=== PATIENT | male | born 1950 ===

== ENCOUNTER 2017-01-08 22:08 | Inpatient (IN) | payer MEDICAID, OTHER ==
[2017-01-08 22:08] VITALS: BMI 28.1
--- NOTE | 2017-01-08 22:24 | ED PDOC ---
Arrival/HPI - General Chief Complaint: Lower Extremity Problem/Injury Time Seen by Provider: 01/08/17 22:14 Historian: Patient - History of Present Illness Narrative History of Present Illness (Text): 01/08/17 22:24 Andrew Ball is a 66 year old male, whose past medical history includes asthma , who presents to the Emergency department complaining of worsening right lower leg redness for the past 2 days. Patient reports associated swelling and discharge from the area. Patient denies any fever, chills, chest pain, shortness of breath, nausea, vomiting, back pain, neck pain, headache, dizziness , or any other complaints. Time/Duration: < week (2 days) Symptom Onset: Gradual Symptom Course: Unchanged Activities at Onset: Rest, Light Context: Home Past Medical History - Provider Review Nursing Documentation Reviewed: Yes - Infectious Disease Hx of Infectious Diseases: None - Tetanus Immunization Tetanus Immunization: Unknown - Cardiac Hx Cardiac Disorders: Yes - Pulmonary Hx Asthma: Yes ("OCCASSIONALLY" BUT NO INHALERS/MEDS) - Neurological Hx Alzheimer's Disease: No Hx Dementia: No Hx Migraine: No Hx Parkinson's Disease: No Hx Seizures: No Hx Transient Ischemic Attacks (TIA): No - HEENT Hx HEENT Disorder: Yes (BILAT." EYE IRRITATION FOR A WHILE") Hx Cataracts: Yes (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) Hx Glaucoma: Yes (LEFT EYE WITH SURGERY DONE) - Renal Hx Renal Disorder: No - Endocrine/Metabolic Hx Endocrine Disorders: No - Hematological/Oncological Hx Anemia: No - Integumentary Other/Comment: "sometimes I get an allergy from soap detergent." - Musculoskeletal/Rheumatological Hx Falls: Yes - Gastrointestinal Other/Comment: Ventral hernia for 2 months - Genitourinary/Gynecological Hx Genitourinary Disorders: Yes (INCARCERATED VENTRAL HERNIA) - Psychiatric Hx Anxiety: Yes Hx Substance Use: No - Surgical History Other/Comment: Eye surgery - Anesthesia Hx Anesthesia: Yes Hx Anesthesia Reactions: No Hx Malignant Hyperthermia: No - Suicidal Assessment Feels Threatened In Home Enviroment: No Family/Social History - Physician Review Nursing Documentation Reviewed: Yes Family/Social History: Unknown Family HX Smoking Status: Never Smoked Hx Alcohol Use: No Hx Substance Use: No Allergies/Home Meds Allergies/Adverse Reactions: Allergies No Known Allergies Allergy (Verified 01/08/17 22:14) Home Medications: Home Meds Medication Instructions Recorded Confirmed QUEtiapine [Seroquel XR] 150 mg PO DAILY 10/14/13 01/08/17 Review of Systems - Physician Review All systems were reviewed & negative as marked: Yes - Review of Systems Constitutional: Normal. absent: Fevers Eyes: Normal ENT: Normal Respiratory: Normal. absent: SOB, Cough Cardiovascular: Normal. absent: Chest Pain Gastrointestinal: Normal. absent: Abdominal Pain, Diarrhea, Nausea, Vomiting Genitourinary Male: Normal Musculoskeletal: Normal. absent: Back Pain, Neck Pain Skin: Cellulitis (+bilateral lower extremity erythema) Neurological: Normal. absent: Headache, Dizziness Endocrine: Normal Hemo/Lymphatic: Normal Psychiatric: Normal Physical Exam Vital Signs Reviewed: Yes Vital Signs Temp Pulse Resp BP Pulse Ox 01/09/17 01:51 88 16 99 01/09/17 01:11 98.1 F 82 18 107/68 98 01/08/17 22:21 98.9 F 88 16 119/78 94 L 01/08/17 22:15 98.9 F 88 16 119/78 94 L Temperature: Afebrile Blood Pressure: Normal Pulse: Regular Respiratory Rate: Normal Appearance: Positive for: Well-Appearing, Non-Toxic, Comfortable Pain Distress: None Mental Status: Positive for: Alert and Oriented X 3 - Systems Exam Head: Present: Atraumatic, Normocephalic Pupils: Present: PERRL Extroacular Muscles: Present: EOMI Conjunctiva: Present: Normal Mouth: Present: Moist Mucous Membranes Neck: Present: Normal Range of Motion Respiratory/Chest: Present: Clear to Auscultation, Good Air Exchange. No: Respiratory Distress, Accessory Muscle Use Cardiovascular: Present: Regular Rate and Rhythm, Normal S1, S2. No: Murmurs Abdomen: Present: Normal Bowel Sounds. No: Tenderness, Distention, Peritoneal Signs Back: Present: Normal Inspection Upper Extremity: Present: Normal Inspection. No: Cyanosis, Edema Lower Extremity: Present: Erythema (Right lower extremity erythema with swelling ). No: Edema Neurological: Present: GCS=15, CN II-XII Intact, Speech Normal Skin: Present: Warm, Dry, Normal Color. No: Rashes Psychiatric: Present: Alert, Oriented x 3, Normal Insight, Normal Concentration Medical Decision Making ED Course and Treatment: 01/08/17 22:24 Impression: 66 year old male complaining of right lower extremity erythema, swelling, and discharge for 2 days. Differential Diagnosis included but are not limited to: cellulitis vs. DVT Plan: -- US Duplex Lower Extremities -- EKG -- Labs, VBG, blood cultures -- Vanco -- Zosyn -- Reassess and disposition Progress Notes: Reviewed EKG, NSR at [address]BBB. Non-specific ST/T wave changes. 01/08/17 23:52 Case discussed with medical case worker integrated logistics operations manager, who is aware and agrees with plan. 01/08/17 23:55 Reviewed sono, US Duplex Lower Extremities are negative for DVT. Case discussed with Dr. Smallwood, who is aware and agrees with plan. Pt will be admitted to [facility] for right leg cellulitis under the hospitalist service. Pt in no acute distress. Discussed results and hospital observation plan with pt , who is aware and verbalizes understanding. - Lab Interpretations Microbiology Results: Microbiology Results 01/08/17 23:12 Blood-Venous Blood Culture - Preliminary NO GROWTH AFTER 24 HOURS 01/08/17 22:42 Blood-Venous Blood Culture - Preliminary NO GROWTH AFTER 24 HOURS Lab Results: 01/08/17 23:12 01/08/17 23:12 Lab Results 01/08/17 23:12: pO2 30, VBG pH 7.34, VBG pCO2 54.0, VBG HCO3 29.1 H, VBG Total CO2 30.8 H, VBG O2 Sat (Calc) 54.3, VBG Base Excess 2.1 H, VBG Potassium 4.7, Sodium 135.0, Chloride 100.0, Glucose 105, Lactate 1.3, FiO2 21.0, Venous Blood Potassium 4.7 01/08/17 23:12: Sodium 138, Chloride 98, Potassium 3.7, Carbon Dioxide 27, Anion Gap 17, BUN 32 H, Creatinine 1.1, Est GFR ( Amer) > 60, Est GFR ( Non-Af Amer) > 60, Random Glucose 104, Calcium 9.5, Total Bilirubin 1.7 H, AST 78 H, ALT 67 H, Alkaline Phosphatase 66, Total Protein 8.2, Albumin 4.3, Globulin 3.9, Albumin/Globulin Ratio 1.1 01/08/17 23:12: WBC 9.9, RBC 4.52, Hgb 13.4 L, Hct 39.8 L, MCV 88.1, MCH 29.6, MCHC 33.7, RDW 13.0, Plt Count 162, MPV 10.7, Gran % 81.4 H, Lymph % (Auto) 8.8 L, [place] % (Auto) 9.0 H, Eos % (Auto) 0.7 L, Baso % (Auto) 0.1, Gran # 8.03 H, Lymph # 0.9 L, [place] # 0.9 H, Eos # 0.1, Baso # 0.01 I have reviewed the lab results: Yes - RAD Interpretation Radiology Orders: 01/08/17 22:52 DUPLEX LOWER EXTRM VEIN RIGHT [US] Stat - EKG Interpretation Interpreted by ED Physician: Yes Type: 12 lead EKG - Medication Orders Current Medication Orders: Albuterol/Ipratropium (Duoneb 3 Mg/0.5 Mg (3 Ml) Ud) 3 ml IH Q2H PRN PRN Reason: Shortness of Breath Albuterol/Ipratropium (Duoneb 3 Mg/0.5 Mg (3 Ml) Ud) 3 ml IH TIDRESP [facility] Last Admin: 01/09/17 20:23 Dose: 3 ml Famotidine (Pepcid) 20 mg PO 1400 [facility] Stop: 01/13/17 14:01 Last Admin: 01/09/17 14:13 Dose: 20 mg Guaifenesin (Robitussin) 200 mg PO Q4H PRN PRN Reason: Cough and congestion Heparin Sodium (Porcine) (Heparin) 5,000 units SC Q12 JOHN PRN Reason: Protocol Last Admin: 01/09/17 21:43 Dose: 5,000 units Ceftriaxone Sodium (Rocephin 1 Gram Ivpb) 1 gm in 100 mls @ 100 mls/hr IVPB DAILY JOHN PRN Reason: Protocol Last Admin: 01/09/17 09:47 Dose: 100 mls/hr Linezolid (Zyvox 600mg/300ml D5w) 600 mg in 300 mls @ 200 mls/hr IVPB Q12 JOHN PRN Reason: Protocol Stop: 01/16/17 10:01 Last Admin: 01/09/17 21:44 Dose: 200 mls/hr Ibuprofen (Motrin Tab) 600 mg PO Q6H PRN PRN Reason: Pain, severe (8-10) Quetiapine Fumarate (Seroquel Xr) 150 mg PO DAILY JOHN PRN Reason: Protocol Last Admin: 01/09/17 09:50 Dose: 150 mg Re-Assess: Reassess Psych Meds Document 01/09/17 10:50 EP (Rec: 01/09/17 11:27 [place] [facility] [id number] Reassess Psych Med Effective Discontinued Medications Famotidine (Pepcid) 20 mg PO STAT STA Stop: 01/09/17 01:15 Last Admin: 01/09/17 01:45 Dose: 20 mg Heparin Sodium (Porcine) (Heparin) 5,000 units SC STAT STA PRN Reason: Protocol Stop: 01/09/17 01:29 Last Admin: 01/09/17 01:45 Dose: Heparin Sodium (Porcine) (Heparin) 5,000 units SC STAT JOHN PRN Reason: Protocol Stop: 01/09/17 07:01 Last Admin: 01/09/17 06:06 Dose: 5,000 units Vancomycin HCl (Vancomycin 1gm) 1 gm in 250 mls @ 167 mls/hr IVPB STAT STA PRN Reason: Protocol Stop: 01/08/17 23:58 Last Admin: 01/09/17 00:44 Dose: 167 mls/hr Piperacillin Sod/Tazobactam Sod (Zosyn 3.375 In Ns 100ml) 100 mls @ 200 mls/hr IVPB STAT STA PRN Reason: Protocol Stop: 01/08/17 22:58 Last Admin: 01/08/17 23:40 Dose: 200 mls/hr - Scribe Statement The provider has reviewed the documentation as recorded by the Jeana Robert Provider Attestation: Beatriz Robert All medical record entries made by the Jeana were at my direction and personally dictated by me. I have reviewed the chart and agree that the record accurately reflects my personal performance of the history, physical exam, medical decision making, and the department course for this patient. I have also personally directed, reviewed, and agree with the discharge instructions and disposition. Disposition/Present on Arrival - Present on Arrival Any Indicators Present on Arrival: No History of DVT/PE: Yes History of Uncontrolled Diabetes: No Urinary Catheter: No History of Decub. Ulcer: No History Surgical Site Infection Following: None - Disposition Have Diagnosis and Disposition been Completed?: Yes Diagnosis: Cellulitis of lower leg Disposition: HOSPITALIZED Disposition Time: 23:30 Condition: GOOD
[2017-01-08] MEDS ORDERED: Piperacillin/Tazobact 3.375 gm 100 ML IVPB STA (22:29)
[2017-01-08] MEDS ORDERED: Vancomycin 1gm in NS 250ml 1 GM/250 ML BAG IVPB STA (22:29)
[2017-01-08 23:33] LABS: VENOUS BLOOD GAS BASE EXCESS 2.1 mmol/L (0.0-2.0); VENOUS BLOOD GAS PO2 30 mm/Hg (30-55); VENOUS BLOOD PH 7.34 (7.32-7.43)
[2017-01-08 23:36] LABS: BASO # 0.01 K/mm3 (0.0-2.0); BASO % 0.1 % (0.0-3.0); EOS # 0.1 (0.0-0.7); EOS % 0.7 % (1.5-5.0); GRAN # 8.03 (1.4-6.5); GRAN % 81.4 % (50.0-68.0); HEMOGLOBIN 13.4 gm/dL (14.0-18.0); LYMPH # 0.9 (1.2-3.4); LYMPH % 8.8 % (22.0-35.0); MEAN CELL VOLUME 88.1 fL (80.0-105.0); MEAN CORPUSCULAR HEMOGLOBIN 29.6 pg (25.0-35.0); MEAN CORPUSCULAR HGB CONC 33.7 g/dl (31.0-37.0); MEAN PLATELET VOLUME 10.7 fl (7.0-11.0); MONO # 0.9 (0.1-0.6); PLATELET COUNT 162 10^3/uL (120.0-450.0); RBC 4.52 10^6/uL (3.5-6.1); WHITE BLOOD COUNT 9.9 10^3/ul (4.5-11.0)
[2017-01-08 23:43] LABS: ALB/GLOB RATIO 1.1 (1.1-1.8); ALBUMIN 4.3 g/dL (3.0-4.8); ALT/SGPT 67 U/L (7-56); AST/SGOT 78 U/L (15-59); BLOOD UREA NITROGEN 32 mg/dL (7-21); CALCIUM 9.5 mg/dL (8.4-10.5); GFR AFRICAN-AMERICAN > 60; GFR NON-AFRICAN AMERICAN > 60
--- NOTE | 2017-01-09 02:51 | CP.PCM.HP ---
<THOR HOPSON - Last Filed: 01/09/17 03:02> History of Present Illness - History of Present Illness History of Present Illness: CC: Swelling and tenderness in Right leg for 2 day duration 66 year old obese male patient with a past medical history of depression and anxiety [place] [facility] [place] with complaints of swelling and pain in his right leg. Patient is a resident of the [facility] where he states he doesnt ambulate much. He states that the swelling and erythema started two days ago in the mid-calf region and slowly spread upward to the knee and downward to his toes. Patient describes the pain as sharp and states that it waxes and wanes throughout the day. He states that the pain is exacerbated with movement, and has not found any alleviating factors. The pain radiates to his knee, but does not go above. Patient denies any recent injury, puncture wound, seafood consumption, fresh water contact, outdoor activities, gardening, insect/animal bites. Patient denies chest pain, shortness of breath, dizziness, n/v/d, headache. PMD: Dr. Sang Morales PMH: as above PSH: cataract repair (Rt. eye) SH: patient denies tobacco, alcohol, illicit drug consumption FH: Mother and Father- both alive with DM II and HTN Allergies: NKDA Physical Examination Constitutional: Well nourished male, a&o x 4, NAD Head and Neck: soft, supple, no jvd appreciated, no cervical/head mass Eyes: nonicteric sclera, eom intact Cardio: RRR, S1 and S2 present, no M/R/G Pulm: CTAB, no accessory muscle use, equal nml breath sounds bilaterally Abd: s/nt/nd, nbs x 4 q, no palpable masses Derm: +erythema, + ulcer (healed;left calf), - crepitus Ext : LLE: +edema , +calf tenderness, +erythema, +discharge, - exudates Present on Admission - Present on Admission Any Indicators Present on Admission: No Review of Systems - Constitutional Constitutional: As Per HPI. absent: Chills, Fever, Headache - Cardiovascular Cardiovascular: Leg Edema, Leg Ulcers, Pedal Edema. absent: Chest Pain - Respiratory Respiratory: absent: Dyspnea, Wheezing - Gastrointestinal Gastrointestinal: absent: Abdominal Pain, Diarrhea, Nausea, Vomiting - Integumentary Integumentary: Erythema, Skin Ulcer, Wounds - Neurological Neurological: absent: Dizziness, Headaches Past Patient History - Infectious Disease Hx of Infectious Diseases: None - Tetanus Immunizations Tetanus Immunization: Unknown - Past Medical History & Family History Past Medical History?: Yes - Past Social History Smoking Status: Never Smoked - CARDIAC Hx Cardiac Disorders: Yes - PULMONARY Hx Asthma: Yes ("OCCASSIONALLY" BUT NO INHALERS/MEDS) - NEUROLOGICAL Hx Alzheimer's Disease: No Hx Dementia: No Hx Migraine: No Hx Parkinson's Disease: No Hx Seizures: No Hx Transient Ischemic Attacks (TIA): No - HEENT Hx HEENT Problems: Yes (BILAT." EYE IRRITATION FOR A WHILE") Hx Cataracts: Yes (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) Hx Glaucoma: Yes (LEFT EYE WITH SURGERY DONE) - RENAL Hx Chronic Kidney Disease: No - ENDOCRINE/METABOLIC Hx Endocrine Disorders: No - HEMATOLOGICAL/ONCOLOGICAL Hx Anemia: No - INTEGUMENTARY Other/Comment: "sometimes I get an allergy from soap detergent." - MUSCULOSKELETAL/RHEUMATOLOGICAL Hx Falls: Yes - GASTROINTESTINAL Other/Comment: Ventral hernia for 2 months - GENITOURINARY/GYNECOLOGICAL Hx Genitourinary Disorders: Yes (INCARCERATED VENTRAL HERNIA) - PSYCHIATRIC Hx Anxiety: Yes Hx Substance Use: No - SURGICAL HISTORY Other/Comment: Eye surgery - ANESTHESIA Hx Anesthesia: Yes Hx Anesthesia Reactions: No Hx Malignant Hyperthermia: No Meds Allergies/Adverse Reactions: Allergies Allergy/AdvReac Type Severity Reaction Status Date / Time No Known Allergies Allergy Verified 01/08/17 22:14 Results - Vital Signs Recent Vital Signs: Last Vital Signs Temp 98.1 F 01/09/17 01:11 Pulse 88 01/09/17 01:51 Resp 16 01/09/17 01:51 BP 107/68 01/09/17 01:11 Pulse Ox 99 01/09/17 01:51 - Labs Result Diagrams: 01/08/17 23:12 01/08/17 23:12 Assessment & Plan - Assessment and Plan (Free Text) Assessment: Assessment 66 year old male PMH depression and anxiety presents to ED today with Cellulitis. Plan: Plan 1.Cellulitis -Web spaces between toes of right foot are dry and broken, maybe serve as a nidus for possible infection -Blood cultures; results pending will adjust abx regimen accordingly -Continue with vancomycin 1 gm IV q 12 -Continue with c eftriaxone 1 gm in 100 mls/hr IVPB qD -ESR and CRP; results pending -Continue to monitor erythema, borders were outlined; check if erythema spreads beyond the borders 2.Depression -Continue with home medication; Seroquel 150 mg PO qD DVT/GI prophylaxis: 5000 IU heparin q 12, Pepcid 20 mg qD <Selin,Daniele Q - Last Filed: 01/09/17 07:11> Results - Vital Signs Recent Vital Signs: Last Vital Signs Temp 98.8 F 01/09/17 02:47 Pulse 83 01/09/17 02:47 Resp 18 01/09/17 02:47 BP 107/65 01/09/17 02:47 Pulse Ox 99 01/09/17 01:51 - Labs Result Diagrams: 01/08/17 23:12 01/08/17 23:12 Attending/Attestation - Attestation I have personally seen and examined this patient.: Yes I have fully participated in the care of the patient.: Yes I have reviewed all pertinent clinical information: Yes
[2017-01-09] MEDS: cefTRIAXone 1 gm 1 GM/100 ML BAG IVPB SCH (09:47)
[2017-01-09] MEDS: QUEtiapine 150 mg XR Tab PO SCH (09:50)
[2017-01-09] MEDS ORDERED: MethylPREDNISolone 40 mg Vial IVP SCH (10:00)
[2017-01-09] MEDS ORDERED: Vancomycin 1gm in NS 250ml 1 GM/250 ML BAG IVPB SCH (10:00)
--- NOTE | 2017-01-09 10:11 | CARD ---
APPROVED REPORT EKG Measurement Heart [id number] <Conclusion> Normal sinus rhythm Right bundle branch block LAD
--- NOTE | 2017-01-09 11:26 | CP.PCM.CON ---
History of Present Illness - History of Present Illness History of Present Illness: 66 year old male with PMH of depression and anxiety, history of right eye cataract repair, history of incarcerated ventral abdominal hernia came in to [facility] from the [facility] where he lives because of right lower extremity swelling and pain for the past 2-3 days. He denies animal contacts, has not been to wooded areas. He states he may have been bitten by mosquitoes. He does not recall specific trauma to the leg. He denies fever or chills, no nausea or vomiting, no chest pain, no SOB, no headache or dizziness, no abdominal pain, no diarrhea, no dysuria, no soaking of his feet in water. Infectious Diseases consult is requested to further evaluate and manage. Review of Systems - Review of Systems All systems: reviewed and no additional remarkable complaints except (as per HPI ) Past Patient History - Infectious Disease Hx of Infectious Diseases: None - Tetanus Immunizations Tetanus Immunization: Unknown - Past Medical History & Family History Past Medical History?: Yes - Past Social History Smoking Status: Never Smoked - CARDIAC Hx Cardiac Disorders: Yes - PULMONARY Hx Asthma: Yes ("OCCASSIONALLY" BUT NO INHALERS/MEDS) - NEUROLOGICAL Hx Alzheimer's Disease: No Hx Dementia: No Hx Migraine: No Hx Parkinson's Disease: No Hx Seizures: No Hx Transient Ischemic Attacks (TIA): No - HEENT Hx HEENT Problems: Yes (BILAT." EYE IRRITATION FOR A WHILE") Hx Cataracts: Yes (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) Hx Glaucoma: Yes (LEFT EYE WITH SURGERY DONE) - RENAL Hx Chronic Kidney Disease: No - ENDOCRINE/METABOLIC Hx Endocrine Disorders: No - HEMATOLOGICAL/ONCOLOGICAL Hx Anemia: No - INTEGUMENTARY Other/Comment: "sometimes I get an allergy from soap detergent." - MUSCULOSKELETAL/RHEUMATOLOGICAL Hx Falls: Yes - GASTROINTESTINAL Other/Comment: Ventral hernia for 2 months - GENITOURINARY/GYNECOLOGICAL Hx Genitourinary Disorders: Yes (INCARCERATED VENTRAL HERNIA) - PSYCHIATRIC Hx Anxiety: Yes Hx Substance Use: No - SURGICAL HISTORY Other/Comment: Eye surgery - ANESTHESIA Hx Anesthesia: Yes Hx Anesthesia Reactions: No Hx Malignant Hyperthermia: No Meds Allergies/Adverse Reactions: Allergies Allergy/AdvReac Type Severity Reaction Status Date / Time No Known Allergies Allergy Verified 01/08/17 22:14 - Medications Medications: Current Medications Famotidine (Pepcid) 20 mg PO 1400 JOHN Stop: 01/13/17 14:01 Ceftriaxone Sodium (Rocephin 1 Gram Ivpb) 1 gm in 100 mls @ 100 mls/hr IVPB DAILY JOHN PRN Reason: Protocol Linezolid (Zyvox 600mg/300ml D5w) 600 mg in 300 mls @ 200 mls/hr IVPB Q12 JOHN PRN Reason: Protocol Stop: 01/16/17 10:01 Quetiapine Fumarate (Seroquel Xr) 150 mg PO DAILY JOHN PRN Reason: Protocol Physical Exam - Constitutional Appears: Non-toxic, No Acute Distress - Head Exam Head Exam: NORMAL INSPECTION - ENT Exam ENT Exam: Mucous Membranes Moist - Neck Exam Neck exam: Negative for: Lymphadenopathy, Meningismus - Respiratory Exam Respiratory Exam: Decreased Breath Sounds - Cardiovascular Exam Cardiovascular Exam: +S1, +S2 - GI/Abdominal Exam GI & Abdominal Exam: Soft. absent: Tenderness - Extremities Exam Additional comments: right leg with erythema, tenderness and swelling, without purulence noted Results - Vital Signs Recent Vital Signs: Last Vital Signs Temp 99.6 F 01/09/17 07:42 Pulse 82 01/09/17 07:42 Resp 20 01/09/17 07:42 BP 121/57 L 01/09/17 07:42 Pulse Ox 94 L 01/09/17 07:42 - Labs Result Diagrams: 01/08/17 23:12 01/08/17 23:12 Labs: Laboratory Results - last 24 hr 01/09/17 06:25 APTT 30.9 H Assessment & Plan - Assessment and Plan (Free Text) Plan: Assessment Acute right leg cellulitis, R/O DVT depression and anxiety history of right eye cataract repair history of incarcerated ventral abdominal hernia Plan Started the patient on Zyvox and Rocephin pending blood cx, ultrasound of the legs will monitor clinical response
[2017-01-09] MEDS: Linezolid 600 mg in D5W 300 ml 600 MG/300 ML BAG IVPB SCH ×2 (11:27→21:44)
[2017-01-09] MEDS ORDERED: Albuterol-Ipratrop 3 mg / 0.5 (3 ml) UD IH SCH (11:30)
[2017-01-09] MEDS ORDERED: Albuterol-Ipratrop 3 mg / 0.5 (3 ml) UD IH PRN (12:55)
--- NOTE | 2017-01-09 13:38 | US ---
PROCEDURE: Right lower extremity venous US HISTORY: Leg pain and swelling. Evaluate for DVT. PHYSICIAN(S): Wojciech Anton M.D. TECHNIQUE: Duplex sonography and color-flow Doppler with graded compression were used to evaluate the deep venous system of the right lower extremity. The exam is very limited by edema. The tibial veins are not well seen FINDINGS: The visualized deep venous system of the right lower extremity is sonographically normal and compressible. Normal waveforms and augmentation are seen. There is no sonographic evidence for deep venous thrombosis in the visualized segments of the right lower extremity. There are enlarged inguinal lymph nodes present. IMPRESSION: 1. No sonographic evidence for deep venous thrombosis in the visualized segments of the right lower extremity. 2. Limited study.
[2017-01-09] MEDS: Albuterol-Ipratrop 3 mg / 0.5 (3 ml) UD IH SCH ×2 (13:46→20:23)
--- NOTE | 2017-01-09 15:53 | RAD ---
PROCEDURE: Right Foot Radiographs. HISTORY: r/o osteo COMPARISON: None. FINDINGS: BONES: Normal. No fracture. JOINTS: Normal. SOFT TISSUES: Normal. OTHER FINDINGS: None. IMPRESSION: Normal right foot radiographs.
--- NOTE | 2017-01-09 15:55 | RAD ---
PROCEDURE: Radiographs of the right tibia and fibula. HISTORY: R leg cellulitis r/o osteo COMPARISON: None available. TECHNIQUE: Frontal and lateral views obtained. FINDINGS: BONES: No fracture or destructive lesion. JOINT SPACES: Unremarkable. OTHER FINDINGS: None. IMPRESSION: No evidence of osteomyelitis
--- NOTE | 2017-01-09 15:55 | RAD ---
PROCEDURE: CHEST RADIOGRAPH, 1 VIEW HISTORY: cough, sob COMPARISON: None available. FINDINGS: LUNGS: Clear. PLEURA: No pneumothorax or pleural fluid seen. CARDIOVASCULAR: Normal. OSSEOUS STRUCTURES: No significant abnormalities. VISUALIZED UPPER ABDOMEN: Normal. OTHER FINDINGS: None. IMPRESSION: No active disease.
[2017-01-09 16:57] LABS: HEPATITIS B SURFACE AG NEGATIVE (NEGATIVE)
[2017-01-09 18:52] LABS: HEPATITIS A IGM NEGATIVE (NEGATIVE); HEPATITIS B CORE AB NEGATIVE (NEGATIVE)
[2017-01-09 19:04] LABS: HEPATITIS C ANTIBODY NEGATIVE (NEGATIVE)
[2017-01-10] MEDS: Albuterol-Ipratrop 3 mg / 0.5 (3 ml) UD IH SCH ×3 (07:11→19:31)
[2017-01-10 07:50] LABS: ALB/GLOB RATIO 1.2 (1.1-1.8); ALT/SGPT 85 U/L (7-56); AST/SGOT 67 U/L (15-59); BLOOD UREA NITROGEN 25 mg/dL (7-21); CALCIUM 9.5 mg/dL (8.4-10.5); GFR AFRICAN-AMERICAN > 60; GFR NON-AFRICAN AMERICAN > 60
[2017-01-10] MEDS: cefTRIAXone 1 gm 1 GM/100 ML BAG IVPB SCH (11:08)
[2017-01-10] MEDS: QUEtiapine 150 mg XR Tab PO SCH (11:11)
--- NOTE | 2017-01-10 11:30 | CP.PCM.PN ---
Subjective - Date & Time of Evaluation Date of Evaluation: 01/10/17 Time of Evaluation: 08:40 - Subjective Subjective: Comfortable, still right leg swelling and pain, no fevers overnight. Objective - Vital Signs/Intake and Output Vital Signs (last 24 hours): Temp Pulse Resp BP Pulse Ox 97.8 F 71 20 100/68 96 01/10/17 07:30 01/10/17 07:30 01/10/17 07:30 01/10/17 07:30 01/10/17 07:30 Intake and Output: 01/10/17 01/10/17 06:59 18:59 Intake Total 1280 Output Total 2000 Balance -720 - Medications Medications: Current Medications Albuterol/Ipratropium (Duoneb 3 Mg/0.5 Mg (3 Ml) Ud) 3 ml IH Q2H PRN PRN Reason: Shortness of Breath Albuterol/Ipratropium (Duoneb 3 Mg/0.5 Mg (3 Ml) Ud) 3 ml IH TIDRESP [facility] Last Admin: 01/10/17 07:11 Dose: 3 ml Famotidine (Pepcid) 20 mg PO 1400 [facility] Stop: 01/13/17 14:01 Last Admin: 01/09/17 14:13 Dose: 20 mg Guaifenesin (Robitussin) 200 mg PO Q4H PRN PRN Reason: Cough and congestion Heparin Sodium (Porcine) (Heparin) 5,000 units SC Q12 JOHN PRN Reason: Protocol Last Admin: 01/09/17 21:43 Dose: 5,000 units Ceftriaxone Sodium (Rocephin 1 Gram Ivpb) 1 gm in 100 mls @ 100 mls/hr IVPB DAILY [facility] PRN Reason: Protocol Last Admin: 01/09/17 09:47 Dose: 100 mls/hr Linezolid (Zyvox 600mg/300ml D5w) 600 mg in 300 mls @ 200 mls/hr IVPB Q12 JOHN PRN Reason: Protocol Stop: 01/16/17 10:01 Last Admin: 01/09/17 21:44 Dose: 200 mls/hr Ibuprofen (Motrin Tab) 600 mg PO Q6H PRN PRN Reason: Pain, severe (8-10) Quetiapine Fumarate (Seroquel Xr) 150 mg PO DAILY [facility] PRN Reason: Protocol Last Admin: 01/09/17 09:50 Dose: 150 mg - Labs Labs: 01/10/17 06:45 APTT 28.2 Seconds (23.7-30.8) 01/10/17 06:45 - Constitutional Appears: Non-toxic, No Acute Distress - Head Exam Head Exam: NORMAL INSPECTION - Neck Exam Neck Exam: absent: Meningismus - Respiratory Exam Respiratory Exam: Decreased Breath Sounds - Cardiovascular Exam Cardiovascular Exam: +S1, +S2 - GI/Abdominal Exam GI & Abdominal Exam: Soft. absent: Tenderness Assessment and Plan - Assessment and Plan (Free Text) Plan: Assessment Acute right leg cellulitis, with no evidence of DVT depression and anxiety history of right eye cataract repair history of incarcerated ventral abdominal hernia Plan continue Zyvox and Rocephin day 2 pending blood cx and wound cx patient needs to continue leg elevation will continue to monitor clinical response
[2017-01-10] MEDS ORDERED: guaiFENesin 600 mg ER Tab PO PRN (12:55)
[2017-01-10] MEDS: Linezolid 600 mg in D5W 300 ml 600 MG/300 ML BAG IVPB SCH ×2 (13:11→21:39)
[2017-01-10 13:23] LABS: BASO # 0.02 K/mm3 (0.0-2.0); BASO % 0.2 % (0.0-3.0); EOS # 0.1 (0.0-0.7); EOS % 0.6 % (1.5-5.0); GRAN # 8.05 (1.4-6.5); HEMOGLOBIN 12.4 gm/dL (14.0-18.0); LYMPH % 9.9 % (22.0-35.0); MEAN CELL VOLUME 88.2 fL (80.0-105.0); MEAN CORPUSCULAR HEMOGLOBIN 29.2 pg (25.0-35.0); MEAN CORPUSCULAR HGB CONC 33.2 g/dl (31.0-37.0); MONO # 1.2 (0.1-0.6); MONO % 11.3 % (1.0-6.0); PLATELET COUNT 194 10^3/uL (120.0-450.0); RBC 4.24 10^6/uL (3.5-6.1); RED CELL DISTRIBUTION WIDTH 13.2 % (11.5-14.5); WHITE BLOOD COUNT 10.3 10^3/ul (4.5-11.0)
[2017-01-10] MEDS: Clotrimazole 1% Cream(30 gm) TOP SCH ×2 (14:09→21:06)
--- NOTE | 2017-01-10 16:45 | CP.PCM.PN ---
Addendum entered and electronically signed by Dalia Ford DO 01/10/17 16:59: Please Disregard this Note. Entered in error. Original Note: <Dalia Ford - Last Filed: 01/10/17 16:42> Subjective - Date & Time of Evaluation Date of Evaluation: 01/10/17 Time of Evaluation: 09:15 - Subjective Subjective: Pt seen and examined this morning at bedside. Pt says hes feeling better today , reports less fatigue, no complaints. Denies dizziness, CP, SOB, n/v, diarrhea. Objective - Vital Signs/Intake and Output Vital Signs (last 24 hours): Temp Pulse Resp BP Pulse Ox 97.8 F 71 20 100/68 96 01/10/17 07:30 01/10/17 07:30 01/10/17 07:30 01/10/17 07:30 01/10/17 07:30 Intake and Output: 01/10/17 01/10/17 06:59 18:59 Intake Total 1280 640 Output Total 2000 600 Balance -720 40 - Medications Medications: Current Medications Albuterol/Ipratropium (Duoneb 3 Mg/0.5 Mg (3 Ml) Ud) 3 ml IH Q2H PRN PRN Reason: Shortness of Breath Albuterol/Ipratropium (Duoneb 3 Mg/0.5 Mg (3 Ml) Ud) 3 ml IH TIDRESP [facility] Last Admin: 01/10/17 13:26 Dose: 3 ml Clotrimazole (Lotrimin 1%) 0 gm TOP BID [facility] Last Admin: 01/10/17 14:09 Dose: Not Given Famotidine (Pepcid) 20 mg PO 1400 [facility] Stop: 01/13/17 14:01 Last Admin: 01/10/17 16:04 Dose: 20 mg Guaifenesin (Robitussin) 200 mg PO Q4H PRN PRN Reason: Cough and congestion Guaifenesin (Mucinex La) 600 mg PO BID PRN PRN Reason: Cough and congestion Heparin Sodium (Porcine) (Heparin) 5,000 units SC Q12 [facility] PRN Reason: Protocol Last Admin: 01/10/17 11:09 Dose: 5,000 units Ceftriaxone Sodium (Rocephin 1 Gram Ivpb) 1 gm in 100 mls @ 100 mls/hr IVPB DAILY [facility] PRN Reason: Protocol Last Admin: 01/10/17 11:08 Dose: 100 mls/hr Linezolid (Zyvox 600mg/300ml D5w) 600 mg in 300 mls @ 200 mls/hr IVPB Q12 [facility] PRN Reason: Protocol Stop: 01/16/17 10:01 Last Admin: 01/10/17 13:11 Dose: 200 mls/hr Ibuprofen (Motrin Tab) 600 mg PO Q6H PRN PRN Reason: Pain, severe (8-10) Quetiapine Fumarate (Seroquel Xr) 150 mg PO DAILY [facility] PRN Reason: Protocol Last Admin: 01/10/17 11:11 Dose: 150 mg - Labs Labs: 01/10/17 10:30 01/10/17 06:45 APTT 28.2 Seconds (23.7-30.8) 01/10/17 06:45 - Constitutional Appears: Well, Non-toxic, No Acute Distress - Head Exam Head Exam: ATRAUMATIC, NORMOCEPHALIC - Eye Exam Eye Exam: EOMI - Respiratory Exam Respiratory Exam: Clear to Ausculation Bilateral. absent: Rales, Rhonchi, Wheezes, Stridor - Cardiovascular Exam Cardiovascular Exam: RRR, +S1, +S2 - GI/Abdominal Exam GI & Abdominal Exam: Soft, Normal Bowel Sounds. absent: Tenderness - Extremities Exam Additional comments: Right distal extremity Red, erythematous w/ bulla. Sparring Ankle - Psychiatric Exam Psychiatric exam: Normal Affect, Normal Mood Assessment and Plan - Assessment and Plan (Free Text) Assessment: 65yo M with symptomatic microcytic anemia, UTI, HTN, ischemia on EkG, bilateral leg edema, chronic skin changes Plan: 1.Symptomatic microcytic anemia - improved 5 units transfused, HBG 4.1->9.8 Positive occult blood Start full liquid diet GI recs appreciated prep for EGD/colonoscopy tomorrow, golytely 4L, NPO after midnight, switch to PO PTX 2.UTI vs prostatis Suprapubic tenderness noted on exam Rocephin started Blood culture NG x1d Russell placed 2/[address], 4800 mL drained F/u urine culture Void trial, PSA Uro recs appreciated d/c with russell with leg bag, f/u outpt 3.HTN Metoprolol 25mg PO, Hydralazine PRN Pt no longer NPO, change metoprolol to 25mg PO BID TSH 1.52 4.Ischemic changes on EkG EkG showed sinus tachycardia with possible PVCs, possible LV enlargement, ST depressions Serial trops neg x3 (<0.01, 0.02, <0.01) Repeat EkG F/u ECHO Cardio recs appreciated cont. Lopressor and PTX, cont. tele, ok with colonoscopy 5.Bilateral leg edema Edema has decreased from yesterday Lasix given x2 (20mg x1 and 40mg x1) F/u ECHO, hepatitis panel F/u cardio recs 6.Chronic skin changes Stasis dermatitis vs autoimmune process HbA1C 6 HIV neg F/u IBIS 7.Transaminitis - resolved Hep panel neg Case seen, reviewed and discussed with attending Daila Ford PGY 1 <Bassem Lama B - Last Filed: 01/11/17 09:26> Objective - Vital Signs/Intake and Output Vital Signs (last 24 hours): Temp Pulse Resp BP Pulse Ox 98.4 F 74 20 111/69 96 01/11/17 07:30 01/11/17 07:30 01/11/17 07:30 01/11/17 07:30 01/11/17 07:30 Intake and Output: 01/11/17 01/11/17 06:59 18:59 Intake Total 780 Output Total 925 Balance -145 - Medications Medications: Current Medications Albuterol/Ipratropium (Duoneb 3 Mg/0.5 Mg (3 Ml) Ud) 3 ml IH Q2H PRN PRN Reason: Shortness of Breath Albuterol/Ipratropium (Duoneb 3 Mg/0.5 Mg (3 Ml) Ud) 3 ml IH TIDRESP [facility] Last Admin: 01/11/17 07:12 Dose: 3 ml Clotrimazole (Lotrimin 1%) 0 gm TOP BID [facility] Last Admin: 01/10/17 21:06 Dose: Not Given Famotidine (Pepcid) 20 mg PO 1400 [facility] Stop: 01/13/17 14:01 Last Admin: 01/10/17 16:04 Dose: 20 mg Guaifenesin (Robitussin) 200 mg PO Q4H PRN PRN Reason: Cough and congestion Last Admin: 01/10/17 22:44 Dose: 200 mg Guaifenesin (Mucinex La) 600 mg PO BID PRN PRN Reason: Cough and congestion Heparin Sodium (Porcine) (Heparin) 5,000 units SC Q12 [facility] PRN Reason: Protocol Last Admin: 01/10/17 21:39 Dose: 5,000 units Ceftriaxone Sodium (Rocephin 1 Gram Ivpb) 1 gm in 100 mls @ 100 mls/hr IVPB DAILY [facility] PRN Reason: Protocol Last Admin: 01/10/17 11:08 Dose: 100 mls/hr Linezolid (Zyvox 600mg/300ml D5w) 600 mg in 300 mls @ 200 mls/hr IVPB Q12 [facility] PRN Reason: Protocol Stop: 01/16/17 10:01 Last Admin: 01/10/17 21:39 Dose: 200 mls/hr Ibuprofen (Motrin Tab) 600 mg PO Q6H PRN PRN Reason: Pain, severe (8-10) Last Admin: 01/10/17 22:44 Dose: 600 mg Quetiapine Fumarate (Seroquel Xr) 150 mg PO DAILY [facility] PRN Reason: Protocol Last Admin: 01/10/17 11:11 Dose: 150 mg - Labs Labs: 01/11/17 06:30 01/11/17 06:30 APTT 28.1 Seconds (23.7-30.8) 01/11/17 06:30 Attending/Attestation - Attestation Notes (Text): Please ignore this progress note. This was entered in error.
--- NOTE | 2017-01-10 17:03 | CP.PCM.PN ---
<Dalia Ford - Last Filed: 01/10/17 17:00> Subjective - Date & Time of Evaluation Date of Evaluation: 01/10/17 Time of Evaluation: 09:15 - Subjective Subjective: Pt seen and examined this morning at bedside. Pt reports improvement in leg pain , still experiencing some shooting pains with movement. Pt reports little improvement in productive cough, describes feeling a mucous congestion in his chest. Pt is voluntarily breathing shallow to prevent coughing fits. Pt reports slight sore throat, denies watery/itchy eyes, runny nose. Denies Fever or chills. Objective - Vital Signs/Intake and Output Vital Signs (last 24 hours): Temp Pulse Resp BP Pulse Ox 97.8 F 71 20 100/68 96 01/10/17 07:30 01/10/17 07:30 01/10/17 07:30 01/10/17 07:30 01/10/17 07:30 Intake and Output: 01/10/17 01/10/17 06:59 18:59 Intake Total 1280 640 Output Total 2000 600 Balance -720 40 - Medications Medications: Current Medications Albuterol/Ipratropium (Duoneb 3 Mg/0.5 Mg (3 Ml) Ud) 3 ml IH Q2H PRN PRN Reason: Shortness of Breath Albuterol/Ipratropium (Duoneb 3 Mg/0.5 Mg (3 Ml) Ud) 3 ml IH TIDRESP [facility] Last Admin: 01/10/17 13:26 Dose: 3 ml Clotrimazole (Lotrimin 1%) 0 gm TOP BID [facility] Last Admin: 01/10/17 14:09 Dose: Not Given Famotidine (Pepcid) 20 mg PO 1400 [facility] Stop: 01/13/17 14:01 Last Admin: 01/10/17 16:04 Dose: 20 mg Guaifenesin (Robitussin) 200 mg PO Q4H PRN PRN Reason: Cough and congestion Guaifenesin (Mucinex La) 600 mg PO BID PRN PRN Reason: Cough and congestion Heparin Sodium (Porcine) (Heparin) 5,000 units SC Q12 [facility] PRN Reason: Protocol Last Admin: 01/10/17 11:09 Dose: 5,000 units Ceftriaxone Sodium (Rocephin 1 Gram Ivpb) 1 gm in 100 mls @ 100 mls/hr IVPB DAILY [facility] PRN Reason: Protocol Last Admin: 01/10/17 11:08 Dose: 100 mls/hr Linezolid (Zyvox 600mg/300ml D5w) 600 mg in 300 mls @ 200 mls/hr IVPB Q12 [facility] PRN Reason: Protocol Stop: 01/16/17 10:01 Last Admin: 01/10/17 13:11 Dose: 200 mls/hr Ibuprofen (Motrin Tab) 600 mg PO Q6H PRN PRN Reason: Pain, severe (8-10) Quetiapine Fumarate (Seroquel Xr) 150 mg PO DAILY [facility] PRN Reason: Protocol Last Admin: 01/10/17 11:11 Dose: 150 mg - Labs Labs: 01/10/17 10:30 01/10/17 06:45 APTT 28.2 Seconds (23.7-30.8) 01/10/17 06:45 - Constitutional Appears: Well, Non-toxic, No Acute Distress - Head Exam Head Exam: ATRAUMATIC, NORMOCEPHALIC - Eye Exam Eye Exam: EOMI - ENT Exam ENT Exam: Mucous Membranes Moist - Cardiovascular Exam Cardiovascular Exam: RRR, +S1, +S2 - GI/Abdominal Exam GI & Abdominal Exam: Soft, Normal Bowel Sounds. absent: Tenderness - Extremities Exam Additional comments: Right distal extremity. Red, erythematous w/ bullae; sparing ankle. - Psychiatric Exam Psychiatric exam: Normal Affect, Normal Mood Assessment and Plan - Assessment and Plan (Free Text) Assessment: 66yo M with cellulitis and cough Plan: 1.Cellulitis -US neg for DVT -XR neg for osteomyelitis -Cont. wound care for RLE bullae -Started heparin SC for DVT PPX -ID recs appreciated on linezolid/rocephin -Podiatry recs appreciated wound culture, consider MRI if nonspecific -PT eval tomorrow if improvement of RLE erythema/edema 2.Cough CXR neg Cont. Robitussin and nebs PRN, add mucinex PRN 3.Elevated transaminases Cont. to trend Abd US 4.Depression Cont. Seroquel GI PPX: PTX DVT PPX: Heparin SC Pt seen, examined, discussed with attending Dalia Ford PGY1 <Bassem Lama - Last Filed: 01/10/17 17:58> Objective - Vital Signs/Intake and Output Vital Signs (last 24 hours): Temp Pulse Resp BP Pulse Ox 97.8 F 71 20 100/68 96 01/10/17 07:30 01/10/17 07:30 01/10/17 07:30 01/10/17 07:30 01/10/17 07:30 Intake and Output: 01/10/17 01/10/17 06:59 18:59 Intake Total 1280 640 Output Total 2000 600 Balance -720 40 - Medications Medications: Current Medications Albuterol/Ipratropium (Duoneb 3 Mg/0.5 Mg (3 Ml) Ud) 3 ml IH Q2H PRN PRN Reason: Shortness of Breath Albuterol/Ipratropium (Duoneb 3 Mg/0.5 Mg (3 Ml) Ud) 3 ml IH TIDRESP [facility] Last Admin: 01/10/17 13:26 Dose: 3 ml Clotrimazole (Lotrimin 1%) 0 gm TOP BID [facility] Last Admin: 01/10/17 14:09 Dose: Not Given Famotidine (Pepcid) 20 mg PO 1400 [facility] Stop: 01/13/17 14:01 Last Admin: 01/10/17 16:04 Dose: 20 mg Guaifenesin (Robitussin) 200 mg PO Q4H PRN PRN Reason: Cough and congestion Guaifenesin (Mucinex La) 600 mg PO BID PRN PRN Reason: Cough and congestion Heparin Sodium (Porcine) (Heparin) 5,000 units SC Q12 [facility] PRN Reason: Protocol Last Admin: 01/10/17 11:09 Dose: 5,000 units Ceftriaxone Sodium (Rocephin 1 Gram Ivpb) 1 gm in 100 mls @ 100 mls/hr IVPB DAILY [facility] PRN Reason: Protocol Last Admin: 01/10/17 11:08 Dose: 100 mls/hr Linezolid (Zyvox 600mg/300ml D5w) 600 mg in 300 mls @ 200 mls/hr IVPB Q12 [facility] PRN Reason: Protocol Stop: 01/16/17 10:01 Last Admin: 01/10/17 13:11 Dose: 200 mls/hr Ibuprofen (Motrin Tab) 600 mg PO Q6H PRN PRN Reason: Pain, severe (8-10) Quetiapine Fumarate (Seroquel Xr) 150 mg PO DAILY [facility] PRN Reason: Protocol Last Admin: 01/10/17 11:11 Dose: 150 mg - Labs Labs: 01/10/17 10:30 01/10/17 06:45 APTT 28.2 Seconds (23.7-30.8) 01/10/17 06:45 Attending/Attestation - Attestation I have personally seen and examined this patient.: Yes I have fully participated in the care of the patient.: Yes I have reviewed all pertinent clinical information, including history, physical exam and plan: Yes Notes (Text): I have seen and examined the patient at bedside. Agree with the above note with the following additions/ exceptions: Briefly this is 66 year old male with history of asthma who was admitted with RLE cellulitis on rocephin and zyvox. ID and podiatry on board. Hep and HIV negative. Upon discharge patient will follow up with Dr Morales. Dr Bassem Lama
[2017-01-10] MEDS: guaiFENesin 200 mg/10 ml Syrup UD PO PRN (22:44)
[2017-01-11 07:09] LABS: ALBUMIN 3.3 g/dL (3.0-4.8); ALT/SGPT 71 U/L (7-56); AST/SGOT 48 U/L (15-59); BLOOD UREA NITROGEN 27 mg/dL (7-21); CALCIUM 8.7 mg/dL (8.4-10.5); GFR AFRICAN-AMERICAN > 60; GFR NON-AFRICAN AMERICAN > 60
[2017-01-11] MEDS: Albuterol-Ipratrop 3 mg / 0.5 (3 ml) UD IH SCH ×4 (07:12→23:15)
[2017-01-11 09:20] LABS: BASO # 0.03 K/mm3 (0.0-2.0); BASO % 0.3 % (0.0-3.0); EOS # 0.3 (0.0-0.7); EOS % 2.4 % (1.5-5.0); GRAN # 8.13 (1.4-6.5); GRAN % 78.1 % (50.0-68.0); HEMOGLOBIN 12.1 gm/dL (14.0-18.0); LYMPH # 1.3 (1.2-3.4); LYMPH % 12.6 % (22.0-35.0); MEAN CELL VOLUME 89.1 fL (80.0-105.0); MEAN CORPUSCULAR HEMOGLOBIN 29.3 pg (25.0-35.0); MEAN CORPUSCULAR HGB CONC 32.9 g/dl (31.0-37.0); MEAN PLATELET VOLUME 10.3 fl (7.0-11.0); MONO # 0.7 (0.1-0.6); MONO % 6.6 % (1.0-6.0); PLATELET COUNT 190 10^3/uL (120.0-450.0); RBC 4.13 10^6/uL (3.5-6.1); RED CELL DISTRIBUTION WIDTH 13.1 % (11.5-14.5); WHITE BLOOD COUNT 10.4 10^3/ul (4.5-11.0)
[2017-01-11] MEDS: Linezolid 600 mg in D5W 300 ml 600 MG/300 ML BAG IVPB SCH ×2 (09:40→21:33)
[2017-01-11] MEDS: Clotrimazole 1% Cream(30 gm) TOP SCH ×2 (09:40→17:16)
[2017-01-11] MEDS: QUEtiapine 150 mg XR Tab PO SCH (09:41)
[2017-01-11] MEDS: cefTRIAXone 1 gm 1 GM/100 ML BAG IVPB SCH (09:41)
--- NOTE | 2017-01-11 09:45 | US ---
HISTORY: transaminitis COMPARISON: None. TECHNIQUE: Sonographic evaluation of the right upper quadrant of the abdomen. FINDINGS: LIVER: Measures 15.1 by 14.3 cm in length. Increased echogenicity of the liver parenchyma. No mass. No intrahepatic bile duct dilatation. GALLBLADDER: Unremarkable. No gallstones. Gallbladder wall appears top-normal between 2 and 2.6 mm. No gallbladder wall edema. No positive sonographic Edwards sign elicited/ reported by the technologist COMMON BILE DUCT: Measures 6 mm. No stones. No dilatation. PANCREAS: Unremarkable as visualized. No mass. No ductal dilatation. RIGHT KIDNEY: Measures 12.6 by 4.7 x 5.9 cm in length. Normal echogenicity. No calculus, mass, or hydronephrosis. AORTA: No aneurysmal dilatation. IVC: Unremarkable. OTHER FINDINGS: None . IMPRESSION: Diffuse increased liver echogenicity -diffuse fatty infiltration probable.
--- NOTE | 2017-01-11 10:53 | CP.PCM.PN ---
Subjective - Date & Time of Evaluation Date of Evaluation: 01/11/17 Time of Evaluation: 09:50 - Subjective Subjective: Comfortable in bed, not in distress, afebrile, less pain in the right leg, less swelling. Objective - Vital Signs/Intake and Output Vital Signs (last 24 hours): Temp Pulse Resp BP Pulse Ox 98.4 F 74 20 111/69 96 01/11/17 07:30 01/11/17 07:30 01/11/17 07:30 01/11/17 07:30 01/11/17 07:30 Intake and Output: 01/11/17 01/11/17 06:59 18:59 Intake Total 780 Output Total 925 Balance -145 - Medications Medications: Current Medications Albuterol/Ipratropium (Duoneb 3 Mg/0.5 Mg (3 Ml) Ud) 3 ml IH Q2H PRN PRN Reason: Shortness of Breath Albuterol/Ipratropium (Duoneb 3 Mg/0.5 Mg (3 Ml) Ud) 3 ml IH TIDRESP [facility] Last Admin: 01/11/17 07:12 Dose: 3 ml Clotrimazole (Lotrimin 1%) 0 gm TOP BID [facility] Last Admin: 01/10/17 21:06 Dose: Not Given Famotidine (Pepcid) 20 mg PO 1400 [facility] Stop: 01/13/17 14:01 Last Admin: 01/10/17 16:04 Dose: 20 mg Guaifenesin (Robitussin) 200 mg PO Q4H PRN PRN Reason: Cough and congestion Last Admin: 01/10/17 22:44 Dose: 200 mg Guaifenesin (Mucinex La) 600 mg PO BID PRN PRN Reason: Cough and congestion Heparin Sodium (Porcine) (Heparin) 5,000 units SC Q12 [facility] PRN Reason: Protocol Last Admin: 01/10/17 21:39 Dose: 5,000 units Ceftriaxone Sodium (Rocephin 1 Gram Ivpb) 1 gm in 100 mls @ 100 mls/hr IVPB DAILY [facility] PRN Reason: Protocol Last Admin: 01/10/17 11:08 Dose: 100 mls/hr Linezolid (Zyvox 600mg/300ml D5w) 600 mg in 300 mls @ 200 mls/hr IVPB Q12 [facility] PRN Reason: Protocol Stop: 01/16/17 10:01 Last Admin: 01/10/17 21:39 Dose: 200 mls/hr Ibuprofen (Motrin Tab) 600 mg PO Q6H PRN PRN Reason: Pain, severe (8-10) Last Admin: 01/10/17 22:44 Dose: 600 mg Quetiapine Fumarate (Seroquel Xr) 150 mg PO DAILY [facility] PRN Reason: Protocol Last Admin: 01/10/17 11:11 Dose: 150 mg - Labs Labs: 01/10/17 10:30 01/11/17 06:30 APTT 28.1 Seconds (23.7-30.8) 01/11/17 06:30 - Constitutional Appears: Non-toxic, No Acute Distress - ENT Exam ENT Exam: Mucous Membranes Moist - Neck Exam Neck Exam: absent: Meningismus - Respiratory Exam Respiratory Exam: Decreased Breath Sounds - Cardiovascular Exam Cardiovascular Exam: +S1, +S2 - GI/Abdominal Exam GI & Abdominal Exam: Soft. absent: Tenderness - Extremities Exam Additional comments: right leg with decreasing swelling and erythema Assessment and Plan - Assessment and Plan (Free Text) Plan: Assessment Acute right leg cellulitis, with no evidence of DVT, slowly improving depression and anxiety history of right eye cataract repair history of incarcerated ventral abdominal hernia Plan continue Zyvox and Rocephin day 3; pending wound cx, blood cx are negative patient needs to continue leg elevation will continue to monitor clinical response discussed with Dr. Mitchell
--- NOTE | 2017-01-11 17:04 | CARD ---
APPROVED REPORT EXAM: Two-dimensional and M-mode echocardiogram with Doppler and color Doppler. INDICATION LOWER EXTREMITY EDEMA 2D DIMENSIONS Left Atrium (2D)3.8 (1.6-4.0cm)IVSd1.3 (0.7-1.1cm) LVDd4.6 (3.9-5.9cm)PWd1.0 (0.7-1.1cm) LVDs3.0 (2.5-4.0cm)FS (%) 33.5 % LVEF (%)62.3 (>50%) M-Mode DIMENSIONS Aortic Root3.40 (2.2-3.7cm)Aortic Cusp Exc.1.80 (1.5-2.0cm) Aortic Valve AoV Peak [id number]/Olga Peak GR.11mmHg Mitral Valve MV E Dlrlduxd51.7cm/sMV A Aqmxwzaa90.0cm/sE/A ratio1.2 TDI E/Lateral E'0.0E/Medial E'0.0 Tricuspid Valve TR Peak [id number]/sRAP [id number] Peak Gr.30mmHg [id number] LEFT VENTRICLE The left ventricle is normal size. There is mild concentric left ventricular hypertrophy. The left ventricular function is normal.EEF-60-65% There is normal LV segmental wall motion. The left ventricular diastolic function is normal. No left ventricle thrombus noted on this study. There is no ventricular septal defect visualized. There is no left ventricular aneurysm. There is no mass noted in the left ventricle. RIGHT VENTRICLE The right ventricle is normal size. There is normal right ventricular wall thickness. The right ventricular systolic function is normal. ATRIA The left atrium size is normal. The right atrium size is normal. The interatrial septum is intact with no evidence for an atrial septal defect. AORTIC VALVE The aortic valve is thickened but opens well. The aortic valve is mildly sclerotic. There is trace aortic regurgitation. There is no aortic valvular stenosis. There is no aortic valvular vegetation. MITRAL VALVE The mitral valve is thickened but opens well. Mitral regurgitation is trace to mild. There is no mitral valve stenosis. There is no evidence of mitral valve prolapse. TRICUSPID VALVE The tricuspid valve leaflets are thickened , but open well. There is mild tricuspid regurgitation.RVSP-40 mmof Hg. There is no tricuspid valve stenosis. There is no tricuspid valve prolapse or vegetation. PULMONIC VALVE The pulmonary valve is normal in structure. There is no pulmonic valvular regurgitation. There is no pulmonic valvular stenosis. GREAT VESSELS The aortic root is normal in size. The ascending aorta is normal in size. The pulmonary artery is normal. The IVC is normal in size and collapses >50% with inspiration. PERICARDIAL EFFUSION There is no pleural effusion. There is no pericardial effusion. <Conclusion> The left ventricle is normal size. There is mild concentric left ventricular hypertrophy. The left ventricular function is normal.EEF-60-65% There is trace aortic regurgitation. There is no aortic valvular stenosis. Mitral regurgitation is trace to mild. There is mild tricuspid regurgitation.RVSP-40 mmof Hg. The IVC is normal in size and collapses >50% with inspiration. There is no pericardial effusion. n VEGETATION OR THROMBUS NOTED.
--- NOTE | 2017-01-11 17:20 | CP.PCM.PN ---
<Dalia Ford - Last Filed: 01/11/17 17:16> Subjective - Date & Time of Evaluation Date of Evaluation: 01/11/17 Time of Evaluation: 17:17 - Subjective Subjective: Pt seen and examined this morning. Reports continued improvement in leg pain and swelling, says cough has improved. Denies fever, chills, CP, SOB, n/v Objective - Vital Signs/Intake and Output Vital Signs (last 24 hours): Temp Pulse Resp BP Pulse Ox 98.4 F 74 20 111/69 96 01/11/17 07:30 01/11/17 07:30 01/11/17 07:30 01/11/17 07:30 01/11/17 07:30 Intake and Output: 01/11/17 01/11/17 06:59 18:59 Intake Total 780 480 Output Total 925 Balance -145 480 - Medications Medications: Current Medications Albuterol/Ipratropium (Duoneb 3 Mg/0.5 Mg (3 Ml) Ud) 3 ml IH Q2H PRN PRN Reason: Shortness of Breath Albuterol/Ipratropium (Duoneb 3 Mg/0.5 Mg (3 Ml) Ud) 3 ml IH Q4H [facility] Clotrimazole (Lotrimin 1%) 0 gm TOP BID [facility] Last Admin: 01/11/17 17:16 Dose: Not Given Famotidine (Pepcid) 20 mg PO 1400 [facility] Stop: 01/13/17 14:01 Last Admin: 01/11/17 14:53 Dose: 20 mg Guaifenesin (Robitussin) 200 mg PO Q4H PRN PRN Reason: Cough and congestion Last Admin: 01/10/17 22:44 Dose: 200 mg Guaifenesin (Mucinex La) 600 mg PO BID PRN PRN Reason: Cough and congestion Last Admin: 01/11/17 09:47 Dose: 600 mg Heparin Sodium (Porcine) (Heparin) 5,000 units SC Q12 JOHN PRN Reason: Protocol Last Admin: 01/11/17 09:39 Dose: 5,000 units Ceftriaxone Sodium (Rocephin 1 Gram Ivpb) 1 gm in 100 mls @ 100 mls/hr IVPB DAILY JOHN PRN Reason: Protocol Last Admin: 01/11/17 09:41 Dose: 100 mls/hr Linezolid (Zyvox 600mg/300ml D5w) 600 mg in 300 mls @ 200 mls/hr IVPB Q12 JOHN PRN Reason: Protocol Stop: 01/16/17 10:01 Last Admin: 01/11/17 09:40 Dose: 200 mls/hr Ibuprofen (Motrin Tab) 600 mg PO Q6H PRN PRN Reason: Pain, severe (8-10) Last Admin: 01/11/17 09:47 Dose: 600 mg Quetiapine Fumarate (Seroquel Xr) 150 mg PO DAILY JONH PRN Reason: Protocol Last Admin: 01/11/17 09:41 Dose: 150 mg - Labs Labs: 01/11/17 06:30 01/11/17 06:30 APTT 28.1 Seconds (23.7-30.8) 01/11/17 06:30 - Constitutional Appears: No Acute Distress - Head Exam Head Exam: ATRAUMATIC, NORMOCEPHALIC - Eye Exam Eye Exam: EOMI - Neck Exam Neck Exam: absent: Lymphadenopathy - Respiratory Exam Respiratory Exam: Clear to Ausculation Bilateral. absent: Rales, Rhonchi, Wheezes - Cardiovascular Exam Cardiovascular Exam: RRR, +S1, +S2. absent: JVD - GI/Abdominal Exam GI & Abdominal Exam: Soft, Normal Bowel Sounds. absent: Tenderness - Extremities Exam Additional comments: L leg nonedematous, non erythematous. R leg wrapped in geoffrey bandage. R leg and foot are erythematous and edematous, sparing the ankle, with mild improvement from yesterday. Erythema has receded slightly from the pen line drawn on admission - Psychiatric Exam Psychiatric exam: Normal Affect, Normal Mood Assessment and Plan - Assessment and Plan (Free Text) Assessment: 66yo M with h/o asthma who presented with cellulitis of the R lower leg and cough Plan: 1.Cellulitis -WBC 10.3 ESR 45 -MRI to r/o osteomyelitis -Blood cx neg -Cont rocephin/zyvox per ID (day 3) -Cont wound care -Cont leg elevation -Cont motrin PRN for pain -PT eval -F/u wound cx 2.Cough -Prednisone 40mg PO 1 dose start taper tomorrow -Change robitussin to scheduled dosing -Cont duonebs (PRN/JOHN), mucinex JOHN 3.Transaminitis -AST 67->48 ALT 85->71 -Abd US showed increased echogenicity of liver parenchyma probable 2/2 fatty infiltration -Recommend lifestyle modifications -F/u with PCP on d/c 4.GI PPX: PTX DVT PPX: heparin SC Patient seen, examined and discussed with attending Dalia Ford PGY1 Pager - <Bassem Lama B - Last Filed: 01/12/17 17:20> Objective - Vital Signs/Intake and Output Vital Signs (last 24 hours): Temp Pulse Resp BP Pulse Ox 98.2 F 65 20 105/62 95 01/12/17 07:31 01/12/17 07:31 01/12/17 07:31 01/12/17 07:31 01/12/17 07:31 Intake and Output: 01/12/17 01/12/17 06:59 18:59 Intake Total 1680 Output Total 2390 Balance -710 - Medications Medications: Current Medications Albuterol/Ipratropium (Duoneb 3 Mg/0.5 Mg (3 Ml) Ud) 3 ml IH Q2H PRN PRN Reason: Shortness of Breath Albuterol/Ipratropium (Duoneb 3 Mg/0.5 Mg (3 Ml) Ud) 3 ml IH Q4H [facility] Last Admin: 01/12/17 10:51 Dose: Not Given Clotrimazole (Lotrimin 1%) 0 gm TOP BID [facility] Last Admin: 01/11/17 17:16 Dose: Not Given Famotidine (Pepcid) 20 mg PO 1400 [facility] Stop: 01/13/17 14:01 Last Admin: 01/11/17 14:53 Dose: 20 mg Guaifenesin (Robitussin) 200 mg PO Q4H [facility] Guaifenesin (Mucinex La) 600 mg PO BID [facility] Last Admin: 01/12/17 11:34 Dose: 600 mg Heparin Sodium (Porcine) (Heparin) 5,000 units SC Q12 JOHN PRN Reason: Protocol Last Admin: 01/12/17 11:33 Dose: 5,000 units Ceftriaxone Sodium (Rocephin 1 Gram Ivpb) 1 gm in 100 mls @ 100 mls/hr IVPB DAILY [facility] PRN Reason: Protocol Last Admin: 01/12/17 11:35 Dose: 100 mls/hr Ibuprofen (Motrin Tab) 600 mg PO Q6H PRN PRN Reason: Pain, severe (8-10) Last Admin: 01/11/17 09:47 Dose: 600 mg Lactobacillus Acidophilus (Bacid Acidophilus) 1 cap PO BID JOHN Prednisone (Prednisone Tab) 40 mg PO DAILY JOHN Stop: 01/13/17 11:31 Prednisone (Prednisone Tab) 30 mg PO DAILY JOHN Quetiapine Fumarate (Seroquel Xr) 150 mg PO DAILY JOHN PRN Reason: Protocol Last Admin: 01/12/17 11:32 Dose: 150 mg Tamsulosin HCl (Flomax) 0.4 mg PO DAILY JOHN - Labs Labs: 01/12/17 06:30 01/12/17 06:30 APTT 28.7 Seconds (23.7-30.8) 01/12/17 06:30 Attending/Attestation - Attestation I have personally seen and examined this patient.: Yes I have fully participated in the care of the patient.: Yes I have reviewed all pertinent clinical information, including history, physical exam and plan: Yes Notes (Text): I have seen and examined the patient at bedside. Agree with the above note with the following additions/ exceptions: Briefly this is 66 year old male with history of asthma who was admitted with RLE cellulitis on rocephin and zyvox. ID and podiatry on board. Hep and HIV negative. MRI pending. Patient has transaminitis secondary to fatty infiltration. Upon discharge patient will follow up with Dr Morales. Dr Bassem Lama
--- NOTE | 2017-01-11 18:03 | CP.PCM.PN ---
<Kelsey Butler - Last Filed: 01/11/17 17:58> Subjective - Date & Time of Evaluation Date of Evaluation: 01/11/17 Time of Evaluation: 17:58 - Subjective Subjective: 66 year old male was seen at bedside with attending, Dr. Mitchell, regarding right lower extremity cellulitis. Patient states that his leg feels better today. Patient was seen earlier in the day and would not allow anyone but Dr. Mitchell to change his dressing. He denies any n/v/f/c/sob/cp. Objective - Vital Signs/Intake and Output Vital Signs (last 24 hours): Temp Pulse Resp BP Pulse Ox 98.4 F 74 20 111/69 96 01/11/17 07:30 01/11/17 07:30 01/11/17 07:30 01/11/17 07:30 01/11/17 07:30 Intake and Output: 01/11/17 01/11/17 06:59 18:59 Intake Total 780 480 Output Total 925 Balance -145 480 - Medications Medications: Current Medications Albuterol/Ipratropium (Duoneb 3 Mg/0.5 Mg (3 Ml) Ud) 3 ml IH Q2H PRN PRN Reason: Shortness of Breath Albuterol/Ipratropium (Duoneb 3 Mg/0.5 Mg (3 Ml) Ud) 3 ml IH Q4H [facility] Clotrimazole (Lotrimin 1%) 0 gm TOP BID [facility] Last Admin: 01/11/17 17:16 Dose: Not Given Famotidine (Pepcid) 20 mg PO 1400 [facility] Stop: 01/13/17 14:01 Last Admin: 01/11/17 14:53 Dose: 20 mg Guaifenesin (Robitussin) 200 mg PO Q4H PRN PRN Reason: Cough and congestion Last Admin: 01/10/17 22:44 Dose: 200 mg Guaifenesin (Mucinex La) 600 mg PO BID PRN PRN Reason: Cough and congestion Last Admin: 01/11/17 09:47 Dose: 600 mg Heparin Sodium (Porcine) (Heparin) 5,000 units SC Q12 JOHN PRN Reason: Protocol Last Admin: 01/11/17 09:39 Dose: 5,000 units Ceftriaxone Sodium (Rocephin 1 Gram Ivpb) 1 gm in 100 mls @ 100 mls/hr IVPB DAILY JOHN PRN Reason: Protocol Last Admin: 01/11/17 09:41 Dose: 100 mls/hr Linezolid (Zyvox 600mg/300ml D5w) 600 mg in 300 mls @ 200 mls/hr IVPB Q12 JOHN PRN Reason: Protocol Stop: 01/16/17 10:01 Last Admin: 01/11/17 09:40 Dose: 200 mls/hr Ibuprofen (Motrin Tab) 600 mg PO Q6H PRN PRN Reason: Pain, severe (8-10) Last Admin: 01/11/17 09:47 Dose: 600 mg Quetiapine Fumarate (Seroquel Xr) 150 mg PO DAILY JOHN PRN Reason: Protocol Last Admin: 01/11/17 09:41 Dose: 150 mg - Labs Labs: 01/11/17 06:30 01/11/17 06:30 APTT 28.1 Seconds (23.7-30.8) 01/11/17 06:30 - Constitutional Appears: Non-toxic, No Acute Distress - Extremities Exam Additional comments: Right lower extremity focused exam: Vasc: DP and PT pulses non-palpable due to edema. Edema noted to right LE- resolving as noted by relaxed skin tension lines. Skin temperature warm to warm from proximal to distal-resolving Neuro: Gross sensation intact b/l Derm: Open ulcerations from a bulla noted to the anterior and posterior aspect to the right mid-calf area, measure approxiately 5.5 cm by 5 cm by superficial, no purulence, no malodor, no probe to bone note. Right leg is erythematous from distal to the knee to the ankle. Ortho: Tenderness noted to the right LE - Neurological Exam Neurological Exam: Alert, Awake, Oriented x3 - Psychiatric Exam Psychiatric exam: Normal Affect, Normal Mood Assessment and Plan - Assessment and Plan (Free Text) Assessment: 66 year old male with cellutlis with ulcerations to the RLE Plan: patient examined and evaluated with attending, Dr. Mitchell labs, chart, vitals reviewed;afebrile, WBC 10.4 RLE cleansed RLE dressed with clotrimazole, xeroform, ABD, Kerlix, LEA Wound culture pending Podiatry will continue to follow patient while in house <Rosy Mitchell - Last Filed: 01/15/17 17:27> Objective - Vital Signs/Intake and Output Vital Signs (last 24 hours): Temp Pulse Resp BP Pulse Ox 97.9 F 76 20 119/82 94 L 01/14/17 07:38 01/14/17 07:38 01/14/17 07:38 01/14/17 07:38 01/14/17 07:38 - Labs Labs: 01/14/17 06:10 01/14/17 06:10 APTT 28.7 Seconds (23.7-30.8) 01/12/17 06:30 Assessment and Plan (1) Cellulitis of lower leg Status: Acute Attending/Attestation - Attestation I have personally seen and examined this patient.: Yes I have fully participated in the care of the patient.: Yes I have reviewed all pertinent clinical information, including history, physical exam and plan: Yes
[2017-01-11] MEDS: guaiFENesin 200 mg/10 ml Syrup UD PO PRN (21:38)
[2017-01-12] MEDS: Albuterol-Ipratrop 3 mg / 0.5 (3 ml) UD IH SCH ×5 (05:22→20:31)
[2017-01-12 07:21] LABS: ALB/GLOB RATIO 1.1 (1.1-1.8); ALBUMIN 3.6 g/dL (3.0-4.8); ALT/SGPT 68 U/L (7-56); AST/SGOT 36 U/L (15-59); BLOOD UREA NITROGEN 17 mg/dL (7-21); CALCIUM 8.9 mg/dL (8.4-10.5); GFR AFRICAN-AMERICAN > 60; GFR NON-AFRICAN AMERICAN > 60
[2017-01-12] MEDS: guaiFENesin 200 mg/10 ml Syrup UD PO SCH ×3 (09:30→19:15)
[2017-01-12 09:52] LABS: BASO # 0.02 K/mm3 (0.0-2.0); BASO % 0.2 % (0.0-3.0); EOS % 0.1 % (1.5-5.0); GRAN # 8.79 (1.4-6.5); GRAN % 87.7 % (50.0-68.0); HEMOGLOBIN 12.4 gm/dL (14.0-18.0); LYMPH # 0.9 (1.2-3.4); MEAN CELL VOLUME 88.2 fL (80.0-105.0); MEAN CORPUSCULAR HEMOGLOBIN 29.2 pg (25.0-35.0); MEAN CORPUSCULAR HGB CONC 33.2 g/dl (31.0-37.0); MEAN PLATELET VOLUME 10.1 fl (7.0-11.0); MONO # 0.3 (0.1-0.6); PLATELET COUNT 215 10^3/uL (120.0-450.0); RBC 4.24 10^6/uL (3.5-6.1)
--- NOTE | 2017-01-12 10:08 | CP.PCM.PN ---
<Kelsey Butler - Last Filed: 01/12/17 10:04> Subjective - Date & Time of Evaluation Date of Evaluation: 01/12/17 Time of Evaluation: 10:04 - Subjective Subjective: 66 year old male was seen at bedside with attending, Dr. Mitchell, regarding right lower extremity cellulitis. Patient states that his leg feels better today. Dressings c/d/i to RLE. He denies any n/v/f/c/sob/cp. Objective - Vital Signs/Intake and Output Vital Signs (last 24 hours): Temp Pulse Resp BP Pulse Ox 98.2 F 65 20 105/62 95 01/12/17 07:31 01/12/17 07:31 01/12/17 07:31 01/12/17 07:31 01/12/17 07:31 Intake and Output: 01/12/17 01/12/17 06:59 18:59 Intake Total 1680 Output Total 2390 Balance -710 - Medications Medications: Current Medications Albuterol/Ipratropium (Duoneb 3 Mg/0.5 Mg (3 Ml) Ud) 3 ml IH Q2H PRN PRN Reason: Shortness of Breath Albuterol/Ipratropium (Duoneb 3 Mg/0.5 Mg (3 Ml) Ud) 3 ml IH Q4H [facility] Last Admin: 01/12/17 07:21 Dose: 3 ml Clotrimazole (Lotrimin 1%) 0 gm TOP BID [facility] Last Admin: 01/11/17 17:16 Dose: Not Given Famotidine (Pepcid) 20 mg PO 1400 [facility] Stop: 01/13/17 14:01 Last Admin: 01/11/17 14:53 Dose: 20 mg Guaifenesin (Robitussin) 200 mg PO Q4H [facility] Guaifenesin (Mucinex La) 600 mg PO BID [facility] Heparin Sodium (Porcine) (Heparin) 5,000 units SC Q12 [facility] PRN Reason: Protocol Last Admin: 01/11/17 21:33 Dose: 5,000 units Ceftriaxone Sodium (Rocephin 1 Gram Ivpb) 1 gm in 100 mls @ 100 mls/hr IVPB DAILY [facility] PRN Reason: Protocol Last Admin: 01/11/17 09:41 Dose: 100 mls/hr Linezolid (Zyvox 600mg/300ml D5w) 600 mg in 300 mls @ 200 mls/hr IVPB Q12 JOHN PRN Reason: Protocol Stop: 01/16/17 10:01 Last Admin: 01/11/17 21:33 Dose: 200 mls/hr Ibuprofen (Motrin Tab) 600 mg PO Q6H PRN PRN Reason: Pain, severe (8-10) Last Admin: 01/11/17 09:47 Dose: 600 mg Quetiapine Fumarate (Seroquel Xr) 150 mg PO DAILY JOHN PRN Reason: Protocol Last Admin: 01/11/17 09:41 Dose: 150 mg - Labs Labs: 01/12/17 06:30 01/12/17 06:30 APTT 28.7 Seconds (23.7-30.8) 01/12/17 06:30 - Constitutional Appears: Well, Non-toxic, No Acute Distress - Extremities Exam Additional comments: Right lower extremity focused exam: Vasc: DP and PT pulses non-palpable due to edema. Edema noted to right LE- resolving as noted by relaxed skin tension lines. Skin temperature warm to warm from proximal to distal-resolving Neuro: Gross sensation intact b/l Derm: Open ulcerations from a bulla noted to the anterior and posterior aspect to the right mid-calf area, both measure approximately 5.5 cm by 5 cm by superficial, no purulence, no malodor, no probe to bone note. Right leg is erythematous from distal to the knee to the ankle. Ortho: Tenderness noted to the right LE - Neurological Exam Neurological Exam: Alert, Awake, Oriented x3 - Psychiatric Exam Psychiatric exam: Normal Affect, Normal Mood Assessment and Plan - Assessment and Plan (Free Text) Assessment: 66 year old male with cellutlis with ulcerations to the RLE Plan: patient examined and evaluated with attending, Dr. Mitchell labs, chart, vitals reviewed;afebrile, WBC 10.0 RLE cleansed RLE dressed with clotrimazole, maxorb, ABD, Kerlix, LEA cont iv abx per ID Wound culture pending Podiatry will continue to follow patient while in house <Rosy Mitchell - Last Filed: 01/15/17 17:29> Objective - Vital Signs/Intake and Output Vital Signs (last 24 hours): Temp Pulse Resp BP Pulse Ox 97.9 F 76 20 119/82 94 L 01/14/17 07:38 01/14/17 07:38 01/14/17 07:38 01/14/17 07:38 01/14/17 07:38 - Labs Labs: 01/14/17 06:10 01/14/17 06:10 APTT 28.7 Seconds (23.7-30.8) 01/12/17 06:30 Assessment and Plan (1) Cellulitis of lower leg Status: Acute Attending/Attestation - Attestation I have personally seen and examined this patient.: Yes I have fully participated in the care of the patient.: Yes I have reviewed all pertinent clinical information, including history, physical exam and plan: Yes
[2017-01-12] MEDS: Clotrimazole 1% Cream(30 gm) TOP SCH ×2 (10:10→19:15)
[2017-01-12] MEDS: QUEtiapine 150 mg XR Tab PO SCH (11:32)
[2017-01-12] MEDS: guaiFENesin 600 mg ER Tab PO SCH ×2 (11:34→19:15)
[2017-01-12] MEDS: cefTRIAXone 1 gm 1 GM/100 ML BAG IVPB SCH (11:35)
[2017-01-12] MEDS: Lactobacillus Acidophilus 500 MU Cap PO SCH (19:15)
[2017-01-13] MEDS: guaiFENesin 200 mg/10 ml Syrup UD PO SCH ×7 (00:05→21:37)
[2017-01-13] MEDS: Albuterol-Ipratrop 3 mg / 0.5 (3 ml) UD IH SCH ×7 (01:11→23:48)
[2017-01-13 08:55] LABS: ALB/GLOB RATIO 1.2 (1.1-1.8); ALBUMIN 3.7 g/dL (3.0-4.8); ALT/SGPT 70 U/L (7-56); AST/SGOT 48 U/L (15-59); BLOOD UREA NITROGEN 19 mg/dL (7-21); CALCIUM 9.3 mg/dL (8.4-10.5); GFR AFRICAN-AMERICAN > 60; GFR NON-AFRICAN AMERICAN > 60
[2017-01-13 09:02] LABS: BASO # 0.02 K/mm3 (0.0-2.0); BASO % 0.2 % (0.0-3.0); EOS % 0.4 % (1.5-5.0); GRAN % 82.7 % (50.0-68.0); HEMOGLOBIN 12.8 gm/dL (14.0-18.0); LYMPH # 1.2 (1.2-3.4); LYMPH % 10.9 % (22.0-35.0); MEAN CELL VOLUME 88.4 fL (80.0-105.0); MEAN CORPUSCULAR HGB CONC 32.8 g/dl (31.0-37.0); MEAN PLATELET VOLUME 10.2 fl (7.0-11.0); MONO # 0.7 (0.1-0.6); MONO % 5.8 % (1.0-6.0); PLATELET COUNT 265 10^3/uL (120.0-450.0); RBC 4.41 10^6/uL (3.5-6.1); RED CELL DISTRIBUTION WIDTH 12.8 % (11.5-14.5); WHITE BLOOD COUNT 11.2 10^3/ul (4.5-11.0)
--- NOTE | 2017-01-13 09:11 | PN ---
DATE: 01/12/2017 SUBJECTIVE: The patient is in bed in no acute distress, nontoxic. No fevers. No chills. PHYSICAL EXAMINATION: VITAL SIGNS: Temperature is 98, blood pressure is 120/70, and respiratory rate of 16. HEENT: Unremarkable. NECK: Supple. CARDIOPULMONARY: Normal S1 and S2. LUNGS: Decreased breath sounds. ABDOMEN: Soft and nontender. LABORATORY DATA: Reveals a white count of 10,000, hemoglobin of 12, and platelets of 215. Chemistries reveals a BUN of 17 and creatinine of 0.8. HIV is negative. Hepatitis profile is negative. Microbiology reveals a Gram negative leo from the right leg culture. The blood cultures are negative. Review of orders revealed the patient to be on ceftriaxone and Zyvox. Dr. Irizarry's note is reviewed. ASSESSMENT AND PLAN: A 66-year-old male with Gram negative leo of right leg cellulitis, improving on day #4 of ceftriaxone. We will discontinue the Zyvox, awaiting for identification and sensitivity of Gram negative leo. We will make further recommendations. Case discussed with Dr. Mitchell. We will discontinue the Zyvox. Continue ceftriaxone pending identification and sensitivity of the Gram negative leo in the leg culture. Jet Davila MD
[2017-01-13] MEDS: cefTRIAXone 1 gm 1 GM/100 ML BAG IVPB SCH (09:43)
[2017-01-13] MEDS: QUEtiapine 150 mg XR Tab PO SCH (09:43)
[2017-01-13] MEDS: guaiFENesin 600 mg ER Tab PO SCH ×2 (09:43→18:42)
[2017-01-13] MEDS: Lactobacillus Acidophilus 500 MU Cap PO SCH ×2 (09:43→18:42)
[2017-01-13] MEDS: Clotrimazole 1% Cream(30 gm) TOP SCH ×2 (10:00→20:35)
--- NOTE | 2017-01-13 10:59 | CP.PCM.DIS ---
Provider - Provider Date of Admission: 01/09/17 00:12 Attending physician: Bassem Lama MD Primary care physician: Sang Morales MD Hospital Course - Lab Results Lab Results: Micro Results 01/10/17 09:30 Leg - Right Gram Stain - Final 01/10/17 09:30 Leg - Right Wound Culture - Final Acinetobacter Baumannii Most Recent Lab Values WBC 11.2 10^3/ul (4.5-11.0) H 01/13/17 06:30 RBC 4.41 10^6/uL (3.5-6.1) 01/13/17 06:30 Hgb 12.8 gm/dL (14.0-18.0) L 01/13/17 06:30 Hct 39.0 % (42.0-52.0) L 01/13/17 06:30 MCV 88.4 fL (80.0-105.0) 01/13/17 06:30 MCH 29.0 pg (25.0-35.0) 01/13/17 06:30 MCHC 32.8 g/dl (31.0-37.0) 01/13/17 06:30 RDW 12.8 % (11.5-14.5) 01/13/17 06:30 Plt Count 265 10^3/uL (120.0-450.0) 01/13/17 06:30 MPV 10.2 fl (7.0-11.0) 01/13/17 06:30 Gran % 82.7 % (50.0-68.0) H 01/13/17 06:30 Lymph % (Auto) 10.9 % (22.0-35.0) L 01/13/17 06:30 Sharp % (Auto) 5.8 % (1.0-6.0) 01/13/17 06:30 Eos % (Auto) 0.4 % (1.5-5.0) L 01/13/17 06:30 Baso % (Auto) 0.2 % (0.0-3.0) 01/13/17 06:30 Gran # 9.30 (1.4-6.5) H 01/13/17 06:30 Lymph # 1.2 (1.2-3.4) 01/13/17 06:30 Sharp # 0.7 (0.1-0.6) H 01/13/17 06:30 Eos # 0.0 (0.0-0.7) 01/13/17 06:30 Baso # 0.02 K/mm3 (0.0-2.0) 01/13/17 06:30 ESR 45 mm/hr (0.00-15.0) H 01/09/17 06:00 APTT 28.7 Seconds (23.7-30.8) 01/12/17 06:30 pO2 30 mm/Hg (30-55) 01/08/17 23:12 VBG pH 7.34 (7.32-7.43) 01/08/17 23:12 VBG pCO2 54.0 (40-60) 01/08/17 23:12 VBG HCO3 29.1 mmol/l (21-28) H 01/08/17 23:12 VBG Total CO2 30.8 mmol.L (22-28) H 01/08/17 23:12 VBG O2 Sat (Calc) 54.3 % (40-65) 01/08/17 23:12 VBG Base Excess 2.1 mmol/L (0.0-2.0) H 01/08/17 23:12 VBG Potassium 4.7 mmol/L (3.6-5.2) 01/08/17 23:12 Sodium 135.0 mmol/L (132-148) 01/08/17 23:12 Chloride 100.0 mmol/L (98-107) 01/08/17 23:12 Glucose 105 mg/dl (75-110) 01/08/17 23:12 Lactate 1.3 mmol/L (0.7-2.1) 01/08/17 23:12 FiO2 21.0 % 01/08/17 23:12 Sodium 138 mmol/L (132-148) 01/13/17 07:30 Potassium 4.9 mmol/L (3.6-5.0) 01/13/17 07:30 Chloride 101 mmol/L (95-110) 01/13/17 07:30 Carbon Dioxide 26 mmol/L (21-33) 01/13/17 07:30 Anion Gap 16 (10-20) 01/13/17 07:30 BUN 19 mg/dL (7-21) 01/13/17 07:30 Creatinine 0.9 mg/dL (0.5-1.4) 01/13/17 07:30 Est GFR ( Amer) > 60 01/13/17 07:30 Est GFR (Non-Af Amer) > 60 01/13/17 07:30 Random Glucose 117 mg/dL (70-110) H 01/13/17 07:30 Hemoglobin A1c 6.4 % (4.2-6.5) 01/09/17 06:30 Calcium 9.3 mg/dL (8.4-10.5) 01/13/17 07:30 Total Bilirubin 0.6 mg/dL (0.2-1.3) 01/13/17 07:30 AST 48 U/L (15-59) 01/13/17 07:30 ALT 70 U/L (7-56) H 01/13/17 07:30 Alkaline Phosphatase 79 U/L (38-133) 01/13/17 07:30 C-React Prot High Sens > 15.00 mg/L (1.00-3.00) H 01/09/17 06:00 Total Protein 6.7 g/dL (5.8-8.3) 01/13/17 07:30 Albumin 3.7 g/dL (3.0-4.8) 01/13/17 07:30 Globulin 3.1 gm/dL 01/13/17 07:30 Albumin/Globulin Ratio 1.2 (1.1-1.8) 01/13/17 07:30 Procalcitonin 3.51 NG/ML (0.19-0.49) H 01/09/17 06:00 Venous Blood Potassium 4.7 mmol/L (3.6-5.2) 01/08/17 23:12 Hepatitis A IgM Ab Negative (NEGATIVE) 01/09/17 06:30 Hep Bs Antigen Negative (NEGATIVE) 01/09/17 06:30 Hep B Core IgM Ab Negative (NEGATIVE) 01/09/17 06:30 Hepatitis C Antibody Negative (NEGATIVE) 01/09/17 06:30 HIV 1&2 Antibody Screen Negative (NEGATIVE) 01/09/17 06:30 Discharge Exam - Head Exam Head Exam: ATRAUMATIC, NORMOCEPHALIC Discharge Plan - Follow Up Plan Condition: GOOD Disposition: HOME/ ROUTINE Referrals: Sang Morales [Primary Care Provider] -
--- NOTE | 2017-01-13 11:16 | CP.PCM.PN ---
Subjective - Date & Time of Evaluation Date of Evaluation: 01/13/17 Time of Evaluation: 10:10 - Subjective Subjective: Leg feels better, no fevers overnight. Objective - Vital Signs/Intake and Output Vital Signs (last 24 hours): Temp Pulse Resp BP Pulse Ox 98.4 F 63 22 102/59 L 95 01/13/17 07:30 01/13/17 07:30 01/13/17 07:30 01/13/17 07:30 01/13/17 07:30 Intake and Output: 01/13/17 01/13/17 06:59 18:59 Intake Total 1260 Balance 1260 - Medications Medications: Current Medications Albuterol/Ipratropium (Duoneb 3 Mg/0.5 Mg (3 Ml) Ud) 3 ml IH Q2H PRN PRN Reason: Shortness of Breath Albuterol/Ipratropium (Duoneb 3 Mg/0.5 Mg (3 Ml) Ud) 3 ml IH Q4H [facility] Last Admin: 01/13/17 07:13 Dose: 3 ml Clotrimazole (Lotrimin 1%) 0 gm TOP BID [facility] Last Admin: 01/12/17 19:15 Dose: Not Given Famotidine (Pepcid) 20 mg PO 1400 [facility] Stop: 01/13/17 14:01 Last Admin: 01/12/17 15:15 Dose: 20 mg Guaifenesin (Robitussin) 200 mg PO Q4H [facility] Last Admin: 01/13/17 05:30 Dose: Not Given Guaifenesin (Mucinex La) 600 mg PO BID [facility] Last Admin: 01/12/17 19:15 Dose: 600 mg Heparin Sodium (Porcine) (Heparin) 5,000 units SC Q12 [facility] PRN Reason: Protocol Last Admin: 01/12/17 21:33 Dose: 5,000 units Ceftriaxone Sodium (Rocephin 1 Gram Ivpb) 1 gm in 100 mls @ 100 mls/hr IVPB DAILY [facility] PRN Reason: Protocol Last Admin: 01/12/17 11:35 Dose: 100 mls/hr Ibuprofen (Motrin Tab) 600 mg PO Q6H PRN PRN Reason: Pain, severe (8-10) Last Admin: 01/11/17 09:47 Dose: 600 mg Lactobacillus Acidophilus (Bacid Acidophilus) 1 cap PO BID [facility] Last Admin: 01/12/17 19:15 Dose: 1 cap Prednisone (Prednisone Tab) 40 mg PO DAILY [facility] Stop: 01/13/17 11:31 Last Admin: 01/12/17 15:15 Dose: 40 mg Prednisone (Prednisone Tab) 30 mg PO DAILY [facility] Quetiapine Fumarate (Seroquel Xr) 150 mg PO DAILY [facility] PRN Reason: Protocol Last Admin: 01/12/17 11:32 Dose: 150 mg Tamsulosin HCl (Flomax) 0.4 mg PO DAILY [facility] Last Admin: 01/12/17 15:16 Dose: 0.4 mg - Labs Labs: 01/12/17 06:30 01/12/17 06:30 APTT 28.7 Seconds (23.7-30.8) 01/12/17 06:30 - Constitutional Appears: Non-toxic, No Acute Distress - Head Exam Head Exam: NORMAL INSPECTION - ENT Exam ENT Exam: Mucous Membranes Moist - Neck Exam Neck Exam: absent: Lymphadenopathy, Meningismus - Respiratory Exam Respiratory Exam: Decreased Breath Sounds - Cardiovascular Exam Cardiovascular Exam: +S1, +S2 - GI/Abdominal Exam GI & Abdominal Exam: Soft. absent: Tenderness - Extremities Exam Additional comments: right leg with decreasing erythema and swelling, with geoffrey bandage in place Assessment and Plan - Assessment and Plan (Free Text) Plan: Assessment Acute right leg cellulitis, growing acinetobacter with no evidence of DVT, slowly improving depression and anxiety history of right eye cataract repair history of incarcerated ventral abdominal hernia Plan on Rocephin day 5; should continue on 5 more days of PO Levaquin with outpatient follow up with PMD
--- NOTE | 2017-01-13 16:04 | CP.PCM.CON ---
History of Present Illness - History of Present Illness History of Present Illness: This is a 66-year-old male who presents to the ED yesterday for cellulitis to his right lower extremity. He states that he has had the problem in his leg for several days. He denies any history of trauma. He states that he does not know how he got the redness in his leg, but he states it is very painful. Review of Systems - Review of Systems All systems: reviewed and no additional remarkable complaints except - Musculoskeletal Musculoskeletal: Other (RLE pain ) - Integumentary Integumentary: Erythema (RLE) Past Patient History - Infectious Disease Hx of Infectious Diseases: None - Tetanus Immunizations Tetanus Immunization: Unknown - Past Medical History & Family History Past Medical History?: Yes Past Family History: Reviewed and not pertinent - Past Social History Smoking Status: Never Smoked Drugs: Denies Home Situation {Lives}: Other (Lives at the [facility]) - CARDIAC Hx Cardiac Disorders: Yes - PULMONARY Hx Asthma: Yes ("OCCASSIONALLY" BUT NO INHALERS/MEDS) - NEUROLOGICAL Hx Alzheimer's Disease: No Hx Dementia: No Hx Migraine: No Hx Parkinson's Disease: No Hx Seizures: No Hx Transient Ischemic Attacks (TIA): No - HEENT Hx HEENT Problems: Yes (BILAT." EYE IRRITATION FOR A WHILE") Hx Cataracts: Yes (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) Hx Glaucoma: Yes (LEFT EYE WITH SURGERY DONE) - RENAL Hx Chronic Kidney Disease: No - ENDOCRINE/METABOLIC Hx Endocrine Disorders: No - HEMATOLOGICAL/ONCOLOGICAL Hx Anemia: No - INTEGUMENTARY Other/Comment: "sometimes I get an allergy from soap detergent." - MUSCULOSKELETAL/RHEUMATOLOGICAL Hx Falls: Yes - GASTROINTESTINAL Other/Comment: Ventral hernia for 2 months - GENITOURINARY/GYNECOLOGICAL Hx Genitourinary Disorders: Yes (INCARCERATED VENTRAL HERNIA) - PSYCHIATRIC Hx Anxiety: Yes Hx Substance Use: No - SURGICAL HISTORY Hx Cataract Extraction: Yes Hx Herniorrhaphy: Yes (ventroabdominal ) Other/Comment: Eye surgery - ANESTHESIA Hx Anesthesia: Yes Hx Anesthesia Reactions: No Hx Malignant Hyperthermia: No Meds Home Medications: Home Medication List Medication Instructions Recorded Confirmed Type Levofloxacin [Levaquin] 750 mg PO DAILY #5 tablet 01/14/17 Rx Allergies/Adverse Reactions: Allergies Allergy/AdvReac Type Severity Reaction Status Date / Time No Known Allergies Allergy Verified 01/08/17 22:14 - Medications Medications: Current Medications Albuterol/Ipratropium (Duoneb 3 Mg/0.5 Mg (3 Ml) Ud) 3 ml IH Q2H PRN PRN Reason: Shortness of Breath Albuterol/Ipratropium (Duoneb 3 Mg/0.5 Mg (3 Ml) Ud) 3 ml IH Q4H [facility] Last Admin: 01/13/17 15:26 Dose: Not Given Clotrimazole (Lotrimin 1%) 0 gm TOP BID [facility] Last Admin: 01/13/17 10:00 Dose: Not Given Guaifenesin (Robitussin) 200 mg PO Q4H [facility] Last Admin: 01/13/17 09:44 Dose: Not Given Guaifenesin (Mucinex La) 600 mg PO BID [facility] Last Admin: 01/13/17 09:43 Dose: 600 mg Heparin Sodium (Porcine) (Heparin) 5,000 units SC Q12 [facility] PRN Reason: Protocol Last Admin: 01/13/17 09:43 Dose: 5,000 units Ceftriaxone Sodium (Rocephin 1 Gram Ivpb) 1 gm in 100 mls @ 100 mls/hr IVPB DAILY [facility] PRN Reason: Protocol Last Admin: 01/13/17 09:43 Dose: 100 mls/hr Ibuprofen (Motrin Tab) 600 mg PO Q6H PRN PRN Reason: Pain, severe (8-10) Last Admin: 01/11/17 09:47 Dose: 600 mg Lactobacillus Acidophilus (Bacid Acidophilus) 1 cap PO BID [facility] Last Admin: 01/13/17 09:43 Dose: 1 cap Lorazepam (Ativan) 1 mg IVP ONCE ONE PRN Reason: Protocol Stop: 01/13/17 15:31 Prednisone (Prednisone Tab) 20 mg PO DAILY [facility] Stop: 01/14/17 10:01 Prednisone (Prednisone Tab) 10 mg PO DAILY [facility] Stop: 01/15/17 10:01 Quetiapine Fumarate (Seroquel Xr) 150 mg PO DAILY [facility] PRN Reason: Protocol Last Admin: 01/13/17 09:43 Dose: 150 mg Tamsulosin HCl (Flomax) 0.4 mg PO DAILY [facility] Last Admin: 01/13/17 09:43 Dose: 0.4 mg Physical Exam - Constitutional Additional comments: Patient is seen bedside in NAD and afebrile - Extremities Exam Additional comments: Patient's lower extremities were evaluated. He has non palpable pedal pulses, most likely secondary to edema. Capillary refill time was 2 seconds x 10. The skin on the right foot and leg is very erythematous and edematous. On the left, it is slightly dry but otherwise within normal limits with no openings. His neurological sensation is intact bilaterally, and at this point is hypersensitive on the injured limb. His right lower extremity is showing a +3 edema from the toes all the way up to the knee, and there is a cellulitis from the toes to the knee. There is an open [place] on the anterior aspect of the lower extremity, and there is also one on the posterior aspect of the lower extremity. There is calor noted. There is no fluctuance but there is +3 pitting as noted above. - Neurological Exam Neurological exam: Alert, Oriented x3 Results - Vital Signs Recent Vital Signs: 01/10/17: Temp 97.8 T-max 99 BP 100/68 Respiration 20 O2 Sat 96% Last Vital Signs Temp 98.4 F 01/13/17 07:30 Pulse 63 01/13/17 07:30 Resp 22 01/13/17 07:30 BP 102/59 L 01/13/17 07:30 Pulse Ox 95 01/13/17 07:30 - Labs Result Diagrams: 01/14/17 06:10 01/14/17 06:10 Labs: 01/10/17: LABS Reviewed: WBC: 9.9 H&H: 13.4 and 39.8 ESR: 45 Coagulation: PTT at 30.9 Chemistry: BUN and creatinine of 25 and 1.1 Glucose is 114 AST and ALT are elevated at 67 and 65 respectively CRP results are noted to be elevated >15. Microbiology blood cultures are negative a the time of four hours. I did a gram stain of the wound today. Laboratory Results - last 24 hr 01/13/17 01/13/17 06:30 07:30 WBC 11.2 H RBC 4.41 Hgb 12.8 L Hct 39.0 L MCV 88.4 MCH 29.0 MCHC 32.8 RDW 12.8 Plt Count 265 MPV 10.2 Gran % 82.7 H Lymph % (Auto) 10.9 L [place] % (Auto) 5.8 Eos % (Auto) 0.4 L Baso % (Auto) 0.2 Gran # 9.30 H Lymph # 1.2 [place] # 0.7 H Eos # 0.0 Baso # 0.02 Sodium 138 Potassium 4.9 Chloride 101 Carbon Dioxide 26 Anion Gap 16 BUN 19 Creatinine 0.9 Est GFR ( Amer) > 60 Est GFR (Non-Af Amer) > 60 Random Glucose 117 H Calcium 9.3 Total Bilirubin 0.6 AST 48 ALT 70 H Alkaline Phosphatase 79 Total Protein 6.7 Albumin 3.7 Globulin 3.1 Albumin/Globulin Ratio 1.2 Assessment & Plan (1) Cellulitis of lower leg Status: Acute Comment: right lower extremity - Assessment and Plan (Free Text) Plan: Patient does have fungal nails, thus we will order Lotrimin to cover any fungal components. IV antibiotics will be continued. His legs were cleansed with a cleansing cloth. A Xeroform dry sterile dressing was applied along with LEA bandages. His legs are elevated with pillows. He was relatively comfortable after the dressings, and a C&S, as noted above, was done at this visit. Patient will be seen in follow up. - Date & Time Date: 01/10/17 Attending/Attestation - Attestation I have personally seen and examined this patient.: Yes I have fully participated in the care of the patient.: Yes I have reviewed all pertinent clinical information: Yes
--- NOTE | 2017-01-13 16:49 | CP.PCM.PN ---
<Dalia Ford - Last Filed: 01/13/17 16:45> Subjective - Date & Time of Evaluation Date of Evaluation: 01/13/17 Time of Evaluation: 16:45 - Subjective Subjective: Pt seen and examined this morning. Reports continued improvement in leg pain and swelling, says cough has improved. Denies fever, chills, CP, SOB, n/v/d. Patient was supposed to go for MRI yesterday but stated he had difficulty with procedure due to pain and anxiety. He is agreeable attempt MRI again today. Objective - Vital Signs/Intake and Output Vital Signs (last 24 hours): Temp Pulse Resp BP Pulse Ox 98.4 F 63 22 102/59 L 95 01/13/17 07:30 01/13/17 07:30 01/13/17 07:30 01/13/17 07:30 01/13/17 07:30 Intake and Output: 01/13/17 01/13/17 06:59 18:59 Intake Total 1260 120 Balance 1260 120 - Medications Medications: Current Medications Albuterol/Ipratropium (Duoneb 3 Mg/0.5 Mg (3 Ml) Ud) 3 ml IH Q2H PRN PRN Reason: Shortness of Breath Albuterol/Ipratropium (Duoneb 3 Mg/0.5 Mg (3 Ml) Ud) 3 ml IH Q4H REPLACED BY [facility] Last Admin: 01/13/17 15:26 Dose: Not Given Clotrimazole (Lotrimin 1%) 0 gm TOP BID [facility]PL[facility]ED BY [facility] Last Admin: 01/13/17 10:00 Dose: Not Given Guaifenesin (Robitussin) 200 mg PO Q4H [facility] Last Admin: 01/13/17 15:41 Dose: 200 mg Guaifenesin (Mucinex La) 600 mg PO BID [facility]PLACED BY [facility] Last Admin: 01/13/17 09:43 Dose: 600 mg Heparin Sodium (Porcine) (Heparin) 5,000 units SC Q12 [facility] PRN Reason: Protocol Last Admin: 01/13/17 09:43 Dose: 5,000 units Ceftriaxone Sodium (Rocephin 1 Gram Ivpb) 1 gm in 100 mls @ 100 mls/hr IVPB DAILY [facility]PL[facility] PRN Reason: Protocol Last Admin: 01/13/17 09:43 Dose: 100 mls/hr Ibuprofen (Motrin Tab) 600 mg PO Q6H PRN PRN Reason: Pain, severe (8-10) Last Admin: 01/11/17 09:47 Dose: 600 mg Lactobacillus Acidophilus (Bacid Acidophilus) 1 cap PO BID [facility] Last Admin: 01/13/17 09:43 Dose: 1 cap Prednisone (Prednisone Tab) 20 mg PO DAILY [facility] Stop: 01/14/17 10:01 Prednisone (Prednisone Tab) 10 mg PO DAILY [facility] Stop: 01/15/17 10:01 Quetiapine Fumarate (Seroquel Xr) 150 mg PO DAILY [facility] PRN Reason: Protocol Last Admin: 01/13/17 09:43 Dose: 150 mg Tamsulosin HCl (Flomax) 0.4 mg PO DAILY [facility] Last Admin: 01/13/17 09:43 Dose: 0.4 mg - Labs Labs: 01/13/17 06:30 01/13/17 07:30 APTT 28.7 Seconds (23.7-30.8) 01/12/17 06:30 - Constitutional Appears: Well, No Acute Distress - Head Exam Head Exam: ATRAUMATIC, NORMOCEPHALIC - Eye Exam Eye Exam: EOMI - Respiratory Exam Respiratory Exam: Clear to Ausculation Bilateral. absent: Rales, Rhonchi, Wheezes, Stridor - Cardiovascular Exam Cardiovascular Exam: RRR, +S1, +S2 - GI/Abdominal Exam GI & Abdominal Exam: Soft, Normal Bowel Sounds. absent: Tenderness - Extremities Exam Additional comments: R lower extremity cellulitis. Edematous from knee to toes. +3 pedal edema. - Neurological Exam Neurological Exam: Alert, Awake, Oriented x3 - Psychiatric Exam Psychiatric exam: Normal Affect, Normal Mood Assessment and Plan - Assessment and Plan (Free Text) Assessment: 66yo M with h/o asthma who presented with cellulitis of the R lower leg and cough Plan: 1.Cellulitis -WBC 11.2 -MRI to r/o osteomyelitis -Blood cx neg -Cont rocephin (day 5) -Cont wound care -Cont leg elevation -Cont motrin PRN for pain -PT eval -F/u wound cx 2.Cough -Prednisone 30mg PO 1 dose. Will cont. to taper -Robittusin/Mucinex -Cont duonebs (PRN/JOHN), 3.Transaminitis -AST 70 today -Abd US showed increased echogenicity of liver parenchyma probable 2/2 fatty infiltration -Recommend lifestyle modifications -F/u with PCP on d/c 4.GI PPX: PTX DVT PPX: heparin SC <Bassem Lama - Last Filed: 01/18/17 16:00> Objective - Vital Signs/Intake and Output Vital Signs (last 24 hours): Temp Pulse Resp BP Pulse Ox 98.3 F 86 20 113/78 95 01/13/17 16:58 01/13/17 16:58 01/13/17 16:58 01/13/17 16:58 01/13/17 16:58 Intake and Output: 01/13/17 01/13/17 06:59 18:59 Intake Total 1260 120 Balance 1260 120 - Medications Medications: Current Medications Albuterol/Ipratropium (Duoneb 3 Mg/0.5 Mg (3 Ml) Ud) 3 ml IH Q2H PRN PRN Reason: Shortness of Breath Albuterol/Ipratropium (Duoneb 3 Mg/0.5 Mg (3 Ml) Ud) 3 ml IH Q4H REPLACED BY [facility] Last Admin: 01/13/17 15:26 Dose: Not Given Clotrimazole (Lotrimin 1%) 0 gm TOP BID REPLACED BY [facility] Last Admin: 01/13/17 10:00 Dose: Not Given Guaifenesin (Robitussin) 200 mg PO Q4H REPLACED BY [facility] Last Admin: 01/13/17 15:41 Dose: 200 mg Guaifenesin (Mucinex La) 600 mg PO BID [facility]PL[facility] BY [facility] Last Admin: 01/13/17 09:43 Dose: 600 mg Heparin Sodium (Porcine) (Heparin) 5,000 units SC Q12 [facility] PRN Reason: Protocol Last Admin: 01/13/17 09:43 Dose: 5,000 units Ceftriaxone Sodium (Rocephin 1 Gram Ivpb) 1 gm in 100 mls @ 100 mls/hr IVPB DAILY [facility]PL[facility] BY [facility] PRN Reason: Protocol Last Admin: 01/13/17 09:43 Dose: 100 mls/hr Ibuprofen (Motrin Tab) 600 mg PO Q6H PRN PRN Reason: Pain, severe (8-10) Last Admin: 01/11/17 09:47 Dose: 600 mg Lactobacillus Acidophilus (Bacid Acidophilus) 1 cap PO BID [facility]PL[facility] BY [facility] Last Admin: 01/13/17 09:43 Dose: 1 cap Prednisone (Prednisone Tab) 20 mg PO DAILY [facility] Stop: 01/14/17 10:01 Prednisone (Prednisone Tab) 10 mg PO DAILY [facility] Stop: 01/15/17 10:01 Quetiapine Fumarate (Seroquel Xr) 150 mg PO DAILY [facility]PL[facility] BY [facility] PRN Reason: Protocol Last Admin: 01/13/17 09:43 Dose: 150 mg Tamsulosin HCl (Flomax) 0.4 mg PO DAILY [facility] Last Admin: 01/13/17 09:43 Dose: 0.4 mg - Labs Labs: 01/13/17 06:30 01/13/17 07:30 APTT 28.7 Seconds (23.7-30.8) 01/12/17 06:30 Attending/Attestation - Attestation I have personally seen and examined this patient.: Yes I have fully participated in the care of the patient.: Yes I have reviewed all pertinent clinical information, including history, physical exam and plan: Yes Notes (Text): I have seen and examined the patient at bedside. Agree with the above note with the following additions/ exceptions: Briefly this is 66 year old male with history of asthma who was admitted with RLE cellulitis on rocephin and zyvox. ID and podiatry on board. Hep and HIV negative. Osteomyelitis was ruled out. We will follow up on results. Patient has transaminitis secondary to fatty infiltration. Upon discharge patient will follow up with Dr Morales. Dr Bassem Lama
--- NOTE | 2017-01-13 17:51 | MRI ---
PROCEDURE: MRI of the right foot without contrast HISTORY: r/o osteo COMPARISON: Comparison is made to the previous x-ray of the right foot dated 01/09/2017 TECHNIQUE: Axial coronal and sagittal MRI images of the right foot were obtained without IV contrast administration. FINDINGS: There is no evidence of bone marrow edema or cortical destruction at the right foot to suggest acute/active osteomyelitis. Small subcortical cystic formation seen at the calcaneus and anterior aspect of the talar bone likely due to osteoarthritic changes and possible sequela of prior injury. Diffuse subcutaneous edema and inflammatory changes at the volar aspect of the mid and distal right foot likely represent cellulitis and infectious or inflammatory soft tissue changes. No evidence of discrete fluid collection. Otherwise no evidence of acute pathology in the soft tissue of the right foot. IMPRESSION: No MRI evidence of osteomyelitis. The assessment is suboptimal without IV contrast administration. Soft tissue edema and possible infection or inflammatory process at the volar aspect of the mid to distal right foot. Osteoarthritic changes and small effusion seen at the right ankle and proximal right foot.
--- NOTE | 2017-01-13 18:00 | MRI ---
PROCEDURE: MRI of the right right fibula and fibula without contrast HISTORY: r/o osteo COMPARISON: No prior similar study available for comparison. TECHNIQUE: Axial coronal and sagittal MRI images through the right lower extremity from the knee to the ankle was performed. FINDINGS: No evidence of bone marrow edema or cortical erosion at the right tibia and fibula to suggest acute or active osteomyelitis. There is a diffuse soft tissue edema. There is also diffuse increased signal in the right leg muscles suggestive of myositis. IMPRESSION: No MRI evidence of osteomyelitis. The assessment is suboptimal without IV contrast administration. Diffuse soft tissue edema. Diffuse increased signal in the right leg muscles suggestive of myositis.
[2017-01-14] MEDS: Albuterol-Ipratrop 3 mg / 0.5 (3 ml) UD IH SCH ×4 (03:48→13:21)
[2017-01-14 06:21] LABS: HEMOGLOBIN 13.7 gm/dL (14.0-18.0); MEAN CELL VOLUME 88.3 fL (80.0-105.0); MEAN CORPUSCULAR HEMOGLOBIN 29.7 pg (25.0-35.0); MEAN CORPUSCULAR HGB CONC 33.7 g/dl (31.0-37.0); MEAN PLATELET VOLUME 9.4 fl (7.0-11.0); RBC 4.61 10^6/uL (3.5-6.1); RED CELL DISTRIBUTION WIDTH 12.8 % (11.5-14.5); WHITE BLOOD COUNT 13.3 10^3/ul (4.5-11.0)
[2017-01-14 06:37] LABS: ALB/GLOB RATIO 1.1 (1.1-1.8); ALT/SGPT 77 U/L (7-56); AST/SGOT 41 U/L (15-59); BLOOD UREA NITROGEN 22 mg/dL (7-21); CALCIUM 9.2 mg/dL (8.4-10.5); GFR AFRICAN-AMERICAN > 60; GFR NON-AFRICAN AMERICAN > 60
[2017-01-14] MEDS: Clotrimazole 1% Cream(30 gm) TOP SCH ×2 (09:33→17:17)
[2017-01-14] MEDS: Lactobacillus Acidophilus 500 MU Cap PO SCH ×2 (09:33→17:17)
[2017-01-14] MEDS: guaiFENesin 600 mg ER Tab PO SCH ×2 (09:33→17:17)
[2017-01-14] MEDS: cefTRIAXone 1 gm 1 GM/100 ML BAG IVPB SCH (09:34)
[2017-01-14] MEDS: QUEtiapine 150 mg XR Tab PO SCH (09:35)
[2017-01-14] MEDS: guaiFENesin 200 mg/10 ml Syrup UD PO SCH ×3 (09:53→17:17)
[2017-01-14] MEDS ORDERED: levoFLOXacin 750 MG TAB PO SCH (10:00)
[2017-01-14] MEDS ORDERED: Unna Boot TOP ONE (10:38)
[2017-01-14 11:53] VITALS: BP 119/82; PULSE 76; RESP 20; TEMP 97.9
--- NOTE | 2017-01-14 12:30 | CP.PCM.PN ---
Subjective - Date & Time of Evaluation Date of Evaluation: 01/14/17 Time of Evaluation: 11:30 - Subjective Subjective: Saw patient with Dr. Mitchell, patient is feeling much better, and no fevers. Objective - Vital Signs/Intake and Output Vital Signs (last 24 hours): Temp Pulse Resp BP Pulse Ox 97.9 F 76 20 119/82 94 L 01/14/17 07:38 01/14/17 07:38 01/14/17 07:38 01/14/17 07:38 01/14/17 07:38 Intake and Output: 01/14/17 01/14/17 06:59 18:59 Intake Total 1440 Output Total 1000 Balance 440 - Medications Medications: Current Medications Albuterol/Ipratropium (Duoneb 3 Mg/0.5 Mg (3 Ml) Ud) 3 ml IH Q2H PRN PRN Reason: Shortness of Breath Albuterol/Ipratropium (Duoneb 3 Mg/0.5 Mg (3 Ml) Ud) 3 ml IH Q4H [facility] Last Admin: 01/14/17 07:24 Dose: Not Given Clotrimazole (Lotrimin 1%) 0 gm TOP BID [facility] Last Admin: 01/14/17 09:33 Dose: Not Given Guaifenesin (Robitussin) 200 mg PO Q4H [facility] Last Admin: 01/13/17 21:37 Dose: 200 mg Guaifenesin (Mucinex La) 600 mg PO BID [facility] Last Admin: 01/14/17 09:33 Dose: 600 mg Heparin Sodium (Porcine) (Heparin) 5,000 units SC Q12 [facility] PRN Reason: Protocol Last Admin: 01/14/17 09:33 Dose: 5,000 units Ceftriaxone Sodium (Rocephin 1 Gram Ivpb) 1 gm in 100 mls @ 100 mls/hr IVPB DAILY [facility] PRN Reason: Protocol Last Admin: 01/14/17 09:34 Dose: 100 mls/hr Ibuprofen (Motrin Tab) 600 mg PO Q6H PRN PRN Reason: Pain, severe (8-10) Last Admin: 01/11/17 09:47 Dose: 600 mg Lactobacillus Acidophilus (Bacid Acidophilus) 1 cap PO BID [facility] Last Admin: 01/14/17 09:33 Dose: 1 cap Levofloxacin (Levaquin) 750 mg PO DAILY [facility] Stop: 01/19/17 10:01 Last Admin: 01/14/17 09:33 Dose: 750 mg Prednisone (Prednisone Tab) 20 mg PO DAILY [facility] Stop: 01/14/17 10:01 Last Admin: 01/14/17 09:33 Dose: 20 mg Prednisone (Prednisone Tab) 10 mg PO DAILY [facility] Stop: 01/15/17 10:01 Quetiapine Fumarate (Seroquel Xr) 150 mg PO DAILY [facility] PRN Reason: Protocol Last Admin: 01/14/17 09:35 Dose: 150 mg Tamsulosin HCl (Flomax) 0.4 mg PO DAILY [facility] Last Admin: 01/14/17 09:33 Dose: 0.4 mg - Labs Labs: 01/14/17 06:10 01/14/17 06:10 APTT 28.7 Seconds (23.7-30.8) 01/12/17 06:30 - Constitutional Appears: Non-toxic, No Acute Distress - Head Exam Head Exam: NORMAL INSPECTION - ENT Exam ENT Exam: Mucous Membranes Moist - Neck Exam Neck Exam: absent: Meningismus - Respiratory Exam Respiratory Exam: Decreased Breath Sounds. absent: Rales - Cardiovascular Exam Cardiovascular Exam: +S1, +S2 - GI/Abdominal Exam GI & Abdominal Exam: Soft. absent: Tenderness - Extremities Exam Additional comments: right leg with improving swelling and much improved erythema, some bullae noted with serous fluid Assessment and Plan - Assessment and Plan (Free Text) Plan: Assessment Acute right leg cellulitis, growing acinetobacter with no evidence of DVT, clinically improving depression and anxiety history of right eye cataract repair history of incarcerated ventral abdominal hernia Plan on Rocephin day 6; should continue on 5 more days of PO Levaquin with outpatient follow up with PMD and Podiatry discussed with Dr. Mitchell
--- NOTE | 2017-01-14 12:32 | CP.PCM.PN ---
<Irais Arauz - Last Filed: 01/14/17 12:47> Subjective - Date & Time of Evaluation Date of Evaluation: 01/14/17 Time of Evaluation: 11:25 - Subjective Subjective: 66 year old male was seen at bedside with attending, Dr. Mitchell, regarding right lower extremity cellulitis. Patient states that his leg feels about the same today. Patient states he is getting discharged today. Dressings c/d/i to RLE. He denies any n/v/f/c/sob/cp. Objective - Vital Signs/Intake and Output Vital Signs (last 24 hours): Temp Pulse Resp BP Pulse Ox 97.9 F 76 20 119/82 94 L 01/14/17 07:38 01/14/17 07:38 01/14/17 07:38 01/14/17 07:38 01/14/17 07:38 Intake and Output: 01/14/17 01/14/17 06:59 18:59 Intake Total 1440 Output Total 1000 Balance 440 - Medications Medications: Current Medications Albuterol/Ipratropium (Duoneb 3 Mg/0.5 Mg (3 Ml) Ud) 3 ml IH Q2H PRN PRN Reason: Shortness of Breath Albuterol/Ipratropium (Duoneb 3 Mg/0.5 Mg (3 Ml) Ud) 3 ml IH Q4H [facility] Last Admin: 01/14/17 10:52 Dose: Not Given Clotrimazole (Lotrimin 1%) 0 gm TOP BID [facility] Last Admin: 01/14/17 09:33 Dose: Not Given Guaifenesin (Robitussin) 200 mg PO Q4H [facility] Last Admin: 01/13/17 21:37 Dose: 200 mg Guaifenesin (Mucinex La) 600 mg PO BID [facility] Last Admin: 01/14/17 09:33 Dose: 600 mg Heparin Sodium (Porcine) (Heparin) 5,000 units SC Q12 JOHN PRN Reason: Protocol Last Admin: 01/14/17 09:33 Dose: 5,000 units Ceftriaxone Sodium (Rocephin 1 Gram Ivpb) 1 gm in 100 mls @ 100 mls/hr IVPB DAILY JOHN PRN Reason: Protocol Last Admin: 01/14/17 09:34 Dose: 100 mls/hr Ibuprofen (Motrin Tab) 600 mg PO Q6H PRN PRN Reason: Pain, severe (8-10) Last Admin: 01/11/17 09:47 Dose: 600 mg Lactobacillus Acidophilus (Bacid Acidophilus) 1 cap PO BID [facility] Last Admin: 01/14/17 09:33 Dose: 1 cap Levofloxacin (Levaquin) 750 mg PO DAILY [facility] Stop: 01/19/17 10:01 Last Admin: 01/14/17 09:33 Dose: 750 mg Prednisone (Prednisone Tab) 10 mg PO DAILY [facility] Stop: 01/15/17 10:01 Quetiapine Fumarate (Seroquel Xr) 150 mg PO DAILY [facility] PRN Reason: Protocol Last Admin: 01/14/17 09:35 Dose: 150 mg Tamsulosin HCl (Flomax) 0.4 mg PO DAILY [facility] Last Admin: 01/14/17 09:33 Dose: 0.4 mg - Labs Labs: 01/14/17 06:10 01/14/17 06:10 APTT 28.7 Seconds (23.7-30.8) 01/12/17 06:30 - Constitutional Appears: Well, Non-toxic, No Acute Distress - Extremities Exam Additional comments: Right lower extremity focused exam: Vasc: DP and PT pulses non-palpable due to edema. Edema noted to right LE is resolving. Skin temperature warm to warm from proximal to distal- resolving Neuro: Gross sensation intact Derm: Open ulcerations from a bulla noted to the anterior and posterior aspect to the right mid-calf area, both measure approximately 5.5 cm by 5 cm by 0.1cm. Ulcerations are superficial with no purulence, no malodor, or probe to bone noted. Right leg is erythematous from tibial tuberosity extending distally to the ankle. Ortho: Tenderness noted to the right LE upon palpation - Neurological Exam Neurological Exam: Alert, Awake, Oriented x3 - Psychiatric Exam Psychiatric exam: Normal Affect, Normal Mood Assessment and Plan - Assessment and Plan (Free Text) Assessment: 66 year old male with cellulitis and edema with ulcerations to the RLE Plan: patient examined and evaluated with attending, Dr. Mitchell labs, chart, vitals reviewed;afebrile, WBC 13.3 RLE cleansed with saline RLE dressed with maxorb, Unna boot and Coban Wound culture final: Acinetobacter Pt to be D/C today and will continue 5 more days of PO Levaquin as per ID Podiatry will continue to follow patient while in house Patient to F/U in [facility] on Monday <Rosy Mitchell - Last Filed: 01/15/17 18:38> Objective - Vital Signs/Intake and Output Vital Signs (last 24 hours): Temp Pulse Resp BP Pulse Ox 97.9 F 76 20 119/82 94 L 01/14/17 07:38 01/14/17 07:38 01/14/17 07:38 01/14/17 07:38 01/14/17 07:38 - Labs Labs: 01/14/17 06:10 01/14/17 06:10 APTT 28.7 Seconds (23.7-30.8) 01/12/17 06:30 Assessment and Plan (1) Cellulitis of lower leg Status: Acute Attending/Attestation - Attestation I have personally seen and examined this patient.: Yes I have fully participated in the care of the patient.: Yes I have reviewed all pertinent clinical information, including history, physical exam and plan: Yes
[2017-01-14 12:40] VITALS: O2SAT 94
--- NOTE | 2017-01-14 12:42 | CP.PCM.PN ---
Subjective - Date & Time of Evaluation Date of Evaluation: 01/14/17 Time of Evaluation: 11:55 Objective - Vital Signs/Intake and Output Vital Signs (last 24 hours): Temp Pulse Resp BP Pulse Ox 97.9 F 76 20 119/82 94 L 01/14/17 07:38 01/14/17 07:38 01/14/17 07:38 01/14/17 07:38 01/14/17 07:38 Intake and Output: 01/14/17 01/14/17 06:59 18:59 Intake Total 1440 Output Total 1000 Balance 440 - Medications Medications: Current Medications Albuterol/Ipratropium (Duoneb 3 Mg/0.5 Mg (3 Ml) Ud) 3 ml IH Q2H PRN PRN Reason: Shortness of Breath Albuterol/Ipratropium (Duoneb 3 Mg/0.5 Mg (3 Ml) Ud) 3 ml IH Q4H [facility] Last Admin: 01/14/17 10:52 Dose: Not Given Clotrimazole (Lotrimin 1%) 0 gm TOP BID [facility] Last Admin: 01/14/17 09:33 Dose: Not Given Guaifenesin (Robitussin) 200 mg PO Q4H [facility] Last Admin: 01/13/17 21:37 Dose: 200 mg Guaifenesin (Mucinex La) 600 mg PO BID [facility] Last Admin: 01/14/17 09:33 Dose: 600 mg Heparin Sodium (Porcine) (Heparin) 5,000 units SC Q12 JOHN PRN Reason: Protocol Last Admin: 01/14/17 09:33 Dose: 5,000 units Ceftriaxone Sodium (Rocephin 1 Gram Ivpb) 1 gm in 100 mls @ 100 mls/hr IVPB DAILY [facility] PRN Reason: Protocol Last Admin: 01/14/17 09:34 Dose: 100 mls/hr Ibuprofen (Motrin Tab) 600 mg PO Q6H PRN PRN Reason: Pain, severe (8-10) Last Admin: 01/11/17 09:47 Dose: 600 mg Lactobacillus Acidophilus (Bacid Acidophilus) 1 cap PO BID [facility] Last Admin: 01/14/17 09:33 Dose: 1 cap Levofloxacin (Levaquin) 750 mg PO DAILY [facility] Stop: 01/19/17 10:01 Last Admin: 01/14/17 09:33 Dose: 750 mg Prednisone (Prednisone Tab) 10 mg PO DAILY [facility] Stop: 01/15/17 10:01 Quetiapine Fumarate (Seroquel Xr) 150 mg PO DAILY [facility] PRN Reason: Protocol Last Admin: 01/14/17 09:35 Dose: 150 mg Tamsulosin HCl (Flomax) 0.4 mg PO DAILY [facility] Last Admin: 01/14/17 09:33 Dose: 0.4 mg - Labs Labs: 01/14/17 06:10 01/14/17 06:10 APTT 28.7 Seconds (23.7-30.8) 01/12/17 06:30
--- NOTE | 2017-01-14 16:18 | CP.PCM.DIS ---
<Dalia Ford - Last Filed: 01/14/17 20:20> Provider - Provider Date of Admission: 01/09/17 00:12 Attending physician: Bassem Lama MD Primary care physician: Sang Morales MD Consults: ID - Dr. Tipton Podiatry - Dr. Farr Time Spent in preparation of Discharge (in minutes): 40 Hospital Course - Lab Results Lab Results: Micro Results 01/10/17 09:30 Leg - Right Gram Stain - Final 01/10/17 09:30 Leg - Right Wound Culture - Final Acinetobacter Baumannii Most Recent Lab Values WBC 13.3 10^3/ul (4.5-11.0) H 01/14/17 06:10 RBC 4.61 10^6/uL (3.5-6.1) 01/14/17 06:10 Hgb 13.7 gm/dL (14.0-18.0) L 01/14/17 06:10 Hct 40.7 % (42.0-52.0) L 01/14/17 06:10 MCV 88.3 fL (80.0-105.0) 01/14/17 06:10 MCH 29.7 pg (25.0-35.0) 01/14/17 06:10 MCHC 33.7 g/dl (31.0-37.0) 01/14/17 06:10 RDW 12.8 % (11.5-14.5) 01/14/17 06:10 Plt Count 256 10^3/uL (120.0-450.0) 01/14/17 06:10 MPV 9.4 fl (7.0-11.0) 01/14/17 06:10 Gran % 82.7 % (50.0-68.0) H 01/13/17 06:30 Lymph % (Auto) 10.9 % (22.0-35.0) L 01/13/17 06:30 [place] % (Auto) 5.8 % (1.0-6.0) 01/13/17 06:30 Eos % (Auto) 0.4 % (1.5-5.0) L 01/13/17 06:30 Baso % (Auto) 0.2 % (0.0-3.0) 01/13/17 06:30 Gran # 9.30 (1.4-6.5) H 01/13/17 06:30 Lymph # 1.2 (1.2-3.4) 01/13/17 06:30 [place] # 0.7 (0.1-0.6) H 01/13/17 06:30 Eos # 0.0 (0.0-0.7) 01/13/17 06:30 Baso # 0.02 K/mm3 (0.0-2.0) 01/13/17 06:30 ESR 45 mm/hr (0.00-15.0) H 01/09/17 06:00 APTT 28.7 Seconds (23.7-30.8) 01/12/17 06:30 pO2 30 mm/Hg (30-55) 01/08/17 23:12 VBG pH 7.34 (7.32-7.43) 01/08/17 23:12 VBG pCO2 54.0 (40-60) 01/08/17 23:12 VBG HCO3 29.1 mmol/l (21-28) H 01/08/17 23:12 VBG Total CO2 30.8 mmol.L (22-28) H 01/08/17 23:12 VBG O2 Sat (Calc) 54.3 % (40-65) 01/08/17 23:12 VBG Base Excess 2.1 mmol/L (0.0-2.0) H 01/08/17 23:12 VBG Potassium 4.7 mmol/L (3.6-5.2) 01/08/17 23:12 Sodium 135.0 mmol/L (132-148) 01/08/17 23:12 Chloride 100.0 mmol/L (98-107) 01/08/17 23:12 Glucose 105 mg/dl (75-110) 01/08/17 23:12 Lactate 1.3 mmol/L (0.7-2.1) 01/08/17 23:12 FiO2 21.0 % 01/08/17 23:12 Sodium 135 mmol/L (132-148) 01/14/17 06:10 Potassium 4.1 mmol/L (3.6-5.0) 01/14/17 06:10 Chloride 99 mmol/L (98-107) 01/14/17 06:10 Carbon Dioxide 26 mmol/L (21-33) 01/14/17 06:10 Anion Gap 14 (10-20) 01/14/17 06:10 BUN 22 mg/dL (7-21) H 01/14/17 06:10 Creatinine 0.9 mg/dL (0.5-1.4) 01/14/17 06:10 Est GFR ( Amer) > 60 01/14/17 06:10 Est GFR (Non-Af Amer) > 60 01/14/17 06:10 Random Glucose 133 mg/dL (70-110) H 01/14/17 06:10 Hemoglobin A1c 6.4 % (4.2-6.5) 01/09/17 06:30 Calcium 9.2 mg/dL (8.4-10.5) 01/14/17 06:10 Total Bilirubin 0.8 mg/dL (0.2-1.3) 01/14/17 06:10 AST 41 U/L (15-59) 01/14/17 06:10 ALT 77 U/L (7-56) H 01/14/17 06:10 Alkaline Phosphatase 69 U/L (38-133) 01/14/17 06:10 C-React Prot High Sens > 15.00 mg/L (1.00-3.00) H 01/09/17 06:00 Total Protein 7.6 g/dL (5.8-8.3) 01/14/17 06:10 Albumin 4.0 g/dL (3.0-4.8) 01/14/17 06:10 Globulin 3.7 gm/dL 01/14/17 06:10 Albumin/Globulin Ratio 1.1 (1.1-1.8) 01/14/17 06:10 Procalcitonin 3.51 NG/ML (0.19-0.49) H 01/09/17 06:00 Venous Blood Potassium 4.7 mmol/L (3.6-5.2) 01/08/17 23:12 Hepatitis A IgM Ab Negative (NEGATIVE) 01/09/17 06:30 Hep Bs Antigen Negative (NEGATIVE) 01/09/17 06:30 Hep B Core IgM Ab Negative (NEGATIVE) 01/09/17 06:30 Hepatitis C Antibody Negative (NEGATIVE) 01/09/17 06:30 HIV 1&2 Antibody Screen Negative (NEGATIVE) 01/09/17 06:30 - Hospital Course Hospital Course: Patient is a 66 year old obese male who [place] [facility] [place] of his right distal lower extremity which began at his knees and ended at his toes. Patient was started on IV Antibiotics and his cellultis began to resolve. Patient also had a cough which he was symptomatically treated with duonebs, robitussin, mucinex, and a steroid taper. Patient had elevated LFTs during admission which warranted a RUQ US which showed fatty liver. Patient was provided diet and lifestyle education regarding this. MRI ruled out osteomyelitis and his cellulitis has improved. He will be sent out and PO Levaquin for 5 more days. He is to follow up with his PMD Dr. Morales and [facility] [place]. Patient is agreeable to plan and medications Patient seen, reviewed, and discussed with attending. Dalia Ford PGY-1 - Date & Time of H&P Date of H&P: 01/14/17 Time of H&P: 16:19 Discharge Exam - Head Exam Head Exam: ATRAUMATIC, NORMAL INSPECTION, NORMOCEPHALIC - Respiratory Exam Respiratory Exam: Clear to PA & Lateral. absent: Rales, Rhonchi, Wheezes, Stridor - Cardiovascular Exam Cardiovascular Exam: RRR, +S1, +S2 - GI/Abdominal Exam GI & Abdominal Exam: Normal Bowel Sounds, Soft. absent: Tenderness - Extremities Exam Additional comments: erythematous R lower distal extremity (Cellulitis) - Psychiatric Exam Psychiatric exam: Normal Affect, Normal Mood Discharge Plan - Discharge Medications Prescriptions: Levofloxacin [Levaquin] 750 mg PO DAILY #5 tablet - Follow Up Plan Condition: GOOD Disposition: HOME/ ROUTINE Instructions: Pneumococcal Vaccine for Adults (GEN), Cellulitis (DC), Heart Healthy Diet (DC), Fall Prevention (DC) Additional Instructions: -Do NOT take tylenol for Pain. Ibuprofen is Okay. -Follow up with Dr. Morales on Monday or Monday -Repeat your Liver Function Test (LFT) in 3-4 days -Follow up to [facility] on Monday Referrals: Rosy Mitchell DPM [Staff Provider] - Sang Morales [Primary Care Provider] - <Rekha Espinoza - Last Filed: 01/14/17 21:07> Provider - Provider Date of Admission: 01/09/17 00:12 Attending physician: Bassem Lama MD Primary care physician: Sang Morales MD Hospital Course - Lab Results Lab Results: Micro Results 01/10/17 09:30 Leg - Right Gram Stain - Final 01/10/17 09:30 Leg - Right Wound Culture - Final Acinetobacter Baumannii Most Recent Lab Values WBC 13.3 10^3/ul (4.5-11.0) H 01/14/17 06:10 RBC 4.61 10^6/uL (3.5-6.1) 01/14/17 06:10 Hgb 13.7 gm/dL (14.0-18.0) L 01/14/17 06:10 Hct 40.7 % (42.0-52.0) L 01/14/17 06:10 MCV 88.3 fL (80.0-105.0) 01/14/17 06:10 MCH 29.7 pg (25.0-35.0) 01/14/17 06:10 MCHC 33.7 g/dl (31.0-37.0) 01/14/17 06:10 RDW 12.8 % (11.5-14.5) 01/14/17 06:10 Plt Count 256 10^3/uL (120.0-450.0) 01/14/17 06:10 MPV 9.4 fl (7.0-11.0) 01/14/17 06:10 Gran % 82.7 % (50.0-68.0) H 01/13/17 06:30 Lymph % (Auto) 10.9 % (22.0-35.0) L 01/13/17 06:30 [place] % (Auto) 5.8 % (1.0-6.0) 01/13/17 06:30 Eos % (Auto) 0.4 % (1.5-5.0) L 01/13/17 06:30 Baso % (Auto) 0.2 % (0.0-3.0) 01/13/17 06:30 Gran # 9.30 (1.4-6.5) H 01/13/17 06:30 Lymph # 1.2 (1.2-3.4) 01/13/17 06:30 [place] # 0.7 (0.1-0.6) H 01/13/17 06:30 Eos # 0.0 (0.0-0.7) 01/13/17 06:30 Baso # 0.02 K/mm3 (0.0-2.0) 01/13/17 06:30 ESR 45 mm/hr (0.00-15.0) H 01/09/17 06:00 APTT 28.7 Seconds (23.7-30.8) 01/12/17 06:30 pO2 30 mm/Hg (30-55) 01/08/17 23:12 VBG pH 7.34 (7.32-7.43) 01/08/17 23:12 VBG pCO2 54.0 (40-60) 01/08/17 23:12 VBG HCO3 29.1 mmol/l (21-28) H 01/08/17 23:12 VBG Total CO2 30.8 mmol.L (22-28) H 01/08/17 23:12 VBG O2 Sat (Calc) 54.3 % (40-65) 01/08/17 23:12 VBG Base Excess 2.1 mmol/L (0.0-2.0) H 01/08/17 23:12 VBG Potassium 4.7 mmol/L (3.6-5.2) 01/08/17 23:12 Sodium 135.0 mmol/L (132-148) 01/08/17 23:12 Chloride 100.0 mmol/L (98-107) 01/08/17 23:12 Glucose 105 mg/dl (75-110) 01/08/17 23:12 Lactate 1.3 mmol/L (0.7-2.1) 01/08/17 23:12 FiO2 21.0 % 01/08/17 23:12 Sodium 135 mmol/L (132-148) 01/14/17 06:10 Potassium 4.1 mmol/L (3.6-5.0) 01/14/17 06:10 Chloride 99 mmol/L (98-107) 01/14/17 06:10 Carbon Dioxide 26 mmol/L (21-33) 01/14/17 06:10 Anion Gap 14 (10-20) 01/14/17 06:10 BUN 22 mg/dL (7-21) H 01/14/17 06:10 Creatinine 0.9 mg/dL (0.5-1.4) 01/14/17 06:10 Est GFR ( Amer) > 60 01/14/17 06:10 Est GFR (Non-Af Amer) > 60 01/14/17 06:10 Random Glucose 133 mg/dL (70-110) H 01/14/17 06:10 Hemoglobin A1c 6.4 % (4.2-6.5) 01/09/17 06:30 Calcium 9.2 mg/dL (8.4-10.5) 01/14/17 06:10 Total Bilirubin 0.8 mg/dL (0.2-1.3) 01/14/17 06:10 AST 41 U/L (15-59) 01/14/17 06:10 ALT 77 U/L (7-56) H 01/14/17 06:10 Alkaline Phosphatase 69 U/L (38-133) 01/14/17 06:10 C-React Prot High Sens > 15.00 mg/L (1.00-3.00) H 01/09/17 06:00 Total Protein 7.6 g/dL (5.8-8.3) 01/14/17 06:10 Albumin 4.0 g/dL (3.0-4.8) 01/14/17 06:10 Globulin 3.7 gm/dL 01/14/17 06:10 Albumin/Globulin Ratio 1.1 (1.1-1.8) 01/14/17 06:10 Procalcitonin 3.51 NG/ML (0.19-0.49) H 01/09/17 06:00 Venous Blood Potassium 4.7 mmol/L (3.6-5.2) 01/08/17 23:12 Hepatitis A IgM Ab Negative (NEGATIVE) 01/09/17 06:30 Hep Bs Antigen Negative (NEGATIVE) 01/09/17 06:30 Hep B Core IgM Ab Negative (NEGATIVE) 01/09/17 06:30 Hepatitis C Antibody Negative (NEGATIVE) 01/09/17 06:30 HIV 1&2 Antibody Screen Negative (NEGATIVE) 01/09/17 06:30 Attending/Attestation - Attestation I have personally seen and examined this patient.: Yes I have fully participated in the care of the patient.: Yes I have reviewed all pertinent clinical information, including history, physical exam and plan: Yes Notes (Text): 01/14/17 21:06 Patient seen and examined at bedside. Labs, vitals noted. Fells better and ambulating without any discomfort. Plan of wound care discussed with podiatry. Continue PO antibiotic upon discharge and follow up with PMD to repeat Lover function test in 48 hours. Lottie gonzales applied and advised to come back to [facility] on monday.agree with the discharge plan as outlined by the resident
--- NOTE | 2017-01-18 16:19 | CP.PCM.PN ---
<Dalia Ford - Last Filed: 01/18/17 16:16> Subjective - Date & Time of Evaluation Date of Evaluation: 01/12/17 Time of Evaluation: 09:00 - Subjective Subjective: Pt seen and examined this morning. Reports continued improvement in leg pain and swelling, says cough has slightly improved. Denies fever, chills, CP, SOB, n/v or diarrhea Objective - Vital Signs/Intake and Output Vital Signs (last 24 hours): Temp Pulse Resp BP Pulse Ox 97.9 F 76 20 119/82 94 L 01/14/17 07:38 01/14/17 07:38 01/14/17 07:38 01/14/17 07:38 01/14/17 07:38 - Labs Labs: 01/14/17 06:10 01/14/17 06:10 APTT 28.7 Seconds (23.7-30.8) 01/12/17 06:30 - Constitutional Appears: Well, Non-toxic, No Acute Distress - Head Exam Head Exam: ATRAUMATIC, NORMOCEPHALIC - Eye Exam Eye Exam: EOMI - Respiratory Exam Respiratory Exam: NORMAL BREATHING PATTERN. absent: Rales, Rhonchi, Respiratory Distress, Stridor Additional comments: Minimal Wheezing - Cardiovascular Exam Cardiovascular Exam: RRR, +S1, +S2 - GI/Abdominal Exam GI & Abdominal Exam: Soft, Normal Bowel Sounds. absent: Tenderness, Organomegaly - Back Exam Additional comments: L leg nonedematous, non erythematous. R leg wrapped in geoffrey bandage. R leg and foot are erythematous and edematous, sparing the ankle, with improvement from yesterday. Erythema has receded slightly from the pen line drawn on admission - Neurological Exam Neurological Exam: Alert, Awake, Oriented x3 - Psychiatric Exam Psychiatric exam: Normal Affect, Normal Mood Assessment and Plan - Assessment and Plan (Free Text) Assessment: 66 year old male admitted for left leg cellulitis. Plan: 1.Cellulitis -WBC 11.2 ESR 45 -MRI to r/o osteomyelitis -Blood cx neg -Cont rocephin/zyvox per ID (day 4) -Cont wound care -Cont leg elevation -Cont motrin PRN for pain -PT eval -F/u wound cx 2.Cough -Prednisone taper -Robitussin -Cont duonebs (PRN/JOHN), mucinex JOHN 3.Transaminitis -AST 36; ALT 68 today -Abd US showed increased echogenicity of liver parenchyma probable 2/2 fatty infiltration -Recommend lifestyle modifications -F/u with PCP on d/c 4.GI PPX: PTX DVT PPX: heparin SC Patient seen, examined and discussed with attending Dalia Ford PGY1 <Bassem Lama - Last Filed: 01/21/17 14:36> Objective - Vital Signs/Intake and Output Vital Signs (last 24 hours): Temp Pulse Resp BP Pulse Ox 97.9 F 76 20 119/82 94 L 01/14/17 07:38 01/14/17 07:38 01/14/17 07:38 01/14/17 07:38 01/14/17 07:38 - Labs Labs: 01/14/17 06:10 01/14/17 06:10 APTT 28.7 Seconds (23.7-30.8) 01/12/17 06:30 Attending/Attestation - Attestation I have personally seen and examined this patient.: Yes I have fully participated in the care of the patient.: Yes I have reviewed all pertinent clinical information, including history, physical exam and plan: Yes Notes (Text): I have seen and examined the patient at bedside. Agree with the above note with the following additions/ exceptions: Briefly this is 66 year old male with history of asthma who was admitted with RLE cellulitis. He is on rocephin and zyvox. RLE is still very swollen and erythematous. ID and podiatry on board. Hep and HIV negative. Osteomyelitis was ruled out. We will follow up on results. Patient has transaminitis secondary to fatty infiltration. Upon discharge patient will follow up with Dr Morales. Dr Bassem Lama
== END 2017-01-14 18:42 | disposition home or self-care (01) | DRG 277 ==
LOC: ED 22:08 → ERH 01-09 00:12 → 5RNO 01-09 02:19
PROVIDERS: ADMIT Internal Medicine; ATTEND Hospitalist
DX: L03.115 Cellulitis of right lower limb (principal); L97.919 Non-pressure chronic ulcer of unspecified part of right lower leg with unspecified severity; K76.0 Fatty (change of) liver, not elsewhere classified; K43.6 Other and unspecified ventral hernia with obstruction, without gangrene; I10 Essential (primary) hypertension; F32.9 Major depressive disorder, single episode, unspecified; F41.9 Anxiety disorder, unspecified; D50.9 Iron deficiency anemia, unspecified; J45.909 Unspecified asthma, uncomplicated; B96.89 Other specified bacterial agents as the cause of diseases classified elsewhere

== ENCOUNTER 2017-01-24 18:25 | Inpatient (IN) | payer MEDICAID ==
[2017-01-24] MEDS ORDERED: Levalbuterol 1.25 MG/3 ML Inhal Soln UD IH STA ×2 (18:48→20:56)
[2017-01-24] MEDS ORDERED: guaiFENesin 200 mg/10 ml Syrup UD PO STA (18:48)
[2017-01-24] MEDS ORDERED: Ipratropium 0.02% Inhal Soln (0.5 mg/2.5 ml) UD IH STA (18:48)
[2017-01-24 19:03] LABS: BASO # 0.02 K/mm3 (0.0-2.0); BASO % 0.4 % (0.0-3.0); EOS # 0.2 (0.0-0.7); EOS % 3.4 % (1.5-5.0); GRAN # 3.92 (1.4-6.5); HEMOGLOBIN 11.7 gm/dL (14.0-18.0); LYMPH % 18.1 % (22.0-35.0); MEAN CELL VOLUME 88.6 fL (80.0-105.0); MEAN CORPUSCULAR HGB CONC 32.7 g/dl (31.0-37.0); MEAN PLATELET VOLUME 9.3 fl (7.0-11.0); MONO # 0.5 (0.1-0.6); MONO % 8.1 % (1.0-6.0); PLATELET COUNT 218 10^3/uL (120.0-450.0); RBC 4.04 10^6/uL (3.5-6.1); WHITE BLOOD COUNT 5.6 10^3/ul (4.5-11.0)
[2017-01-24 19:16] LABS: INR 1.04 (0.93-1.08); PARTIAL THROMBOPLASTIN TIME 28.5 Seconds (23.7-30.8); PROTHROMBIN TIME 11.2 Seconds (9.9-11.8)
[2017-01-24 19:34] LABS: ALB/GLOB RATIO 0.9 (1.1-1.8); ALBUMIN 3.4 g/dL (3.0-4.8); ALT/SGPT 39 U/L (7-56); AST/SGOT 32 U/L (15-59); BLOOD UREA NITROGEN 14 mg/dL (7-21); CALCIUM 8.6 mg/dL (8.4-10.5); GFR AFRICAN-AMERICAN > 60; GFR NON-AFRICAN AMERICAN > 60; LIPASE 58 U/L (23-300)
[2017-01-24 19:46] LABS: B-TYPE NATRIURETIC PEPTIDE 82.8 pg/mL (0-450)
[2017-01-24 19:47] LABS: TROPONIN I < 0.01 ng/mL
--- NOTE | 2017-01-24 23:16 | ED PDOC ---
Arrival/HPI - General Chief Complaint: Chest Pain Time Seen by Provider: 01/24/17 18:29 Historian: Patient - History of Present Illness Narrative History of Present Illness (Text): 01/24/17 23:13 66 y.o. male whose past medical history includes depression and anxiety who comes to the emergency department with complaining of of chest tightness associated with a cough and shortness of breathing since yesterday. No fever or abd pain or nausea/vomiting. 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) - Renal Hx Renal Disorder: No - Endocrine/Metabolic Hx Endocrine Disorders: No - Hematological/Oncological Hx Anemia: No - Integumentary Hx Dermatological Disorder: Yes Other/Comment: "sometimes I get an allergy from soap detergent." - Musculoskeletal/Rheumatological Hx Musculoskeletal Disorders: Yes Hx Falls: Yes - Gastrointestinal Hx Gastrointestinal Disorders: Yes Other/Comment: Ventral hernia for 2 months - Genitourinary/Gynecological Hx Genitourinary Disorders: Yes (INCARCERATED VENTRAL HERNIA) - Psychiatric Hx Psychophysiologic Disorder: Yes Hx Anxiety: Yes Hx Substance Use: No - Surgical History Hx Cataract Extraction: Yes Other/Comment: Eye surgery - Anesthesia Hx Anesthesia: Yes Hx Anesthesia Reactions: No Hx Malignant Hyperthermia: No - Suicidal Assessment Feels Threatened In Home Enviroment: No Family/Social History Family/Social History: Diabetes, Hypertension Smoking Status: Never Smoked Hx Alcohol Use: No Hx Substance Use: No Allergies/Home Meds Allergies/Adverse Reactions: Allergies No Known Allergies Allergy (Verified 01/24/17 18:43) Home Medications: Home Meds Medication Instructions Recorded Confirmed Unobtainable 01/24/17 01/24/17 Review of Systems - Physician Review All systems were reviewed & negative as marked: Yes - Review of Systems Constitutional: Normal Eyes: Normal ENT: Normal Respiratory: SOB, Cough Cardiovascular: Chest Pain Gastrointestinal: absent: Abdominal Pain, Nausea, Vomiting Genitourinary Male: Dysuria Musculoskeletal: Normal Skin: Normal Neurological: Normal Endocrine: Normal Hemo/Lymphatic: Normal Psychiatric: Normal Physical Exam Vital Signs Temp Pulse Resp BP Pulse Ox 01/24/17 18:47 98.3 F 88 16 107/67 94 L Temperature: Afebrile Blood Pressure: Normal Pulse: Regular Respiratory Rate: Normal Appearance: Positive for: Well-Appearing, Non-Toxic, Comfortable Pain Distress: None Mental Status: Positive for: Alert and Oriented X 3 - Systems Exam Head: Present: Atraumatic, Normocephalic Pupils: Present: Other (R eye cataract / opacification) Conjunctiva: Present: Normal Mouth: Present: Moist Mucous Membranes Pharnyx: Present: Normal. No: ERYTHEMA, EXUDATE Neck: Present: Normal Range of Motion Respiratory/Chest: Present: Wheezes (mild). No: Respiratory Distress, Accessory Muscle Use Cardiovascular: Present: Regular Rate and Rhythm, Normal S1, S2. No: Murmurs Abdomen: Present: Normal Bowel Sounds. No: Tenderness, Distention, Peritoneal Signs Back: Present: Normal Inspection Upper Extremity: Present: Normal Inspection. No: Cyanosis, Edema Lower Extremity: Present: Normal Inspection. No: Edema Neurological: Present: GCS=15, CN II-XII Intact, Speech Normal Skin: Present: Warm, Dry, Normal Color. No: Rashes Psychiatric: Present: Alert, Oriented x 3, Normal Insight, Normal Concentration Medical Decision Making ED Course and Treatment: 01/24/17 19:25 Patient with noted history with cough and chest tightness. Differential: asthmatic bronchitis vs. acs vs pneumonia. 01/24/17 20:00 EKG: NSR @ 86 with RBBB with LAD; no ST/T changes; normal intervals; normal axis. CXR: nad as read by me. 01/24/17 23:19 Patient with noted history with chest pain and shortness of breath. Patient given nebs with steroids with moderate improvement in discomfort. O2 sat is still 91-92% on room air and some discomfort is still there. Will place on observation on tele for further eval and treatment. Discussed with Dr. Santizo. - Lab Interpretations Lab Results: 01/24/17 18:50 01/24/17 18:50 Lab Results 01/24/17 18:50: Sodium 138, Potassium 4.0, Chloride 104, Carbon Dioxide 27, Anion Gap 11, BUN 14, Creatinine 1.0, Est GFR ( Amer) > 60, Est GFR (Non- Af Amer) > 60, Random Glucose 99, Calcium 8.6, Total Bilirubin 0.6, AST 32, ALT 39, Alkaline Phosphatase 61, Lactate Dehydrogenase 741 H, Total Creatine Kinase 292 H, CK-MB (CK-2) 3.0, CK-MB (CK-2) % Cancelled, Troponin I < 0.01, NT-Pro-B Natriuret Pep 82.8, Total Protein 7.1, Albumin 3.4, Globulin 3.6, Albumin/ Globulin Ratio 0.9 L, Lipase 58 01/24/17 18:50: PT 11.2, INR 1.04, APTT 28.5 01/24/17 18:50: WBC 5.6 D, RBC 4.04, Hgb 11.7 L, Hct 35.8 L, MCV 88.6, MCH 29.0 , MCHC 32.7, RDW 13.0, Plt Count 218, MPV 9.3, Gran % 70.0 H, Lymph % (Auto) 18.1 L, Desha % (Auto) 8.1 H, Eos % (Auto) 3.4, Baso % (Auto) 0.4, Gran # 3.92, Lymph # 1.0 L, Desha # 0.5, Eos # 0.2, Baso # 0.02 - RAD Interpretation Radiology Orders: 01/24/17 18:47 CHEST PORTABLE [RAD] Stat - Medication Orders Current Medication Orders: Discontinued Medications Guaifenesin (Robitussin) 400 mg PO ONCE STA Stop: 01/24/17 18:49 Last Admin: 01/24/17 21:40 Dose: 400 mg Ipratropium [place] (Atrovent) 0.5 mg IH STAT STA Stop: 01/24/17 18:49 Last Admin: 01/24/17 19:03 Dose: 0.5 mg Levalbuterol HCl (Xopenex) 1.25 mg IH STAT STA Stop: 01/24/17 18:49 Last Admin: 01/24/17 19:39 Dose: 1.25 mg Levalbuterol HCl (Xopenex) 1.25 mg IH STAT STA Stop: 01/24/17 20:57 Last Admin: 01/24/17 21:40 Dose: 1.25 mg Methylprednisolone (Solu-Medrol) 125 mg IVP STAT STA Stop: 01/24/17 18:49 Last Admin: 01/24/17 19:03 Dose: 125 mg Disposition/Present on Arrival - Present on Arrival Any Indicators Present on Arrival: No History of DVT/PE: No History of Uncontrolled Diabetes: No Urinary Catheter: No History of Decub. Ulcer: No History Surgical Site Infection Following: None - Disposition Have Diagnosis and Disposition been Completed?: Yes Diagnosis: Asthmatic bronchitis, Chest pain Disposition: HOSPITALIZED Disposition Time: 23:00 Patient Plan: Observation, Telemetry Condition: FAIR Discharge Instructions (ExitCare): Chest Pain (ED) Referrals: Sang Morales [Primary Care Provider] - Follow up with primary
--- NOTE | 2017-01-25 00:20 | CP.PCM.HP ---
<GAVIOTA ZAMORA - Last Filed: 01/25/17 00:39> History of Present Illness - History of Present Illness History of Present Illness: Pt is a 66 yo M with PMHx of glaucoma, depression and anxiety presents with cc of chest tightness and SOB. Pt states his symptoms began abruptly 2 days ago. Pt states tightness is substernal and radiates to his abdomen, but denied radiation to either UE or neck. Pt states that SOB is associated with non- productive cough and is worsened when lying supine. Pt resides at the [facility] and admits to minimal ambulation. Pt denied any alleviating factors. Pt denied any recent sick contacts. Pt was recently admitted [place] [facility] [place] and treatment LE cellulitis. Pt denied taking any home abx after discharge. Pt states that b/l LE have been swollen and tender for the last 2 days R>L, but denied erythema. Pt admits to nausea, but denied vomiting, fever, constipation, diarrhea, chills, or dizziness. PMHx: glaucoma, depression, anxiety PSH: cataract repair (Rt. eye), incarcerated ventral hernia repair SH: patient denies tobacco, alcohol, illicit drug use FH: CAD, DM, HTN All: Penicillin (pruritis) Present on Admission - Present on Admission Any Indicators Present on Admission: Yes Review of Systems - Review of Systems All systems: reviewed and no additional remarkable complaints except (12 point ROS negative other than what is stated in HPI) Past Patient History - Infectious Disease Hx of Infectious Diseases: None - Tetanus Immunizations Tetanus Immunization: Unknown - Past Medical History & Family History Past Medical History?: Yes - Past Social History Smoking Status: Never Smoked - CARDIAC Hx Cardiac Disorders: Yes Hx Hypertension: Yes - PULMONARY Hx Respiratory Disorders: Yes Hx Asthma: Yes ("OCCASSIONALLY" BUT NO INHALERS/MEDS) - NEUROLOGICAL Hx Alzheimer's Disease: No Hx Dementia: No Hx Migraine: No Hx Parkinson's Disease: No Hx Seizures: No Hx Transient Ischemic Attacks (TIA): No - HEENT Hx HEENT Problems: Yes (BILAT." EYE IRRITATION FOR A WHILE") Hx Cataracts: Yes (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) Hx Glaucoma: Yes (LEFT EYE WITH SURGERY DONE) - RENAL Hx Chronic Kidney Disease: No - ENDOCRINE/METABOLIC Hx Endocrine Disorders: No - HEMATOLOGICAL/ONCOLOGICAL Hx Anemia: No - INTEGUMENTARY Hx Dermatological Problems: Yes Other/Comment: "sometimes I get an allergy from soap detergent." - MUSCULOSKELETAL/RHEUMATOLOGICAL Hx Musculoskeletal Disorders: Yes Hx Falls: Yes - GASTROINTESTINAL Hx Gastrointestinal Disorders: Yes Other/Comment: Ventral hernia for 2 months - GENITOURINARY/GYNECOLOGICAL Hx Genitourinary Disorders: Yes (INCARCERATED VENTRAL HERNIA) - PSYCHIATRIC Hx Psychophysiologic Disorder: Yes Hx Anxiety: Yes Hx Substance Use: No - SURGICAL HISTORY Hx Cataract Extraction: Yes Other/Comment: Eye surgery - ANESTHESIA Hx Anesthesia: Yes Hx Anesthesia Reactions: No Hx Malignant Hyperthermia: No Meds Allergies/Adverse Reactions: Allergies Allergy/AdvReac Type Severity Reaction Status Date / Time No Known Allergies Allergy Verified 01/24/17 18:43 Physical Exam - Constitutional Appears: No Acute Distress - Head Exam Head Exam: ATRAUMATIC, NORMOCEPHALIC - Eye Exam Eye Exam: EOMI, PERRL (exam limited in right eye due to cataract). absent: Normal appearance (Right cornea cloudy) - ENT Exam ENT Exam: Mucous Membranes Moist - Neck Exam Neck exam: Positive for: Full Rom. Negative for: Lymphadenopathy, Tenderness, Thyromegaly - Respiratory Exam Respiratory Exam: Clear to Auscultation Bilateral. absent: Rales, Rhonchi, Wheezes - Cardiovascular Exam Cardiovascular Exam: RRR, +S1, +S2. absent: Diastolic murmur, Gallop, Rubs, Systolic Murmur - GI/Abdominal Exam GI & Abdominal Exam: Distended, Soft. absent: Guarding, Organomegaly, Rebound, Tenderness - Extremities Exam Additional comments: Swelling/Edema B/L LE R>L, right gastroc tender to palpation, b/l DP pulses palpable - Neurological Exam Neurological exam: Alert, Oriented x3 - Skin Skin Exam: Diaphoretic, Intact, Normal Color, Warm Results - Vital Signs Recent Vital Signs: Last Vital Signs Temp 98.3 F 01/24/17 18:47 Pulse 88 01/24/17 18:47 Resp 16 01/24/17 18:47 BP 107/67 01/24/17 18:47 Pulse Ox 94 L 01/24/17 18:47 - Labs Result Diagrams: 01/24/17 18:50 01/24/17 18:50 Assessment & Plan - Assessment and Plan (Free Text) Assessment: 66 yo M with PMHx of depression and anxiety will be admitted for evaluation and treatment for chest pain, dyspnea r/o DVT or PE. 1. Dyspnea r/o PE, DVT - CXR shows no acute disease - F/u d-dimer for possible CTA - F/u venous duplex of b/l LE 2. Chest Pain - Cardiology consulted - EKG shows NSR @ 86 with RBBB with LAD; no ST/T changes; normal intervals; normal axis - Trend EKG - Troponin x1 negative, will trend x2 3. GI/DVT PPx - Protonix - Consider lovenox vs SCDs due to recent cellulitis of LE Pt discussed in detail with Dr. Santizo. <Mary Santizo - Last Filed: 01/25/17 06:02> Results - Vital Signs Recent Vital Signs: Last Vital Signs Temp 98.3 F 01/24/17 18:47 Pulse 89 01/25/17 03:15 Resp 18 01/25/17 03:15 BP 132/84 01/25/17 03:15 Pulse Ox 93 L 01/25/17 03:15 - Labs Result Diagrams: 01/24/17 18:50 01/24/17 18:50 Labs: Laboratory Results - last 24 hr 01/25/17 01:00 Troponin I < 0.01 Attending/Attestation - Attestation I have personally seen and examined this patient.: Yes I have fully participated in the care of the patient.: Yes I have reviewed all pertinent clinical information: Yes Notes (Text): 01/25/17 06:01 Patient was seen when he was in the bed # [id number]. Agree with history , physical examination, assessment and plan.
[2017-01-25] MEDS ORDERED: Iodixanol 320 MG/ML 100 ML BOTTLE IV ONE (03:15)
[2017-01-25] MEDS ORDERED: Heparin 25,000units in D5W 25,000 UNITS/250 ML BAG IV ONE (03:46)
--- NOTE | 2017-01-25 05:30 | CT ---
EXAM: CT Angiography Chest Without and With Intravenous Contrast CLINICAL HISTORY: 66 years old, male; Signs and symptoms; Shortness of breath; Additional info: New onset shortness of breath, l leg swelling TECHNIQUE: Axial computed tomographic angiography images of the chest without and with intravenous contrast using pulmonary embolism protocol. This CT exam was performed using one or more of the following dose reduction techniques: automated exposure control, adjustment of the mA and/or kV according to patient size, and/or use of iterative reconstruction technique. MIP reconstructed images were created and reviewed. Coronal and sagittal reformatted images were created and reviewed. CONTRAST: 96 mL of VISI 320 administered intravenously. COMPARISON: DX - CHEST PORTABLE 01/24/2017 7:01:37 PM FINDINGS: Limitations: Motion artifact - mild to moderate. Suboptimal timing of bolus. Pulmonary arteries: Several filling defects within lower, segmental, subsegmental branches. No saddle embolus. Aorta: No aneurysm. No dissection. Lungs: No consolidation. Pleural space: No significant effusion. No pneumothorax. Heart: No cardiomegaly. No significant pericardial effusion. Bones/joints: Mild degenerative changes of spine. No acute fracture. Soft tissues: Unremarkable. Lymph nodes: No pathologically enlarged lymph nodes. Liver: Poorly defined area of decreased attenuation about gallbladder fossa. Kidneys and ureters: Too small to characterize lesion within LEFT kidney. IMPRESSION: 1. Pulmonary emboli. 2. Questionable liver lesion. Recommend nonemergent ultrasound or MRI. 3. Incidental/non-acute findings are described above.
[2017-01-25 06:31] VITALS: BMI 28.8
[2017-01-25] MEDS: Heparin 25,000units in D5W 25,000 UNITS/250 ML BAG IV PRN ×2 (06:39→19:59)
--- NOTE | 2017-01-25 08:42 | RAD ---
HISTORY: chest pressure COMPARISON: No prior. FINDINGS: LUNGS: No consolidation PLEURA: No significant pleural effusion identified, no pneumothorax apparent. CARDIOVASCULAR: Mild cardiomegaly and mild central pulmonary vascular congestion OSSEOUS STRUCTURES: Thoracic spondylosis VISUALIZED UPPER ABDOMEN: Normal. OTHER FINDINGS: None. IMPRESSION: Mild cardiomegaly and mild central pulmonary vascular congestion. No consolidation or effusion or pneumothorax
--- NOTE | 2017-01-25 10:32 | US ---
HISTORY: Leg pain and swelling. Evaluate for DVT PHYSICIAN(S): Wojciech Anton MD. TECHNIQUE: Duplex sonography and color-flow Doppler with graded compression were used to evaluate the deep venous systems of both lower extremities. FINDINGS: The visualized deep venous systems of both lower extremities are sonographically normal and compressible. Normal wave forms and augmentation are seen. There is no sonographic evidence for deep venous thrombosis in the visualized segments of both lower extremities. IMPRESSION: No sonographic evidence for deep venous thrombosis in the visualized segments of both lower extremities.
[2017-01-25 10:50] LABS: PARTIAL THROMBOPLASTIN TIME 58.1 Seconds (23.7-30.8)
[2017-01-25 10:52] LABS: D DIMER 3.87 mg/L FEU (0-0.50)
--- NOTE | 2017-01-25 17:30 | CARD ---
APPROVED REPORT EKG Measurement Heart [id number] MO 128P40 [id number] <Conclusion> Normal sinus rhythm Left axis deviation Right bundle branch block Abnormal ECG
--- NOTE | 2017-01-25 17:43 | CARD ---
APPROVED REPORT EKG Measurement Heart [id number] CO 124P53 [id number] <Conclusion> Normal sinus rhythm Left axis deviation Right bundle branch block Abnormal ECG
--- NOTE | 2017-01-25 19:49 | CON ---
HISTORY OF PRESENT ILLNESS: The patient is a 66-year-old male. Multiple medical issues. The patient has a history of overall psychotic spectrum disorder. Most likely, the patient has schizoaffective versus schizophrenia. The patient was admitted on the medical side for chest tightness. The patient was found to have pulmonary embolism. Psychiatric consult was called for evaluation of psychotic symptoms and patient has history of depression and anxiety and patient was on psychotropic medication prior to coming to the hospital. The patient was seen and examined, previous records reviewed. The patient does not have record of psychiatric admissions here in [place] or in [facility]. The patient was seen and examined. The patient was alert, pleasant, cooperative. The patient was aware of the medical issues, why he was admitted to the medical side. The patient reported that his feels a little bit better. The patient reported that he has history of schizophrenia. He has outpatient psychiatrist, Tristin Estrada at [facility]. The patient reported that he was taking Seroquel 500 mg at the night time. The patient said that he was filling his medication at [facility] in [place]. This display card writer called to [facility]. As per history, the patient was on Seroquel 100 mg at the night time. The patient filled this medication on 11/15/2016, one-month supply was given to the patient, and prescriber was Tristin Estrada. It seems to me patient did not fill any psychotropic medication at [facility]. Going back to the patient's presentation, patient reported that he has history of mental illness. He has history of being admitted to the psychiatric inpatient unit "a long time ago." The patient denied history of suicidal attempts. Patient denied thoughts of harming himself or others at the moment of the interview. The patient reported that he has vivid dreams and while he is sleeping, he could hear some voices and he could some images. The patient reported that voices and images are very unpleasant and disturbing, but patient denied any command type hallucinations. Denied any intent or plan to kill himself or others. Besides that, patient denied feeling anxious. The patient reported that he feels comfortable in the hospital. He also reported that he feels safe in the hospital. Collaterals were obtained from the nursing staff. The patient participates in treatment plan. There is no agitation, no aggression. The patient is socially appropriate, but presented earlier himself to be weird. PHYSICAL EXAMINATION: VITAL SIGNS: Within normal limits. Temperature 98.1, pulse is 88, blood pressure 135/97, respiration 20, and oxygen saturation is 93%. MEDICATION: Medications reviewed. The patient is on Heparin, Protonix, they tried to implement Geodon as needed. The patient most likely was not complaint with the Seroquel. As per history, patient was on 100 mg but patient voices that he was taking 500 mg. LABORATORY DATA: Labs reviewed. Hemoglobin and hematocrit 11.7 and 35.8. Coagulation reviewed. Chemistry reviewed. AST and ALT within normal limits. MENTAL STATUS EXAMINATION: The patient presented to be alert, oriented, agee hair, acceptable personal hygiene. The patient has intense eye contact. Speech was under productive, he has no answers. The patient also has poverty of speech. Thought process is concrete. Thought content, patient reported that he hears some voices and seeing things, majority of the time this while he is sleeping. The patient denied command type hallucinations. The patient denied thoughts of harming himself or others. Denied intent or plan. Mood described as "I'm feeling fine. I feel safe in the hospital." Insight and judgment are fair. Impulses are controlled. IMPRESSION: Most likely, the patient has history of schizoaffective disorder versus schizophrenia. The patient was admitted for chest tightness, was found to have pulmonary embolism. PLAN: Considering the fact that the patient was not complaint with the medications most likely or unless patient was filling medication in other pharmacy, we will ask him tomorrow. Meanwhile, patient does not present to be agitated or aggressive, denied having any thoughts of harming himself of others. We will resume Geodon p.o. and IM as needed for agitation and psychosis. Seroquel could give patient risk of metabolic syndrome. The patient is obese, overweight. We will continue current management. We will follow up on this patient tomorrow and advice accordingly. Thank you very much for letting me participate in care of your patient. Case was discussed with medical advisement. Should you have any questions give me a call. Anahi Harris MD [facility] # [id number]
--- NOTE | 2017-01-26 02:51 | CON ---
DATE: 01/25/2017 REQUESTING PHYSICIAN: Anastacio Collazo MD REASON FOR CONSULTATION: Chest pain and dyspnea. HISTORY OF PRESENT ILLNESS: This is a 66-year-old man who presented to the emergency room with complaints of worsening dyspnea and chest tightness. He has also had a cough. He was recently admitted for severe leg cellulitis. He states that his symptoms began approximately 2 days earlier. He is a resident at the [facility] and has had minimal activity, ambulation lately. CT angiogram showed evidence of small bilateral pulmonary emboli. Cardiac evaluation was requested. He denies any prior cardiac history. PAST MEDICAL HISTORY: His past history is notable for anxiety, depression, glaucoma, prior cataract surgery, and repair of an incarcerated ventral hernia. MEDICATIONS: His current medications include Geodon, intravenous heparin, and Protonix. ALLERGIES: HE REPORTS TO HAVE SOME REACTION TO PENICILLIN IN THE PAST. SOCIAL HISTORY: He denies alcohol or tobacco abuse. FAMILY HISTORY: Several family members have premature heart disease as well as hypertension and diabetes. REVIEW OF SYSTEMS: A 10-point review of systems is notable mainly for the problems mentioned above. PHYSICAL EXAMINATION GENERAL: He is a chronically ill-appearing, middle-aged man. VITAL SIGNS: His blood pressure is 126/90 with a pulse of 80 and sinus, and respirations are 16. He is afebrile. HEENT: Normocephalic and atraumatic. NECK: Supple. No JVD noted. CHEST: Bilateral scattered rhonchi heard. HEART: PMI displaced laterally with soft systolic murmurs to the left sternal border. ABDOMEN: Soft, mildly obese, nontender and normoactive bowel sounds. EXTREMITIES: Right leg cellulitic changes present. A 1+ leg edema is noted as well. SKIN: Warm and dry. PSYCHIATRIC: Normal mood and affect. NEUROLOGIC: Alert and oriented x3. No gross motor or sensory deficits appreciable. DIAGNOSTIC DATA: White count 5.6, hemoglobin and hematocrit 11.7 and 35.8 with a platelet count of 218,000. PT and PTT were normal. Potassium 4.0, BUN and creatinine of 14 and 1.0. Two sets of cardiac enzymes were negative. Initial CK was 292 with negative MB fraction. Electrocardiogram revealed sinus rhythm with right bundle-branch block and also secondary ST-T abnormalities. Chest x-ray reveals mildly increased cardiac silhouette with mild increased pulmonary vascular ejection. IMPRESSION: 1. Dyspnea and chest pain, likely secondary to pulmonary embolus, and pulmonary embolus likely due to recent leg immobilization. 2. Rest of the problems as noted. RECOMMENDATIONS: Intravenous heparin should continue. Oral Coumadin will be initiated in 24 hours as well. An echocardiogram will be obtained to assess for right ventricular strain or evidence of pulmonary hypertension, although this is less likely. We will continue to follow and make further recommendation as appropriate. An eventual stress test can be planned after resolution of his pulmonary embolus. Shad Marie MD [facility] # [id number] MTDD
[2017-01-26 06:23] LABS: HEMOGLOBIN 12.5 gm/dL (14.0-18.0); MEAN CELL VOLUME 88.4 fL (80.0-105.0); MEAN CORPUSCULAR HEMOGLOBIN 29.1 pg (25.0-35.0); MEAN CORPUSCULAR HGB CONC 32.9 g/dl (31.0-37.0); MEAN PLATELET VOLUME 9.6 fl (7.0-11.0); RBC 4.3 10^6/uL (3.5-6.1); RED CELL DISTRIBUTION WIDTH 13.3 % (11.5-14.5); WHITE BLOOD COUNT 8.1 10^3/ul (4.5-11.0)
[2017-01-26 07:11] VITALS: O2SAT 99
[2017-01-26 07:16] LABS: ALBUMIN 3.7 g/dL (3.0-4.8); ALT/SGPT 37 U/L (7-56); AST/SGOT 43 U/L (15-59); BLOOD UREA NITROGEN 20 mg/dL (7-21); CALCIUM 9.3 mg/dL (8.4-10.5); GFR AFRICAN-AMERICAN > 60; GFR NON-AFRICAN AMERICAN > 60
--- NOTE | 2017-01-26 09:31 | CARD ---
APPROVED REPORT EXAM: Two-dimensional and M-mode echocardiogram with Doppler and color Doppler. Other Information Quality : AverageRhythm : INDICATION Pulmonary Embolism Chest Pain 2D DIMENSIONS Left Atrium (2D)3.9 (1.6-4.0cm)IVSd1.2 (0.7-1.1cm) LVDd4.3 (3.9-5.9cm)PWd1.2 (0.7-1.1cm) LVDs2.9 (2.5-4.0cm)FS (%) 31.9 % LVEF (%)60.0 (>50%) M-Mode DIMENSIONS Aortic Root3.90 (2.2-3.7cm)Aortic Cusp Exc.2.00 (1.5-2.0cm) Aortic Valve AoV Peak Skflgbou088.0cm/Yakov P 1/2 Digv089va Mitral Valve MV E Qhleoolb85.4cm/sMV A Keuvpzrv43.3cm/sE/A ratio1.0 TDI E/Lateral E'0.0E/Medial E'0.0 Pulmonary Valve PV Peak Cqvkeqbe87.5cm/sPV Peak Grad.2mmHg Tricuspid Valve TR Peak Rfmkjysm693as/sRAP [id number] Peak Gr.32mmHg [id number] LEFT VENTRICLE The left ventricle is normal size. There is borderline concentric left ventricular hypertrophy. The left ventricular function is normal. The left ventricular ejection fraction is within the normal range. There is normal LV segmental wall motion. RIGHT VENTRICLE The right ventricle is normal size. ATRIA The left atrium size is normal. The right atrium size is normal. The interatrial septum is intact with no evidence for an atrial septal defect. AORTIC VALVE The aortic valve is normal in structure. There is trace aortic regurgitation. MITRAL VALVE The mitral valve is normal in structure. Mitral regurgitation is trace. TRICUSPID VALVE The tricuspid valve is normal in structure. There is mild tricuspid regurgitation. PULMONIC VALVE The pulmonic valve is not well visualized. GREAT VESSELS The aortic root is normal in size. PERICARDIAL EFFUSION There is no pericardial effusion. <Conclusion> The left ventricle is normal size. There is borderline concentric left ventricular hypertrophy. The left ventricular function is normal. The right ventricle is normal size.
[2017-01-26] MEDS ORDERED: Unna Boot TOP ONE (10:14)
--- NOTE | 2017-01-26 10:16 | CP.PCM.PN ---
Subjective - Date & Time of Evaluation Date of Evaluation: 01/26/17 Time of Evaluation: 10:00 - Subjective Subjective: Pt seen for right leg ulcerations; pt know to me from previous admission where he was treated for righjt LE ulcerations - he was seen this week at the wound care center and the ulcers had all mostly resolved Objective - Vital Signs/Intake and Output Vital Signs (last 24 hours): Temp Pulse Resp BP Pulse Ox 97.9 F 91 H 22 93/58 L 99 01/26/17 06:00 01/26/17 06:00 01/26/17 06:00 01/26/17 06:00 01/26/17 06:00 Intake and Output: 01/26/17 01/26/17 06:59 18:59 Intake Total 581 Balance 581 - Medications Medications: Current Medications Heparin Sodium/Dextrose (Heparin 25,000 Units/250ml In D5w) 25,000 units in 250 mls @ 15.921 mls/hr IV .[id number] PRN; Protocol; 18 UNITS/KG/HR PRN Reason: ADJUST RATE PER PROTOCOL Last Admin: 01/25/17 19:59 Dose: 20 units/kg/hr, 17.69 mls/hr Pantoprazole Sodium (Protonix Inj) 40 mg IVP DAILY JOHN Last Admin: 01/26/17 09:15 Dose: 40 mg Ziprasidone (Geodon Cap) 20 mg PO BID PRN; Protocol PRN Reason: agitation/psychosis Last Admin: 01/25/17 09:45 Dose: 20 mg Ziprasidone (Geodon Inj) 20 mg IM Q6H PRN; Protocol PRN Reason: severe agitation/psychosis - Labs Labs: 01/26/17 05:40 01/26/17 05:40 PT 11.2 Seconds (9.9-11.8) 01/24/17 18:50 INR 1.04 (0.93-1.08) 01/24/17 18:50 APTT 56.7 Seconds (23.7-30.8) H 01/26/17 08:40 - Constitutional Appears: Well, No Acute Distress - Extremities Exam Extremities Exam: Pedal Edema. absent: Calf Tenderness Additional comments: NVSI - multiple small eschars remain on right leg; he has a +2 edema of the leg ; no pain on the calf - review of the venous dopplers shows no DVT - pt has no cellulitis - no purulence no fluctuance Assessment and Plan - Assessment and Plan (Free Text) Assessment: B/L small PE healing stasis ulcers will order rika gonzales and galilea for right leg and dressing should be done before he is discharged so as to prevent reulceration of the leg; he has an appointment for next [facility]
[2017-01-26] MEDS: Heparin 25,000units in D5W 25,000 UNITS/250 ML BAG IV PRN (10:37)
[2017-01-26] MEDS ORDERED: guaiFENesin 100 mg/5 ml Syrup UD PO PRN (13:25)
[2017-01-26 13:43] VITALS: BP 126/90; PULSE 66; RESP 18; TEMP 97.7
--- NOTE | 2017-01-26 14:56 | CP.PCM.DIS ---
<Dalia Ford - Last Filed: 01/26/17 14:53> Provider - Provider Date of Admission: 01/25/17 07:42 Attending physician: Reynaldo Doll MD Primary care physician: Sang Morales MD Consults: Podiatry - Dr. Farr Time Spent in preparation of Discharge (in minutes): 45 Hospital Course - Lab Results Lab Results: Most Recent Lab Values WBC 8.1 10^3/ul (4.5-11.0) D 01/26/17 05:40 RBC 4.30 10^6/uL (3.5-6.1) 01/26/17 05:40 Hgb 12.5 gm/dL (14.0-18.0) L 01/26/17 05:40 Hct 38.0 % (42.0-52.0) L 01/26/17 05:40 MCV 88.4 fL (80.0-105.0) 01/26/17 05:40 MCH 29.1 pg (25.0-35.0) 01/26/17 05:40 MCHC 32.9 g/dl (31.0-37.0) 01/26/17 05:40 RDW 13.3 % (11.5-14.5) 01/26/17 05:40 Plt Count 245 10^3/uL (120.0-450.0) 01/26/17 05:40 MPV 9.6 fl (7.0-11.0) 01/26/17 05:40 Gran % 70.0 % (50.0-68.0) H 01/24/17 18:50 Lymph % (Auto) 18.1 % (22.0-35.0) L 01/24/17 18:50 [place] % (Auto) 8.1 % (1.0-6.0) H 01/24/17 18:50 Eos % (Auto) 3.4 % (1.5-5.0) 01/24/17 18:50 Baso % (Auto) 0.4 % (0.0-3.0) 01/24/17 18:50 Gran # 3.92 (1.4-6.5) 01/24/17 18:50 Lymph # 1.0 (1.2-3.4) L 01/24/17 18:50 [place] # 0.5 (0.1-0.6) 01/24/17 18:50 Eos # 0.2 (0.0-0.7) 01/24/17 18:50 Baso # 0.02 K/mm3 (0.0-2.0) 01/24/17 18:50 PT 11.2 Seconds (9.9-11.8) 01/24/17 18:50 INR 1.04 (0.93-1.08) 01/24/17 18:50 APTT 56.7 Seconds (23.7-30.8) H 01/26/17 08:40 D-Dimer, Quantitative 3.87 mg/L FEU (0-0.50) H 01/25/17 09:40 Sodium 139 mmol/L (132-148) 01/26/17 05:40 Potassium 4.0 mmol/L (3.6-5.0) 01/26/17 05:40 Chloride 102 mmol/L (98-107) 01/26/17 05:40 Carbon Dioxide 26 mmol/L (21-33) 01/26/17 05:40 Anion Gap 15 (10-20) 01/26/17 05:40 BUN 20 mg/dL (7-21) 01/26/17 05:40 Creatinine 1.0 mg/dL (0.5-1.4) 01/26/17 05:40 Est GFR ( Amer) > 60 01/26/17 05:40 Est GFR (Non-Af Amer) > 60 01/26/17 05:40 Random Glucose 112 mg/dL (70-110) H 01/26/17 05:40 Calcium 9.3 mg/dL (8.4-10.5) 01/26/17 05:40 Phosphorus 4.5 mg/dL (2.5-4.5) 01/26/17 05:40 Magnesium 2.0 mg/dL (1.7-2.2) 01/26/17 05:40 Total Bilirubin 0.6 mg/dL (0.2-1.3) 01/26/17 05:40 AST 43 U/L (15-59) 01/26/17 05:40 ALT 37 U/L (7-56) 01/26/17 05:40 Alkaline Phosphatase 68 U/L (38-133) 01/26/17 05:40 Lactate Dehydrogenase 741 U/L (333-699) H 01/24/17 18:50 Total Creatine Kinase 292 U/L (35-230) H 01/24/17 18:50 CK-MB (CK-2) 3.0 ng/mL (0.0-3.6) 01/24/17 18:50 CK-MB (CK-2) % Cancelled 01/24/17 18:50 Troponin I < 0.01 ng/mL 01/25/17 04:30 NT-Pro-B Natriuret Pep 82.8 pg/mL (0-450) 01/24/17 18:50 Total Protein 7.4 g/dL (5.8-8.3) 01/26/17 05:40 Albumin 3.7 g/dL (3.0-4.8) 01/26/17 05:40 Globulin 3.7 gm/dL 01/26/17 05:40 Albumin/Globulin Ratio 1.0 (1.1-1.8) L 01/26/17 05:40 Lipase 58 U/L (23-300) 01/24/17 18:50 TSH 3rd Generation 0.74 mIU/mL (0.46-4.68) 01/25/17 09:40 RPR Nonreactive (NONREACTIVE) 01/25/17 09:40 - Hospital Course Hospital Course: This is a 66 year old with a PMHx of depression, anxiety, and left leg cellulitis who was admitted for treatment and evaluation of PE 2/2 immobilization. Patient was recently at the hospital for R leg cellulitis which contributed to his immobilization. Patient was put on heparin drip and bridged to Eliquis. He will continue with eliquis for the next 3-6 months. D- dimer was elevated during stay. US showed no evidence of PE. CT showed PE. EKG showed NSR @ 86 with RBB and LAD with no ST/T changes. Troponins were negative x 2. Podiatry and wound care were consulted on the case due to healing stasis ulcers from the cellulitis on previous admission. He will be sent home with n rikajanet for his right leg pain due to ulcers. Patient is to follow up at wound care clinic in one week and PMD (Dr. Morales) within 2 weeks. Patient is agreeable to plan and medications. Patient seen, examined, and reviewed with Attending Dalia Ford - Date & Time of H&P Date of H&P: 01/26/17 Time of H&P: 14:55 Discharge Exam - Head Exam Head Exam: ATRAUMATIC, NORMOCEPHALIC - Eye Exam Eye Exam: EOMI - Neck Exam Additional comments: NO Lymphadenopathy - Respiratory Exam Respiratory Exam: Clear to PA & Lateral. absent: Rales, Rhonchi, Wheezes, Stridor - Cardiovascular Exam Cardiovascular Exam: +S1, +S2. absent: Bradycardia, Tachycardia - GI/Abdominal Exam GI & Abdominal Exam: Soft. absent: Organomegaly, Tenderness - Extremities Exam Additional comments: Distal Right lower extremity healing stasis ulcers - Neurological Exam Neurological exam: Alert, Oriented x3 - Psychiatric Exam Psychiatric exam: Normal Affect, Normal Mood Additional comments: No suicidal or homicidal ideation Discharge Plan - Discharge Medications Prescriptions: Apixaban [Eliquis] 10 mg PO BID 7 Days Apixaban [Eliquis] 5 mg PO BID 21 Days Clotrimazole 1% Cream [Lotrimin 1%] 1 % TP BID #2 tube - Follow Up Plan Condition: FAIR Disposition: HOME/ ROUTINE Instructions: Chest Pain (DC), Asthma (DC) Additional Instructions: 1. Take Eliquis 10 mg twice a day for the first 7 days. Afterwards, come back to [facility] to receive your medication of Eliquis 5 mg twice a day for 21 days. 2. Go to [facility] on your scheduled appointment. (February 06) 3. Follow up with your primary care physician within 2 weeks. Referrals: Sang Morales [Primary Care Provider] - <Reynaldo Doll - Last Filed: 01/27/17 15:39> Provider - Provider Date of Admission: 01/25/17 07:42 Attending physician: Reynaldo Doll MD Primary care physician: Sang Morales MD Hospital Course - Lab Results Lab Results: Most Recent Lab Values WBC 8.1 10^3/ul (4.5-11.0) D 01/26/17 05:40 RBC 4.30 10^6/uL (3.5-6.1) 01/26/17 05:40 Hgb 12.5 gm/dL (14.0-18.0) L 01/26/17 05:40 Hct 38.0 % (42.0-52.0) L 01/26/17 05:40 MCV 88.4 fL (80.0-105.0) 01/26/17 05:40 MCH 29.1 pg (25.0-35.0) 01/26/17 05:40 MCHC 32.9 g/dl (31.0-37.0) 01/26/17 05:40 RDW 13.3 % (11.5-14.5) 01/26/17 05:40 Plt Count 245 10^3/uL (120.0-450.0) 01/26/17 05:40 MPV 9.6 fl (7.0-11.0) 01/26/17 05:40 Gran % 70.0 % (50.0-68.0) H 01/24/17 18:50 Lymph % (Auto) 18.1 % (22.0-35.0) L 01/24/17 18:50 [place] % (Auto) 8.1 % (1.0-6.0) H 01/24/17 18:50 Eos % (Auto) 3.4 % (1.5-5.0) 01/24/17 18:50 Baso % (Auto) 0.4 % (0.0-3.0) 01/24/17 18:50 Gran # 3.92 (1.4-6.5) 01/24/17 18:50 Lymph # 1.0 (1.2-3.4) L 01/24/17 18:50 [place] # 0.5 (0.1-0.6) 01/24/17 18:50 Eos # 0.2 (0.0-0.7) 01/24/17 18:50 Baso # 0.02 K/mm3 (0.0-2.0) 01/24/17 18:50 PT 11.2 Seconds (9.9-11.8) 01/24/17 18:50 INR 1.04 (0.93-1.08) 01/24/17 18:50 APTT 56.7 Seconds (23.7-30.8) H 01/26/17 08:40 D-Dimer, Quantitative 3.87 mg/L FEU (0-0.50) H 01/25/17 09:40 Sodium 139 mmol/L (132-148) 01/26/17 05:40 Potassium 4.0 mmol/L (3.6-5.0) 01/26/17 05:40 Chloride 102 mmol/L (98-107) 01/26/17 05:40 Carbon Dioxide 26 mmol/L (21-33) 01/26/17 05:40 Anion Gap 15 (10-20) 01/26/17 05:40 BUN 20 mg/dL (7-21) 01/26/17 05:40 Creatinine 1.0 mg/dL (0.5-1.4) 01/26/17 05:40 Est GFR ( Amer) > 60 01/26/17 05:40 Est GFR (Non-Af Amer) > 60 01/26/17 05:40 Random Glucose 112 mg/dL (70-110) H 01/26/17 05:40 Calcium 9.3 mg/dL (8.4-10.5) 01/26/17 05:40 Phosphorus 4.5 mg/dL (2.5-4.5) 01/26/17 05:40 Magnesium 2.0 mg/dL (1.7-2.2) 01/26/17 05:40 Total Bilirubin 0.6 mg/dL (0.2-1.3) 01/26/17 05:40 AST 43 U/L (15-59) 01/26/17 05:40 ALT 37 U/L (7-56) 01/26/17 05:40 Alkaline Phosphatase 68 U/L (38-133) 01/26/17 05:40 Lactate Dehydrogenase 741 U/L (333-699) H 01/24/17 18:50 Total Creatine Kinase 292 U/L (35-230) H 01/24/17 18:50 CK-MB (CK-2) 3.0 ng/mL (0.0-3.6) 01/24/17 18:50 CK-MB (CK-2) % Cancelled 01/24/17 18:50 Troponin I < 0.01 ng/mL 01/25/17 04:30 NT-Pro-B Natriuret Pep 82.8 pg/mL (0-450) 01/24/17 18:50 Total Protein 7.4 g/dL (5.8-8.3) 01/26/17 05:40 Albumin 3.7 g/dL (3.0-4.8) 01/26/17 05:40 Globulin 3.7 gm/dL 01/26/17 05:40 Albumin/Globulin Ratio 1.0 (1.1-1.8) L 01/26/17 05:40 Lipase 58 U/L (23-300) 01/24/17 18:50 TSH 3rd Generation 0.74 mIU/mL (0.46-4.68) 01/25/17 09:40 RPR Nonreactive (NONREACTIVE) 01/25/17 09:40 Attending/Attestation - Attestation I have personally seen and examined this patient.: Yes I have fully participated in the care of the patient.: Yes I have reviewed all pertinent clinical information, including history, physical exam and plan: Yes Notes (Text): 01/27/17 15:34 attending note; Patient seen and examined with resident. Patient is a 66-year-old male admitted with shortness of breath and diagnosed with subsegmental pulmonary embolus secondary to immobilization. Patient is currently stable. Treated with IV heparin. Will be discharged home with po Tracyquis. Medication delivered to the bedside by the pharmacy. Advised complete 6 months. Patient will follow-up with PMD . Lower extremity cellulitis; continue Shannon boot. Follow up with podiatry next week. Diagnosis; Pulmonary embolus Lower extremity cellulitis 01/27/17 15:37
--- NOTE | 2017-01-26 16:50 | PN ---
HISTORY OF PRESENT ILLNESS: The patient was followed up today. No behavioral incidents. The patient is compliant with the medication and treatment plan. Discussed with the medical staff and nursing staff. Labs reviewed. Medications reviewed. The patient presented to be alert and oriented, pleasant cooperative. The patient said that he feels better, but still observed coughing. The patient denied being depressed. Denies thoughts of harming himself or others. Did try to ask patient if any other pharmacy he was filling his medications because call to confirm medication and the pharmacy. Last time, the patient filled medication was in October. The patient reported that he does not use any other pharmacies and he has lot of left overs at home. On top of that, the patient was saying that he was on 500 mg Seroquel at the nighttime, but as per report it was 100 mg at the nighttime. Beside that there are no new changes. Vital signs reviewed. Labs reviewed. Medications reviewed. The patient is on Protonix, Geodon was started 20 mg twice a day as needed. The patient got only one dose. There is no agitation and no IM was given to the patient. MENTAL STATUS EXAMINATION: The patient appears to be alert, oriented, pleasant, cooperative, intermittent eye contact. Speech was normal, normal rate on quality and quantity. Mood described as "I'm feeling fine." Affect was reactive. Mood congruent. Thought process seems to be concrete. Thought content, the patient denies visual hallucinations and paranoid ideations. The patient denied thoughts of harming himself or others. Denies intents or plan. Insight and judgment are fair. Impulses are controlled. IMPRESSION: As per history, the patient has schizoaffective disorder versus schizophrenia. The patient was admitted on the medical side for pulmonary embolism. Please see medical team notes for more detailed information. PLAN: Continue current management. The patient does not present to be in any distress. Denies being depressed. Denies thoughts of harming himself or others. Denied psychotic symptoms. The patient reported that he had followup appointment with Tristin Estrada at [facility] on March 07, 09:40 a.m. The patient was advised to take medication as prescribed as well as followup with outpatient psychiatrist. Meanwhile, the patient deemed to be not in any danger to self or others. Can be discharged with the proper followup appointment at the community. Thank you very much for letting me participate in care of your patient. Should you have any questions give me a call back. Anahi Harris MD
== END 2017-01-26 16:00 | disposition home or self-care (01) | DRG 78 ==
LOC: ED 18:25 → ERH 23:22 → 2RNO 01-25 06:42 → OBSVTOIN 01-25 07:30 → INTOOBSV 01-25 07:30 → OBSVTOIN 01-25 07:42
PROVIDERS: ADMIT Hospitalist; ATTEND Internal Medicine
DX: I26.99 Other pulmonary embolism without acute cor pulmonale (principal); L03.115 Cellulitis of right lower limb; L97.819 Non-pressure chronic ulcer of other part of right lower leg with unspecified severity; F25.9 Schizoaffective disorder, unspecified; F32.9 Major depressive disorder, single episode, unspecified; F41.9 Anxiety disorder, unspecified; I87.2 Venous insufficiency (chronic) (peripheral); H40.9 Unspecified glaucoma; H54.41 Blindness, right eye, normal vision left eye

== ENCOUNTER 2018-11-09 14:41 | Inpatient (IN) | payer MEDICARE, MEDICAID ==
[2018-11-09 14:49] VITALS: BMI 27.3
[2018-11-09] MEDS ORDERED: cefTRIAXone 1 gm 1 GM/100 ML BAG IVPB STA (15:02)
--- NOTE | 2018-11-09 15:06 | ED PDOC ---
Arrival/HPI - General Chief Complaint: Lower Extremity Problem/Injury Time Seen by Provider: 11/09/18 14:46 Historian: Patient, EMS - Critical Care Critical Care Minutes: 45 minutes - History of Present Illness Time/Duration: Prior to Arrival Symptom Onset: Gradual Symptom Course: Worsening Severity Level: Severe Activities at Onset: Rest Associated Symptoms (Text): 11/09/18 15:03 Patient complains of right lower extremity swelling erythema weeping redness tenderness and warmth for an unknown timeframe. He has lymphangina all the way to his groin. His lower leg is extremely edematous swollen weeping tender and warm. He is an extremely poor historian. Unclear if he takes his medications. 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) Hx Glaucoma: Yes (LEFT EYE WITH SURGERY DONE) - Renal Hx Renal Disorder: No - Endocrine/Metabolic Hx Endocrine Disorders: No - Hematological/Oncological Hx Anemia: No - Integumentary Hx Dermatological Disorder: Yes Other/Comment: "sometimes I get an allergy from soap detergent." - Musculoskeletal/Rheumatological Hx Musculoskeletal Disorders: Yes Hx Falls: Yes - Gastrointestinal Hx Gastrointestinal Disorders: Yes Other/Comment: Ventral hernia for 2 months - Genitourinary/Gynecological Hx Genitourinary Disorders: Yes (INCARCERATED VENTRAL HERNIA) - Psychiatric Hx Psychophysiologic Disorder: Yes Hx Anxiety: Yes Hx Substance Use: No - Surgical History Other/Comment: Eye surgery - Anesthesia Hx Anesthesia: Yes Hx Anesthesia Reactions: No Hx Malignant Hyperthermia: No - Suicidal Assessment Feels Threatened In Home Enviroment: No Family/Social History - Physician Review Nursing Documentation Reviewed: Yes Family/Social History: Unknown Family HX Smoking Status: Current Some Days Smoker Hx Alcohol Use: No Hx Substance Use: No Allergies/Home Meds Allergies/Adverse Reactions: Allergies No Known Allergies Allergy (Verified 11/09/18 18:05) Review of Systems - Review of Systems Systems not reviewed;Unavailable: Acuity of Condition Physical Exam Temperature: Afebrile Blood Pressure: Normal Pulse: Tachycardic Respiratory Rate: Normal Appearance: Positive for: Well-Appearing, Non-Toxic, Comfortable Pain Distress: None Mental Status: Positive for: other (Oriented x2 only) - Systems Exam Head: Present: Atraumatic, Normocephalic Conjunctiva: Present: Other (Blind right eye) Mouth: Present: Moist Mucous Membranes Pharnyx: No: ERYTHEMA, EXUDATE Neck: Present: Normal Range of Motion Respiratory/Chest: Present: Clear to Auscultation, Good Air Exchange, Decreased Breath Sounds. No: Respiratory Distress, Accessory Muscle Use Cardiovascular: Present: Regular Rate and Rhythm, Normal S1, S2, Tachycardic. No: Murmurs Abdomen: No: Tenderness, Distention, Peritoneal Signs, Rebound, Guarding Upper Extremity: Present: Normal Inspection. No: Cyanosis, Edema Lower Extremity: Present: Edema, CALF TENDERNESS, Tenderness, Swelling, Erythema, Other (Right lower leg is tender swollen erythematous weeping warm with lymphangina to the groin) Neurological: Present: GCS=15, CN II-XII Intact, Speech Normal, Motor Func Grossly Intact Skin: Present: Other (Cellulitis of the right lower extremity as above.) Psychiatric: Present: Alert, Normal Concentration Medical Decision Making ED Course and Treatment: 11/09/18 16:04 EKG shows sinus tachycardia rate approximately 115 with a right bundle branch block and no acute ST or T wave changes. 11/09/18 16:32 Patient's social media analyst arrives and reports that he believes the patient is not taking his psychiatric medications as prescribed. He believes that the patient is more confused than usual. 11/09/18 17:[address]H Pardo, who accepts to her service. Discussed with Dr.M olson who treated the patient in the emergency department and accepts to ICU. Discussed with surgical appliances salesperson who will treat the patient in the emergency department, rule out necrotizing fasciitis. Dr. Olson will consult with ID. 11/09/18 17:08 Code sepsis was called upon elevated lactic acid. - RAD Interpretation Radiology Orders: 11/09/18 15:00 DUPLEX LOWER EXTRM VEIN BILAT [US] Stat 11/09/18 15:01 CHEST PORTABLE [RAD] Stat Chest one view as read by the radiologist shows no infiltrate effusion or cardiomegaly. Venous Doppler of bilateral lower extremities as read by the radiologist is negative for DVT and negative for air. Director Packaging: Radiologist - Medication Orders Current Medication Orders: Ceftriaxone Sodium (Rocephin 1 Gram Ivpb) 1 gm in 100 mls @ 200 mls/hr IVPB STAT STA; Protocol Stop: 11/09/18 15:31 Disposition/Present on Arrival - Present on Arrival Any Indicators Present on Arrival: No History of DVT/PE: No History of Uncontrolled Diabetes: No Urinary Catheter: No History of Decub. Ulcer: No History Surgical Site Infection Following: None - Disposition Have Diagnosis and Disposition been Completed?: Yes Diagnosis: Sepsis, Leukocytosis, Cellulitis, Lymphangitis, Anemia, Tachycardia, Rhabdomyolysis Disposition: HOSPITALIZED Disposition Time: 17:09 Patient Plan: Admission, ICU Patient Problems: Current Active Problems Problem Status Onset Anemia Acute Cellulitis Acute Leukocytosis Acute Lymphangitis Acute Rhabdomyolysis Acute Sepsis Acute Tachycardia Acute Condition: CRITICAL
--- NOTE | 2018-11-09 16:04 | RAD ---
HISTORY: admit COMPARISON: Chest x-ray performed 01/24/17 TECHNIQUE: Chest, one view. FINDINGS: Examination limited by habitus and hypoinflation. LUNGS: No focal consolidation. Please note that chest x-ray has limited sensitivity for the detection of pulmonary masses. PLEURA: No significant pleural effusion identified. No definite pneumothorax . CARDIOVASCULAR: Heart size appears top normal. Aortic ectasia. Mild atherosclerotic calcifications noted. OSSEOUS STRUCTURES: Degenerative changes. VISUALIZED UPPER ABDOMEN: Unremarkable. OTHER FINDINGS: None. IMPRESSION: No focal consolidation.
[2018-11-09 16:20] LABS: VENOUS BLOOD GAS BASE EXCESS 2.4 mmol/L (0.0-2.0); VENOUS BLOOD GAS PO2 33 mm/Hg (30-55); VENOUS BLOOD PH 7.42 (7.32-7.43)
[2018-11-09 16:23] LABS: BASO # 0.01 K/mm3 (0.0-2.0); BASO % 0.1 % (0.0-3.0); HEMOGLOBIN 13.4 g/dL (14.0-18.0); LYMPH # 0.7 (1.2-3.4); LYMPH % 3.8 % (22.0-35.0); MEAN CELL VOLUME 86.6 fl (80.0-105.0); MEAN CORPUSCULAR HEMOGLOBIN 28.1 pg (25.0-35.0); MEAN CORPUSCULAR HGB CONC 32.4 g/dl (31.0-37.0); MEAN PLATELET VOLUME 11.5 fl (7.0-11.0); MONO # 0.6 (0.1-0.6); MONO % 3.3 % (1.0-6.0); PLATELET COUNT 159 10^3/uL (120.0-450.0); RBC 4.77 10^6/uL (3.5-6.1); RED CELL DISTRIBUTION WIDTH 13.6 % (11.5-14.5); WHITE BLOOD COUNT 19.3 10^3/uL (4.5-11.0)
[2018-11-09] MEDS ORDERED: Vancomycin 1gm in NS 250ml 1 GM/250 ML BAG IVPB STA (16:23)
[2018-11-09 16:28] LABS: ALB/GLOB RATIO 1.2 (1.1-1.8); ALBUMIN 4.2 g/dL (3.0-4.8); ALT/SGPT 37 U/L (7-56); AST/SGOT 63 U/L (17-59); BLOOD UREA NITROGEN 35 mg/dL (7-21); CALCIUM 8.7 mg/dL (8.4-10.5); GFR NON-AFRICAN AMERICAN 55
[2018-11-09 16:35] LABS: INR 1.45; PARTIAL THROMBOPLASTIN TIME 35.8 Seconds (26.9-38.3); PROTHROMBIN TIME 16.1 SECONDS (9.4-12.5)
[2018-11-09 16:47] LABS: B-TYPE NATRIURETIC PEPTIDE 344 pg/mL (0-450); TROPONIN I < 0.01 ng/mL
[2018-11-09 17:00] LABS: URINE BILIRUBIN NEGATIVE (NEGATIVE); URINE BLOOD LARGE (NEGATIVE); URINE GLUCOSE (UA) NEGATIVE (NEGATIVE); URINE LEUKOCYTE ESTERASE NEGATIVE Leu/uL (NEGATIVE); URINE PROTEIN 100 mg/dL (<30 mg/dL); URINE UROBILINOGEN 0.2 E.U./dL (<1 E.U./dL)
[2018-11-09] MEDS ORDERED: Lactated Ringer's 1,000 ML IV SCH (17:00)
[2018-11-09 17:05] LABS: URINE APPEARANCE SL CLOUDY (CLEAR); URINE COLOR DARK YELLOW (YELLOW)
[2018-11-09 17:15] LABS: URINE AMORPHOUS SEDIMENT MODERATE /hpf; URINE BACTERIA SMALL /hpf; URINE RBC 0 - 2 /hpf (0-2); URINE WBC 0 - 2 /hpf (0-6)
[2018-11-09] MEDS: Piperacillin/Tazobact 3.375 gm 100 ML IV SCH ×2 (17:18→23:45)
[2018-11-09] MEDS ORDERED: Magnesium Sulfate 2 gm/50 ml 2 GM/50 ML BAG IVPB ONE (17:18)
[2018-11-09 17:37] LABS: BAND 16 % (0-2); LYMPHOCYTE 7 % (22.0-35.0); MONOCYTE 4 % (1.0-6.0); NEUTROPHIL 70 % (50.0-70.0)
[2018-11-09 17:38] LABS: DOHLE BODIES SLIGHT; METAMYELOCYTE 3 %; PLATELET ESTIMATE NORMAL (NORMAL)
--- NOTE | 2018-11-09 17:46 | CP.PCM.CON ---
History of Present Illness - History of Present Illness History of Present Illness: General Surgery Consult Re: RLE cellulitis, R/O necrotizing fasciitis HPI: 68M presented to ED for worsening left leg wound. As per patient, Right leg wound began two days ago, associated with blistering, redness, sharp pain nausea, and fevers. He admits to similar symptoms in the past but never as bad as current symptoms. He states he is able to ambulate in his usual state of health prior to left leg wound. Denied CP, SOB, current nausea, vomiting, headaches, back pain, abdominal pain. Dysuria, dark urine, and NB diarrhea. In ED, patient noted to have rectal temp of 105.1 and WBC of 19.3. Code Sepsis called in ED with lactate of 2.7. D-dimer noted to be 3877. CXR was unremarkable and LE doppler was negative for DVT. PMH: R Glaucoma, depression, anxiety, Hx of PE PSH: R cataract, umbilical hernia SH: Occasional Tobacco use, No EtOH or drug use FH: Non contributory Meds: See MAR All: NKDA Review of Systems - Review of Systems All systems: reviewed and no additional remarkable complaints except (as per HPI) Past Patient History - Infectious Disease Hx of Infectious Diseases: None - Tetanus Immunizations Tetanus Immunization: Unknown - Past Medical History & Family History Past Medical History?: Yes - Past Social History Smoking Status: Current Some Days Smoker - CARDIAC Hx Cardiac Disorders: Yes Hx Hypertension: Yes - PULMONARY Hx Respiratory Disorders: Yes Hx Asthma: Yes ("OCCASSIONALLY" BUT NO INHALERS/MEDS) - NEUROLOGICAL Hx Alzheimer's Disease: No Hx Dementia: No Hx Migraine: No Hx Parkinson's Disease: No Hx Seizures: No Hx Transient Ischemic Attacks (TIA): No - HEENT Hx HEENT Problems: Yes (BILAT." EYE IRRITATION FOR A WHILE") Hx Cataracts: Yes (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) Hx Glaucoma: Yes (LEFT EYE WITH SURGERY DONE) - RENAL Hx Chronic Kidney Disease: No - ENDOCRINE/METABOLIC Hx Endocrine Disorders: No - HEMATOLOGICAL/ONCOLOGICAL Hx Anemia: No - INTEGUMENTARY Hx Dermatological Problems: Yes Other/Comment: "sometimes I get an allergy from soap detergent." - MUSCULOSKELETAL/RHEUMATOLOGICAL Hx Musculoskeletal Disorders: Yes Hx Falls: Yes - GASTROINTESTINAL Hx Gastrointestinal Disorders: Yes Other/Comment: Ventral hernia for 2 months - GENITOURINARY/GYNECOLOGICAL Hx Genitourinary Disorders: Yes (INCARCERATED VENTRAL HERNIA) - PSYCHIATRIC Hx Psychophysiologic Disorder: Yes Hx Anxiety: Yes Hx Substance Use: No - SURGICAL HISTORY Other/Comment: Eye surgery - ANESTHESIA Hx Anesthesia: Yes Hx Anesthesia Reactions: No Hx Malignant Hyperthermia: No Meds Allergies/Adverse Reactions: Allergies Allergy/AdvReac Type Severity Reaction Status Date / Time No Known Allergies Allergy Verified 11/09/18 18:05 - Medications Medications: Current Medications Vancomycin HCl (Vancomycin 1gm) 1 gm in 250 mls @ 167 mls/hr IVPB STAT STA; Protocol Stop: 11/09/18 17:52 Lactated Ringer's (Lactated Ringer's) 1,000 mls @ 1,000 mls/hr IV .Q1H JOHN Clindamycin Phosphate (Cleocin 600mg/50ml D5w) 600 mg in 50 mls @ 50 mls/hr IVPB Q8H JOHN; Protocol Piperacillin Sod/Tazobactam Sod (Zosyn 3.375 In Ns 100ml) 100 mls @ 200 mls/hr IV Q6H JOHN; Protocol Last Admin: 11/09/18 17:18 Dose: 200 mls/hr Lactated Ringer's 1,000 ml/ IV (SUPPLIES) 1,000 mls @ 200 mls/hr IV ONCE ONE Stop: 11/09/18 22:04 Magnesium Sulfate (Magnesium Sulfate 2 Gm/50 Ml Water) 2 gm in 50 mls @ 50 mls/hr IVPB ONCE ONE Stop: 11/09/18 18:17 Physical Exam - Constitutional Appears: No Acute Distress, Chronically Ill - Head Exam Head Exam: ATRAUMATIC, NORMOCEPHALIC - Eye Exam Eye Exam: EOMI. absent: Scleral icterus Additional comments: R eye with cataract - Respiratory Exam Respiratory Exam: NORMAL BREATHING PATTERN. absent: Respiratory Distress - Cardiovascular Exam Cardiovascular Exam: Tachycardia - GI/Abdominal Exam GI & Abdominal Exam: Soft. absent: Distended (rotund abd), Firm, Guarding, Rebound, Rigid, Tenderness Additional comments: well healed umbilical hernia scar - Rectal Exam Rectal Exam: Deferred - Exam Exam: absent: Scrotal Swelling, Testicular Tenderness - Extremities Exam Extremities exam: Positive for: pedal edema (on R), tenderness (up to mid R thigh) Additional comments: Right lower leg is tender, edematous, erythematous, weeping, hot with lymphangina to the groin. There is a large bullae over the [place] - Back Exam Back exam: absent: CVA tenderness (L), CVA tenderness (R) - Neurological Exam Neurological exam: Alert, Oriented x3 - Skin Skin Exam: Dry, Warm Results - Vital Signs Recent Vital Signs: Last Vital Signs Temp 102.5 F H 11/09/18 17:40 Pulse 110 H 11/09/18 17:40 Resp 18 11/09/18 17:40 BP 93/63 L 11/09/18 17:40 Pulse Ox 95 11/09/18 17:40 - Labs Result Diagrams: 11/09/18 16:00 11/09/18 16:00 Labs: Laboratory Results - last 24 hr 11/09/18 11/09/18 11/09/18 16:00 16:00 16:00 WBC 19.3 H RBC 4.77 Hgb 13.4 L Hct 41.3 L MCV 86.6 MCH 28.1 MCHC 32.4 RDW 13.6 Plt Count 159 MPV 11.5 H Neut % (Auto) 92.8 H Lymph % (Auto) 3.8 L [place] % (Auto) 3.3 Eos % (Auto) 0.0 L Baso % (Auto) 0.1 Lymph # (Auto) 0.7 L [place] # (Auto) 0.6 Eos # (Auto) 0.0 Baso # (Auto) 0.01 Absolute Neuts (auto) 17.87 H Neutrophils % (Manual) 70 Band Neutrophils % 16 H* Lymphocytes % (Manual) 7 L Monocytes % (Manual) 4 Metamyelocytes % 3 Dohle Bodies Slight Platelet Evaluation Normal PT 16.1 H INR 1.45 APTT 35.8 D-Dimer, Quantitative 3877 H pO2 33 VBG pH 7.42 VBG pCO2 42.0 VBG HCO3 27.2 VBG Total CO2 28.5 H VBG O2 Sat (Calc) 64.3 VBG Base Excess 2.4 H VBG Potassium 4.3 Sodium 134.0 Chloride 96.0 L Glucose 134 H Lactate 2.7 H FiO2 21.0 Crit Value Called To Sabra ordaz rn Crit Value Called By Bonnie Blood Gas Notified Time 1615 Potassium Carbon Dioxide Anion Gap BUN Creatinine Est GFR ( Amer) Est GFR (Non-Af Amer) Random Glucose Calcium Magnesium Total Bilirubin AST ALT Alkaline Phosphatase Lactate Dehydrogenase Total Creatine Kinase Troponin I NT-Pro-B Natriuret Pep Total Protein Albumin Globulin Albumin/Globulin Ratio Venous Blood Potassium 4.3 Urine Color Urine Appearance Urine pH Ur Specific [place] Urine Protein Urine Glucose (UA) Urine Ketones Urine Blood Urine Nitrate Urine Bilirubin Urine Urobilinogen Ur Leukocyte Esterase Urine RBC Urine WBC Ur Epithelial Cells Amorphous Sediment Urine Bacteria 11/09/18 11/09/18 16:00 16:50 WBC RBC Hgb Hct MCV MCH MCHC RDW Plt Count MPV Neut % (Auto) Lymph % (Auto) [place] % (Auto) Eos % (Auto) Baso % (Auto) Lymph # (Auto) [place] # (Auto) Eos # (Auto) Baso # (Auto) Absolute Neuts (auto) Neutrophils % (Manual) Band Neutrophils % Lymphocytes % (Manual) Monocytes % (Manual) Metamyelocytes % Dohle Bodies Platelet Evaluation PT INR APTT D-Dimer, Quantitative pO2 VBG pH VBG pCO2 VBG HCO3 VBG Total CO2 VBG O2 Sat (Calc) VBG Base Excess VBG Potassium Sodium 135 Chloride 97 L Glucose Lactate FiO2 Crit Value Called To Crit Value Called By Blood Gas Notified Time Potassium 4.0 Carbon Dioxide 26 Anion Gap 17 BUN 35 H Creatinine 1.3 Est GFR ( Amer) > 60 Est GFR (Non-Af Amer) 55 Random Glucose 136 H Calcium 8.7 Magnesium 1.5 L Total Bilirubin 1.6 H AST 63 H ALT 37 Alkaline Phosphatase 57 Lactate Dehydrogenase 784 H Total Creatine Kinase 2422 H Troponin I < 0.01 NT-Pro-B Natriuret Pep 344 Total Protein 7.8 Albumin 4.2 Globulin 3.6 Albumin/Globulin Ratio 1.2 Venous Blood Potassium Urine Color Dark yellow Urine Appearance Sl cloudy Urine pH 6.0 Ur Specific [place] >= 1.030 Urine Protein 100 H Urine Glucose (UA) Negative Urine Ketones Negative Urine Blood Large H Urine Nitrate Negative Urine Bilirubin Negative Urine Urobilinogen 0.2 Ur Leukocyte Esterase Negative Urine RBC 0 - 2 Urine WBC 0 - 2 Ur Epithelial Cells 1 - 3 Amorphous Sediment Moderate Urine Bacteria Small - Imaging and Cardiology US - LE Status: Image reviewed by me, Report reviewed by me CT scan - abdomen Status: Image reviewed by me Assessment & Plan - Assessment and Plan (Free Text) Assessment: 68M with Right lower extremity cellulitis Plan: Monitor vitals Cellulitis borders marked @ 17:35 - monitor for expansion/tracking CT shows cellulitis and one large superficial bullae. Continue Abx D/W Dr. Irineo Nur PGY4
[2018-11-09] MEDS: Clindamycin 600mg/50ml D5W 600 MG/50 ML VIAL IVPB SCH (17:53)
[2018-11-09 17:54] LABS: CK-MB 4.8 ng/mL (0.0-3.6)
--- NOTE | 2018-11-09 18:07 | CP.PCM.HP ---
<Jeana Mcrae - Last Filed: 11/09/18 18:26> History of Present Illness - History of Present Illness History of Present Illness: Jeana Mcrae, PGY1 Hospital H&P This is a 68 year old male with PMH of depression, anxiety, right eye glaucoma, history of left and right leg cellulitis and PE in 2017 presenting to the hospital for worsening reft leg wound. Patient is a poor historian at this time and history difficult to obtain. As per patient, right leg wound began two days ago, associated with blistering, redness, sharp pain and fevers. He admits to similar symptoms in the past but never as bad as current symptoms. He states he is able to ambulate in his usual state of health prior to right leg wound. He denies CP, SOB, nausea, vomiting, headaches, back pain, abdominal pain, recent t rauma, recent sickness and recent travel. He admits to burning on urination and NB diarrhea. 12 point ROS noted here, otherwise unremarkable. In ED, patient noted to have rectal temp of 105.1 as well as as WBC of 19.3. EKG noted ST with RBBB and prolonged QTC. Code Sepsis called in ED with lactate of 2.7. D-dimer noted to be 3800. CXR was unremarkable and LE doppler was unremarkable. Patient to be taken to ICU for sepsis. PMH: depression, anxiety, right eye glaucoma, history of left and right leg cellulitis and PE in 2017 PMD: as per patient, "Dr. Rosenthal." Previous PMD upon chart review was [facility] Psych: as per patient, "Dr. Del Valle." SH: denies drinking and smoking. Lives at the local [facility] FH: DM, CAD, HTN All: PCN - pruritis Sx: prior cataract surgery in right eye, incarcerated ventral hernia repair Present on Admission - Present on Admission Any Indicators Present on Admission: Yes History of DVT/PE: Yes Past Patient History - Infectious Disease Hx of Infectious Diseases: None - Tetanus Immunizations Tetanus Immunization: Unknown - Past Medical History & Family History Past Medical History?: Yes - Past Social History Smoking Status: Unknown If Ever Smoked - CARDIAC Hx Cardiac Disorders: Yes Hx Hypertension: Yes - PULMONARY Hx Respiratory Disorders: Yes Hx Asthma: Yes ("OCCASSIONALLY" BUT NO INHALERS/MEDS) - NEUROLOGICAL Hx Alzheimer's Disease: No Hx Dementia: No Hx Migraine: No Hx Parkinson's Disease: No Hx Seizures: No Hx Transient Ischemic Attacks (TIA): No - HEENT Hx HEENT Problems: Yes (BILAT." EYE IRRITATION FOR A WHILE") Hx Cataracts: Yes (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) Hx Glaucoma: Yes (LEFT EYE WITH SURGERY DONE) - RENAL Hx Chronic Kidney Disease: No - ENDOCRINE/METABOLIC Hx Endocrine Disorders: No - HEMATOLOGICAL/ONCOLOGICAL Hx Anemia: No - INTEGUMENTARY Hx Dermatological Problems: Yes Other/Comment: "sometimes I get an allergy from soap detergent." - MUSCULOSKELETAL/RHEUMATOLOGICAL Hx Musculoskeletal Disorders: Yes Hx Falls: Yes - GASTROINTESTINAL Hx Gastrointestinal Disorders: Yes Other/Comment: Ventral hernia for 2 months - GENITOURINARY/GYNECOLOGICAL Hx Genitourinary Disorders: Yes (INCARCERATED VENTRAL HERNIA) - PSYCHIATRIC Hx Psychophysiologic Disorder: Yes Hx Anxiety: Yes Hx Substance Use: No - SURGICAL HISTORY Other/Comment: Eye surgery - ANESTHESIA Hx Anesthesia: Yes Hx Anesthesia Reactions: No Hx Malignant Hyperthermia: No Meds Allergies/Adverse Reactions: Allergies Allergy/AdvReac Type Severity Reaction Status Date / Time No Known Allergies Allergy Verified 11/09/18 18:05 Physical Exam - Constitutional Appears: Non-toxic, No Acute Distress - Head Exam Head Exam: ATRAUMATIC, NORMAL INSPECTION - Eye Exam Eye Exam: EOMI Pupil Exam: PERRL - ENT Exam ENT Exam: Mucous Membranes Dry - Neck Exam Neck exam: Positive for: Normal Inspection - Respiratory Exam Respiratory Exam: Clear to Auscultation Bilateral. absent: Accessory Muscle Use, Wheezes, Respiratory Distress - Cardiovascular Exam Cardiovascular Exam: Tachycardia, +S1, +S2 - GI/Abdominal Exam GI & Abdominal Exam: Soft. absent: Firm, Guarding, Rebound, Tenderness Additional comments: globular abdomen umbilical hernia scar noted - Extremities Exam Extremities exam: Positive for: joint swelling, pedal edema, tenderness Additional comments: RLE calf tenderness present RLE bullae noted, draining clear fluid, measuring 5x8cm. Erythema, redness appreciated on RLE extending from right foot to right thigh Lymphangina extending to right groin - Neurological Exam Neurological exam: Alert, CN II-XII Intact - Skin Skin Exam: Dry, Warm Results - Vital Signs Recent Vital Signs: Last Vital Signs Temp 102.5 F H 11/09/18 17:40 Pulse 110 H 11/09/18 17:40 Resp 18 11/09/18 17:40 BP 93/63 L 11/09/18 17:40 Pulse Ox 95 11/09/18 17:40 - Labs Result Diagrams: 11/09/18 16:00 11/09/18 16:00 Labs: Laboratory Results - last 24 hr 11/09/18 11/09/18 11/09/18 16:00 16:00 16:00 WBC 19.3 H RBC 4.77 Hgb 13.4 L Hct 41.3 L MCV 86.6 MCH 28.1 MCHC 32.4 RDW 13.6 Plt Count 159 MPV 11.5 H Neut % (Auto) 92.8 H Lymph % (Auto) 3.8 L [place] % (Auto) 3.3 Eos % (Auto) 0.0 L Baso % (Auto) 0.1 Lymph # (Auto) 0.7 L [place] # (Auto) 0.6 Eos # (Auto) 0.0 Baso # (Auto) 0.01 Absolute Neuts (auto) 17.87 H Neutrophils % (Manual) 70 Band Neutrophils % 16 H* Lymphocytes % (Manual) 7 L Monocytes % (Manual) 4 Metamyelocytes % 3 Dohle Bodies Slight Platelet Evaluation Normal PT 16.1 H INR 1.45 APTT 35.8 D-Dimer, Quantitative 3877 H pO2 33 VBG pH 7.42 VBG pCO2 42.0 VBG HCO3 27.2 VBG Total CO2 28.5 H VBG O2 Sat (Calc) 64.3 VBG Base Excess 2.4 H VBG Potassium 4.3 Sodium 134.0 Chloride 96.0 L Glucose 134 H Lactate 2.7 H FiO2 21.0 Crit Value Called To Sabra ordaz rn Crit Value Called By Bonnie Blood Gas Notified Time 1615 Potassium Carbon Dioxide Anion Gap BUN Creatinine Est GFR ( Amer) Est GFR (Non-Af Amer) Random Glucose Calcium Magnesium Total Bilirubin AST ALT Alkaline Phosphatase Lactate Dehydrogenase Total Creatine Kinase CK-MB (CK-2) CK-MB (CK-2) % Troponin I NT-Pro-B Natriuret Pep Total Protein Albumin Globulin Albumin/Globulin Ratio Venous Blood Potassium 4.3 Urine Color Urine Appearance Urine pH Ur Specific [place] Urine Protein Urine Glucose (UA) Urine Ketones Urine Blood Urine Nitrate Urine Bilirubin Urine Urobilinogen Ur Leukocyte Esterase Urine RBC Urine WBC Ur Epithelial Cells Amorphous Sediment Urine Bacteria 11/09/18 11/09/18 16:00 16:50 WBC RBC Hgb Hct MCV MCH MCHC RDW Plt Count MPV Neut % (Auto) Lymph % (Auto) [place] % (Auto) Eos % (Auto) Baso % (Auto) Lymph # (Auto) [place] # (Auto) Eos # (Auto) Baso # (Auto) Absolute Neuts (auto) Neutrophils % (Manual) Band Neutrophils % Lymphocytes % (Manual) Monocytes % (Manual) Metamyelocytes % Dohle Bodies Platelet Evaluation PT INR APTT D-Dimer, Quantitative pO2 VBG pH VBG pCO2 VBG HCO3 VBG Total CO2 VBG O2 Sat (Calc) VBG Base Excess VBG Potassium Sodium 135 Chloride 97 L Glucose Lactate FiO2 Crit Value Called To Crit Value Called By Blood Gas Notified Time Potassium 4.0 Carbon Dioxide 26 Anion Gap 17 BUN 35 H Creatinine 1.3 Est GFR ( Amer) > 60 Est GFR (Non-Af Amer) 55 Random Glucose 136 H Calcium 8.7 Magnesium 1.5 L Total Bilirubin 1.6 H AST 63 H ALT 37 Alkaline Phosphatase 57 Lactate Dehydrogenase 784 H Total Creatine Kinase 2422 H CK-MB (CK-2) 4.8 H CK-MB (CK-2) % Cancelled Troponin I < 0.01 NT-Pro-B Natriuret Pep 344 Total Protein 7.8 Albumin 4.2 Globulin 3.6 Albumin/Globulin Ratio 1.2 Venous Blood Potassium Urine Color Dark yellow Urine Appearance Sl cloudy Urine pH 6.0 Ur Specific [place] >= 1.030 Urine Protein 100 H Urine Glucose (UA) Negative Urine Ketones Negative Urine Blood Large H Urine Nitrate Negative Urine Bilirubin Negative Urine Urobilinogen 0.2 Ur Leukocyte Esterase Negative Urine RBC 0 - 2 Urine WBC 0 - 2 Ur Epithelial Cells 1 - 3 Amorphous Sediment Moderate Urine Bacteria Small Assessment & Plan - Assessment and Plan (Free Text) Assessment: This is a 68 year old male with PMH of depression, anxiety, right eye glaucoma, history of left and right leg cellulitis and PE in 2017 presenting to the hospital for worsening right leg wound. Plan: Sepsis 2/2 RLE cellulitis -febrile, elevated WBC, elevated lactate -started on clindamycin, zosyn day 1 -continue LR @ 200 -LE CT pending -ID on consult, Dr. Davila -Surgery on consult, Dr. Cabello -Podiatry on consult, Dr. Mitchell -procalc pending -repeat CPK tomorrow -blood cx, urine cx pending Hx of depression/anxiety -last refilled seroquel one year ago as per pharmacy ([facility] [address]) -holding seroquel due to prolonged QTc -psych on consult, Dr. Cuellar Hx of PE -PE in 12/2016 -previously on eliquis -elevated d-dimer -LE doppler unremarkable -V/Q scan pending (creatinine elevated) -monitor Hypomagensia -repleted, f/u AM PPX -protonix -holding on DVT ppx due to possibility of OR Patient seen and case discussed with attending, Dr. Lu <Nas Lu - Last Filed: 11/10/18 08:01> Results - Vital Signs Recent Vital Signs: Last Vital Signs Temp 102.5 F H 11/09/18 17:40 Pulse 105 H 11/10/18 00:00 Resp 18 11/09/18 21:19 BP 105/54 L 11/09/18 18:02 Pulse Ox 97 11/09/18 18:02 - Labs Result Diagrams: 11/09/18 16:00 11/10/18 05:30 Labs: Laboratory Results - last 24 hr 11/09/18 11/09/18 11/09/18 16:00 16:00 16:00 WBC 19.3 H RBC 4.77 Hgb 13.4 L Hct 41.3 L MCV 86.6 MCH 28.1 MCHC 32.4 RDW 13.6 Plt Count 159 MPV 11.5 H Neut % (Auto) 92.8 H Lymph % (Auto) 3.8 L [place] % (Auto) 3.3 Eos % (Auto) 0.0 L Baso % (Auto) 0.1 Lymph # (Auto) 0.7 L [place] # (Auto) 0.6 Eos # (Auto) 0.0 Baso # (Auto) 0.01 Absolute Neuts (auto) 17.87 H Neutrophils % (Manual) 70 Band Neutrophils % 16 H* Lymphocytes % (Manual) 7 L Monocytes % (Manual) 4 Metamyelocytes % 3 Dohle Bodies Slight Platelet Evaluation Normal PT 16.1 H INR 1.45 APTT 35.8 D-Dimer, Quantitative 3877 H pO2 33 VBG pH 7.42 VBG pCO2 42.0 VBG HCO3 27.2 VBG Total CO2 28.5 H VBG O2 Sat (Calc) 64.3 VBG Base Excess 2.4 H VBG Potassium 4.3 Sodium 134.0 Chloride 96.0 L Glucose 134 H Lactate 2.7 H FiO2 21.0 Crit Value Called To Sabra ordaz rn Crit Value Called By Bonnie Blood Gas Notified Time 1615 Potassium Carbon Dioxide Anion Gap BUN Creatinine Est GFR ( Amer) Est GFR (Non-Af Amer) Random Glucose Lactic Acid Calcium Phosphorus Magnesium Total Bilirubin AST ALT Alkaline Phosphatase Lactate Dehydrogenase Total Creatine Kinase CK-MB (CK-2) CK-MB (CK-2) % Troponin I NT-Pro-B Natriuret Pep Total Protein Albumin Globulin Albumin/Globulin Ratio Procalcitonin Venous Blood Potassium 4.3 Urine Color Urine Appearance Urine pH Ur Specific [place] Urine Protein Urine Glucose (UA) Urine Ketones Urine Blood Urine Nitrate Urine Bilirubin Urine Urobilinogen Ur Leukocyte Esterase Urine RBC Urine WBC Ur Epithelial Cells Amorphous Sediment Urine Bacteria IgA 11/09/18 11/09/18 11/09/18 16:00 16:00 16:50 WBC RBC Hgb Hct MCV MCH MCHC RDW Plt Count MPV Neut % (Auto) Lymph % (Auto) [place] % (Auto) Eos % (Auto) Baso % (Auto) Lymph # (Auto) [place] # (Auto) Eos # (Auto) Baso # (Auto) Absolute Neuts (auto) Neutrophils % (Manual) Band Neutrophils % Lymphocytes % (Manual) Monocytes % (Manual) Metamyelocytes % Dohle Bodies Platelet Evaluation PT INR APTT D-Dimer, Quantitative pO2 VBG pH VBG pCO2 VBG HCO3 VBG Total CO2 VBG O2 Sat (Calc) VBG Base Excess VBG Potassium Sodium 135 Chloride 97 L Glucose Lactate FiO2 Crit Value Called To Crit Value Called By Blood Gas Notified Time Potassium 4.0 Carbon Dioxide 26 Anion Gap 17 BUN 35 H Creatinine 1.3 Est GFR ( Amer) > 60 Est GFR (Non-Af Amer) 55 Random Glucose 136 H Lactic Acid Calcium 8.7 Phosphorus 2.7 Magnesium 1.5 L Total Bilirubin 1.6 H AST 63 H ALT 37 Alkaline Phosphatase 57 Lactate Dehydrogenase 784 H Total Creatine Kinase 2422 H CK-MB (CK-2) 4.8 H CK-MB (CK-2) % Cancelled Troponin I < 0.01 NT-Pro-B Natriuret Pep 344 Total Protein 7.8 Albumin 4.2 Globulin 3.6 Albumin/Globulin Ratio 1.2 Procalcitonin Venous Blood Potassium Urine Color Dark yellow Urine Appearance Sl cloudy Urine pH 6.0 Ur Specific [place] >= 1.030 Urine Protein 100 H Urine Glucose (UA) Negative Urine Ketones Negative Urine Blood Large H Urine Nitrate Negative Urine Bilirubin Negative Urine Urobilinogen 0.2 Ur Leukocyte Esterase Negative Urine RBC 0 - 2 Urine WBC 0 - 2 Ur Epithelial Cells 1 - 3 Amorphous Sediment Moderate Urine Bacteria Small IgA 11/09/18 11/09/18 11/09/18 18:06 18:06 18:06 WBC RBC Hgb Hct MCV MCH MCHC RDW Plt Count MPV Neut % (Auto) Lymph % (Auto) [place] % (Auto) Eos % (Auto) Baso % (Auto) Lymph # (Auto) [place] # (Auto) Eos # (Auto) Baso # (Auto) Absolute Neuts (auto) Neutrophils % (Manual) Band Neutrophils % Lymphocytes % (Manual) Monocytes % (Manual) Metamyelocytes % Dohle Bodies Platelet Evaluation PT INR APTT D-Dimer, Quantitative pO2 VBG pH VBG pCO2 VBG HCO3 VBG Total CO2 VBG O2 Sat (Calc) VBG Base Excess VBG Potassium Sodium Chloride Glucose Lactate FiO2 Crit Value Called To Crit Value Called By Blood Gas Notified Time Potassium Carbon Dioxide Anion Gap BUN Creatinine Est GFR ( Amer) Est GFR (Non-Af Amer) Random Glucose Lactic Acid 1.6 Calcium Phosphorus Magnesium Total Bilirubin AST ALT Alkaline Phosphatase Lactate Dehydrogenase Total Creatine Kinase CK-MB (CK-2) CK-MB (CK-2) % Troponin I NT-Pro-B Natriuret Pep Total Protein Albumin Globulin Albumin/Globulin Ratio Procalcitonin 16.67 H Venous Blood Potassium Urine Color Urine Appearance Urine pH Ur Specific [place] Urine Protein Urine Glucose (UA) Urine Ketones Urine Blood Urine Nitrate Urine Bilirubin Urine Urobilinogen Ur Leukocyte Esterase Urine RBC Urine WBC Ur Epithelial Cells Amorphous Sediment Urine Bacteria IgA 221.2 11/09/18 11/10/18 19:45 05:30 WBC RBC Hgb Hct MCV MCH MCHC RDW Plt Count MPV Neut % (Auto) Lymph % (Auto) [place] % (Auto) Eos % (Auto) Baso % (Auto) Lymph # (Auto) [place] # (Auto) Eos # (Auto) Baso # (Auto) Absolute Neuts (auto) Neutrophils % (Manual) Band Neutrophils % Lymphocytes % (Manual) Monocytes % (Manual) Metamyelocytes % Dohle Bodies Platelet Evaluation PT INR APTT D-Dimer, Quantitative pO2 43 VBG pH 7.36 VBG pCO2 48.0 VBG HCO3 27.1 VBG Total CO2 28.6 H VBG O2 Sat (Calc) 79.7 H VBG Base Excess 1.0 VBG Potassium 3.5 L Sodium 134.0 134 Chloride 100.0 101 Glucose 127 H Lactate 1.8 FiO2 21.0 Crit Value Called To Crit Value Called By Blood Gas Notified Time Potassium 3.5 L Carbon Dioxide 26 Anion Gap 11 BUN 23 H Creatinine 1.1 Est GFR ( Amer) > 60 Est GFR (Non-Af Amer) > 60 Random Glucose 117 H Lactic Acid Calcium 8.1 L Phosphorus 2.9 Magnesium 1.8 Total Bilirubin 1.2 AST 59 ALT 27 Alkaline Phosphatase 45 Lactate Dehydrogenase Total Creatine Kinase 1593 H CK-MB (CK-2) 1.9 CK-MB (CK-2) % Cancelled Troponin I NT-Pro-B Natriuret Pep Total Protein 6.0 Albumin 3.1 Globulin 2.9 Albumin/Globulin Ratio 1.1 Procalcitonin Venous Blood Potassium 3.5 L Urine Color Urine Appearance Urine pH Ur Specific [place] Urine Protein Urine Glucose (UA) Urine Ketones Urine Blood Urine Nitrate Urine Bilirubin Urine Urobilinogen Ur Leukocyte Esterase Urine RBC Urine WBC Ur Epithelial Cells Amorphous Sediment Urine Bacteria IgA Attending/Attestation - Attestation I have personally seen and examined this patient.: Yes I have fully participated in the care of the patient.: Yes I have reviewed all pertinent clinical information: Yes Notes (Text): 11/09/18 68 year old male with past medical history of depression, anxiety, LE cellulitis and history of PE (2017) who presents with sepsis (elevated lactic acid, leukocytosis, tachycardia) with RLE cellulitis with large superficial bullae. Also found to have elevated D-dimer and rhabdomyolysis. Will obtain CT lower extremity. Follow up on lower extremity dopplers and VQ scan. Continue with broad spectrum iv antibiotics. ID, podiatry and surgery evaluation are requested. Start on iv fluids, repeat CPK in AM. Monitor lytes. Psychiatry evaluation for history of depression/anxiety. Reports he is on seroquel at home but admits to medication noncompliance. Nas Lu MD Hospitalist.
[2018-11-09 19:50] LABS: VENOUS BLOOD GAS PO2 43 mm/Hg (30-55); VENOUS BLOOD PH 7.36 (7.32-7.43)
[2018-11-09] MEDS ORDERED: Pneumococcal 23-Valent Vaccine IM ONE (21:48)
[2018-11-10] MEDS: Clindamycin 600mg/50ml D5W 600 MG/50 ML VIAL IVPB SCH (01:40)
--- NOTE | 2018-11-10 04:14 | CON ---
DATE: 11/09/2018 CONSULTATION REPORT HISTORY OF PRESENT ILLNESS: This is a 68-year-old gentleman who was brought in from [facility] where he resides temporarily with severe right lower extremity pain. On examination in the emergency room, the patient's right LE was found to be extremely erythematous, covered with bullae, some of them popped, severe edema on the lower extremity associated with severe pain and tenderness. The patient reports that first, he noted those symptoms about 2 days ago and then they progressed very fast. The patient denies any trauma to the right lower extremity. He does not have diabetes. The patient also was found to have fever up to 105.1. There is no vomiting, no chest pain, no shortness of breath. The patient, however, did have some diarrhea as well. PAST MEDICAL HISTORY: Chronic depression, on Seroquel. HOME MEDICATION: Seroquel. FAMILY HISTORY: Noncontributory. SOCIAL HISTORY: No alcohol or illicit drug abuse. No tobacco smoking. REVIEW OF SYSTEMS: Review of 12-organ system, other than mentioned in history of present illness, is negative. ALLERGIES: NKDA. PHYSICAL EXAMINATION: VITAL SIGNS: Heart rate 110, blood pressure 108/60, temperature is 105.1 (T-max), respiratory rate 18, oxygen saturation 96% on room air. HEENT: Head and neck atraumatic. 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 HEART: Regular rate and rhythm. S1, S2 were normal. LUNGS: Clear to auscultation bilaterally. ABDOMEN: Soft, nontender, nondistended. MUSCULOSKELETAL: The right lower extremities from the foot up to the proximal one-third to two-third of the thigh is extremely swollen, erythematous, with multiple bullae, some of them broken with some clear discharge. SKIN: Otherwise, moist. PSYCHIATRIC: The patient is alert, awake, and oriented x3. NEUROLOGICAL: The patient moves all extremities spontaneously and is able to follow commands and he is able to move his toes on his right foot as well. He is able to move his right leg. LABORATORY DATA: WBC 19.3, hemoglobin 13.4, platelet count 159, INR 1.45, D-dimer is 3877 (lower extremity venous Doppler ordered by ER physician is negative). VBG showed lactic acid 2.7 and pH 7.42. Sodium 135, potassium 4, chloride 97, carbon dioxide 26, BUN 35, creatinine 1.3, glucose 136, potassium 4, AST 63, ALT 37, total bilirubin 1.6, LDH 784, total CPK 2422, troponin less than 0.01, proBNP 344, albumin 4.2. Urine negative for leukocyte esterase and nitrites. Chest x-ray reveals no active pulmonary disease. Venous Doppler of lower extremities is negative for DVT. ASSESSMENT AND PLAN: This is a 68-year-old gentleman with severe sepsis with multiorgan system failure, most likely due to severe soft tissue infection, may need to rule out necrotizing fasciitis. At the present time, we will proceed with aggressive fluid resuscitation, empiric antibiotics including Zosyn, vancomycin, and clindamycin. Computed axial tomography scan of the right lower extremity to rule out gas or abscess formation. Blood culture, urine culture, procalcitonin level will be ordered. Infectious Diseases consult and emergent surgical consult was also ordered. residential child care counselor was told about the consult by the Emergency Room doctor and a call to Dr. Cabello was made as well. The patient maintains his mean arterial pressure more than 65; however, somewhat tachycardic. We will repeat lactic acid level which initially was elevated up to 2.7. His capillary refill time appears to be brisk at the present time and less than 3 seconds. The patient has acute kidney injury/acute tubular necrosis, most likely due to severe sepsis. We will continue with fluid resuscitation with balanced crystalloids, avoid hyperchloremia, maintain euvolemia and euglycemia. The patient will be n.p.o. for now. GI prophylaxis, DVT prophylaxis. We will maintain blood glucose within 140-180 range according to NICE-SUGAR trial. The patient is not diabetic. Cardiovascular-funes, the patient's troponin is negative; he does not have any chest pain and his proBNP is within normal limits, which made the cardiac contribution to his clinical picture highly unlikely. The patient will be going to ICU. IgA level was ordered in case he becomes more unstable and consideration would be given to IVIG. We will continue to target euvolemia, euglycemia, normothermia, and oxygen saturation more than 90%. We will continue with DVT, GI prophylaxis. ccm time 40 min Johnathan Ruiz MD MTDKatya
[2018-11-10] MEDS: Piperacillin/Tazobact 3.375 gm 100 ML IV SCH ×4 (04:30→22:24)
[2018-11-10] MEDS: Vancomycin 1gm in NS 250ml 1 GM/250 ML BAG IVPB SCH ×2 (05:18→17:03)
[2018-11-10] MEDS: Dextrose 5%/0.45% NS 1,000 ML IV SCH ×2 (05:34→17:03)
[2018-11-10 06:44] LABS: ALB/GLOB RATIO 1.1 (1.1-1.8); ALBUMIN 3.1 g/dL (3.0-4.8); ALT/SGPT 27 U/L (7-56); AST/SGOT 59 U/L (17-59); BLOOD UREA NITROGEN 23 mg/dL (7-21); CALCIUM 8.1 mg/dL (8.4-10.5); GFR NON-AFRICAN AMERICAN > 60
[2018-11-10 07:07] LABS: CK-MB 1.9 ng/mL (0.0-3.6)
[2018-11-10] MEDS ORDERED: Potassium Chloride 20 mEq ER Tab PO ONE (07:47)
[2018-11-10] MEDS ORDERED: Lactated Ringer's 1,000 ML IV SCH (08:00)
--- NOTE | 2018-11-10 08:59 | CP.PCM.PN ---
Subjective - Date & Time of Evaluation Date of Evaluation: 11/10/18 Time of Evaluation: 07:55 - Subjective Subjective: General Surgery Pt seen and examined. No new complaints. Pain improved, but carding utility tender starting in lower thigh and increasing down to the foot. Objective - Vital Signs/Intake and Output Vital Signs (last 24 hours): Temp Pulse Resp BP Pulse Ox 102.5 F H 86 32 H 97/69 L 91 L 11/09/18 17:40 11/10/18 08:00 11/10/18 08:00 11/10/18 08:00 11/10/18 08:00 - Medications Medications: Current Medications Apixaban (Eliquis) 5 mg PO BID JOHN; Protocol Piperacillin Sod/Tazobactam Sod (Zosyn 3.375 In Ns 100ml) 100 mls @ 200 mls/hr IV Q6H JOHN; Protocol Last Admin: 11/10/18 04:30 Dose: 200 mls/hr Vancomycin HCl (Vancomycin 1gm) 1 gm in 250 mls @ 167 mls/hr IVPB Q12H JOHN; Protocol Stop: 11/19/18 06:01 Last Admin: 11/10/18 05:18 Dose: 167 mls/hr Dextrose/Sodium Chloride (Dextrose 5%/0.45% Ns 1000 Ml) 1,000 mls @ 100 mls/hr IV .Q10H JOHN Stop: 11/11/18 05:30 Last Admin: 11/10/18 05:34 Dose: 100 mls/hr Pantoprazole Sodium (Protonix Inj) 40 mg IVP DAILY JOHN - Labs Labs: 11/09/18 16:00 11/10/18 05:30 PT 16.1 SECONDS (9.4-12.5) H 11/09/18 16:00 INR 1.45 11/09/18 16:00 APTT 35.8 Seconds (26.9-38.3) 11/09/18 16:00 - Constitutional Appears: Non-toxic, No Acute Distress - Head Exam Head Exam: ATRAUMATIC, NORMOCEPHALIC - Eye Exam Eye Exam: EOMI. absent: Scleral icterus - Respiratory Exam Respiratory Exam: NORMAL BREATHING PATTERN. absent: Respiratory Distress - GI/Abdominal Exam GI & Abdominal Exam: Soft. absent: Firm, Rigid, Tenderness - Extremities Exam Additional comments: Right lower leg is tender, edematous, erythematous, weeping, hot with lymphangina to the groin. There is a large bullae over the pre[place] No expansion beyond drawn borders, some withdrawal. - Neurological Exam Neurological Exam: Alert, Awake - Skin Skin Exam: Dry, Warm Assessment and Plan - Assessment and Plan (Free Text) Assessment: 68M with Right lower extremity cellulitis Plan: Monitor vitals Cellulitis borders marked @ 17:35 11/09/18 - monitor for expansion/tracking Continue Abx Will D/W Dr. Irineo Nur PGY4
--- NOTE | 2018-11-10 09:18 | CARD ---
APPROVED REPORT Date of service: 11/09/2018 EKG Measurement Heart [id number] <Conclusion> Sinus tachycardia Left axis deviation Right bundle branch block Abnormal ECG
[2018-11-10 09:21] LABS: HEMOGLOBIN 11.2 g/dL (14.0-18.0); MEAN CORPUSCULAR HGB CONC 32.2 g/dl (31.0-37.0); RED CELL DISTRIBUTION WIDTH 13.7 % (11.5-14.5); WHITE BLOOD COUNT 13.4 10^3/uL (4.5-11.0)
--- NOTE | 2018-11-10 09:23 | CP.PCM.CON ---
<Velia Burgess - Last Filed: 11/10/18 09:20> History of Present Illness - History of Present Illness History of Present Illness: Podiatry consult note for Dr. Farr 68 y/o male patient seen and evaluated at bedside due to cellulitis and blister formation to the right leg. Patient is alert, awake and in no acute distress. Patient reprots feeling beter since ED arrival. As per patient, Right leg wound began two days ago, associated with blistering, redness, sharp pain nausea, and fevers. Patient denies chest pain, SOB, current nausea, vomiting, abdominal pain. Patient denies any similar symptoms in the past. PMH: R Glaucoma, depression, anxiety, Hx of PE PSH: R cataract, umbilical hernia SH: Occasional Tobacco use, No EtOH or drug use FH: Non contributory Meds: See MAR All: NKDA Review of Systems - Review of Systems All systems: reviewed and no additional remarkable complaints except Review of Systems: As per hPI Past Patient History - Infectious Disease Hx of Infectious Diseases: None - Tetanus Immunizations Tetanus Immunization: Unknown - Past Medical History & Family History Past Medical History?: Yes - Past Social History Smoking Status: Current Some Days Smoker - CARDIAC Hx Cardiac Disorders: Yes Hx Hypertension: Yes Hx Peripheral Vascular Disease: Yes (PT STATES HAD BLOOD CLOT TO RIGHT LEG WITH SX.) - PULMONARY Hx Respiratory Disorders: Yes (PE 2016) Hx Asthma: Yes ("OCCASSIONALLY" BUT NO INHALERS/MEDS) - NEUROLOGICAL Hx Neurological Disorder: No Hx Alzheimer's Disease: No Hx Dementia: No Hx Migraine: No Hx Parkinson's Disease: No Hx Seizures: No Hx Transient Ischemic Attacks (TIA): No - HEENT Hx HEENT Problems: Yes (BILAT." EYE IRRITATION FOR A WHILE") Hx Cataracts: Yes (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 11-09-18 RIGHT LEG WITH WORSENING CELLULITIS.WHOLE LEG IS FLUSHED RED,SMOOTH,EDEMA PITTING +4 EXTENDS TO RIGHT GROIN AREA.STREAKING. LARGE BLISTER WITH LARGE AMOUNT OF SEROUS DRAINAGE WITH MILD ODOR. DRAINING. SHARP SHOOTING PAIN. - MUSCULOSKELETAL/RHEUMATOLOGICAL Hx Musculoskeletal Disorders: Yes Hx Falls: Yes Hx Unsteady Gait: Yes - GASTROINTESTINAL Hx Gastrointestinal Disorders: Yes (UMBILICAL HERNIA) Other/Comment: Ventral hernia for 2 months - GENITOURINARY/GYNECOLOGICAL Hx Genitourinary Disorders: Yes (INCARCERATED VENTRAL HERNIA) - PSYCHIATRIC Hx Psychophysiologic Disorder: Yes Hx Anxiety: Yes Hx Depression: Yes Hx Substance Use: No - SURGICAL HISTORY Hx Surgeries: Yes (RIGHT LEG SX.) Other/Comment: Eye surgery RIGHT EYE RETINAL DETACHMENT,GLAUCOMA SX LEFT EYE. - ANESTHESIA Hx Anesthesia: Yes Hx Anesthesia Reactions: No Hx Malignant Hyperthermia: No Meds Allergies/Adverse Reactions: Allergies Allergy/AdvReac Type Severity Reaction Status Date / Time No Known Allergies Allergy Verified 11/09/18 18:05 - Medications Medications: Current Medications Apixaban (Eliquis) 5 mg PO BID JOHN; Protocol Piperacillin Sod/Tazobactam Sod (Zosyn 3.375 In Ns 100ml) 100 mls @ 200 mls/hr IV Q6H JOHN; Protocol Last Admin: 11/10/18 04:30 Dose: 200 mls/hr Vancomycin HCl (Vancomycin 1gm) 1 gm in 250 mls @ 167 mls/hr IVPB Q12H JOHN; Protocol Stop: 11/19/18 06:01 Last Admin: 11/10/18 05:18 Dose: 167 mls/hr Dextrose/Sodium Chloride (Dextrose 5%/0.45% Ns 1000 Ml) 1,000 mls @ 100 mls/hr IV .Q10H JOHN Stop: 11/11/18 05:30 Last Admin: 11/10/18 05:34 Dose: 100 mls/hr Pantoprazole Sodium (Protonix Inj) 40 mg IVP DAILY [facility] Physical Exam - Constitutional Appears: Well, Non-toxic, No Acute Distress - Head Exam Head Exam: ATRAUMATIC, NORMOCEPHALIC - Extremities Exam Extremities exam: Positive for: normal capillary refill, pedal edema, tenderness, pedal pulses present Additional comments: VASC: DP and PT palpable, CFT less than 3 seconds, TG warm to the right lower leg NEURO: grossly intact DERM: Right lower leg with cellultis, positive tenderness, postive edema, positive erythema, large bullae over the anterior medial aspect of the leg, another small superifical wound noted to the anterior aspect of the leg as well, no purulent drainage noted, no malodor, no probe to bone ORTHO: pain on palpation to the right leg - Neurological Exam Neurological exam: Alert, Oriented x3 - Psychiatric Exam Psychiatric exam: Normal Affect, Normal Mood Results - Vital Signs Recent Vital Signs: Last Vital Signs Temp 102.5 F H 11/09/18 17:40 Pulse 86 11/10/18 08:00 Resp 32 H 11/10/18 08:00 BP 97/69 L 11/10/18 08:00 Pulse Ox 91 L 11/10/18 08:00 - Labs Result Diagrams: 11/09/18 16:00 11/10/18 05:30 Labs: Laboratory Results - last 24 hr 11/09/18 11/09/18 11/09/18 16:00 16:00 16:00 WBC 19.3 H RBC 4.77 Hgb 13.4 L Hct 41.3 L MCV 86.6 MCH 28.1 MCHC 32.4 RDW 13.6 Plt Count 159 MPV 11.5 H Neut % (Auto) 92.8 H Lymph % (Auto) 3.8 L Trigg % (Auto) 3.3 Eos % (Auto) 0.0 L Baso % (Auto) 0.1 Lymph # (Auto) 0.7 L Trigg # (Auto) 0.6 Eos # (Auto) 0.0 Baso # (Auto) 0.01 Absolute Neuts (auto) 17.87 H Neutrophils % (Manual) 70 Band Neutrophils % 16 H* Lymphocytes % (Manual) 7 L Monocytes % (Manual) 4 Metamyelocytes % 3 Dohle Bodies Slight Platelet Evaluation Normal PT 16.1 H INR 1.45 APTT 35.8 D-Dimer, Quantitative 3877 H pO2 33 VBG pH 7.42 VBG pCO2 42.0 VBG HCO3 27.2 VBG Total CO2 28.5 H VBG O2 Sat (Calc) 64.3 VBG Base Excess 2.4 H VBG Potassium 4.3 Sodium 134.0 Chloride 96.0 L Glucose 134 H Lactate 2.7 H FiO2 21.0 Crit Value Called To Sabra ordaz rn Crit Value Called By Bonnie Blood Gas Notified Time 1619 Potassium Carbon Dioxide Anion Gap BUN Creatinine Est GFR ( Amer) Est GFR (Non-Af Amer) Random Glucose Lactic Acid Calcium Phosphorus Magnesium Total Bilirubin AST ALT Alkaline Phosphatase Lactate Dehydrogenase Total Creatine Kinase CK-MB (CK-2) CK-MB (CK-2) % Troponin I NT-Pro-B Natriuret Pep Total Protein Albumin Globulin Albumin/Globulin Ratio Procalcitonin Venous Blood Potassium 4.3 Urine Color Urine Appearance Urine pH Ur Specific [place] Urine Protein Urine Glucose (UA) Urine Ketones Urine Blood Urine Nitrate Urine Bilirubin Urine Urobilinogen Ur Leukocyte Esterase Urine RBC Urine WBC Ur Epithelial Cells Amorphous Sediment Urine Bacteria IgA 11/09/18 11/09/18 11/09/18 16:00 16:00 16:50 WBC RBC Hgb Hct MCV MCH MCHC RDW Plt Count MPV Neut % (Auto) Lymph % (Auto) Trigg % (Auto) Eos % (Auto) Baso % (Auto) Lymph # (Auto) Trigg # (Auto) Eos # (Auto) Baso # (Auto) Absolute Neuts (auto) Neutrophils % (Manual) Band Neutrophils % Lymphocytes % (Manual) Monocytes % (Manual) Metamyelocytes % Dohle Bodies Platelet Evaluation PT INR APTT D-Dimer, Quantitative pO2 VBG pH VBG pCO2 VBG HCO3 VBG Total CO2 VBG O2 Sat (Calc) VBG Base Excess VBG Potassium Sodium 135 Chloride 97 L Glucose Lactate FiO2 Crit Value Called To Crit Value Called By Blood Gas Notified Time Potassium 4.0 Carbon Dioxide 26 Anion Gap 17 BUN 35 H Creatinine 1.3 Est GFR ( Amer) > 60 Est GFR (Non-Af Amer) 55 Random Glucose 136 H Lactic Acid Calcium 8.7 Phosphorus 2.7 Magnesium 1.5 L Total Bilirubin 1.6 H AST 63 H ALT 37 Alkaline Phosphatase 57 Lactate Dehydrogenase 784 H Total Creatine Kinase 2422 H CK-MB (CK-2) 4.8 H CK-MB (CK-2) % Cancelled Troponin I < 0.01 NT-Pro-B Natriuret Pep 344 Total Protein 7.8 Albumin 4.2 Globulin 3.6 Albumin/Globulin Ratio 1.2 Procalcitonin Venous Blood Potassium Urine Color Dark yellow Urine Appearance Sl cloudy Urine pH 6.0 Ur Specific [place] >= 1.030 Urine Protein 100 H Urine Glucose (UA) Negative Urine Ketones Negative Urine Blood Large H Urine Nitrate Negative Urine Bilirubin Negative Urine Urobilinogen 0.2 Ur Leukocyte Esterase Negative Urine RBC 0 - 2 Urine WBC 0 - 2 Ur Epithelial Cells 1 - 3 Amorphous Sediment Moderate Urine Bacteria Small IgA 11/09/18 11/09/18 11/09/18 18:06 18:06 18:06 WBC RBC Hgb Hct MCV MCH MCHC RDW Plt Count MPV Neut % (Auto) Lymph % (Auto) Trigg % (Auto) Eos % (Auto) Baso % (Auto) Lymph # (Auto) Trigg # (Auto) Eos # (Auto) Baso # (Auto) Absolute Neuts (auto) Neutrophils % (Manual) Band Neutrophils % Lymphocytes % (Manual) Monocytes % (Manual) Metamyelocytes % Dohle Bodies Platelet Evaluation PT INR APTT D-Dimer, Quantitative pO2 VBG pH VBG pCO2 VBG HCO3 VBG Total CO2 VBG O2 Sat (Calc) VBG Base Excess VBG Potassium Sodium Chloride Glucose Lactate FiO2 Crit Value Called To Crit Value Called By Blood Gas Notified Time Potassium Carbon Dioxide Anion Gap BUN Creatinine Est GFR ( Amer) Est GFR (Non-Af Amer) Random Glucose Lactic Acid 1.6 Calcium Phosphorus Magnesium Total Bilirubin AST ALT Alkaline Phosphatase Lactate Dehydrogenase Total Creatine Kinase CK-MB (CK-2) CK-MB (CK-2) % Troponin I NT-Pro-B Natriuret Pep Total Protein Albumin Globulin Albumin/Globulin Ratio Procalcitonin 16.67 H Venous Blood Potassium Urine Color Urine Appearance Urine pH Ur Specific [place] Urine Protein Urine Glucose (UA) Urine Ketones Urine Blood Urine Nitrate Urine Bilirubin Urine Urobilinogen Ur Leukocyte Esterase Urine RBC Urine WBC Ur Epithelial Cells Amorphous Sediment Urine Bacteria IgA 221.2 11/09/18 11/10/18 19:45 05:30 WBC RBC Hgb Hct MCV MCH MCHC RDW Plt Count MPV Neut % (Auto) Lymph % (Auto) Trigg % (Auto) Eos % (Auto) Baso % (Auto) Lymph # (Auto) Trigg # (Auto) Eos # (Auto) Baso # (Auto) Absolute Neuts (auto) Neutrophils % (Manual) Band Neutrophils % Lymphocytes % (Manual) Monocytes % (Manual) Metamyelocytes % Dohle Bodies Platelet Evaluation PT INR APTT D-Dimer, Quantitative pO2 43 VBG pH 7.36 VBG pCO2 48.0 VBG HCO3 27.1 VBG Total CO2 28.6 H VBG O2 Sat (Calc) 79.7 H VBG Base Excess 1.0 VBG Potassium 3.5 L Sodium 134.0 134 Chloride 100.0 101 Glucose 127 H Lactate 1.8 FiO2 21.0 Crit Value Called To Crit Value Called By Blood Gas Notified Time Potassium 3.5 L Carbon Dioxide 26 Anion Gap 11 BUN 23 H Creatinine 1.1 Est GFR ( Amer) > 60 Est GFR (Non-Af Amer) > 60 Random Glucose 117 H Lactic Acid Calcium 8.1 L Phosphorus 2.9 Magnesium 1.8 Total Bilirubin 1.2 AST 59 ALT 27 Alkaline Phosphatase 45 Lactate Dehydrogenase Total Creatine Kinase 1593 H CK-MB (CK-2) 1.9 CK-MB (CK-2) % Cancelled Troponin I NT-Pro-B Natriuret Pep Total Protein 6.0 Albumin 3.1 Globulin 2.9 Albumin/Globulin Ratio 1.1 Procalcitonin Venous Blood Potassium 3.5 L Urine Color Urine Appearance Urine pH Ur Specific [place] Urine Protein Urine Glucose (UA) Urine Ketones Urine Blood Urine Nitrate Urine Bilirubin Urine Urobilinogen Ur Leukocyte Esterase Urine RBC Urine WBC Ur Epithelial Cells Amorphous Sediment Urine Bacteria IgA Assessment & Plan - Assessment and Plan (Free Text) Assessment: 68 y/o male patient seen and evaluated for right leg cellulitis with blisters Plan: Patient seen and evaluated with Dr. Farr Plan discussed with attending Chart, labs reviewed- WBC trending down from 19.3 to 13.4 (11/10), afebrile at this time LE US: negative for DVT bilaterally Right Lower Extremity CT: questionable fluid collection, possible abscess to the anterior medial aspect of the leg Right leg bulla punctured and drained with sterile instruments, overlying skin roof kept intact Wound dressed with calcium Alginate, Xeroform, Superabsobant, DSD Obtained wound culture from the drained bulla Continue IV Abx, ID recommendations appreciated Podiatry will continue to follow patient while in house - Date & Time Date: 11/10/18 Time: 09:33 <Malick Farr - Last Filed: 11/12/18 10:48> Meds - Medications Medications: Current Medications Heparin Sodium (Porcine) (Heparin) 5,000 units SC Q8 JOHN; Protocol Last Admin: 11/12/18 06:10 Dose: 5,000 units Piperacillin Sod/Tazobactam Sod (Zosyn 3.375 In Ns 100ml) 100 mls @ 200 mls/hr IV Q6H JOHN; Protocol Last Admin: 11/12/18 10:29 Dose: 200 mls/hr Vancomycin HCl (Vancomycin 1gm) 1 gm in 250 mls @ 167 mls/hr IVPB Q12H JOHN; Protocol Stop: 11/19/18 06:01 Last Admin: 11/12/18 06:11 Dose: 167 mls/hr Sodium Chloride (Sodium Chloride 0.9%) 1,000 mls @ 100 mls/hr IV .Q10H JOHN Last Admin: 11/12/18 10:31 Dose: 100 mls/hr Pantoprazole Sodium (Protonix Ec Tab) 40 mg PO 0600 JOHN Last Admin: 11/12/18 06:11 Dose: 40 mg Results - Vital Signs Recent Vital Signs: Last Vital Signs Temp 98 F 11/12/18 08:14 Pulse 85 11/12/18 08:14 Resp 20 11/12/18 08:14 BP 113/68 11/12/18 08:14 Pulse Ox 95 11/12/18 08:14 - Labs Result Diagrams: 11/12/18 07:00 11/12/18 07:00 Labs: Laboratory Results - last 24 hr 11/12/18 11/12/18 11/12/18 07:00 07:00 07:00 WBC 7.6 RBC 4.01 Hgb 11.2 L Hct 34.8 L MCV 86.8 MCH 27.9 MCHC 32.2 RDW 13.7 Plt Count 162 MPV 10.3 Neut % (Auto) 80.3 H Lymph % (Auto) 8.8 L Trigg % (Auto) 8.8 H Eos % (Auto) 1.8 Baso % (Auto) 0.3 Lymph # (Auto) 0.7 L Trigg # (Auto) 0.7 H Eos # (Auto) 0.1 Baso # (Auto) 0.02 Absolute Neuts (auto) 6.12 Sodium 137 Potassium 3.9 Chloride 104 Carbon Dioxide 25 Anion Gap 13 BUN 19 Creatinine 1.0 Est GFR ( Amer) > 60 Est GFR (Non-Af Amer) > 60 Random Glucose 113 H Calcium 8.6 Total Bilirubin 0.9 AST 83 H ALT 68 H Alkaline Phosphatase 65 Total Creatine Kinase 480 H CK-MB (CK-2) 1.9 CK-MB (CK-2) % Cancelled Total Protein 6.8 Albumin 3.5 Globulin 3.3 Albumin/Globulin Ratio 1.0 L Attending/Attestation - Attestation I have personally seen and examined this patient.: Yes I have fully participated in the care of the patient.: Yes I have reviewed all pertinent clinical information: Yes
--- NOTE | 2018-11-10 10:34 | PN ---
DATE: 11/10/2018 SUBJECTIVE: The patient is seen at bedside. He is comfortable, he talks full sentences. He is not in respiratory or otherwise distress. PHYSICAL EXAMINATION: VITAL SIGNS: Temperature 96, oxygen saturation 94% on 2 liters nasal cannula, respiratory 28, blood pressure 107/69. The patient is on lactated Ringer at 100 mL/hour. HEENT: Head and neck atraumatic. HEART: Regular rate and rhythm. S1 and S2 normal. LUNGS: Isolated few wheezes on the right side. ABDOMEN: Soft, nontender, nondistended. MUSCULOSKELETAL: There is a substantial improvement in the swelling and redness in the right lower extremity compared with yesterday. Some "wrinkling" started to appear. One big bulla present with clear fluid. Surgical and podiatry services are at bedside. No surgical intervention at the present time. SKIN: Moist. PSYCHIATRY: The patient is alert, awake and oriented x3. Not in respiratory or otherwise distress. NEUROLOGIC: The patient moves all extremities spontaneously. LABORATORY DATA: WBC 19.3, hemoglobin 13.4, platelet count 159. Sodium 134, potassium 3.5 (supplemented), chloride 101, BUN 23, creatinine 1.1 down from 1.3, glucose 117. Lactic acid 1.6, CPK 1593 down from 2422, AST 59, ALT 27, total bilirubin 1.2 down from 1.6. Procalcitonin 16.67. IgA 221.2 (within normal limits). MEDICATIONS: Zosyn and vancomycin, clindamycin was stopped by ID service, D5 half-normal saline at 100 mL/hour, Protonix, vancomycin, heparin 5000 subcutaneously every 8 hours. ASSESSMENT AND PLAN: This is a 68-year-old gentleman who presented to [facility] ICU with severe sepsis secondary to severe cellulitis of the right lower extremity. No gas formation on CT and US. No abscess either. The patient responded to antibiotic therapy and Infectious Disease service is following him as well. His lactic acidosis resolved, his acute kidney injury substantially improved. His rhabdomyolysis substantially improved as well. The patient is hemodynamically and respiratory funes stable. Yesterday, the list of medication has not been available for the patient; however, it appears that the patient was on Eliquis for pulmonary embolism diagnosed in 2017. We will continue with apixaban 5 mg p.o. twice a day for now and stop heparin subcutaneously. The patient is not in respiratory distress. We will continue target euvolemia, euglycemia, normothermia oxygen saturation more than 90%. Okay to downgrade to Cyvera. ccm time 40 min Johnathan Ruiz MD BETI
--- NOTE | 2018-11-10 10:45 | CP.PCM.PN ---
<Reg Hopkins - Last Filed: 11/10/18 11:11> Subjective - Date & Time of Evaluation Date of Evaluation: 11/10/18 Time of Evaluation: 08:30 - Subjective Subjective: Progress Note for Dr. Lu Patient seen and examined at bedside in no acute distress. Patient states he isn't in pain and he has not issues breathing at the moment. Denies shortness of breath, nausea, vomiting, diarrhea,chest pain. Physical Exam - Constitutional Appears: Non-toxic, No Acute Distress - Head Exam Head Exam: ATRAUMATIC, NORMAL INSPECTION - Eye Exam Eye Exam: EOMI, corneal opacity in right eye Pupil Exam: PERRL - ENT Exam ENT Exam: Mucous Membranes Dry - Neck Exam Neck exam: Positive for: Normal Inspection - Respiratory Exam Respiratory Exam: Clear to Auscultation Bilateral. absent: Accessory Muscle Use, Wheezes, Respiratory Distress - Cardiovascular Exam Cardiovascular Exam: Tachycardia, +S1, +S2 - GI/Abdominal Exam GI & Abdominal Exam: Soft. absent: Firm, Guarding, Rebound, Tenderness Additional comments: globular abdomen umbilical hernia scar noted - Extremities Exam Extremities exam: Positive for: joint swelling, pedal edema, tenderness Additional comments: RLE calf tenderness present RLE bullae noted, draining clear fluid, measuring 5x8cm. Erythema, redness appreciated on RLE extending from right foot to right thigh Lymphangina extending to right groin - Neurological Exam Neurological exam: Alert, CN II-XII Intact - Skin Skin Exam: Dry, Warm Objective - Vital Signs/Intake and Output Vital Signs (last 24 hours): Temp Pulse Resp BP Pulse Ox 102.5 F H 86 32 H 97/69 L 91 L 11/09/18 17:40 11/10/18 08:00 11/10/18 08:00 11/10/18 08:00 11/10/18 08:00 - Medications Medications: Current Medications Apixaban (Eliquis) 5 mg PO BID JOHN; Protocol Last Admin: 11/10/18 10:09 Dose: 5 mg Piperacillin Sod/Tazobactam Sod (Zosyn 3.375 In Ns 100ml) 100 mls @ 200 mls/hr IV Q6H JOHN; Protocol Last Admin: 11/10/18 04:30 Dose: 200 mls/hr Vancomycin HCl (Vancomycin 1gm) 1 gm in 250 mls @ 167 mls/hr IVPB Q12H JOHN; Protocol Stop: 11/19/18 06:01 Last Admin: 11/10/18 05:18 Dose: 167 mls/hr Dextrose/Sodium Chloride (Dextrose 5%/0.45% Ns 1000 Ml) 1,000 mls @ 100 mls/hr IV .Q10H JOHN Stop: 11/11/18 05:30 Last Admin: 11/10/18 05:34 Dose: 100 mls/hr Pantoprazole Sodium (Protonix Inj) 40 mg IVP DAILY JOHN Last Admin: 11/10/18 10:09 Dose: 40 mg - Labs Labs: 11/10/18 08:30 11/10/18 05:30 PT 16.1 SECONDS (9.4-12.5) H 11/09/18 16:00 INR 1.45 11/09/18 16:00 APTT 35.8 Seconds (26.9-38.3) 11/09/18 16:00 Assessment and Plan - Assessment and Plan (Free Text) Assessment: This is a 68 year old male with PMH of depression, anxiety, right eye glaucoma, history of left and right leg cellulitis and PE in 2017 presenting to the hospital for worsening right leg wound. Plan: Sepsis 2/2 RLE cellulitis -started on vancomycin day 1, zosyn day 2 -LR discontinued, D5W started -LE CT;diffuse circumferential inflammation and edema throughout the soft tissues of the right lower leg. Most prominent in the anterior aspect. The findings are nonspecific but cellulitis is suspected. Superficial crescent shape fluid collection along the anterior medial aspect, suspicious for possible abscess. Mild osteoarthritis of the right knee joint. -ID on consult, Dr. Davila -Surgery on consult, Dr. Cabello -Podiatry on consult, Dr. Mitchell -procalcitonin elevated -repeat CPK improving -blood cx, urine cx results pending Hx of depression/anxiety -last refilled seroquel one year ago as per pharmacy ([facility] [address]) -holding seroquel due to prolonged QTc -psych on consult Hx of PE -PE in 12/2016 -started on eliquis -elevated d-dimer -LE doppler unremarkable -V/Q scan pending (creatinine elevated) -monitor PPX -protonix -DVT ppx with eliquis Patient seen and case discussed with attending, Dr. Lu <Nas Lu - Last Filed: 11/11/18 12:58> Objective - Vital Signs/Intake and Output Vital Signs (last 24 hours): Temp Pulse Resp BP Pulse Ox 100.2 F H 80 20 104/64 94 L 11/11/18 06:00 11/11/18 06:00 11/11/18 06:00 11/11/18 06:00 11/11/18 06:00 Intake and Output: 11/11/18 11/11/18 06:59 18:59 Intake Total 600 Output Total 900 Balance -300 - Medications Medications: Current Medications Apixaban (Eliquis) 5 mg PO BID JOHN; Protocol Last Admin: 11/11/18 10:15 Dose: 5 mg Piperacillin Sod/Tazobactam Sod (Zosyn 3.375 In Ns 100ml) 100 mls @ 200 mls/hr IV Q6H JOHN; Protocol Last Admin: 11/11/18 12:53 Dose: 200 mls/hr Vancomycin HCl (Vancomycin 1gm) 1 gm in 250 mls @ 167 mls/hr IVPB Q12H JOHN; Protocol Stop: 11/19/18 06:01 Last Admin: 11/11/18 05:01 Dose: 167 mls/hr Pantoprazole Sodium (Protonix Ec Tab) 40 mg PO 0600 JOHN Quetiapine Fumarate (Seroquel) 100 mg PO HS JOHN; Protocol Last Admin: 11/10/18 21:20 Dose: 100 mg - Labs Labs: 11/11/18 07:00 11/11/18 07:00 PT 16.1 SECONDS (9.4-12.5) H 11/09/18 16:00 INR 1.45 11/09/18 16:00 APTT 35.8 Seconds (26.9-38.3) 11/09/18 16:00 Attending/Attestation - Attestation I have personally seen and examined this patient.: Yes I have fully participated in the care of the patient.: Yes I have reviewed all pertinent clinical information, including history, physical exam and plan: Yes Notes (Text): 11/10/18 68 year old male with past medical history of depression, anxiety, LE cellulitis and history of PE (2017) who presented with sepsis (elevated lactic acid, leukocytosis, tachycardia) with RLE cellulitis with large superficial bullae. Also found to have elevated D-dimer and rhabdomyolysis. CT lower extremity showed severe cellulitis without necrotizing fasciitis. Surgery and podiatry evaluation were appreciated. Follow up on lower extremity dopplers and VQ scan. Continue with iv antibiotics as per ID. Continue with IVF. CPK is improving. Psychiatry evaluation was requested for history of depression/anxiety and med ication noncompliance. Nas Lu MD Hospitalist.
--- NOTE | 2018-11-10 11:06 | CP.CCUPN ---
<Bora Crocker - Last Filed: 11/10/18 10:41> CCU Subjective - Physician Review Subjective (Free Text): PGY-2 ICU progress note for Dr Ruiz No acute events overnight. Patient reports his pain is controlled with the pain meds he's received. He stated he was hungry. Denied cp, abd pain, fevers, n/v/d. He stated he felt tired. 11/10/18 10:42 Critical Care Time Spent (in minutes): 35 CCU Objective - Vital Signs / Intake & Output Vital Signs (Last 4 hours): Vital Signs Pulse Resp BP Pulse Ox 11/10/18 08:00 86 32 H 97/69 L 91 L 11/10/18 07:50 85 32 H 96 11/10/18 07:43 87 33 H 11/10/18 07:42 79 29 H 11/10/18 07:40 85 30 H 11/10/18 07:38 86 30 H 101/68 98 11/10/18 07:30 81 22 92 L 11/10/18 07:20 81 26 H 87 L 11/10/18 07:10 95 H 34 H 96 11/10/18 07:00 85 24 81/44 L 78 L 11/10/18 06:54 86 27 H 11/10/18 06:53 83 26 H 11/10/18 06:50 83 24 96 Intake and Output (Last 8hrs): Intake & Output 11/09/18 11/10/18 11/10/18 22:59 06:59 14:59 Weight 175 lb Other: Voiding Method Toilet - Physical Exam Head: Positive for: Atraumatic, Normocephalic Pupils: Positive for: PERRL Extroacular Muscles: Positive for: EOMI 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 Negative for: Respiratory Distress, Accessory Muscle Use Cardiovascular: Positive for: Regular Rate and Rhythm, Normal S1, S2, Tachycardic. Negative for: Murmurs Abdomen: Negative for: Tenderness, Distention, Peritoneal Signs, Rebound, Guarding Upper Extremity: Positive for: Normal Inspection. Negative for: Cyanosis, Edema Lower Extremity: Positive for: Edema, CALF TENDERNESS, Tenderness, Swelling, Erythema, Other (Right lower leg is tender swollen erythematous weeping warm with lymphangina to the groin) Neurological: Positive for: GCS=15, CN II-XII Intact, Speech Normal, Motor Func Grossly Intact Skin: Positive for: Other (Cellulitis of the right lower extremity as above.) Psychiatric: Positive for: Alert, Oriented x 3, Normal Concentration - Medications Active Medications: Active Medications Generic Name Dose Route Start Last Admin Trade Name Freq PRN Reason Stop Dose Admin Apixaban 5 mg 11/10/18 10:00 11/10/18 10:09 Eliquis PO 5 mg BID JOHN Administration Protocol Piperacillin Sod/Tazobactam Sod 100 mls @ 200 mls/hr 11/09/18 17:15 11/10/18 04:30 Zosyn 3.375 In Ns 100ml IV 200 mls/hr Q6H JOHN Administration Protocol Vancomycin HCl 1 gm in 250 mls @ 167 mls/hr 11/10/18 06:00 11/10/18 05:18 Vancomycin 1gm IVPB 11/19/18 06:01 167 mls/hr Q12H JOHN Administration Protocol Dextrose/Sodium Chloride 1,000 mls @ 100 mls/hr 11/10/18 05:30 11/10/18 05:34 Dextrose 5%/0.45% Ns 1000 Ml IV 11/11/18 05:30 100 mls/hr .Q10H JOHN Administration Pantoprazole Sodium 40 mg 11/10/18 10:00 11/10/18 10:09 Protonix Inj IVP 40 mg DAILY JOHN Administration - Patient Studies Lab Studies: Lab Studies 11/10/18 11/10/18 11/10/18 Range/Units 08:30 05:30 05:00 WBC 13.4 H D (4.5-11.0) 10^3/uL RBC 4.00 (3.5-6.1) 10^6/uL Hgb 11.2 L D (14.0-18.0) g/dL Hct 34.8 L (42.0-52.0) % MCV 87.0 (80.0-105.0) fl MCH 28.0 (25.0-35.0) pg MCHC 32.2 (31.0-37.0) g/dl RDW 13.7 (11.5-14.5) % Plt Count 106 L (120.0-450.0) 10^3/uL MPV 11.0 (7.0-11.0) fl Neut % (Auto) (50.0-68.0) % Lymph % (Auto) (22.0-35.0) % Toombs % (Auto) (1.0-6.0) % Eos % (Auto) (1.5-5.0) % Baso % (Auto) (0.0-3.0) % Lymph # (Auto) (1.2-3.4) [place]ombs # (Auto) (0.1-0.6) Eos # (Auto) (0.0-0.7) Baso # (Auto) (0.0-2.0) K/mm3 Absolute Neuts (auto) (1.4-6.5) Neutrophils % (Manual) (50.0-70.0) % Band Neutrophils % (0-2) % Lymphocytes % (Manual) (22.0-35.0) % Monocytes % (Manual) (1.0-6.0) % Metamyelocytes % % Dohle Bodies Platelet Evaluation (NORMAL) PT (9.4-12.5) SECONDS INR APTT (26.9-38.3) Seconds D-Dimer, Quantitative (0-243) ng/mlDDU pO2 (30-55) mm/Hg VBG pH (7.32-7.43) VBG pCO2 (40-60) VBG HCO3 (21-28) mmol/l VBG Total CO2 (22-28) mmol.L VBG O2 Sat (Calc) (40-65) % VBG Base Excess (0.0-2.0) mmol/L VBG Potassium (3.6-5.2) mmol/L Sodium 134 (132-148) mmol/L Chloride 101 (98-107) mmol/L Glucose (75-110) mg/dl Lactate (0.7-2.1) mmol/L FiO2 % Crit Value Called To Crit Value Called By Blood Gas Notified Time Potassium 3.5 L (3.6-5.0) mmol/L Carbon Dioxide 26 (21-33) mmol/L Anion Gap 11 (10-20) BUN 23 H (7-21) mg/dL Creatinine 1.1 (0.8-1.5) mg/dl Est GFR ( Amer) > 60 Est GFR (Non-Af Amer) > 60 Random Glucose 117 H (70-110) mg/dL Lactic Acid (0.7-2.1) mmol/L Calcium 8.1 L (8.4-10.5) mg/dL Phosphorus 2.9 (2.5-4.5) mg/dL Magnesium 1.8 (1.7-2.2) mg/dL Total Bilirubin 1.2 (0.2-1.3) mg/dL AST 59 (17-59) U/L ALT 27 (7-56) U/L Alkaline Phosphatase 45 (38-126) U/L Lactate Dehydrogenase 724 H (333-699) U/L Total Creatine Kinase 1593 H (35-230) U/L CK-MB (CK-2) 1.9 (0.0-3.6) ng/mL CK-MB (CK-2) % Cancelled Troponin I ng/mL NT-Pro-B Natriuret Pep (0-450) pg/mL Total Protein 6.0 (5.8-8.3) g/dL Albumin 3.1 (3.0-4.8) g/dL Globulin 2.9 gm/dL Albumin/Globulin Ratio 1.1 (1.1-1.8) Procalcitonin (0.19-0.49) NG/ML Venous Blood Potassium (3.6-5.2) mmol/L Urine Color (YELLOW) Urine Appearance (CLEAR) Urine pH (4.7-8.0) Ur Specific Linneus (1.005-1.035) Urine Protein (<30 mg/dL) mg/dL Urine Glucose (UA) (NEGATIVE) mg/dL Urine Ketones (NEGATIVE) mg/dL Urine Blood (NEGATIVE) Urine Nitrate (NEGATIVE) Urine Bilirubin (NEGATIVE) Urine Urobilinogen (<1 E.U./dL) E.U./dL Ur Leukocyte Esterase (NEGATIVE) Margret/uL Urine RBC (0-2) /hpf Urine WBC (0-6) /hpf Ur Epithelial Cells (0-5) /hpf Amorphous Sediment (NONE) /hpf Urine Bacteria (NONE) /hpf IgA (70.0-400.0) mg/dL 11/09/18 11/09/18 11/09/18 Range/Units 19:45 18:06 18:06 WBC (4.5-11.0) 10^3/uL RBC (3.5-6.1) 10^6/uL Hgb (14.0-18.0) g/dL Hct (42.0-52.0) % MCV (80.0-105.0) fl MCH (25.0-35.0) pg MCHC (31.0-37.0) g/dl RDW (11.5-14.5) % Plt Count (120.0-450.0) 10^3/uL MPV (7.0-11.0) fl Neut % (Auto) (50.0-68.0) % Lymph % (Auto) (22.0-35.0) % Toombs % (Auto) (1.0-6.0) % Eos % (Auto) (1.5-5.0) % Baso % (Auto) (0.0-3.0) % Lymph # (Auto) (1.2-3.4) [place]ombs # (Auto) (0.1-0.6) Eos # (Auto) (0.0-0.7) Baso # (Auto) (0.0-2.0) K/mm3 Absolute Neuts (auto) (1.4-6.5) Neutrophils % (Manual) (50.0-70.0) % Band Neutrophils % (0-2) % Lymphocytes % (Manual) (22.0-35.0) % Monocytes % (Manual) (1.0-6.0) % Metamyelocytes % % Dohle Bodies Platelet Evaluation (NORMAL) PT (9.4-12.5) SECONDS INR APTT (26.9-38.3) Seconds D-Dimer, Quantitative (0-243) ng/mlDDU pO2 43 (30-55) mm/Hg VBG pH 7.36 (7.32-7.43) VBG pCO2 48.0 (40-60) VBG HCO3 27.1 (21-28) mmol/l VBG Total CO2 28.6 H (22-28) mmol.L VBG O2 Sat (Calc) 79.7 H (40-65) % VBG Base Excess 1.0 (0.0-2.0) mmol/L VBG Potassium 3.5 L (3.6-5.2) mmol/L Sodium 134.0 (132-148) mmol/L Chloride 100.0 (98-107) mmol/L Glucose 127 H (75-110) mg/dl Lactate 1.8 (0.7-2.1) mmol/L FiO2 21.0 % Crit Value Called To Crit Value Called By Blood Gas Notified Time Potassium (3.6-5.0) mmol/L Carbon Dioxide (21-33) mmol/L Anion Gap (10-20) BUN (7-21) mg/dL Creatinine (0.8-1.5) mg/dl Est GFR ( Amer) Est GFR (Non-Af Amer) Random Glucose (70-110) mg/dL Lactic Acid 1.6 (0.7-2.1) mmol/L Calcium (8.4-10.5) mg/dL Phosphorus (2.5-4.5) mg/dL Magnesium (1.7-2.2) mg/dL Total Bilirubin (0.2-1.3) mg/dL AST (17-59) U/L ALT (7-56) U/L Alkaline Phosphatase (38-126) U/L Lactate Dehydrogenase (333-699) U/L Total Creatine Kinase (35-230) U/L CK-MB (CK-2) (0.0-3.6) ng/mL CK-MB (CK-2) % Troponin I ng/mL NT-Pro-B Natriuret Pep (0-450) pg/mL Total Protein (5.8-8.3) g/dL Albumin (3.0-4.8) g/dL Globulin gm/dL Albumin/Globulin Ratio (1.1-1.8) Procalcitonin 16.67 H (0.19-0.49) NG/ML Venous Blood Potassium 3.5 L (3.6-5.2) mmol/L Urine Color (YELLOW) Urine Appearance (CLEAR) Urine pH (4.7-8.0) Ur Specific Linneus (1.005-1.035) Urine Protein (<30 mg/dL) mg/dL Urine Glucose (UA) (NEGATIVE) mg/dL Urine Ketones (NEGATIVE) mg/dL Urine Blood (NEGATIVE) Urine Nitrate (NEGATIVE) Urine Bilirubin (NEGATIVE) Urine Urobilinogen (<1 E.U./dL) E.U./dL Ur Leukocyte Esterase (NEGATIVE) Margret/uL Urine RBC (0-2) /hpf Urine WBC (0-6) /hpf Ur Epithelial Cells (0-5) /hpf Amorphous Sediment (NONE) /hpf Urine Bacteria (NONE) /hpf IgA (70.0-400.0) mg/dL 11/09/18 11/09/18 11/09/18 Range/Units 18:06 16:50 16:00 WBC (4.5-11.0) 10^3/uL RBC (3.5-6.1) 10^6/uL Hgb (14.0-18.0) g/dL Hct (42.0-52.0) % MCV (80.0-105.0) fl MCH (25.0-35.0) pg MCHC (31.0-37.0) g/dl RDW (11.5-14.5) % Plt Count (120.0-450.0) 10^3/uL MPV (7.0-11.0) fl Neut % (Auto) (50.0-68.0) % Lymph % (Auto) (22.0-35.0) % Toombs % (Auto) (1.0-6.0) % Eos % (Auto) (1.5-5.0) % Baso % (Auto) (0.0-3.0) % Lymph # (Auto) (1.2-3.4) [place]bs # (Auto) (0.1-0.6) Eos # (Auto) (0.0-0.7) Baso # (Auto) (0.0-2.0) K/mm3 Absolute Neuts (auto) (1.4-6.5) Neutrophils % (Manual) (50.0-70.0) % Band Neutrophils % (0-2) % Lymphocytes % (Manual) (22.0-35.0) % Monocytes % (Manual) (1.0-6.0) % Metamyelocytes % % Dohle Bodies Platelet Evaluation (NORMAL) PT (9.4-12.5) SECONDS INR APTT (26.9-38.3) Seconds D-Dimer, Quantitative (0-243) ng/mlDDU pO2 (30-55) mm/Hg VBG pH (7.32-7.43) VBG pCO2 (40-60) VBG HCO3 (21-28) mmol/l VBG Total CO2 (22-28) mmol.L VBG O2 Sat (Calc) (40-65) % VBG Base Excess (0.0-2.0) mmol/L VBG Potassium (3.6-5.2) mmol/L Sodium (132-148) mmol/L Chloride (98-107) mmol/L Glucose (75-110) mg/dl Lactate (0.7-2.1) mmol/L FiO2 % Crit Value Called To Crit Value Called By Blood Gas Notified Time Potassium (3.6-5.0) mmol/L Carbon Dioxide (21-33) mmol/L Anion Gap (10-20) BUN (7-21) mg/dL Creatinine (0.8-1.5) mg/dl Est GFR ( Amer) Est GFR (Non-Af Amer) Random Glucose (70-110) mg/dL Lactic Acid (0.7-2.1) mmol/L Calcium (8.4-10.5) mg/dL Phosphorus 2.7 (2.5-4.5) mg/dL Magnesium (1.7-2.2) mg/dL Total Bilirubin (0.2-1.3) mg/dL AST (17-59) U/L ALT (7-56) U/L Alkaline Phosphatase (38-126) U/L Lactate Dehydrogenase (333-699) U/L Total Creatine Kinase (35-230) U/L CK-MB (CK-2) (0.0-3.6) ng/mL CK-MB (CK-2) % Troponin I ng/mL NT-Pro-B Natriuret Pep (0-450) pg/mL Total Protein (5.8-8.3) g/dL Albumin (3.0-4.8) g/dL Globulin gm/dL Albumin/Globulin Ratio (1.1-1.8) Procalcitonin (0.19-0.49) NG/ML Venous Blood Potassium (3.6-5.2) mmol/L Urine Color Dark yellow (YELLOW) Urine Appearance Sl cloudy (CLEAR) Urine pH 6.0 (4.7-8.0) Ur Specific Linneus >= 1.030 (1.005-1.035) Urine Protein 100 H (<30 mg/dL) mg/dL Urine Glucose (UA) Negative (NEGATIVE) mg/dL Urine Ketones Negative (NEGATIVE) mg/dL Urine Blood Large H (NEGATIVE) Urine Nitrate Negative (NEGATIVE) Urine Bilirubin Negative (NEGATIVE) Urine Urobilinogen 0.2 (<1 E.U./dL) E.U./dL Ur Leukocyte Esterase Negative (NEGATIVE) Margret/uL Urine RBC 0 - 2 (0-2) /hpf Urine WBC 0 - 2 (0-6) /hpf Ur Epithelial Cells 1 - 3 (0-5) /hpf Amorphous Sediment Moderate (NONE) /hpf Urine Bacteria Small (NONE) /hpf IgA 221.2 (70.0-400.0) mg/dL 11/09/18 11/09/18 11/09/18 Range/Units 16:00 16:00 16:00 WBC (4.5-11.0) 10^3/uL RBC (3.5-6.1) 10^6/uL Hgb (14.0-18.0) g/dL Hct (42.0-52.0) % MCV (80.0-105.0) fl MCH (25.0-35.0) pg MCHC (31.0-37.0) g/dl RDW (11.5-14.5) % Plt Count (120.0-450.0) 10^3/uL MPV (7.0-11.0) fl Neut % (Auto) (50.0-68.0) % Lymph % (Auto) (22.0-35.0) % Toombs % (Auto) (1.0-6.0) % Eos % (Auto) (1.5-5.0) % Baso % (Auto) (0.0-3.0) % Lymph # (Auto) (1.2-3.4) [place]ombs # (Auto) (0.1-0.6) Eos # (Auto) (0.0-0.7) Baso # (Auto) (0.0-2.0) K/mm3 Absolute Neuts (auto) (1.4-6.5) Neutrophils % (Manual) (50.0-70.0) % Band Neutrophils % (0-2) % Lymphocytes % (Manual) (22.0-35.0) % Monocytes % (Manual) (1.0-6.0) % Metamyelocytes % % Dohle Bodies Platelet Evaluation (NORMAL) PT 16.1 H (9.4-12.5) SECONDS INR 1.45 APTT 35.8 (26.9-38.3) Seconds D-Dimer, Quantitative 3877 H (0-243) ng/mlDDU pO2 33 (30-55) mm/Hg VBG pH 7.42 (7.32-7.43) VBG pCO2 42.0 (40-60) VBG HCO3 27.2 (21-28) mmol/l VBG Total CO2 28.5 H (22-28) mmol.L VBG O2 Sat (Calc) 64.3 (40-65) % VBG Base Excess 2.4 H (0.0-2.0) mmol/L VBG Potassium 4.3 (3.6-5.2) mmol/L Sodium 135 134.0 (132-148) mmol/L Chloride 97 L 96.0 L (98-107) mmol/L Glucose 134 H (75-110) mg/dl Lactate 2.7 H (0.7-2.1) mmol/L FiO2 21.0 % Crit Value Called To Sabra ordaz rn Crit Value Called By Bonnie Blood Gas Notified Time 1615 Potassium 4.0 (3.6-5.0) mmol/L Carbon Dioxide 26 (21-33) mmol/L Anion Gap 17 (10-20) BUN 35 H (7-21) mg/dL Creatinine 1.3 (0.8-1.5) mg/dl Est GFR ( Amer) > 60 Est GFR (Non-Af Amer) 55 Random Glucose 136 H (70-110) mg/dL Lactic Acid (0.7-2.1) mmol/L Calcium 8.7 (8.4-10.5) mg/dL Phosphorus (2.5-4.5) mg/dL Magnesium 1.5 L (1.7-2.2) mg/dL Total Bilirubin 1.6 H (0.2-1.3) mg/dL AST 63 H (17-59) U/L ALT 37 (7-56) U/L Alkaline Phosphatase 57 (38-126) U/L Lactate Dehydrogenase 784 H (333-699) U/L Total Creatine Kinase 2422 H (35-230) U/L CK-MB (CK-2) 4.8 H (0.0-3.6) ng/mL CK-MB (CK-2) % Cancelled Troponin I < 0.01 ng/mL NT-Pro-B Natriuret Pep 344 (0-450) pg/mL Total Protein 7.8 (5.8-8.3) g/dL Albumin 4.2 (3.0-4.8) g/dL Globulin 3.6 gm/dL Albumin/Globulin Ratio 1.2 (1.1-1.8) Procalcitonin (0.19-0.49) NG/ML Venous Blood Potassium 4.3 (3.6-5.2) mmol/L Urine Color (YELLOW) Urine Appearance (CLEAR) Urine pH (4.7-8.0) Ur Specific Linneus (1.005-1.035) Urine Protein (<30 mg/dL) mg/dL Urine Glucose (UA) (NEGATIVE) mg/dL Urine Ketones (NEGATIVE) mg/dL Urine Blood (NEGATIVE) Urine Nitrate (NEGATIVE) Urine Bilirubin (NEGATIVE) Urine Urobilinogen (<1 E.U./dL) E.U./dL Ur Leukocyte Esterase (NEGATIVE) Margret/uL Urine RBC (0-2) /hpf Urine WBC (0-6) /hpf Ur Epithelial Cells (0-5) /hpf Amorphous Sediment (NONE) /hpf Urine Bacteria (NONE) /hpf IgA (70.0-400.0) mg/dL 11/09/18 Range/Units 16:00 WBC 19.3 H (4.5-11.0) 10^3/uL RBC 4.77 (3.5-6.1) 10^6/uL Hgb 13.4 L (14.0-18.0) g/dL Hct 41.3 L (42.0-52.0) % MCV 86.6 (80.0-105.0) fl MCH 28.1 (25.0-35.0) pg MCHC 32.4 (31.0-37.0) g/dl RDW 13.6 (11.5-14.5) % Plt Count 159 (120.0-450.0) 10^3/uL MPV 11.5 H (7.0-11.0) fl Neut % (Auto) 92.8 H (50.0-68.0) % Lymph % (Auto) 3.8 L (22.0-35.0) % Toombs % (Auto) 3.3 (1.0-6.0) % Eos % (Auto) 0.0 L (1.5-5.0) % Baso % (Auto) 0.1 (0.0-3.0) % Lymph # (Auto) 0.7 L (1.2-3.4) [place]ombs # (Auto) 0.6 (0.1-0.6) Eos # (Auto) 0.0 (0.0-0.7) Baso # (Auto) 0.01 (0.0-2.0) K/mm3 Absolute Neuts (auto) 17.87 H (1.4-6.5) Neutrophils % (Manual) 70 (50.0-70.0) % Band Neutrophils % 16 H* (0-2) % Lymphocytes % (Manual) 7 L (22.0-35.0) % Monocytes % (Manual) 4 (1.0-6.0) % Metamyelocytes % 3 % Dohle Bodies Slight Platelet Evaluation Normal (NORMAL) PT (9.4-12.5) SECONDS INR APTT (26.9-38.3) Seconds D-Dimer, Quantitative (0-243) ng/mlDDU pO2 (30-55) mm/Hg VBG pH (7.32-7.43) VBG pCO2 (40-60) VBG HCO3 (21-28) mmol/l VBG Total CO2 (22-28) mmol.L VBG O2 Sat (Calc) (40-65) % VBG Base Excess (0.0-2.0) mmol/L VBG Potassium (3.6-5.2) mmol/L Sodium (132-148) mmol/L Chloride (98-107) mmol/L Glucose (75-110) mg/dl Lactate (0.7-2.1) mmol/L FiO2 % Crit Value Called To Crit Value Called By Blood Gas Notified Time Potassium (3.6-5.0) mmol/L Carbon Dioxide (21-33) mmol/L Anion Gap (10-20) BUN (7-21) mg/dL Creatinine (0.8-1.5) mg/dl Est GFR ( Amer) Est GFR (Non-Af Amer) Random Glucose (70-110) mg/dL Lactic Acid (0.7-2.1) mmol/L Calcium (8.4-10.5) mg/dL Phosphorus (2.5-4.5) mg/dL Magnesium (1.7-2.2) mg/dL Total Bilirubin (0.2-1.3) mg/dL AST (17-59) U/L ALT (7-56) U/L Alkaline Phosphatase (38-126) U/L Lactate Dehydrogenase (333-699) U/L Total Creatine Kinase (35-230) U/L CK-MB (CK-2) (0.0-3.6) ng/mL CK-MB (CK-2) % Troponin I ng/mL NT-Pro-B Natriuret Pep (0-450) pg/mL Total Protein (5.8-8.3) g/dL Albumin (3.0-4.8) g/dL Globulin gm/dL Albumin/Globulin Ratio (1.1-1.8) Procalcitonin (0.19-0.49) NG/ML Venous Blood Potassium (3.6-5.2) mmol/L Urine Color (YELLOW) Urine Appearance (CLEAR) Urine pH (4.7-8.0) Ur Specific Linneus (1.005-1.035) Urine Protein (<30 mg/dL) mg/dL Urine Glucose (UA) (NEGATIVE) mg/dL Urine Ketones (NEGATIVE) mg/dL Urine Blood (NEGATIVE) Urine Nitrate (NEGATIVE) Urine Bilirubin (NEGATIVE) Urine Urobilinogen (<1 E.U./dL) E.U./dL Ur Leukocyte Esterase (NEGATIVE) Margret/uL Urine RBC (0-2) /hpf Urine WBC (0-6) /hpf Ur Epithelial Cells (0-5) /hpf Amorphous Sediment (NONE) /hpf Urine Bacteria (NONE) /hpf IgA (70.0-400.0) mg/dL Laboratory Results - last 24 hr 11/09/18 11/09/18 11/09/18 16:00 16:00 16:00 WBC 19.3 H RBC 4.77 Hgb 13.4 L Hct 41.3 L MCV 86.6 MCH 28.1 MCHC 32.4 RDW 13.6 Plt Count 159 MPV 11.5 H Neut % (Auto) 92.8 H Lymph % (Auto) 3.8 L Toombs % (Auto) 3.3 Eos % (Auto) 0.0 L Baso % (Auto) 0.1 Lymph # (Auto) 0.7 L [place] # (Auto) 0.6 Eos # (Auto) 0.0 Baso # (Auto) 0.01 Absolute Neuts (auto) 17.87 H Neutrophils % (Manual) 70 Band Neutrophils % 16 H* Lymphocytes % (Manual) 7 L Monocytes % (Manual) 4 Metamyelocytes % 3 Dohle Bodies Slight Platelet Evaluation Normal PT 16.1 H INR 1.45 APTT 35.8 D-Dimer, Quantitative 3877 H pO2 33 VBG pH 7.42 VBG pCO2 42.0 VBG HCO3 27.2 VBG Total CO2 28.5 H VBG O2 Sat (Calc) 64.3 VBG Base Excess 2.4 H VBG Potassium 4.3 Sodium 134.0 Chloride 96.0 L Glucose 134 H Lactate 2.7 H FiO2 21.0 Crit Value Called To Sabra ordaz rn Crit Value Called By Glend Blood Gas Notified Time 1615 Potassium Carbon Dioxide Anion Gap BUN Creatinine Est GFR ( Amer) Est GFR (Non-Af Amer) Random Glucose Lactic Acid Calcium Phosphorus Magnesium Total Bilirubin AST ALT Alkaline Phosphatase Lactate Dehydrogenase Total Creatine Kinase CK-MB (CK-2) CK-MB (CK-2) % Troponin I NT-Pro-B Natriuret Pep Total Protein Albumin Globulin Albumin/Globulin Ratio Procalcitonin Venous Blood Potassium 4.3 Urine Color Urine Appearance Urine pH Ur Specific Linneus Urine Protein Urine Glucose (UA) Urine Ketones Urine Blood Urine Nitrate Urine Bilirubin Urine Urobilinogen Ur Leukocyte Esterase Urine RBC Urine WBC Ur Epithelial Cells Amorphous Sediment Urine Bacteria IgA 11/09/18 11/09/18 11/09/18 16:00 16:00 16:50 WBC RBC Hgb Hct MCV MCH MCHC RDW Plt Count MPV Neut % (Auto) Lymph % (Auto) [place]ombs % (Auto) Eos % (Auto) Baso % (Auto) Lymph # (Auto) [place] # (Auto) Eos # (Auto) Baso # (Auto) Absolute Neuts (auto) Neutrophils % (Manual) Band Neutrophils % Lymphocytes % (Manual) Monocytes % (Manual) Metamyelocytes % Dohle Bodies Platelet Evaluation PT INR APTT D-Dimer, Quantitative pO2 VBG pH VBG pCO2 VBG HCO3 VBG Total CO2 VBG O2 Sat (Calc) VBG Base Excess VBG Potassium Sodium 135 Chloride 97 L Glucose Lactate FiO2 Crit Value Called To Crit Value Called By Blood Gas Notified Time Potassium 4.0 Carbon Dioxide 26 Anion Gap 17 BUN 35 H Creatinine 1.3 Est GFR ( Amer) > 60 Est GFR (Non-Af Amer) 55 Random Glucose 136 H Lactic Acid Calcium 8.7 Phosphorus 2.7 Magnesium 1.5 L Total Bilirubin 1.6 H AST 63 H ALT 37 Alkaline Phosphatase 57 Lactate Dehydrogenase 784 H Total Creatine Kinase 2422 H CK-MB (CK-2) 4.8 H CK-MB (CK-2) % Cancelled Troponin I < 0.01 NT-Pro-B Natriuret Pep 344 Total Protein 7.8 Albumin 4.2 Globulin 3.6 Albumin/Globulin Ratio 1.2 Procalcitonin Venous Blood Potassium Urine Color Dark yellow Urine Appearance Sl cloudy Urine pH 6.0 Ur Specific [place] >= 1.030 Urine Protein 100 H Urine Glucose (UA) Negative Urine Ketones Negative Urine Blood Large H Urine Nitrate Negative Urine Bilirubin Negative Urine Urobilinogen 0.2 Ur Leukocyte Esterase Negative Urine RBC 0 - 2 Urine WBC 0 - 2 Ur Epithelial Cells 1 - 3 Amorphous Sediment Moderate Urine Bacteria Small IgA 11/09/18 11/09/18 11/09/18 18:06 18:06 18:06 WBC RBC Hgb Hct MCV MCH MCHC RDW Plt Count MPV Neut % (Auto) Lymph % (Auto) [place] % (Auto) Eos % (Auto) Baso % (Auto) Lymph # (Auto) [place] # (Auto) Eos # (Auto) Baso # (Auto) Absolute Neuts (auto) Neutrophils % (Manual) Band Neutrophils % Lymphocytes % (Manual) Monocytes % (Manual) Metamyelocytes % Dohle Bodies Platelet Evaluation PT INR APTT D-Dimer, Quantitative pO2 VBG pH VBG pCO2 VBG HCO3 VBG Total CO2 VBG O2 Sat (Calc) VBG Base Excess VBG Potassium Sodium Chloride Glucose Lactate FiO2 Crit Value Called To Crit Value Called By Blood Gas Notified Time Potassium Carbon Dioxide Anion Gap BUN Creatinine Est GFR ( Amer) Est GFR (Non-Af Amer) Random Glucose Lactic Acid 1.6 Calcium Phosphorus Magnesium Total Bilirubin AST ALT Alkaline Phosphatase Lactate Dehydrogenase Total Creatine Kinase CK-MB (CK-2) CK-MB (CK-2) % Troponin I NT-Pro-B Natriuret Pep Total Protein Albumin Globulin Albumin/Globulin Ratio Procalcitonin 16.67 H Venous Blood Potassium Urine Color Urine Appearance Urine pH Ur Specific [place] Urine Protein Urine Glucose (UA) Urine Ketones Urine Blood Urine Nitrate Urine Bilirubin Urine Urobilinogen Ur Leukocyte Esterase Urine RBC Urine WBC Ur Epithelial Cells Amorphous Sediment Urine Bacteria IgA 221.2 11/09/18 11/10/18 11/10/18 19:45 05:00 05:30 WBC RBC Hgb Hct MCV MCH MCHC RDW Plt Count MPV Neut % (Auto) Lymph % (Auto) [place] % (Auto) Eos % (Auto) Baso % (Auto) Lymph # (Auto) [place] # (Auto) Eos # (Auto) Baso # (Auto) Absolute Neuts (auto) Neutrophils % (Manual) Band Neutrophils % Lymphocytes % (Manual) Monocytes % (Manual) Metamyelocytes % Dohle Bodies Platelet Evaluation PT INR APTT D-Dimer, Quantitative pO2 43 VBG pH 7.36 VBG pCO2 48.0 VBG HCO3 27.1 VBG Total CO2 28.6 H VBG O2 Sat (Calc) 79.7 H VBG Base Excess 1.0 VBG Potassium 3.5 L Sodium 134.0 134 Chloride 100.0 101 Glucose 127 H Lactate 1.8 FiO2 21.0 Crit Value Called To Crit Value Called By Blood Gas Notified Time Potassium 3.5 L Carbon Dioxide 26 Anion Gap 11 BUN 23 H Creatinine 1.1 Est GFR ( Amer) > 60 Est GFR (Non-Af Amer) > 60 Random Glucose 117 H Lactic Acid Calcium 8.1 L Phosphorus 2.9 Magnesium 1.8 Total Bilirubin 1.2 AST 59 ALT 27 Alkaline Phosphatase 45 Lactate Dehydrogenase 724 H Total Creatine Kinase 1593 H CK-MB (CK-2) 1.9 CK-MB (CK-2) % Cancelled Troponin I NT-Pro-B Natriuret Pep Total Protein 6.0 Albumin 3.1 Globulin 2.9 Albumin/Globulin Ratio 1.1 Procalcitonin Venous Blood Potassium 3.5 L Urine Color Urine Appearance Urine pH Ur Specific [place] Urine Protein Urine Glucose (UA) Urine Ketones Urine Blood Urine Nitrate Urine Bilirubin Urine Urobilinogen Ur Leukocyte Esterase Urine RBC Urine WBC Ur Epithelial Cells Amorphous Sediment Urine Bacteria IgA 11/10/18 08:30 WBC 13.4 H D RBC 4.00 Hgb 11.2 L D Hct 34.8 L MCV 87.0 MCH 28.0 MCHC 32.2 RDW 13.7 Plt Count 106 L MPV 11.0 Neut % (Auto) Lymph % (Auto) [place] % (Auto) Eos % (Auto) Baso % (Auto) Lymph # (Auto) [place] # (Auto) Eos # (Auto) Baso # (Auto) Absolute Neuts (auto) Neutrophils % (Manual) Band Neutrophils % Lymphocytes % (Manual) Monocytes % (Manual) Metamyelocytes % Dohle Bodies Platelet Evaluation PT INR APTT D-Dimer, Quantitative pO2 VBG pH VBG pCO2 VBG HCO3 VBG Total CO2 VBG O2 Sat (Calc) VBG Base Excess VBG Potassium Sodium Chloride Glucose Lactate FiO2 Crit Value Called To Crit Value Called By Blood Gas Notified Time Potassium Carbon Dioxide Anion Gap BUN Creatinine Est GFR ( Amer) Est GFR (Non-Af Amer) Random Glucose Lactic Acid Calcium Phosphorus Magnesium Total Bilirubin AST ALT Alkaline Phosphatase Lactate Dehydrogenase Total Creatine Kinase CK-MB (CK-2) CK-MB (CK-2) % Troponin I NT-Pro-B Natriuret Pep Total Protein Albumin Globulin Albumin/Globulin Ratio Procalcitonin Venous Blood Potassium Urine Color Urine Appearance Urine pH Ur Specific [place] Urine Protein Urine Glucose (UA) Urine Ketones Urine Blood Urine Nitrate Urine Bilirubin Urine Urobilinogen Ur Leukocyte Esterase Urine RBC Urine WBC Ur Epithelial Cells Amorphous Sediment Urine Bacteria IgA Radiology Impressions: Radiology Impressions Chest X-Ray 11/09/18 15:01 IMPRESSION: No focal consolidation. EKG/Cardiology Studies: Cardiology / EKG Studies 11/09/18 15:00 ELECTROCARDIOGRAM Stat Comment: Reason For Exam: weak Review of Systems - Review of Systems All systems: reviewed and no additional remarkable complaints except (as stated in subjective) Critical Care Progress Note - Nutrition Nutrition: Nutrition Category Date Time Status Heart Healthy Diet [DIET] Diets 11/10/18 Breakfast Active Assessment/Plan - Assessment and Plan (Free Text) Plan: This is a 68 year old male with PMHx of provoked PE in 2017, depression, anxiety, right eye blindness 2/2 glaucoma, history of left and right leg cellulitis presenting to the hospital for worsening right leg wound. Plan: ID #Severe Sepsis 2/2 RLE cellulitis -febrile, leukocytosis improved, elevated lactate improved, CPK downtrending, bandemia of 16 -in ED received LR 2300 cc, and was given clindamycin, rocephin, vanco -currently maintenance fluids D5-1/2NS at 100 cc/hr -abx include zosyn 3.375mg ivp q6h and vancomycin 1g ivpb q12h -LE CT official report pending, however per residential subcontractor no evidence of free air -LE duplex b/l negative for DVT -procalc 16 -f/u blood cx, urine cx -Surgery on consult, Dr. Cabello * per residential subcontractor, no evidence of free air on RLE CT thus no surgical intervention indicated -Podiatry on consult, Dr. Mitchell -ID on consult, Dr. Davila #Diarrhea, Improved -recently had taken abx -f/u cdiff ab/ag and ova and parasite Psychiatric #Hx of depression/anxiety -last refilled home seroquel 100mg po qd one year ago as per pharmacy ([facility] [address]) -has not followed up with his primary psychiatrist in some time -holding seroquel due to prolonged QTc (530) -psych on consult, Dr. Cuellar Cardiovascular #Hx of PE #Rule-Out PE -PE in 12/2016, likely provoked from immobilization due to right leg edema/cellulitis at that time, completed 3 months of eliquis -currently elevated d-dimer 3877, elevation possibly due to sepsis but given hx of PE will obtain V/Q and hold off on CTA as creatinine 1.3 -eliquis 5mg po bid for now, can d/c if v/q scan is negative -V/Q scan pending -LE doppler does not show DVT #RBBB -unchanged from prior ekg in 2017 #Prolonged Qtc -avoid Qtc prolonging agents PPX -protonix 40mg ivp qd -on eliquis Patient appears clinically well, there is already some improvement in his right leg cellulits after initiation of abx, leukocytosis improved, cpk improved, lactate is now normal, he is not hypotensive. Patient no longer requires ICU level monitoring, he will be transferred to med/surg. Patient seen and case discussed with attending, Dr. Ruiz <Johnathan Ruiz - Last Filed: 11/10/18 14:08> CCU Objective - Vital Signs / Intake & Output Vital Signs (Last 4 hours): Vital Signs Pulse Resp Pulse Ox 11/10/18 11:35 80 11/10/18 10:50 99 H 33 H 95 11/10/18 10:40 92 H 51 H 90 L 11/10/18 10:30 99 H 36 H 96 11/10/18 10:20 97 H 32 H 96 11/10/18 10:10 99 H 18 86 L Intake and Output (Last 8hrs): Intake & Output 11/09/18 11/10/18 11/10/18 22:59 06:59 14:59 Weight 175 lb 175 lb Other: Voiding Method Toilet - Medications Active Medications: Active Medications Generic Name Dose Route Start Last Admin Trade Name Freq PRN Reason Stop Dose Admin Apixaban 5 mg 11/10/18 10:00 11/10/18 10:09 Eliquis PO 5 mg BID JOHN Administration Protocol Piperacillin Sod/Tazobactam Sod 100 mls @ 200 mls/hr 11/09/18 17:15 11/10/18 11:06 Zosyn 3.375 In Ns 100ml IV 200 mls/hr Q6H JOHN Administration Protocol Vancomycin HCl 1 gm in 250 mls @ 167 mls/hr 11/10/18 06:00 11/10/18 05:18 Vancomycin 1gm IVPB 11/19/18 06:01 167 mls/hr Q12H JOHN Administration Protocol Dextrose/Sodium Chloride 1,000 mls @ 100 mls/hr 11/10/18 05:30 11/10/18 05:34 Dextrose 5%/0.45% Ns 1000 Ml IV 11/11/18 05:30 100 mls/hr .Q10H JOHN Administration Pantoprazole Sodium 40 mg 11/10/18 10:00 11/10/18 10:09 Protonix Inj IVP 40 mg DAILY JOHN Administration Quetiapine Fumarate 100 mg 11/10/18 22:00 Seroquel PO HS [facility] Protocol - Patient Studies Lab Studies: Microbiology Studies 11/09/18 20:00 C. difficile Antigen & Toxins A,B - Final Stool Lab Studies 11/10/18 11/10/18 11/10/18 Range/Units 08:30 05:30 05:00 WBC 13.4 H D (4.5-11.0) 10^3/uL RBC 4.00 (3.5-6.1) 10^6/uL Hgb 11.2 L D (14.0-18.0) g/dL Hct 34.8 L (42.0-52.0) % MCV 87.0 (80.0-105.0) fl MCH 28.0 (25.0-35.0) pg MCHC 32.2 (31.0-37.0) g/dl RDW 13.7 (11.5-14.5) % Plt Count 106 L (120.0-450.0) 10^3/uL MPV 11.0 (7.0-11.0) fl Neut % (Auto) (50.0-68.0) % Lymph % (Auto) (22.0-35.0) % Toombs % (Auto) (1.0-6.0) % Eos % (Auto) (1.5-5.0) % Baso % (Auto) (0.0-3.0) % Lymph # (Auto) (1.2-3.4) Toombs # (Auto) (0.1-0.6) Eos # (Auto) (0.0-0.7) Baso # (Auto) (0.0-2.0) K/mm3 Absolute Neuts (auto) (1.4-6.5) Neutrophils % (Manual) (50.0-70.0) % Band Neutrophils % (0-2) % Lymphocytes % (Manual) (22.0-35.0) % Monocytes % (Manual) (1.0-6.0) % Metamyelocytes % % Dohle Bodies Platelet Evaluation (NORMAL) PT (9.4-12.5) SECONDS INR APTT (26.9-38.3) Seconds D-Dimer, Quantitative (0-243) ng/mlDDU pO2 (30-55) mm/Hg VBG pH (7.32-7.43) VBG pCO2 (40-60) VBG HCO3 (21-28) mmol/l VBG Total CO2 (22-28) mmol.L VBG O2 Sat (Calc) (40-65) % VBG Base Excess (0.0-2.0) mmol/L VBG Potassium (3.6-5.2) mmol/L Sodium 134 (132-148) mmol/L Chloride 101 (98-107) mmol/L Glucose (75-110) mg/dl Lactate (0.7-2.1) mmol/L FiO2 % Crit Value Called To Crit Value Called By Blood Gas Notified Time Potassium 3.5 L (3.6-5.0) mmol/L Carbon Dioxide 26 (21-33) mmol/L Anion Gap 11 (10-20) BUN 23 H (7-21) mg/dL Creatinine 1.1 (0.8-1.5) mg/dl Est GFR ( Amer) > 60 Est GFR (Non-Af Amer) > 60 Random Glucose 117 H (70-110) mg/dL Lactic Acid (0.7-2.1) mmol/L Calcium 8.1 L (8.4-10.5) mg/dL Phosphorus 2.9 (2.5-4.5) mg/dL Magnesium 1.8 (1.7-2.2) mg/dL Total Bilirubin 1.2 (0.2-1.3) mg/dL AST 59 (17-59) U/L ALT 27 (7-56) U/L Alkaline Phosphatase 45 (38-126) U/L Lactate Dehydrogenase 724 H (333-699) U/L Total Creatine Kinase 1593 H (35-230) U/L CK-MB (CK-2) 1.9 (0.0-3.6) ng/mL CK-MB (CK-2) % Cancelled Troponin I ng/mL NT-Pro-B Natriuret Pep (0-450) pg/mL Total Protein 6.0 (5.8-8.3) g/dL Albumin 3.1 (3.0-4.8) g/dL Globulin 2.9 gm/dL Albumin/Globulin Ratio 1.1 (1.1-1.8) Procalcitonin (0.19-0.49) NG/ML Venous Blood Potassium (3.6-5.2) mmol/L Urine Color (YELLOW) Urine Appearance (CLEAR) Urine pH (4.7-8.0) Ur Specific Linneus (1.005-1.035) Urine Protein (<30 mg/dL) mg/dL Urine Glucose (UA) (NEGATIVE) mg/dL Urine Ketones (NEGATIVE) mg/dL Urine Blood (NEGATIVE) Urine Nitrate (NEGATIVE) Urine Bilirubin (NEGATIVE) Urine Urobilinogen (<1 E.U./dL) E.U./dL Ur Leukocyte Esterase (NEGATIVE) Margret/uL Urine RBC (0-2) /hpf Urine WBC (0-6) /hpf Ur Epithelial Cells (0-5) /hpf Amorphous Sediment (NONE) /hpf Urine Bacteria (NONE) /hpf IgA (70.0-400.0) mg/dL 11/09/18 11/09/18 11/09/18 Range/Units 19:45 18:06 18:06 WBC (4.5-11.0) 10^3/uL RBC (3.5-6.1) 10^6/uL Hgb (14.0-18.0) g/dL Hct (42.0-52.0) % MCV (80.0-105.0) fl MCH (25.0-35.0) pg MCHC (31.0-37.0) g/dl RDW (11.5-14.5) % Plt Count (120.0-450.0) 10^3/uL MPV (7.0-11.0) fl Neut % (Auto) (50.0-68.0) % Lymph % (Auto) (22.0-35.0) % Toombs % (Auto) (1.0-6.0) % Eos % (Auto) (1.5-5.0) % Baso % (Auto) (0.0-3.0) % Lymph # (Auto) (1.2-3.4) Toombs # (Auto) (0.1-0.6) Eos # (Auto) (0.0-0.7) Baso # (Auto) (0.0-2.0) K/mm3 Absolute Neuts (auto) (1.4-6.5) Neutrophils % (Manual) (50.0-70.0) % Band Neutrophils % (0-2) % Lymphocytes % (Manual) (22.0-35.0) % Monocytes % (Manual) (1.0-6.0) % Metamyelocytes % % Dohle Bodies Platelet Evaluation (NORMAL) PT (9.4-12.5) SECONDS INR APTT (26.9-38.3) Seconds D-Dimer, Quantitative (0-243) ng/mlDDU pO2 43 (30-55) mm/Hg VBG pH 7.36 (7.32-7.43) VBG pCO2 48.0 (40-60) VBG HCO3 27.1 (21-28) mmol/l VBG Total CO2 28.6 H (22-28) mmol.L VBG O2 Sat (Calc) 79.7 H (40-65) % VBG Base Excess 1.0 (0.0-2.0) mmol/L VBG Potassium 3.5 L (3.6-5.2) mmol/L Sodium 134.0 (132-148) mmol/L Chloride 100.0 (98-107) mmol/L Glucose 127 H (75-110) mg/dl Lactate 1.8 (0.7-2.1) mmol/L FiO2 21.0 % Crit Value Called To Crit Value Called By Blood Gas Notified Time Potassium (3.6-5.0) mmol/L Carbon Dioxide (21-33) mmol/L Anion Gap (10-20) BUN (7-21) mg/dL Creatinine (0.8-1.5) mg/dl Est GFR ( Amer) Est GFR (Non-Af Amer) Random Glucose (70-110) mg/dL Lactic Acid 1.6 (0.7-2.1) mmol/L Calcium (8.4-10.5) mg/dL Phosphorus (2.5-4.5) mg/dL Magnesium (1.7-2.2) mg/dL Total Bilirubin (0.2-1.3) mg/dL AST (17-59) U/L ALT (7-56) U/L Alkaline Phosphatase (38-126) U/L Lactate Dehydrogenase (333-699) U/L Total Creatine Kinase (35-230) U/L CK-MB (CK-2) (0.0-3.6) ng/mL CK-MB (CK-2) % Troponin I ng/mL NT-Pro-B Natriuret Pep (0-450) pg/mL Total Protein (5.8-8.3) g/dL Albumin (3.0-4.8) g/dL Globulin gm/dL Albumin/Globulin Ratio (1.1-1.8) Procalcitonin 16.67 H (0.19-0.49) NG/ML Venous Blood Potassium 3.5 L (3.6-5.2) mmol/L Urine Color (YELLOW) Urine Appearance (CLEAR) Urine pH (4.7-8.0) Ur Specific Linneus (1.005-1.035) Urine Protein (<30 mg/dL) mg/dL Urine Glucose (UA) (NEGATIVE) mg/dL Urine Ketones (NEGATIVE) mg/dL Urine Blood (NEGATIVE) Urine Nitrate (NEGATIVE) Urine Bilirubin (NEGATIVE) Urine Urobilinogen (<1 E.U./dL) E.U./dL Ur Leukocyte Esterase (NEGATIVE) Margret/uL Urine RBC (0-2) /hpf Urine WBC (0-6) /hpf Ur Epithelial Cells (0-5) /hpf Amorphous Sediment (NONE) /hpf Urine Bacteria (NONE) /hpf IgA (70.0-400.0) mg/dL 11/09/18 11/09/18 11/09/18 Range/Units 18:06 16:50 16:00 WBC (4.5-11.0) 10^3/uL RBC (3.5-6.1) 10^6/uL Hgb (14.0-18.0) g/dL Hct (42.0-52.0) % MCV (80.0-105.0) fl MCH (25.0-35.0) pg MCHC (31.0-37.0) g/dl RDW (11.5-14.5) % Plt Count (120.0-450.0) 10^3/uL MPV (7.0-11.0) fl Neut % (Auto) (50.0-68.0) % Lymph % (Auto) (22.0-35.0) % Toombs % (Auto) (1.0-6.0) % Eos % (Auto) (1.5-5.0) % Baso % (Auto) (0.0-3.0) % Lymph # (Auto) (1.2-3.4) Toombs # (Auto) (0.1-0.6) Eos # (Auto) (0.0-0.7) Baso # (Auto) (0.0-2.0) K/mm3 Absolute Neuts (auto) (1.4-6.5) Neutrophils % (Manual) (50.0-70.0) % Band Neutrophils % (0-2) % Lymphocytes % (Manual) (22.0-35.0) % Monocytes % (Manual) (1.0-6.0) % Metamyelocytes % % Dohle Bodies Platelet Evaluation (NORMAL) PT (9.4-12.5) SECONDS INR APTT (26.9-38.3) Seconds D-Dimer, Quantitative (0-243) ng/mlDDU pO2 (30-55) mm/Hg VBG pH (7.32-7.43) VBG pCO2 (40-60) VBG HCO3 (21-28) mmol/l VBG Total CO2 (22-28) mmol.L VBG O2 Sat (Calc) (40-65) % VBG Base Excess (0.0-2.0) mmol/L VBG Potassium (3.6-5.2) mmol/L Sodium (132-148) mmol/L Chloride (98-107) mmol/L Glucose (75-110) mg/dl Lactate (0.7-2.1) mmol/L FiO2 % Crit Value Called To Crit Value Called By Blood Gas Notified Time Potassium (3.6-5.0) mmol/L Carbon Dioxide (21-33) mmol/L Anion Gap (10-20) BUN (7-21) mg/dL Creatinine (0.8-1.5) mg/dl Est GFR ( Amer) Est GFR (Non-Af Amer) Random Glucose (70-110) mg/dL Lactic Acid (0.7-2.1) mmol/L Calcium (8.4-10.5) mg/dL Phosphorus 2.7 (2.5-4.5) mg/dL Magnesium (1.7-2.2) mg/dL Total Bilirubin (0.2-1.3) mg/dL AST (17-59) U/L ALT (7-56) U/L Alkaline Phosphatase (38-126) U/L Lactate Dehydrogenase (333-699) U/L Total Creatine Kinase (35-230) U/L CK-MB (CK-2) (0.0-3.6) ng/mL CK-MB (CK-2) % Troponin I ng/mL NT-Pro-B Natriuret Pep (0-450) pg/mL Total Protein (5.8-8.3) g/dL Albumin (3.0-4.8) g/dL Globulin gm/dL Albumin/Globulin Ratio (1.1-1.8) Procalcitonin (0.19-0.49) NG/ML Venous Blood Potassium (3.6-5.2) mmol/L Urine Color Dark yellow (YELLOW) Urine Appearance Sl cloudy (CLEAR) Urine pH 6.0 (4.7-8.0) Ur Specific Linneus >= 1.030 (1.005-1.035) Urine Protein 100 H (<30 mg/dL) mg/dL Urine Glucose (UA) Negative (NEGATIVE) mg/dL Urine Ketones Negative (NEGATIVE) mg/dL Urine Blood Large H (NEGATIVE) Urine Nitrate Negative (NEGATIVE) Urine Bilirubin Negative (NEGATIVE) Urine Urobilinogen 0.2 (<1 E.U./dL) E.U./dL Ur Leukocyte Esterase Negative (NEGATIVE) Margret/uL Urine RBC 0 - 2 (0-2) /hpf Urine WBC 0 - 2 (0-6) /hpf Ur Epithelial Cells 1 - 3 (0-5) /hpf Amorphous Sediment Moderate (NONE) /hpf Urine Bacteria Small (NONE) /hpf IgA 221.2 (70.0-400.0) mg/dL 11/09/18 11/09/18 11/09/18 Range/Units 16:00 16:00 16:00 WBC (4.5-11.0) 10^3/uL RBC (3.5-6.1) 10^6/uL Hgb (14.0-18.0) g/dL Hct (42.0-52.0) % MCV (80.0-105.0) fl MCH (25.0-35.0) pg MCHC (31.0-37.0) g/dl RDW (11.5-14.5) % Plt Count (120.0-450.0) 10^3/uL MPV (7.0-11.0) fl Neut % (Auto) (50.0-68.0) % Lymph % (Auto) (22.0-35.0) % Toombs % (Auto) (1.0-6.0) % Eos % (Auto) (1.5-5.0) % Baso % (Auto) (0.0-3.0) % Lymph # (Auto) (1.2-3.4) Toombs # (Auto) (0.1-0.6) Eos # (Auto) (0.0-0.7) Baso # (Auto) (0.0-2.0) K/mm3 Absolute Neuts (auto) (1.4-6.5) Neutrophils % (Manual) (50.0-70.0) % Band Neutrophils % (0-2) % Lymphocytes % (Manual) (22.0-35.0) % Monocytes % (Manual) (1.0-6.0) % Metamyelocytes % % Dohle Bodies Platelet Evaluation (NORMAL) PT 16.1 H (9.4-12.5) SECONDS INR 1.45 APTT 35.8 (26.9-38.3) Seconds D-Dimer, Quantitative 3877 H (0-243) ng/mlDDU pO2 33 (30-55) mm/Hg VBG pH 7.42 (7.32-7.43) VBG pCO2 42.0 (40-60) VBG HCO3 27.2 (21-28) mmol/l VBG Total CO2 28.5 H (22-28) mmol.L VBG O2 Sat (Calc) 64.3 (40-65) % VBG Base Excess 2.4 H (0.0-2.0) mmol/L VBG Potassium 4.3 (3.6-5.2) mmol/L Sodium 135 134.0 (132-148) mmol/L Chloride 97 L 96.0 L (98-107) mmol/L Glucose 134 H (75-110) mg/dl Lactate 2.7 H (0.7-2.1) mmol/L FiO2 21.0 % Crit Value Called To Sabra ordaz rn Crit Value Called By Bonnie Blood Gas Notified Time 1615 Potassium 4.0 (3.6-5.0) mmol/L Carbon Dioxide 26 (21-33) mmol/L Anion Gap 17 (10-20) BUN 35 H (7-21) mg/dL Creatinine 1.3 (0.8-1.5) mg/dl Est GFR ( Amer) > 60 Est GFR (Non-Af Amer) 55 Random Glucose 136 H (70-110) mg/dL Lactic Acid (0.7-2.1) mmol/L Calcium 8.7 (8.4-10.5) mg/dL Phosphorus (2.5-4.5) mg/dL Magnesium 1.5 L (1.7-2.2) mg/dL Total Bilirubin 1.6 H (0.2-1.3) mg/dL AST 63 H (17-59) U/L ALT 37 (7-56) U/L Alkaline Phosphatase 57 (38-126) U/L Lactate Dehydrogenase 784 H (333-699) U/L Total Creatine Kinase 2422 H (35-230) U/L CK-MB (CK-2) 4.8 H (0.0-3.6) ng/mL CK-MB (CK-2) % Cancelled Troponin I < 0.01 ng/mL NT-Pro-B Natriuret Pep 344 (0-450) pg/mL Total Protein 7.8 (5.8-8.3) g/dL Albumin 4.2 (3.0-4.8) g/dL Globulin 3.6 gm/dL Albumin/Globulin Ratio 1.2 (1.1-1.8) Procalcitonin (0.19-0.49) NG/ML Venous Blood Potassium 4.3 (3.6-5.2) mmol/L Urine Color (YELLOW) Urine Appearance (CLEAR) Urine pH (4.7-8.0) Ur Specific Linneus (1.005-1.035) Urine Protein (<30 mg/dL) mg/dL Urine Glucose (UA) (NEGATIVE) mg/dL Urine Ketones (NEGATIVE) mg/dL Urine Blood (NEGATIVE) Urine Nitrate (NEGATIVE) Urine Bilirubin (NEGATIVE) Urine Urobilinogen (<1 E.U./dL) E.U./dL Ur Leukocyte Esterase (NEGATIVE) Margret/uL Urine RBC (0-2) /hpf Urine WBC (0-6) /hpf Ur Epithelial Cells (0-5) /hpf Amorphous Sediment (NONE) /hpf Urine Bacteria (NONE) /hpf IgA (70.0-400.0) mg/dL 11/09/18 Range/Units 16:00 WBC 19.3 H (4.5-11.0) 10^3/uL RBC 4.77 (3.5-6.1) 10^6/uL Hgb 13.4 L (14.0-18.0) g/dL Hct 41.3 L (42.0-52.0) % MCV 86.6 (80.0-105.0) fl MCH 28.1 (25.0-35.0) pg MCHC 32.4 (31.0-37.0) g/dl RDW 13.6 (11.5-14.5) % Plt Count 159 (120.0-450.0) 10^3/uL MPV 11.5 H (7.0-11.0) fl Neut % (Auto) 92.8 H (50.0-68.0) % Lymph % (Auto) 3.8 L (22.0-35.0) % Toombs % (Auto) 3.3 (1.0-6.0) % Eos % (Auto) 0.0 L (1.5-5.0) % Baso % (Auto) 0.1 (0.0-3.0) % Lymph # (Auto) 0.7 L (1.2-3.4) Toombs # (Auto) 0.6 (0.1-0.6) Eos # (Auto) 0.0 (0.0-0.7) Baso # (Auto) 0.01 (0.0-2.0) K/mm3 Absolute Neuts (auto) 17.87 H (1.4-6.5) Neutrophils % (Manual) 70 (50.0-70.0) % Band Neutrophils % 16 H* (0-2) % Lymphocytes % (Manual) 7 L (22.0-35.0) % Monocytes % (Manual) 4 (1.0-6.0) % Metamyelocytes % 3 % Dohle Bodies Slight Platelet Evaluation Normal (NORMAL) PT (9.4-12.5) SECONDS INR APTT (26.9-38.3) Seconds D-Dimer, Quantitative (0-243) ng/mlDDU pO2 (30-55) mm/Hg VBG pH (7.32-7.43) VBG pCO2 (40-60) VBG HCO3 (21-28) mmol/l VBG Total CO2 (22-28) mmol.L VBG O2 Sat (Calc) (40-65) % VBG Base Excess (0.0-2.0) mmol/L VBG Potassium (3.6-5.2) mmol/L Sodium (132-148) mmol/L Chloride (98-107) mmol/L Glucose (75-110) mg/dl Lactate (0.7-2.1) mmol/L FiO2 % Crit Value Called To Crit Value Called By Blood Gas Notified Time Potassium (3.6-5.0) mmol/L Carbon Dioxide (21-33) mmol/L Anion Gap (10-20) BUN (7-21) mg/dL Creatinine (0.8-1.5) mg/dl Est GFR ( Amer) Est GFR (Non-Af Amer) Random Glucose (70-110) mg/dL Lactic Acid (0.7-2.1) mmol/L Calcium (8.4-10.5) mg/dL Phosphorus (2.5-4.5) mg/dL Magnesium (1.7-2.2) mg/dL Total Bilirubin (0.2-1.3) mg/dL AST (17-59) U/L ALT (7-56) U/L Alkaline Phosphatase (38-126) U/L Lactate Dehydrogenase (333-699) U/L Total Creatine Kinase (35-230) U/L CK-MB (CK-2) (0.0-3.6) ng/mL CK-MB (CK-2) % Troponin I ng/mL NT-Pro-B Natriuret Pep (0-450) pg/mL Total Protein (5.8-8.3) g/dL Albumin (3.0-4.8) g/dL Globulin gm/dL Albumin/Globulin Ratio (1.1-1.8) Procalcitonin (0.19-0.49) NG/ML Venous Blood Potassium (3.6-5.2) mmol/L Urine Color (YELLOW) Urine Appearance (CLEAR) Urine pH (4.7-8.0) Ur Specific Linneus (1.005-1.035) Urine Protein (<30 mg/dL) mg/dL Urine Glucose (UA) (NEGATIVE) mg/dL Urine Ketones (NEGATIVE) mg/dL Urine Blood (NEGATIVE) Urine Nitrate (NEGATIVE) Urine Bilirubin (NEGATIVE) Urine Urobilinogen (<1 E.U./dL) E.U./dL Ur Leukocyte Esterase (NEGATIVE) Margret/uL Urine RBC (0-2) /hpf Urine WBC (0-6) /hpf Ur Epithelial Cells (0-5) /hpf Amorphous Sediment (NONE) /hpf Urine Bacteria (NONE) /hpf IgA (70.0-400.0) mg/dL Laboratory Results - last 24 hr 11/09/18 11/09/18 11/09/18 16:00 16:00 16:00 WBC 19.3 H RBC 4.77 Hgb 13.4 L Hct 41.3 L MCV 86.6 MCH 28.1 MCHC 32.4 RDW 13.6 Plt Count 159 MPV 11.5 H Neut % (Auto) 92.8 H Lymph % (Auto) 3.8 L Toombs % (Auto) 3.3 Eos % (Auto) 0.0 L Baso % (Auto) 0.1 Lymph # (Auto) 0.7 L [place] # (Auto) 0.6 Eos # (Auto) 0.0 Baso # (Auto) 0.01 Absolute Neuts (auto) 17.87 H Neutrophils % (Manual) 70 Band Neutrophils % 16 H* Lymphocytes % (Manual) 7 L Monocytes % (Manual) 4 Metamyelocytes % 3 Dohle Bodies Slight Platelet Evaluation Normal PT 16.1 H INR 1.45 APTT 35.8 D-Dimer, Quantitative 3877 H pO2 33 VBG pH 7.42 VBG pCO2 42.0 VBG HCO3 27.2 VBG Total CO2 28.5 H VBG O2 Sat (Calc) 64.3 VBG Base Excess 2.4 H VBG Potassium 4.3 Sodium 134.0 Chloride 96.0 L Glucose 134 H Lactate 2.7 H FiO2 21.0 Crit Value Called To Sabra ordaz rn Crit Value Called By Bonnie Blood Gas Notified Time 1615 Potassium Carbon Dioxide Anion Gap BUN Creatinine Est GFR ( Amer) Est GFR (Non-Af Amer) Random Glucose Lactic Acid Calcium Phosphorus Magnesium Total Bilirubin AST ALT Alkaline Phosphatase Lactate Dehydrogenase Total Creatine Kinase CK-MB (CK-2) CK-MB (CK-2) % Troponin I NT-Pro-B Natriuret Pep Total Protein Albumin Globulin Albumin/Globulin Ratio Procalcitonin Venous Blood Potassium 4.3 Urine Color Urine Appearance Urine pH Ur Specific Linneus Urine Protein Urine Glucose (UA) Urine Ketones Urine Blood Urine Nitrate Urine Bilirubin Urine Urobilinogen Ur Leukocyte Esterase Urine RBC Urine WBC Ur Epithelial Cells Amorphous Sediment Urine Bacteria IgA 11/09/18 11/09/18 11/09/18 16:00 16:00 16:50 WBC RBC Hgb Hct MCV MCH MCHC RDW Plt Count MPV Neut % (Auto) Lymph % (Auto) [place]ombs % (Auto) Eos % (Auto) Baso % (Auto) Lymph # (Auto) [place] # (Auto) Eos # (Auto) Baso # (Auto) Absolute Neuts (auto) Neutrophils % (Manual) Band Neutrophils % Lymphocytes % (Manual) Monocytes % (Manual) Metamyelocytes % Dohle Bodies Platelet Evaluation PT INR APTT D-Dimer, Quantitative pO2 VBG pH VBG pCO2 VBG HCO3 VBG Total CO2 VBG O2 Sat (Calc) VBG Base Excess VBG Potassium Sodium 135 Chloride 97 L Glucose Lactate FiO2 Crit Value Called To Crit Value Called By Blood Gas Notified Time Potassium 4.0 Carbon Dioxide 26 Anion Gap 17 BUN 35 H Creatinine 1.3 Est GFR ( Amer) > 60 Est GFR (Non-Af Amer) 55 Random Glucose 136 H Lactic Acid Calcium 8.7 Phosphorus 2.7 Magnesium 1.5 L Total Bilirubin 1.6 H AST 63 H ALT 37 Alkaline Phosphatase 57 Lactate Dehydrogenase 784 H Total Creatine Kinase 2422 H CK-MB (CK-2) 4.8 H CK-MB (CK-2) % Cancelled Troponin I < 0.01 NT-Pro-B Natriuret Pep 344 Total Protein 7.8 Albumin 4.2 Globulin 3.6 Albumin/Globulin Ratio 1.2 Procalcitonin Venous Blood Potassium Urine Color Dark yellow Urine Appearance Sl cloudy Urine pH 6.0 Ur Specific [place] >= 1.030 Urine Protein 100 H Urine Glucose (UA) Negative Urine Ketones Negative Urine Blood Large H Urine Nitrate Negative Urine Bilirubin Negative Urine Urobilinogen 0.2 Ur Leukocyte Esterase Negative Urine RBC 0 - 2 Urine WBC 0 - 2 Ur Epithelial Cells 1 - 3 Amorphous Sediment Moderate Urine Bacteria Small IgA 11/09/18 11/09/18 11/09/18 18:06 18:06 18:06 WBC RBC Hgb Hct MCV MCH MCHC RDW Plt Count MPV Neut % (Auto) Lymph % (Auto) [place] % (Auto) Eos % (Auto) Baso % (Auto) Lymph # (Auto) [place] # (Auto) Eos # (Auto) Baso # (Auto) Absolute Neuts (auto) Neutrophils % (Manual) Band Neutrophils % Lymphocytes % (Manual) Monocytes % (Manual) Metamyelocytes % Dohle Bodies Platelet Evaluation PT INR APTT D-Dimer, Quantitative pO2 VBG pH VBG pCO2 VBG HCO3 VBG Total CO2 VBG O2 Sat (Calc) VBG Base Excess VBG Potassium Sodium Chloride Glucose Lactate FiO2 Crit Value Called To Crit Value Called By Blood Gas Notified Time Potassium Carbon Dioxide Anion Gap BUN Creatinine Est GFR ( Amer) Est GFR (Non-Af Amer) Random Glucose Lactic Acid 1.6 Calcium Phosphorus Magnesium Total Bilirubin AST ALT Alkaline Phosphatase Lactate Dehydrogenase Total Creatine Kinase CK-MB (CK-2) CK-MB (CK-2) % Troponin I NT-Pro-B Natriuret Pep Total Protein Albumin Globulin Albumin/Globulin Ratio Procalcitonin 16.67 H Venous Blood Potassium Urine Color Urine Appearance Urine pH Ur Specific [place] Urine Protein Urine Glucose (UA) Urine Ketones Urine Blood Urine Nitrate Urine Bilirubin Urine Urobilinogen Ur Leukocyte Esterase Urine RBC Urine WBC Ur Epithelial Cells Amorphous Sediment Urine Bacteria IgA 221.2 11/09/18 11/10/18 11/10/18 19:45 05:00 05:30 WBC RBC Hgb Hct MCV MCH MCHC RDW Plt Count MPV Neut % (Auto) Lymph % (Auto) [place] % (Auto) Eos % (Auto) Baso % (Auto) Lymph # (Auto) [place] # (Auto) Eos # (Auto) Baso # (Auto) Absolute Neuts (auto) Neutrophils % (Manual) Band Neutrophils % Lymphocytes % (Manual) Monocytes % (Manual) Metamyelocytes % Dohle Bodies Platelet Evaluation PT INR APTT D-Dimer, Quantitative pO2 43 VBG pH 7.36 VBG pCO2 48.0 VBG HCO3 27.1 VBG Total CO2 28.6 H VBG O2 Sat (Calc) 79.7 H VBG Base Excess 1.0 VBG Potassium 3.5 L Sodium 134.0 134 Chloride 100.0 101 Glucose 127 H Lactate 1.8 FiO2 21.0 Crit Value Called To Crit Value Called By Blood Gas Notified Time Potassium 3.5 L Carbon Dioxide 26 Anion Gap 11 BUN 23 H Creatinine 1.1 Est GFR ( Amer) > 60 Est GFR (Non-Af Amer) > 60 Random Glucose 117 H Lactic Acid Calcium 8.1 L Phosphorus 2.9 Magnesium 1.8 Total Bilirubin 1.2 AST 59 ALT 27 Alkaline Phosphatase 45 Lactate Dehydrogenase 724 H Total Creatine Kinase 1593 H CK-MB (CK-2) 1.9 CK-MB (CK-2) % Cancelled Troponin I NT-Pro-B Natriuret Pep Total Protein 6.0 Albumin 3.1 Globulin 2.9 Albumin/Globulin Ratio 1.1 Procalcitonin Venous Blood Potassium 3.5 L Urine Color Urine Appearance Urine pH Ur Specific [place] Urine Protein Urine Glucose (UA) Urine Ketones Urine Blood Urine Nitrate Urine Bilirubin Urine Urobilinogen Ur Leukocyte Esterase Urine RBC Urine WBC Ur Epithelial Cells Amorphous Sediment Urine Bacteria IgA 11/10/18 08:30 WBC 13.4 H D RBC 4.00 Hgb 11.2 L D Hct 34.8 L MCV 87.0 MCH 28.0 MCHC 32.2 RDW 13.7 Plt Count 106 L MPV 11.0 Neut % (Auto) Lymph % (Auto) [place] % (Auto) Eos % (Auto) Baso % (Auto) Lymph # (Auto) [place] # (Auto) Eos # (Auto) Baso # (Auto) Absolute Neuts (auto) Neutrophils % (Manual) Band Neutrophils % Lymphocytes % (Manual) Monocytes % (Manual) Metamyelocytes % Dohle Bodies Platelet Evaluation PT INR APTT D-Dimer, Quantitative pO2 VBG pH VBG pCO2 VBG HCO3 VBG Total CO2 VBG O2 Sat (Calc) VBG Base Excess VBG Potassium Sodium Chloride Glucose Lactate FiO2 Crit Value Called To Crit Value Called By Blood Gas Notified Time Potassium Carbon Dioxide Anion Gap BUN Creatinine Est GFR ( Amer) Est GFR (Non-Af Amer) Random Glucose Lactic Acid Calcium Phosphorus Magnesium Total Bilirubin AST ALT Alkaline Phosphatase Lactate Dehydrogenase Total Creatine Kinase CK-MB (CK-2) CK-MB (CK-2) % Troponin I NT-Pro-B Natriuret Pep Total Protein Albumin Globulin Albumin/Globulin Ratio Procalcitonin Venous Blood Potassium Urine Color Urine Appearance Urine pH Ur Specific [place] Urine Protein Urine Glucose (UA) Urine Ketones Urine Blood Urine Nitrate Urine Bilirubin Urine Urobilinogen Ur Leukocyte Esterase Urine RBC Urine WBC Ur Epithelial Cells Amorphous Sediment Urine Bacteria IgA Radiology Impressions: Radiology Impressions Extremity Ultrasound 11/09/18 15:00 IMPRESSION: No sonographic evidence for deep venous thrombosis in the visualized segments of both lower extremities. Limited study. Chest X-Ray 11/09/18 15:01 IMPRESSION: No focal consolidation. Lower Extremity CT 11/09/18 17:10 IMPRESSION: 1. No CT evidence for osteomyelitis. 2. Severe diffuse subcutaneous edema and intramuscular edema in the leg with a large superficial fluid collection in the anteromedial leg. Findings are most compatible with severe cellulitis. No CT evidence for necrotizing fasciitis. A preliminary report was provided by [facility]. Chest X-Ray 11/10/18 08:12 IMPRESSION: No active pulmonary disease. EKG/Cardiology Studies: Cardiology / EKG Studies 11/09/18 15:00 ELECTROCARDIOGRAM Stat Comment: Reason For Exam: weak Critical Care Progress Note - Nutrition Nutrition: Nutrition Category Date Time Status Heart Healthy Diet [DIET] Diets 11/10/18 Breakfast Active Attending/Attestation - Attestation I have personally seen and examined this patient.: Yes I have fully participated in the care of the patient.: Yes I have reviewed all pertinent clinical information: Yes Notes (Text): 11/10/18 14:[address] Ruiz note
--- NOTE | 2018-11-10 11:20 | RAD ---
Date of service: 11/10/2018 HISTORY: chf COMPARISON: 11/09/2018. FINDINGS: LUNGS: The lungs are well inflated. There is mild pulmonary venous congestion. No focal consolidation. PLEURA: No pleural effusions or pneumothorax. CARDIOVASCULAR: Persistent mild cardiomegaly. No aortic atherosclerotic calcifications present. OSSEOUS STRUCTURES: Within normal limits for the patient's age. VISUALIZED UPPER ABDOMEN: Normal. OTHER FINDINGS: None. IMPRESSION: No active pulmonary disease.
--- NOTE | 2018-11-10 12:26 | CT ---
Date of service: 11/09/2018 PROCEDURE: CT of the Right Hip. HISTORY: necrotizing fasciitis COMPARISON: Diffuse small TECHNIQUE: Contiguous axial images of the right hip were obtained. Coronal and sagittal reformats were generated. Radiation dose: Total exam DLP = 460.91 mGy-cm. This CT exam was performed using one or more of the following dose reduction techniques: Automated exposure control, adjustment of the mA and/or kV according to patient size, and/or use of iterative reconstruction technique. FINDINGS: BONES: Bone alignment and mineralization are normal. There is no acute fracture or bone destruction. There is no evidence for bone erosion. There is mild tricompartmental degenerative osteoarthrosis in the knee joint with reduced joint spaces and marginal spurring. There is a small suprapatellar joint effusion. SOFT TISSUES: There is severe diffuse subcutaneous edema and fluid in the subcutaneous soft tissues with an apparent 12.5 x 2.3 cm superficial fluid collection in the anteromedial leg. There is also edema in the periarticular muscles without evidence for intramuscular fluid collection. IMPRESSION: 1. No CT evidence for osteomyelitis. 2. Severe diffuse subcutaneous edema and intramuscular edema in the leg with a large superficial fluid collection in the anteromedial leg. Findings are most compatible with severe cellulitis. No CT evidence for necrotizing fasciitis. A preliminary report was provided by Sold.
--- NOTE | 2018-11-10 13:10 | US ---
HISTORY: Leg pain and swelling. Evaluate for DVT PHYSICIAN(S): Wojciech Anton MD. TECHNIQUE: Duplex sonography and color-flow Doppler with graded compression were used to evaluate the deep venous systems of both lower extremities. The exam is limited by body habitus and FINDINGS: The visualized deep venous systems of both lower extremities are sonographically normal and compressible. Normal wave forms and augmentation are seen. There is no sonographic evidence for deep venous thrombosis in the visualized segments of both lower extremities. IMPRESSION: No sonographic evidence for deep venous thrombosis in the visualized segments of both lower extremities. Limited study.
[2018-11-10 16:53] VITALS: RESP 20
--- NOTE | 2018-11-10 22:07 | CON ---
DATE: 11/10/2018 HISTORY OF PRESENT ILLNESS: The patient is a single 68-year-old male with a history of schizophrenia,depression, and anxiety. No prior psychiatric hospitalizations. No history of suicide attempts, currently in treatment with Tristin Estrada at [facility] outpatient services, most recent followup was last month, prescribed Seroquel 100 mg at bedtime who was recently admitted for treatment of cellulitis and altered mental status presenting as a poor historian as initial prior to his hospitalization. Psychiatry was requested consult on the patient due to depression and anxiety symptoms. I reviewed recent nursing notes, I met with the patient at bedside. He is alert and oriented to month, year, location, and circumstances. He appears to show fair focus. His responses are consistent and coherent with repeated questioning. The patient denies having any major psychiatric issues that he would like to help with except for restarting Seroquel, which not started when he was admitted to the unit. He denies having any hallucinations, though he does have a past history of them. He feels somewhat "okay" hopeful about the future. Delusions were not elicited. There have been no major behavioral issues thus far. The patient appears to be in fairly good control and fairly related during the course of my questioning. Insight and judgment considered to be fair. PSYCHIATRIC HISTORY: As noted. The patient has no history of suicide attempt or psychiatric hospitalizations. Treatment at [facility] prescribed Seroquel 100 at bedtime, which the patient reports he has been compliant with. Most recent follow up with Tristin Estrada was a month ago. SOCIAL HISTORY: The patient was born and raised [place]. He denies any drug or alcohol issues. He is single. He has no children. He resides at [facility]. IMPRESSION: Schizophrenia by history. The patient is not on any relevant psychiatric medications at this time. RECOMMENDATIONS: This provider will restart Seroquel 100 at bedtime. There is no indication to change any other medication. The patient reported he is doing fine. Denies any major psychiatric concerns and there have been no behavioral concerns on the unit except for altered mental status, which could be obviously be due to his medical conditioning causing delirium symptoms; however, this appears to be clearing up. Psychiatry will sign off at this time. Please reconsult p.r.n. if there are any new issues. Zakia Cuellar MD [facility] # [id number]
--- NOTE | 2018-11-10 23:38 | CON ---
DATE OF CONSULTATION: 11/10/2018 LOCATION: The patient is seen in the ICU 128, Bed 5. CHIEF COMPLAINT: Temperature of 105 x1 day duration. HISTORY OF PRESENT ILLNESS: This is a 68-year-old male with past medical history significant for anxiety, depression, right eye cataract, asthma, hypertension, and peripheral vascular disease, who was admitted through the emergency room with chief complaint of lower extremity swelling, erythema and tenderness and was found to have a temperature of 105. Infectious disease consultation requested. The patient is complaining of diarrhea. The patient states he had severe diarrhea. He had been on antibiotics as outpatient. No abdominal pain or constipation. No dysuria or frequency. No headaches or blurred vision. PAST MEDICAL HISTORY: Significant for asthma, peripheral vascular disease, hypertension, right leg cellulitis, right eye cataract, anxiety and depression. PAST SURGICAL HISTORY: Incarcerated ventral hernia. MEDICATIONS AT HOME: Reviewed, include Seroquel and Eliquis. The patient was on antibiotics approximately a month ago. ALLERGIES: THE PATIENT HAS NO KNOWN ALLERGIES. REVIEW OF SYSTEMS: A 12-point review of systems is performed. PHYSICAL EXAMINATION: GENERAL: He is in bed, answering questions appropriately. VITAL SIGNS: Temperature of 102.5, T-max was 105.1, heart rate of 102, blood pressure is 93/63, and respiratory rate of 18. HEENT: Unremarkable. NECK: Supple. LUNGS: Have decreased breath sounds. HEART: Normal S1, S2. ABDOMEN: Soft, nontender. EXTREMITIES: Examination of the leg reveals significant erythema and edema and a bullous lesion in the middle and warm to touch. LABORATORY EXAMINATION: White count of 19,300, hemoglobin of 13, and platelets of 159,000. BUN of 23, creatinine of 1.3, and last creatinine prior to this was 1.0. The patient does have a CK elevation and procalcitonin 16.6. Urinalysis is noted. Microbiology is pending. The patient had a CAT scan of the extremity, the results are not known. History and physical examination is reviewed. Dr. Nur' consultation is also reviewed. According to Dr. Nur' surgical PGY-4 note, CAT scan does show cellulitis and there is no evidence of necrotizing fasciitis. ASSESSMENT/PLAN: This is a 68-year-old male with 1. Severe sepsis with right lower extremity cellulitis, 16% bandemia with acute kidney injury, and severe diarrhea in the outpatient. We will discontinue the clindamycin. We do not want to continue to have any more diarrhea. Check the stool for C. diff, treat the patient with vancomycin and Zosyn, and blood cultures and wound cultures and pancultures. Official CAT scan result pending. We will make further recommendations. Jet Davila MD
[2018-11-11] MEDS: Vancomycin 1gm in NS 250ml 1 GM/250 ML BAG IVPB SCH ×2 (05:01→17:22)
[2018-11-11] MEDS: Piperacillin/Tazobact 3.375 gm 100 ML IV SCH ×4 (07:00→22:45)
[2018-11-11] MEDS ORDERED: Sodium Chloride 0.9% 1,000 ML IV STA (07:34)
[2018-11-11 07:40] LABS: BASO # 0.01 K/mm3 (0.0-2.0); BASO % 0.1 % (0.0-3.0); EOS % 0.5 % (1.5-5.0); HEMOGLOBIN 10.5 g/dL (14.0-18.0); LYMPH # 0.7 (1.2-3.4); LYMPH % 8.8 % (22.0-35.0); MEAN CORPUSCULAR HEMOGLOBIN 27.8 pg (25.0-35.0); MEAN CORPUSCULAR HGB CONC 32.3 g/dl (31.0-37.0); MEAN PLATELET VOLUME 10.9 fl (7.0-11.0); MONO # 0.7 (0.1-0.6); MONO % 9.2 % (1.0-6.0); RBC 3.78 10^6/uL (3.5-6.1); RED CELL DISTRIBUTION WIDTH 13.7 % (11.5-14.5); WHITE BLOOD COUNT 7.8 10^3/uL (4.5-11.0)
[2018-11-11 08:04] LABS: ALBUMIN 3.3 g/dL (3.0-4.8); ALT/SGPT 41 U/L (7-56); AST/SGOT 77 U/L (17-59); BLOOD UREA NITROGEN 18 mg/dL (7-21); CALCIUM 8.3 mg/dL (8.4-10.5); GFR NON-AFRICAN AMERICAN > 60
--- NOTE | 2018-11-11 08:06 | CP.PCM.PN ---
Subjective - Date & Time of Evaluation Date of Evaluation: 11/11/18 Time of Evaluation: 08:01 - Subjective Subjective: General Surgery Dr. Cabello Pt seen and examined @bedside. No acute events overnight. Pt has no complaints this AM. pain much improved. denies F/C, N/V. tolerating diet. Objective - Vital Signs/Intake and Output Vital Signs (last 24 hours): Temp Pulse Resp BP Pulse Ox 97.2 F L 101 H 20 117/65 94 L 11/10/18 16:53 11/10/18 16:53 11/10/18 16:53 11/10/18 16:53 11/10/18 16:53 Intake and Output: 11/11/18 11/11/18 06:59 18:59 Intake Total 600 Output Total 900 Balance -300 - Medications Medications: Current Medications Apixaban (Eliquis) 5 mg PO BID JOHN; Protocol Last Admin: 11/10/18 17:04 Dose: 5 mg Piperacillin Sod/Tazobactam Sod (Zosyn 3.375 In Ns 100ml) 100 mls @ 200 mls/hr IV Q6H JOHN; Protocol Last Admin: 11/11/18 07:00 Dose: 200 mls/hr Vancomycin HCl (Vancomycin 1gm) 1 gm in 250 mls @ 167 mls/hr IVPB Q12H JOHN; Protocol Stop: 11/19/18 06:01 Last Admin: 11/11/18 05:01 Dose: 167 mls/hr Sodium Chloride (Sodium Chloride 0.9%) 1,000 mls @ 999 mls/hr IV .Q1H1M STA Stop: 11/11/18 08:34 Pantoprazole Sodium (Protonix Ec Tab) 40 mg PO 0600 JOHN Quetiapine Fumarate (Seroquel) 100 mg PO HS JOHN; Protocol Last Admin: 11/10/18 21:20 Dose: 100 mg - Labs Labs: 11/11/18 07:00 11/10/18 05:30 PT 16.1 SECONDS (9.4-12.5) H 11/09/18 16:00 INR 1.45 11/09/18 16:00 APTT 35.8 Seconds (26.9-38.3) 11/09/18 16:00 - Constitutional Appears: Non-toxic, No Acute Distress - Head Exam Head Exam: NORMAL INSPECTION - Eye Exam Eye Exam: Normal appearance - ENT Exam ENT Exam: Mucous Membranes Moist - Respiratory Exam Respiratory Exam: NORMAL BREATHING PATTERN. absent: Accessory Muscle Use, Respiratory Distress - Cardiovascular Exam Cardiovascular Exam: absent: Bradycardia, Tachycardia - GI/Abdominal Exam GI & Abdominal Exam: Soft. absent: Distended - Extremities Exam Additional comments: RLE w/ improved erythema, now localized to calf improved edema. dressing c/d/i - Neurological Exam Neurological Exam: Alert, Awake, Oriented x3 - Psychiatric Exam Psychiatric exam: Normal Affect, Normal Mood - Skin Skin Exam: Dry, Warm Assessment and Plan - Assessment and Plan (Free Text) Assessment: 68 y/o M w/ resolved sepsis 2/2 RLE cellulitis, improved Plan: - f/u arterial duplex RLE - cont IV Abx per ID - keep RLE clean/dry w/ dressing changes as needed - elevate RLE - pain management - Monitor vitals - PT/OT - DVT PPx Pt discussed w/ Dr. Irineo Mitchell PGY3
[2018-11-11 08:09] LABS: CK-MB 1.4 ng/mL (0.0-3.6)
[2018-11-11] MEDS ORDERED: Iodixanol 320 MG/ML 100 ML BOTTLE IV ONE (08:50)
--- NOTE | 2018-11-11 11:21 | CP.PCM.PN ---
<AdityaVelia - Last Filed: 11/11/18 11:18> Subjective - Date & Time of Evaluation Date of Evaluation: 11/11/18 Time of Evaluation: 11:18 - Subjective Subjective: Podiatry progress note for Dr. Farr 68 y/o male patient seen and evaluated at bedside due to cellulitis and blister formation to the right leg. Patient is alert, awake and in no acute distress. Patient reports feeling beter since ED arrival. Patient seen to be sitting in chair at bedside, patient denies any acute overnight complaints. Patient denies chest pain, SOB, current nausea, vomiting, abdominal pain. Patient denies any similar symptoms in the past. Objective - Vital Signs/Intake and Output Vital Signs (last 24 hours): Temp Pulse Resp BP Pulse Ox 100.2 F H 80 20 104/64 94 L 11/11/18 06:00 11/11/18 06:00 11/11/18 06:00 11/11/18 06:00 11/11/18 06:00 Intake and Output: 11/11/18 11/11/18 06:59 18:59 Intake Total 600 Output Total 900 Balance -300 - Medications Medications: Current Medications Apixaban (Eliquis) 5 mg PO BID JOHN; Protocol Last Admin: 11/11/18 10:15 Dose: 5 mg Piperacillin Sod/Tazobactam Sod (Zosyn 3.375 In Ns 100ml) 100 mls @ 200 mls/hr IV Q6H JOHN; Protocol Last Admin: 11/11/18 07:00 Dose: 200 mls/hr Vancomycin HCl (Vancomycin 1gm) 1 gm in 250 mls @ 167 mls/hr IVPB Q12H JOHN; Protocol Stop: 11/19/18 06:01 Last Admin: 11/11/18 05:01 Dose: 167 mls/hr Pantoprazole Sodium (Protonix Ec Tab) 40 mg PO 0600 JOHN Quetiapine Fumarate (Seroquel) 100 mg PO HS JOHN; Protocol Last Admin: 11/10/18 21:20 Dose: 100 mg - Labs Labs: 11/11/18 07:00 11/11/18 07:00 PT 16.1 SECONDS (9.4-12.5) H 11/09/18 16:00 INR 1.45 11/09/18 16:00 APTT 35.8 Seconds (26.9-38.3) 11/09/18 16:00 - Constitutional Appears: Well, Non-toxic, No Acute Distress - Head Exam Head Exam: ATRAUMATIC, NORMOCEPHALIC - Extremities Exam Additional comments: VASC: DP and PT palpable, CFT less than 3 seconds, TG warm to the right lower leg NEURO: grossly intact DERM: Right lower leg with cellultis, positive tenderness, postive edema, positive erythema, multiple large bullae over the anterior and posterior medial aspect of the leg, another small superifical wound noted to the anterior aspect of the leg as well, no purulent drainage noted, no malodor, no probe to bone ORTHO: pain on palpation to the right leg - Neurological Exam Neurological Exam: Alert, Awake, Oriented x3 - Psychiatric Exam Psychiatric exam: Normal Affect, Normal Mood Assessment and Plan - Assessment and Plan (Free Text) Assessment: 68 y/o male patient seen and evaluated for right leg cellulitis with blisters Plan: Patient seen and evaluated Plan discussed with attending Chart, labs reviewed- WBC 7.8 (11/11), afebrile at this time LE US: negative for DVT bilaterally Right Lower Extremity CT: questionable fluid collection, possible abscess to the anterior medial aspect of the leg Right leg bullas punctured and drained with sterile instruments, overlying skin roof kept intact Wound dressed with calcium Alginate, Xeroform, Superabsobant, DSD Pending Wound Cultures Continue IV Abx, ID recommendations appreciated Podiatry will continue to follow patient while in house <Malick Farr - Last Filed: 11/12/18 10:44> Objective - Vital Signs/Intake and Output Vital Signs (last 24 hours): Temp Pulse Resp BP Pulse Ox 98 F 85 20 113/68 95 11/12/18 08:14 11/12/18 08:14 11/12/18 08:14 11/12/18 08:14 11/12/18 08:14 Intake and Output: 11/12/18 11/12/18 06:59 18:59 Intake Total 240 Output Total 600 Balance -360 - Medications Medications: Current Medications Heparin Sodium (Porcine) (Heparin) 5,000 units SC Q8 JOHN; Protocol Last Admin: 11/12/18 06:10 Dose: 5,000 units Piperacillin Sod/Tazobactam Sod (Zosyn 3.375 In Ns 100ml) 100 mls @ 200 mls/hr IV Q6H JOHN; Protocol Last Admin: 11/12/18 10:29 Dose: 200 mls/hr Vancomycin HCl (Vancomycin 1gm) 1 gm in 250 mls @ 167 mls/hr IVPB Q12H JOHN; Protocol Stop: 11/19/18 06:01 Last Admin: 11/12/18 06:11 Dose: 167 mls/hr Sodium Chloride (Sodium Chloride 0.9%) 1,000 mls @ 100 mls/hr IV .Q10H JOHN Last Admin: 11/12/18 10:31 Dose: 100 mls/hr Pantoprazole Sodium (Protonix Ec Tab) 40 mg PO 0600 JOHN Last Admin: 11/12/18 06:11 Dose: 40 mg - Labs Labs: 11/12/18 07:00 11/12/18 07:00 PT 16.1 SECONDS (9.4-12.5) H 11/09/18 16:00 INR 1.45 11/09/18 16:00 APTT 35.8 Seconds (26.9-38.3) 11/09/18 16:00 Attending/Attestation - Attestation I have personally seen and examined this patient.: Yes I have fully participated in the care of the patient.: Yes I have reviewed all pertinent clinical information, including history, physical exam and plan: Yes
--- NOTE | 2018-11-11 12:33 | CT ---
Date of service: 11/11/2018 PROCEDURE: CT Chest with contrast (Pulmonary Angiogram) HISTORY: rule out PE COMPARISON: Plain radiograph from 11/10/2018 TECHNIQUE: Axial computed tomography images were obtained of the chest in the pulmonary arterial phase of enhancement. Coronal and sagittal reformatted images were created and reviewed. Intravenous contrast dose: Radiation dose: Total exam DLP = 486.21 mGy-cm. This CT exam was performed using one or more of the following dose reduction techniques: Automated exposure control, adjustment of the mA and/or kV according to patient size, and/or use of iterative reconstruction technique. FINDINGS: PULMONARY ARTERIES: There are no filling defects in the pulmonary arteries to suggest acute pulmonary embolism. AORTA: No acute findings. No thoracic aortic aneurysm. No aortic atherosclerotic calcification or mural plaque present. LUNGS: The lungs are well inflated and clear. There are multifocal tree-in-bud opacities in the posterior segment of the right upper lobe, lingula and both superior segments of the lower lobes PLEURAL SPACES: No effusion or pneumothorax. HEART: Mild cardiomegaly. No significant pericardial effusion. LYMPH NODES: No pathologic mediastinal or hilar lymphadenopathy. BONES, CHEST WALL: Within normal limits for the patient's age. No fracture or destructive lesion OTHER FINDINGS: None. IMPRESSION: 1. No CTA evidence for acute pulmonary embolism. 2. Multifocal tree-in-bud opacities in the posterior segments of the upper lobe, lingula and superior segments of both lower lobe most compatible with infectious bronchiolitis and nonspecific pneumonia. Endobronchial spread of infection, atypical infections such as CARTER and aspiration pneumonitis status are also differential considerations. Follow-up after medical management is recommended to ensure complete resolution.
[2018-11-11] MEDS: Dextrose 5%/0.45% NS 1,000 ML IV SCH (12:52)
--- NOTE | 2018-11-11 12:53 | PN ---
DATE: 11/11/2018 SUBJECTIVE: The patient is in bed, in no acute distress, nontoxic. PHYSICAL EXAMINATION: VITAL SIGNS: Temperature is 97, blood pressure is 117/60, respiratory rate of 20. HEENT: Unremarkable. NECK: Supple. LUNGS: Have decreased breath sounds. HEART: Normal S1, S2. ABDOMEN: Soft. EXTREMITIES: Her leg is much improved. LABORATORY DATA: Laboratory examination reveals a white count of 7.8, hemoglobin of 10, BUN of 23, creatinine of 1.1. Procalcitonin is noted. Chemistries are noted. Urinalysis is noted. Microbiology reveals the blood cultures are no growth. The leg culture is pending. The stool for C. diff. is negative. Imaging reveals the patient has a CAT scan of the lower extremity which shows no necrotizing fasciitis and no evidence of osteomyelitis. ASSESSMENT AND PLAN: This is a 68-year-old male with severe sepsis with right lower extremity cellulitis with bandemia of 16%, acute kidney injury. The patient does have diarrhea and Clostridium difficile is negative. Should think about also pyoderma gangrenosum associated with inflammatory bowel disease, on vancomycin and Zosyn. Waiting for culture results, able to switch to p.o. once the leg improves and the culture results are available. We will follow with you. Jet Davila MD
--- NOTE | 2018-11-11 16:04 | CP.PCM.PN ---
<CarlosBrandon - Last Filed: 11/11/18 15:57> Subjective - Date & Time of Evaluation Date of Evaluation: 11/11/18 Time of Evaluation: 15:58 - Subjective Subjective: Medicine progress note - Carlos pGY - 2 Patient seen and examined at bedside. Patient's wound has been seeping; had low grade temp overnight but it resolved. Patient otherwise without acute complaints at present. Objective - Vital Signs/Intake and Output Vital Signs (last 24 hours): Temp Pulse Resp BP Pulse Ox 100.2 F H 80 20 104/64 94 L 11/11/18 06:00 11/11/18 06:00 11/11/18 06:00 11/11/18 06:00 11/11/18 06:00 Intake and Output: 11/11/18 11/11/18 06:59 18:59 Intake Total 600 Output Total 900 Balance -300 - Medications Medications: Current Medications Apixaban (Eliquis) 5 mg PO BID JOHN; Protocol Last Admin: 11/11/18 10:15 Dose: 5 mg Piperacillin Sod/Tazobactam Sod (Zosyn 3.375 In Ns 100ml) 100 mls @ 200 mls/hr IV Q6H JOHN; Protocol Last Admin: 11/11/18 12:53 Dose: 200 mls/hr Vancomycin HCl (Vancomycin 1gm) 1 gm in 250 mls @ 167 mls/hr IVPB Q12H JOHN; Protocol Stop: 11/19/18 06:01 Last Admin: 11/11/18 05:01 Dose: 167 mls/hr Pantoprazole Sodium (Protonix Ec Tab) 40 mg PO 0600 JOHN Quetiapine Fumarate (Seroquel) 100 mg PO HS JONH; Protocol Last Admin: 11/10/18 21:20 Dose: 100 mg - Labs Labs: 11/11/18 07:00 11/11/18 07:00 PT 16.1 SECONDS (9.4-12.5) H 11/09/18 16:00 INR 1.45 11/09/18 16:00 APTT 35.8 Seconds (26.9-38.3) 11/09/18 16:00 - Constitutional Appears: Well - Head Exam Head Exam: ATRAUMATIC, NORMAL INSPECTION, NORMOCEPHALIC - Eye Exam Eye Exam: EOMI, Normal appearance, PERRL Pupil Exam: NORMAL ACCOMODATION, PERRL - ENT Exam ENT Exam: Mucous Membranes Moist, Normal Exam - Neck Exam Neck Exam: Full ROM, Normal Inspection. absent: Lymphadenopathy - Respiratory Exam Respiratory Exam: Clear to Ausculation Bilateral, NORMAL BREATHING PATTERN - Cardiovascular Exam Cardiovascular Exam: REGULAR RHYTHM, +S1, +S2. absent: Murmur - GI/Abdominal Exam GI & Abdominal Exam: Soft, Normal Bowel Sounds. absent: Tenderness - Extremities Exam Extremities Exam: Full ROM, Normal Capillary Refill, Normal Inspection. absent: Joint Swelling, Pedal Edema - Back Exam Back Exam: NORMAL INSPECTION - Neurological Exam Neurological Exam: Alert, Awake, CN II-XII Intact, Normal Gait, Oriented x3 - Psychiatric Exam Psychiatric exam: Normal Affect, Normal Mood - Skin Skin Exam: Dry, Intact, Normal Color, Warm - Additional Findings Additional findings: Seeping RLE wound Assessment and Plan - Assessment and Plan (Free Text) Assessment: This is a 68 year old male with PMH of depression, anxiety, right eye glaucoma, history of left and right leg cellulitis and PE in 2017 presenting to the hospital for worsening right leg wound. Plan Sepsis 2/2 RLE cellulitis - started on vancomycin day 2, zosyn day 3 - Continue fluid hydration - LE CT;diffuse circumferential inflammation and edema throughout the soft tissues of the right lower leg. Most prominent in the anterior aspect. The findings are nonspecific but cellulitis is suspected. Superficial crescent shape fluid collection along the anterior medial aspect, suspicious for possible abscess. Mild osteoarthritis of the right knee joint. - ID on consult, Dr. Davila - Surgery on consult, Dr. Cabello - Podiatry on consult, Dr. Mitchell - Continue to obtain CPK - improving - Blood cx, urine cx results pending Hx of depression/anxiety - Last refilled seroquel one year ago as per pharmacy ([facility] [address]) - Holding seroquel due to prolonged QTc - Psych on consult Rhabdomyolysis - Continue fluid hydration Hx of PE - Pulm Angiogram performed, negative for PE PPX - Protonix - DVT ppx with eliquis <Nas Lu - Last Filed: 11/11/18 16:32> Objective - Vital Signs/Intake and Output Vital Signs (last 24 hours): Temp Pulse Resp BP Pulse Ox 100.2 F H 80 20 104/64 94 L 11/11/18 06:00 11/11/18 06:00 11/11/18 06:00 11/11/18 06:00 11/11/18 06:00 Intake and Output: 11/11/18 11/11/18 06:59 18:59 Intake Total 600 Output Total 900 Balance -300 - Medications Medications: Current Medications Apixaban (Eliquis) 5 mg PO BID JOHN; Protocol Last Admin: 11/11/18 10:15 Dose: 5 mg Piperacillin Sod/Tazobactam Sod (Zosyn 3.375 In Ns 100ml) 100 mls @ 200 mls/hr IV Q6H JOHN; Protocol Last Admin: 11/11/18 12:53 Dose: 200 mls/hr Vancomycin HCl (Vancomycin 1gm) 1 gm in 250 mls @ 167 mls/hr IVPB Q12H JOHN; Protocol Stop: 11/19/18 06:01 Last Admin: 11/11/18 05:01 Dose: 167 mls/hr Sodium Chloride (Sodium Chloride 0.9%) 1,000 mls @ 100 mls/hr IV .Q10H JOHN Pantoprazole Sodium (Protonix Ec Tab) 40 mg PO 0600 JOHN Quetiapine Fumarate (Seroquel) 100 mg PO HS JOHN; Protocol Last Admin: 11/10/18 21:20 Dose: 100 mg - Labs Labs: 11/11/18 07:00 11/11/18 07:00 PT 16.1 SECONDS (9.4-12.5) H 11/09/18 16:00 INR 1.45 11/09/18 16:00 APTT 35.8 Seconds (26.9-38.3) 11/09/18 16:00 Attending/Attestation - Attestation I have personally seen and examined this patient.: Yes I have fully participated in the care of the patient.: Yes I have reviewed all pertinent clinical information, including history, physical exam and plan: Yes Notes (Text): 11/11/18 16:23 68 year old male with past medical history of depression, anxiety, LE cellulitis and history of PE (2017) who presented with sepsis (elevated lactic acid, leukocytosis, tachycardia) with RLE cellulitis with large superficial bullae which was drained. CT lower extremity showed severe cellulitis without necrotizing fasciitis. Continue with iv antibiotics as per ID. Podiatry and surgery are following. Will follow up on wound culture. D-dimer was elevated and patient was started on eliquis due to history of PE (2017) while awaiting studies. LE doppler is negative for DVT and CT is negative for PE (shows possible infectious bronchiolitis and nonspecific pneumonia). Can discontinue eliquis. Rhabdomyolysis is improving with IVF. Seroquel was resumed by psychiatrist. Should monitor QTc prolongation while on medication which is coming down. Nas Lu MD Hospitalist.
[2018-11-11] MEDS: Sodium Chloride 0.9% 1,000 ML IV SCH (18:06)
[2018-11-11] MEDS: Pantoprazole 40 mg EC Tab PO SCH (19:52)
[2018-11-12] MEDS: Piperacillin/Tazobact 3.375 gm 100 ML IV SCH ×4 (04:30→22:15)
[2018-11-12] MEDS: Pantoprazole 40 mg EC Tab PO SCH (06:11)
[2018-11-12] MEDS: Vancomycin 1gm in NS 250ml 1 GM/250 ML BAG IVPB SCH ×2 (06:11→18:27)
[2018-11-12 07:24] LABS: BASO # 0.02 K/mm3 (0.0-2.0); BASO % 0.3 % (0.0-3.0); EOS # 0.1 (0.0-0.7); EOS % 1.8 % (1.5-5.0); HEMOGLOBIN 11.2 g/dL (14.0-18.0); LYMPH # 0.7 (1.2-3.4); LYMPH % 8.8 % (22.0-35.0); MEAN CELL VOLUME 86.8 fl (80.0-105.0); MEAN CORPUSCULAR HEMOGLOBIN 27.9 pg (25.0-35.0); MEAN CORPUSCULAR HGB CONC 32.2 g/dl (31.0-37.0); MEAN PLATELET VOLUME 10.3 fl (7.0-11.0); MONO # 0.7 (0.1-0.6); MONO % 8.8 % (1.0-6.0); RBC 4.01 10^6/uL (3.5-6.1); RED CELL DISTRIBUTION WIDTH 13.7 % (11.5-14.5); WHITE BLOOD COUNT 7.6 10^3/uL (4.5-11.0)
--- NOTE | 2018-11-12 07:27 | CARD ---
APPROVED REPORT Date of service: 11/11/2018 EKG Measurement Heart [id number] <Conclusion> Normal sinus rhythm Left axis deviation Right bundle branch block Abnormal ECG
[2018-11-12 07:36] LABS: ALBUMIN 3.5 g/dL (3.0-4.8); ALT/SGPT 68 U/L (7-56); AST/SGOT 83 U/L (17-59); BLOOD UREA NITROGEN 19 mg/dL (7-21); CALCIUM 8.6 mg/dL (8.4-10.5); GFR NON-AFRICAN AMERICAN > 60
--- NOTE | 2018-11-12 07:41 | CP.PCM.PN ---
<Warren Lopez - Last Filed: 11/12/18 10:30> Subjective - Date & Time of Evaluation Date of Evaluation: 11/12/18 Time of Evaluation: 07:39 - Subjective Subjective: Podiatry progress note - Drs. Farr/Paula 68M seen and evaluated at bedside with Dr. Farr this AM with cellulitis and blister formation to the right leg. Patient seen to be sitting in chair at bedside, patient denies any acute overnight complaints. Patient denies chest pain, SOB, current nausea, vomiting, abdominal pain. Patient denies any similar symptoms in the past. Objective - Vital Signs/Intake and Output Vital Signs (last 24 hours): Temp Pulse Resp BP Pulse Ox 99.3 F 85 20 110/49 L 93 L 11/11/18 16:00 11/11/18 16:00 11/11/18 16:00 11/11/18 16:00 11/11/18 16:00 Intake and Output: 11/12/18 11/12/18 06:59 18:59 Intake Total 240 Output Total 600 Balance -360 - Medications Medications: Current Medications Heparin Sodium (Porcine) (Heparin) 5,000 units SC Q8 JOHN; Protocol Last Admin: 11/12/18 06:10 Dose: 5,000 units Piperacillin Sod/Tazobactam Sod (Zosyn 3.375 In Ns 100ml) 100 mls @ 200 mls/hr IV Q6H JOHN; Protocol Last Admin: 11/12/18 04:30 Dose: 200 mls/hr Vancomycin HCl (Vancomycin 1gm) 1 gm in 250 mls @ 167 mls/hr IVPB Q12H JOHN; Protocol Stop: 11/19/18 06:01 Last Admin: 11/12/18 06:11 Dose: 167 mls/hr Sodium Chloride (Sodium Chloride 0.9%) 1,000 mls @ 100 mls/hr IV .Q10H JOHN Last Admin: 11/11/18 18:06 Dose: 100 mls/hr Pantoprazole Sodium (Protonix Ec Tab) 40 mg PO 0600 JOHN Last Admin: 11/12/18 06:11 Dose: 40 mg - Labs Labs: 11/12/18 07:00 11/12/18 07:00 PT 16.1 SECONDS (9.4-12.5) H 11/09/18 16:00 INR 1.45 11/09/18 16:00 APTT 35.8 Seconds (26.9-38.3) 11/09/18 16:00 - Constitutional Appears: Non-toxic - Head Exam Head Exam: ATRAUMATIC - Extremities Exam Additional comments: VASC: DP and PT palpable, CFT less than 3 seconds, TG warm to the right lower leg NEURO: grossly intact DERM: Right lower leg with cellultis, positive tenderness, postive edema, positive erythema, multiple large bullae over the anterior and posterior medial aspect of the leg, another small superifical wound noted to the anterior aspect of the leg as well, no purulent drainage noted, no malodor, no probe to bone ORTHO: pain on palpation to the right leg - Neurological Exam Neurological Exam: Alert, Awake, Oriented x3 - Psychiatric Exam Psychiatric exam: Normal Affect Assessment and Plan - Assessment and Plan (Free Text) Assessment: 68M with right leg cellulitis with blisters Plan: Patient seen and evaluated with Dr. Farr Plan discussed with attending WBC 7.6, VSS LE US: negative for DVT bilaterally Right Lower Extremity CT: questionable fluid collection, possible abscess to the anterior medial aspect of the leg Right leg bullas punctured and drained with sterile instruments, overlying skin roof kept intact Wound dressed with calcium Alginate, Xeroform, Superabsobant, DSD Wound culture prelim - gram positive cocci Continue IV Abx, ID recommendations appreciated F/u ALICIA/PVR Podiatry will continue to follow patient while in house <Malick Farr - Last Filed: 11/12/18 10:42> Objective - Vital Signs/Intake and Output Vital Signs (last 24 hours): Temp Pulse Resp BP Pulse Ox 98 F 85 20 113/68 95 11/12/18 08:14 11/12/18 08:14 11/12/18 08:14 11/12/18 08:14 11/12/18 08:14 Intake and Output: 11/12/18 11/12/18 06:59 18:59 Intake Total 240 Output Total 600 Balance -360 - Medications Medications: Current Medications Heparin Sodium (Porcine) (Heparin) 5,000 units SC Q8 JOHN; Protocol Last Admin: 11/12/18 06:10 Dose: 5,000 units Piperacillin Sod/Tazobactam Sod (Zosyn 3.375 In Ns 100ml) 100 mls @ 200 mls/hr IV Q6H JOHN; Protocol Last Admin: 11/12/18 10:29 Dose: 200 mls/hr Vancomycin HCl (Vancomycin 1gm) 1 gm in 250 mls @ 167 mls/hr IVPB Q12H JOHN; Protocol Stop: 11/19/18 06:01 Last Admin: 11/12/18 06:11 Dose: 167 mls/hr Sodium Chloride (Sodium Chloride 0.9%) 1,000 mls @ 100 mls/hr IV .Q10H JOHN Last Admin: 11/12/18 10:31 Dose: 100 mls/hr Pantoprazole Sodium (Protonix Ec Tab) 40 mg PO 0600 JOHN Last Admin: 11/12/18 06:11 Dose: 40 mg - Labs Labs: 11/12/18 07:00 11/12/18 07:00 PT 16.1 SECONDS (9.4-12.5) H 11/09/18 16:00 INR 1.45 11/09/18 16:00 APTT 35.8 Seconds (26.9-38.3) 11/09/18 16:00 Attending/Attestation - Attestation I have personally seen and examined this patient.: Yes I have fully participated in the care of the patient.: Yes I have reviewed all pertinent clinical information, including history, physical exam and plan: Yes
[2018-11-12 07:58] LABS: CK-MB 1.9 ng/mL (0.0-3.6)
[2018-11-12] MEDS: Sodium Chloride 0.9% 1,000 ML IV SCH ×2 (10:31→12:55)
--- NOTE | 2018-11-12 10:35 | US ---
PROCEDURE: Lower extremity ALICIA exam HISTORY: Peripheral vascular disease with and ulceration. Previous smoker. PHYSICIAN(S): Wojciech Anton MD. FINDINGS: The resting ALICIA's are normal: right, 1.28and left, 1.05. The brachial systolic pressures are symmetric. The high thigh pressures and waveforms are relatively normal. The right calf PVR waveform is decreased in amplitude compared to the left. No pressure gradient is seen. This could represent right SFA occlusive disease. The right ankle and metatarsal waveforms are decreased in amplitude compared to the left. IMPRESSION: 1. Normal ABIs at rest. 2. Possible right SFA occlusive disease
--- NOTE | 2018-11-12 14:33 | CP.PCM.PN ---
Subjective - Date & Time of Evaluation Date of Evaluation: 11/12/18 Time of Evaluation: 14:30 - Subjective Subjective: Conner Roblero, PGY-1, Internal Medicine Progress Note for Dr. Gilmore Patient seen and evaluated at bedside. Patient had no acute overnight events. Patient continues to have edema, erythema, and drainage of right lower extremity. Patient reports improvement in pain of right lower extremity and is able to ambulate at this time. 12-point ROS was unremarkable except for what was mentioned above. Objective - Vital Signs/Intake and Output Vital Signs (last 24 hours): Temp Pulse Resp BP Pulse Ox 98 F 85 20 113/68 95 11/12/18 08:14 11/12/18 08:14 11/12/18 08:14 11/12/18 08:14 11/12/18 08:14 Intake and Output: 11/12/18 11/12/18 06:59 18:59 Intake Total 240 Output Total 600 Balance -360 - Medications Medications: Current Medications Heparin Sodium (Porcine) (Heparin) 5,000 units SC Q8 JOHN; Protocol Last Admin: 11/12/18 13:00 Dose: 5,000 units Piperacillin Sod/Tazobactam Sod (Zosyn 3.375 In Ns 100ml) 100 mls @ 200 mls/hr IV Q6H JOHN; Protocol Last Admin: 11/12/18 10:29 Dose: 200 mls/hr Vancomycin HCl (Vancomycin 1gm) 1 gm in 250 mls @ 167 mls/hr IVPB Q12H JOHN; Protocol Stop: 11/19/18 06:01 Last Admin: 11/12/18 06:11 Dose: 167 mls/hr Sodium Chloride (Sodium Chloride 0.9%) 1,000 mls @ 100 mls/hr IV .Q10H JOHN Last Admin: 11/12/18 12:55 Dose: 100 mls/hr Pantoprazole Sodium (Protonix Ec Tab) 40 mg PO 0600 JOHN Last Admin: 11/12/18 06:11 Dose: 40 mg - Labs Labs: 11/12/18 07:00 11/12/18 07:00 PT 16.1 SECONDS (9.4-12.5) H 11/09/18 16:00 INR 1.45 11/09/18 16:00 APTT 35.8 Seconds (26.9-38.3) 11/09/18 16:00 - Constitutional Appears: Well, Non-toxic, No Acute Distress - Head Exam Head Exam: ATRAUMATIC, NORMAL INSPECTION, NORMOCEPHALIC - Eye Exam Eye Exam: EOMI, PERRL - ENT Exam ENT Exam: Mucous Membranes Moist, Normal Exam - Neck Exam Neck Exam: Full ROM, Normal Inspection - Respiratory Exam Respiratory Exam: Clear to Ausculation Bilateral, NORMAL BREATHING PATTERN. absent: Rales, Rhonchi, Wheezes - Cardiovascular Exam Cardiovascular Exam: REGULAR RHYTHM, RRR, +S1, +S2. absent: Clicks, Gallop, Rubs - GI/Abdominal Exam GI & Abdominal Exam: Soft, Normal Bowel Sounds. absent: Distended, Firm, Guarding, Tenderness - Back Exam Back Exam: NORMAL INSPECTION Additional comments: erythema for right lower extremity, severe edema, bullae lanced, draining at this time - Neurological Exam Neurological Exam: Alert, Awake, CN II-XII Intact - Psychiatric Exam Psychiatric exam: Normal Affect, Normal Mood - Skin Additional comments: erythema for right lower extremity, severe edema, bullae lanced, draining at this time Assessment and Plan - Assessment and Plan (Free Text) Assessment: 68 year old male with past medical history of depression, anxiety, right eye glaucoma, left and right leg cellulitis, PE in 2017 presented with worsening right leg cellulitis. Plan: Sepsis 2/2 to Right Lower Extremity Cellulitis -Patient was febrile at 105.1 on admission. Patient had leukocytosis at 19.3 on admission -Patient currently has no leukocytosis and is afebrile. -Lower extremity CT 11/09: severe diffuse subcutaneous edema and intramuscular edema in the leg with large superficial fluid collection in the anteromedial leg. Findings most compatible with severe cellulitis. No evidence of necrotizing fasciitis -Lower extremity ultrasound 11/10: normal ALICIA at rest, possible right SFA occl usion disease -Chest CT 11/11: multifocal opacities in the posterior segments of the upper lobe, lingula, and superior segments of both lower lobe most compatible with infectious bronchiolitis and nonspecific pneumonia -Blood culture negative from 11/09 -Urine culture negative -MRSA negative -C. Diff, Ova and Parasites are negative -Wound culture negative -IV fluids discontinued -Continue to dress wound as per podiatry -Continue with vancomycin started on 11/10 and zosyn started on 11/09 -Will follow recommendations from ID and Podiatry. History of Depression/Anxiety -Last filled seroquel one year ago as per pharmacy -Will hold seroquel at this time History of pulmonary embolism -CTA: negative for PE Rhabdomyolysis-resolved -CK is now 480 from 2422 on admission -Fluid hydration discontinued Elevated transaminases -Mild elevation of AST and ALT -Could be secondary to zosyn -Will continue to trend GI prophylaxis: protonix DVT prophylaxis: heparin Patient plan discussed with Dr. Gilmore
--- NOTE | 2018-11-12 15:34 | CP.PCM.APN ---
Subjective - Date & Time of Evaluation Date of Evaluation: 11/12/18 Time of Evaluation: 14:00 - Subjective Subjective: Pt. seen sitting up chair, at bedside. denied shortness of breath, states has some leg discomfort, right leg wrapped with dressing, and yellow drainage noted. Denied further fever, chills. Objective - Vital Signs/Intake and Output Vital Signs (last 24 hours): Temp Pulse Resp BP Pulse Ox 98 F 85 20 113/68 95 11/12/18 08:14 11/12/18 08:14 11/12/18 08:14 11/12/18 08:14 11/12/18 08:14 Intake and Output: 11/12/18 11/12/18 06:59 18:59 Intake Total 240 Output Total 600 Balance -360 - Medications Medications: Current Medications Heparin Sodium (Porcine) (Heparin) 5,000 units SC Q8 JOHN; Protocol Last Admin: 11/12/18 13:00 Dose: 5,000 units Piperacillin Sod/Tazobactam Sod (Zosyn 3.375 In Ns 100ml) 100 mls @ 200 mls/hr IV Q6H JOHN; Protocol Last Admin: 11/12/18 10:29 Dose: 200 mls/hr Vancomycin HCl (Vancomycin 1gm) 1 gm in 250 mls @ 167 mls/hr IVPB Q12H JOHN; Protocol Stop: 11/19/18 06:01 Last Admin: 11/12/18 06:11 Dose: 167 mls/hr Pantoprazole Sodium (Protonix Ec Tab) 40 mg PO 0600 JOHN Last Admin: 11/12/18 06:11 Dose: 40 mg - Labs Labs: 11/12/18 07:00 11/12/18 07:00 PT 16.1 SECONDS (9.4-12.5) H 11/09/18 16:00 INR 1.45 11/09/18 16:00 APTT 35.8 Seconds (26.9-38.3) 11/09/18 16:00 - Constitutional Appears: Well, No Acute Distress - Head Exam Head Exam: NORMOCEPHALIC - Eye Exam Eye Exam: Normal appearance - ENT Exam ENT Exam: absent: Mucous Membranes Dry, Mucous Membranes Moist, Normal Exam, Normal External Ear Exam, Normal Oropharynx, TM's Normal Bilaterally - Neck Exam Neck Exam: Full ROM - Respiratory Exam Respiratory Exam: Clear to Ausculation Bilateral, NORMAL BREATHING PATTERN - Cardiovascular Exam Cardiovascular Exam: REGULAR RHYTHM, +S1, +S2 - GI/Abdominal Exam GI & Abdominal Exam: Soft - Rectal Exam Rectal Exam: Deferred - Exam Exam: absent: Circumcision, NORMAL INSPECTION, Scrotal Swelling, Testicular Tenderness, Uretheral Discharge, Testicular Vertical Lie, Bladder Distension External exam: absent: Ecchymosis, Erythema, Lacerations, Lesions, NORMAL E XTERNAL EXAM, Swelling Speculum exam: absent: Cervical Discharge, Erythema, Foreign Body, Laceration, NORMAL SPECULUM EXAM, Tissue, Vaginal Bleeding, Vaginal Discharge Bimanual exam: absent: Adenexal Mass, Adnexal, Cervical Motion Tendernes, NORMAL BIMANUAL EXAM, Uterine Enlargement, Uterine Tenderness - Extremities Exam Additional comments: erythema noted to right lower leg, 3-4+ edema noted to right lower leg with bullous , blister openings noted. Assessment and Plan - Assessment and Plan (Free Text) Assessment: ITS Impressions Extremity Ultrasound 11/09/18 15:00 IMPRESSION: No sonographic evidence for deep venous thrombosis in the visualized segments of both lower extremities. Limited study. Chest X-Ray 11/09/18 15:01 IMPRESSION: No focal consolidation. Lower Extremity CT 11/09/18 17:10 IMPRESSION: 1. No CT evidence for osteomyelitis. 2. Severe diffuse subcutaneous edema and intramuscular edema in the leg with a large superficial fluid collection in the anteromedial leg. Findings are most compatible with severe cellulitis. No CT evidence for necrotizing fasciitis. A preliminary report was provided by [employer] services. Chest X-Ray 11/10/18 08:12 IMPRESSION: No active pulmonary disease. Extremity Ultrasound 11/10/18 17:48 IMPRESSION: 1. Normal ABIs at rest. 2. Possible right SFA occlusive disease Chest CT 11/11/18 07:33 IMPRESSION: 1. No CTA evidence for acute pulmonary embolism. 2. Multifocal tree-in-bud opacities in the posterior segments of the upper lobe, lingula and superior segments of both lower lobe most compatible with infectious bronchiolitis and nonspecific pneumonia. Endobronchial spread of infection, atypical infections such as CARTER and aspiration pneumonitis status are also differential considerations. Follow-up after medical management is recommended to ensure complete resolution. Assessment: 68M with pmh, depression, anxiety, right leg cellulitis, came from [facility], with Right lower extremity cellulitis , admitted with sepsis to intensive care, for further eval and treatment. Plan: 1. Severe Sepsis r/t Right leg Cellulitis Antibx per I.D, Abdirashid and Julienne, consider switch to PO Antibx after improvement in appearance of cellulitis, final blood cx neg after 48 hours, per I.D possible pyoderma gangrenosum. 2. Poss. SFA Occlusive disease Further recs per podiatry, PT eval pending. Monitor clinical status and follow closely, monitor , trend wbc.
--- NOTE | 2018-11-12 19:37 | CARD ---
APPROVED REPORT Date of service: 11/12/2018 EKG Measurement Heart [id number] <Conclusion> Normal sinus rhythm Left axis deviation Right bundle branch block Abnormal ECG
--- NOTE | 2018-11-12 22:18 | PN ---
DATE: 11/12/2018 SUBJECTIVE: The patient is seen in bed, in no acute distress. PHYSICAL EXAMINATION: VITAL SIGNS: Temperature is 98, blood pressure is 113/60, and respiratory rate is 20. HEENT: Unremarkable. NECK: Supple. LUNGS: Have decreased breath sounds. HEART: Normal S1 and S2. ABDOMEN: Soft. LABORATORY EXAMINATION: Reveals a white count of 7.6, hemoglobin of 11, BUN of 19, and creatinine of 1. Right leg cultures negative. ASSESSMENT AND PLAN: This is a 68-year-old male with severe sepsis, right lower extremity cellulitis and bandemia 16%, acute kidney injury, no growth from the wound, should have a biopsy to rule out pyoderma gangrenosum because of the diarrhea and on vancomycin and Zosyn. The patient had a CT of the chest, which is noted. Dr. Farr's note is reviewed. We will follow with you. The patient also had a CT of the lower extremity, no evidence of osteomyelitis. Jet Davila MD
[2018-11-13] MEDS: Piperacillin/Tazobact 3.375 gm 100 ML IV SCH ×2 (04:55→10:21)
[2018-11-13] MEDS: Vancomycin 1gm in NS 250ml 1 GM/250 ML BAG IVPB SCH (05:31)
[2018-11-13] MEDS: Pantoprazole 40 mg EC Tab PO SCH (05:31)
[2018-11-13 07:01] LABS: BASO # 0.03 K/mm3 (0.0-2.0); BASO % 0.3 % (0.0-3.0); EOS # 0.2 (0.0-0.7); EOS % 2.3 % (1.5-5.0); HEMOGLOBIN 11.2 g/dL (14.0-18.0); LYMPH # 0.7 (1.2-3.4); LYMPH % 7.2 % (22.0-35.0); MEAN CELL VOLUME 85.6 fl (80.0-105.0); MEAN CORPUSCULAR HEMOGLOBIN 27.3 pg (25.0-35.0); MEAN CORPUSCULAR HGB CONC 31.9 g/dl (31.0-37.0); MEAN PLATELET VOLUME 10.2 fl (7.0-11.0); MONO # 0.9 (0.1-0.6); MONO % 9.5 % (1.0-6.0); RBC 4.1 10^6/uL (3.5-6.1); RED CELL DISTRIBUTION WIDTH 13.5 % (11.5-14.5); WHITE BLOOD COUNT 9.5 10^3/uL (4.5-11.0)
[2018-11-13 07:24] LABS: ALBUMIN 3.5 g/dL (3.0-4.8); ALT/SGPT 61 U/L (7-56); AST/SGOT 66 U/L (17-59); BLOOD UREA NITROGEN 15 mg/dL (7-21); CALCIUM 8.7 mg/dL (8.4-10.5); GFR NON-AFRICAN AMERICAN > 60
[2018-11-13 08:58] VITALS: BP 107/66; PULSE 75; TEMP 99.2; O2SAT 93
--- NOTE | 2018-11-13 10:42 | CP.PCM.PN ---
Subjective - Date & Time of Evaluation Date of Evaluation: 11/13/18 Time of Evaluation: 10:38 - Subjective Subjective: Podiatry progress note - Drs. Farr/Paula 68M seen and evaluated at bedside with Dr. Mitchell this AM with cellulitis and blister formation to the right leg. Patient seen to be sitting in chair at bedside, patient denies any acute overnight complaints. Patient denies chest pain, SOB, current nausea, vomiting, abdominal pain. Patient denies any similar symptoms in the past. Objective - Vital Signs/Intake and Output Vital Signs (last 24 hours): Temp Pulse Resp BP Pulse Ox 99.2 F 75 20 107/66 93 L 11/13/18 08:57 11/13/18 08:57 11/13/18 08:57 11/13/18 08:57 11/13/18 08:57 Intake and Output: 11/13/18 11/13/18 06:59 18:59 Intake Total 240 Output Total 100 Balance 140 - Medications Medications: Current Medications Heparin Sodium (Porcine) (Heparin) 5,000 units SC Q8 JOHN; Protocol Last Admin: 11/13/18 05:31 Dose: 5,000 units Piperacillin Sod/Tazobactam Sod (Zosyn 3.375 In Ns 100ml) 100 mls @ 200 mls/hr IV Q6H JOHN; Protocol Last Admin: 11/13/18 10:21 Dose: 200 mls/hr Vancomycin HCl (Vancomycin 1gm) 1 gm in 250 mls @ 167 mls/hr IVPB Q12H JOHN; Protocol Stop: 11/19/18 06:01 Last Admin: 11/13/18 05:31 Dose: 167 mls/hr Pantoprazole Sodium (Protonix Ec Tab) 40 mg PO 0600 JOHN Last Admin: 11/13/18 05:31 Dose: 40 mg - Labs Labs: 11/13/18 06:15 11/13/18 06:15 PT 16.1 SECONDS (9.4-12.5) H 11/09/18 16:00 INR 1.45 11/09/18 16:00 APTT 35.8 Seconds (26.9-38.3) 11/09/18 16:00 - Constitutional Appears: Non-toxic - Head Exam Head Exam: ATRAUMATIC - Extremities Exam Additional comments: VASC: DP and PT palpable, CFT less than 3 seconds, TG warm to the right lower leg NEURO: grossly intact DERM: Right lower leg with erythema, positive tenderness, postive edema, multiple large bullae over the anterior and posterior medial aspect of the leg that have erupted, another small superifical wound noted to the anterior aspect of the leg as well, no purulent drainage noted, no malodor, no probe to bone ORTHO: pain on palpation to the right leg - Neurological Exam Neurological Exam: Alert, Awake, Oriented x3 - Psychiatric Exam Psychiatric exam: Normal Affect Assessment and Plan - Assessment and Plan (Free Text) Assessment: 68M with right leg cellulitis vs stasis dermatitis with ruptured blisters Plan: Patient seen and evaluated with Dr. Mitchell WBC 9.5, VSS LE US: negative for DVT bilaterally Right Lower Extremity CT: questionable fluid collection, possible abscess to the anterior medial aspect of the leg Wound dressed with Xeroform, ABD, DSD Wound culture prelim - gram positive cocci Continue IV Abx, ID recommendations appreciated Normal ABIs, possible SFA occlusive disease Podiatry will continue to follow patient while in house Recommend TCU upon d/c as swelling and redness is still acute in nature
--- NOTE | 2018-11-13 14:22 | CP.PCM.DIS ---
Provider - Provider Date of Admission: 11/09/18 17:06 Attending physician: Nas Lu MD Primary care physician: NO FAMILY PROVIDER Consults: 11/09/18 17:08 Consult [Physician Consult] Stat Comment: Consulting Provider: Shola Cabello Consulting Physician: Shola Cabello Reason for Consult: necrotizing fasciitis 11/09/18 17:09 Infectious Disease Consult Stat Comment: Consulting Provider: Jet Davila Consulting Physician: Jet Davila Reason for Consult: necrotizing fasciitis 11/09/18 18:00 Podiatry Consult Routine Comment: Consulting Provider: Rosy Mitchell Consulting Physician: Rosy Mitchell Reason for Consult: RLE wound care; onychomycosis b/l 11/09/18 18:03 Psychiatry Consult Routine Comment: Consulting Provider: Zakia Cuellar Consulting Physician: Zakia Cuellar Reason for Consult: hx of depression/anxiety 11/09/18 21:52 Social Work Referral Routine Comment: DISCHARGE PLANNING WITH ASSISTANCE.WOUND CARE R LE Physician Instructions: Reason For Exam: EVALUATION 11/09/18 21:58 Nursing Referral for Wound Care Routine Comment: RIGHT LEG WORSENING CELLULITIS,EDEMA +4,LARGE BLIS Physician Instructions: Reason For Exam: EVALUATION Time Spent in preparation of Discharge (in minutes): 60 Hospital Course - Lab Results Lab Results: Micro Results 11/10/18 14:55 Leg - Right Gram Stain - Final 11/10/18 14:55 Leg - Right Wound Culture - Final No growth. 11/09/18 15:52 Blood-Venous Blood Culture - Preliminary NO GROWTH AFTER 3 DAYS 11/09/18 15:00 Blood-Venous Blood Culture - Preliminary NO GROWTH AFTER 3 DAYS 11/09/18 20:00 Stool Ova and Parasite Concentrate Exam - Final 11/09/18 20:00 Naris MRSA Culture (Admit) - Final MRSA NOT DETECTED 11/09/18 17:30 Urine Random Urine Culture - Final 10-50,000 CFU/ML. MULTIPLE SPECIES. PROBABLE CONTAMINATION. 11/09/18 20:00 Stool C. difficile Antigen & Toxins A,B - Final Most Recent Lab Values WBC 9.5 10^3/uL (4.5-11.0) D 11/13/18 06:15 RBC 4.10 10^6/uL (3.5-6.1) 11/13/18 06:15 Hgb 11.2 g/dL (14.0-18.0) L 11/13/18 06:15 Hct 35.1 % (42.0-52.0) L 11/13/18 06:15 MCV 85.6 fl (80.0-105.0) 11/13/18 06:15 MCH 27.3 pg (25.0-35.0) 11/13/18 06:15 MCHC 31.9 g/dl (31.0-37.0) 11/13/18 06:15 RDW 13.5 % (11.5-14.5) 11/13/18 06:15 Plt Count 203 10^3/uL (120.0-450.0) 11/13/18 06:15 MPV 10.2 fl (7.0-11.0) 11/13/18 06:15 Neut % (Auto) 80.7 % (50.0-68.0) H 11/13/18 06:15 Lymph % (Auto) 7.2 % (22.0-35.0) L 11/13/18 06:15 [place] % (Auto) 9.5 % (1.0-6.0) H 11/13/18 06:15 Eos % (Auto) 2.3 % (1.5-5.0) 11/13/18 06:15 Baso % (Auto) 0.3 % (0.0-3.0) 11/13/18 06:15 Lymph # (Auto) 0.7 (1.2-3.4) L 11/13/18 06:15 [place] # (Auto) 0.9 (0.1-0.6) H 11/13/18 06:15 Eos # (Auto) 0.2 (0.0-0.7) 11/13/18 06:15 Baso # (Auto) 0.03 K/mm3 (0.0-2.0) 11/13/18 06:15 Absolute Neuts (auto) 7.68 (1.4-6.5) H 11/13/18 06:15 Neutrophils % (Manual) 70 % (50.0-70.0) 11/09/18 16:00 Band Neutrophils % 16 % (0-2) H* 11/09/18 16:00 Lymphocytes % (Manual) 7 % (22.0-35.0) L 11/09/18 16:00 Monocytes % (Manual) 4 % (1.0-6.0) 11/09/18 16:00 Metamyelocytes % 3 % 11/09/18 16:00 Dohle Bodies Slight 11/09/18 16:00 Platelet Evaluation Normal (NORMAL) 11/09/18 16:00 PT 16.1 SECONDS (9.4-12.5) H 11/09/18 16:00 INR 1.45 11/09/18 16:00 APTT 35.8 Seconds (26.9-38.3) 11/09/18 16:00 D-Dimer, Quantitative 3877 ng/mlDDU (0-243) H 11/09/18 16:00 pO2 43 mm/Hg (30-55) 11/09/18 19:45 VBG pH 7.36 (7.32-7.43) 11/09/18 19:45 VBG pCO2 48.0 (40-60) 11/09/18 19:45 VBG HCO3 27.1 mmol/l (21-28) 11/09/18 19:45 VBG Total CO2 28.6 mmol.L (22-28) H 11/09/18 19:45 VBG O2 Sat (Calc) 79.7 % (40-65) H 11/09/18 19:45 VBG Base Excess 1.0 mmol/L (0.0-2.0) 11/09/18 19:45 VBG Potassium 3.5 mmol/L (3.6-5.2) L 11/09/18 19:45 Sodium 134.0 mmol/L (132-148) 11/09/18 19:45 Chloride 100.0 mmol/L (98-107) 11/09/18 19:45 Glucose 127 mg/dl (75-110) H 11/09/18 19:45 Lactate 1.8 mmol/L (0.7-2.1) 11/09/18 19:45 FiO2 21.0 % 11/09/18 19:45 Crit Value Called To Sabra ordaz rn 11/09/18 16:00 Crit Value Called By Bonnie 11/09/18 16:00 Blood Gas Notified Time 1879 11/09/18 16:00 Sodium 137 mmol/L (132-148) 11/13/18 06:15 Potassium 3.7 mmol/L (3.6-5.0) 11/13/18 06:15 Chloride 103 mmol/L (98-107) 11/13/18 06:15 Carbon Dioxide 25 mmol/L (21-33) 11/13/18 06:15 Anion Gap 12 (10-20) 11/13/18 06:15 BUN 15 mg/dL (7-21) 11/13/18 06:15 Creatinine 1.0 mg/dl (0.8-1.5) 11/13/18 06:15 Est GFR ( Amer) > 60 11/13/18 06:15 Est GFR (Non-Af Amer) > 60 11/13/18 06:15 Random Glucose 118 mg/dL (70-110) H 11/13/18 06:15 Lactic Acid 1.6 mmol/L (0.7-2.1) 11/09/18 18:06 Calcium 8.7 mg/dL (8.4-10.5) 11/13/18 06:15 Phosphorus 2.9 mg/dL (2.5-4.5) 11/10/18 05:30 Magnesium 1.8 mg/dL (1.7-2.2) 11/10/18 05:30 Total Bilirubin 1.2 mg/dL (0.2-1.3) 11/13/18 06:15 AST 66 U/L (17-59) H D 11/13/18 06:15 ALT 61 U/L (7-56) H 11/13/18 06:15 Alkaline Phosphatase 93 U/L (38-126) 11/13/18 06:15 Lactate Dehydrogenase 724 U/L (333-699) H 11/10/18 05:00 Total Creatine Kinase 480 U/L (35-230) H 11/12/18 07:00 CK-MB (CK-2) 1.9 ng/mL (0.0-3.6) 11/12/18 07:00 CK-MB (CK-2) % Cancelled 11/09/18 16:00 Troponin I < 0.01 ng/mL 11/09/18 16:00 NT-Pro-B Natriuret Pep 344 pg/mL (0-450) 11/09/18 16:00 Total Protein 6.9 g/dL (5.8-8.3) 11/13/18 06:15 Albumin 3.5 g/dL (3.0-4.8) 11/13/18 06:15 Globulin 3.4 gm/dL 11/13/18 06:15 Albumin/Globulin Ratio 1.0 (1.1-1.8) L 11/13/18 06:15 Procalcitonin 16.67 NG/ML (0.19-0.49) H 11/09/18 18:06 Venous Blood Potassium 3.5 mmol/L (3.6-5.2) L 11/09/18 19:45 Urine Color Dark yellow (YELLOW) 11/09/18 16:50 Urine Appearance Sl cloudy (CLEAR) 11/09/18 16:50 Urine pH 6.0 (4.7-8.0) 11/09/18 16:50 Ur Specific [place] >= 1.030 (1.005-1.035) 11/09/18 16:50 Urine Protein 100 mg/dL (<30 mg/dL) H 11/09/18 16:50 Urine Glucose (UA) Negative mg/dL (NEGATIVE) 11/09/18 16:50 Urine Ketones Negative mg/dL (NEGATIVE) 11/09/18 16:50 Urine Blood Large (NEGATIVE) H 11/09/18 16:50 Urine Nitrate Negative (NEGATIVE) 11/09/18 16:50 Urine Bilirubin Negative (NEGATIVE) 11/09/18 16:50 Urine Urobilinogen 0.2 E.U./dL (<1 E.U./dL) 11/09/18 16:50 Ur Leukocyte Esterase Negative Margret/uL (NEGATIVE) 11/09/18 16:50 Urine RBC 0 - 2 /hpf (0-2) 11/09/18 16:50 Urine WBC 0 - 2 /hpf (0-6) 11/09/18 16:50 Ur Epithelial Cells 1 - 3 /hpf (0-5) 11/09/18 16:50 Amorphous Sediment Moderate /hpf (NONE) 11/09/18 16:50 Urine Bacteria Small /hpf (NONE) 11/09/18 16:50 IgA 221.2 mg/dL (70.0-400.0) 11/09/18 18:06 - Hospital Course Hospital Course: Conner Roblero, PGY-1, Internal Medicine Discharge Summary for Dr. Gilmore 68 year old male with past medical history of depression, anxiety, right eye glaucoma, history of left and right leg cellulitis, and PE in 2017 presented with worsening right leg cellulitis. He is a poor historian and lives at [facility]. He reported that right leg erythema and swelling began 2 days prior to admission associated with blistering, sharp pain and fevers. He admitted to have similar symptoms in the past but this was the worst it had been. He had been able to ambulate in his usual state of health prior to right leg wound but had change of gait after erythema and swelling began. Patient was admitted for sepsis secondary to right lower extremity cellulitis. Patient was febrile at 105 on admission with leukocytosis and elevated lactate. Patient was started clindamycin and zosyn on admission. Blood culture, urine culture, MRSA, and wound culture were negative. This was changed to vancomycin and zosyn subsequently. Lower extremity CT was ordered to rule out osteomyelitis. CT showed no osteomyelitis. It showed subcutaneous edema and intramuscular edema in the leg with a large superficial fluid collection in the anteromedial leg. Severe cellulitis was seen. Patient was continued on treatment during this hospital stay and erythema and edema receded from the starting point of his leg on admission which was at the thigh level. In addition, his gait improved throughout the admission and he was able to walk to the bathroom and back without assistance. Patient had diarrhea on this admission and C. Dif, Ova and parasites were found to be negative. Low suspicion is present for infection at this time as diarrhea has resolved. Patient also has a history of PE. Upon admision, D-Dimer was elevated. Lower extremity doppler was negative for DVT and showed a normal ALICIA. V/Q scan was ordered but unable to be performed as patient could not tolerate test. Patient had CTA and was found to not have PE but was found to have opacities in posterior segments of upper lobe, lingula, suerprior segments of both lower lobe. Patient did not have any symptoms of pneumonia or respiratory infection on this admission, and a result, suspicion was low for pneumonia or respiratory infection. Patient had elevated creatinine kinase on admission at 2422 and was started on IV fluids with improvement to 480. Subsequently fluid hydration was discontinued. Patient was found to be stable and ready for discharge. Patient was told to follow up with PCP within 3-5 days. Patient was asked to have Dr. Morales refer her to GI for workup of diarrhea and to dermatology for potential biopsy of extremity cellulitis. Patient was referred to Dr. Mitchell within 1 week of discharge. Patient was told to perform daily dressing changes with xeroform. Patient was told that he would need compression stockings or LEA bandage for compression of extremity swelling. Patient was told to take augmentin twice a day for 10 days. Patient was told to return to the emergency department if she had any new or concerning symptoms. This is a brief summary of the events that transpired during this hospital admission. For more information, please refer to hospital documentation. Discharge Diagnoses Sepsis 2/2 to right lower extremity cellulitis History of depression/anxiety Rhabdomyolysis History of PE - Date & Time of H&P Date of H&P: 11/09/18 Time of H&P: 18:01 Discharge Exam - Head Exam Head Exam: ATRAUMATIC, NORMAL INSPECTION, NORMOCEPHALIC - Eye Exam Eye Exam: EOMI, PERRL Pupil Exam: NORMAL ACCOMODATION Additional comments: cloudy right eye - ENT Exam ENT Exam: Mucous Membranes Moist, Normal Exam - Neck Exam Neck exam: Full Rom, Normal Inspection - Respiratory Exam Respiratory Exam: Clear to PA & Lateral, NORMAL BREATHING PATTERN. absent: Rales, Rhonchi, Wheezes - Cardiovascular Exam Cardiovascular Exam: REGULAR RHYTHM, RRR, +S1, +S2. absent: Clicks, Gallop, Rubs - GI/Abdominal Exam GI & Abdominal Exam: Normal Bowel Sounds, Soft. absent: Firm, Guarding, Hernia, Tenderness - Extremities Exam Additional comments: right lower extremity severe erythema, lanced bullae, nonpitting edema, minimal warmth - Neurological Exam Neurological exam: Alert, CN II-XII Intact, Oriented x3 - Psychiatric Exam Psychiatric exam: Normal Affect, Normal Mood - Skin Additional comments: right lower extremity severe erythema, lanced bullae, nonpitting edema, minimal warmth Discharge Plan - Discharge Medications Prescriptions: Amoxicillin/Clavulanate [Augmentin 875 MG-125 MG] 1 tab PO BID 10 Days #20 tab - Follow Up Plan Condition: CRITICAL Disposition: HOME/ ROUTINE Instructions: Cellulitis (Skin Infection), Adult (DC) Additional Instructions: Please follow up with Dr. Morales within 3-[address] Morales refer you to turpentine distiller for further workup of diarrhea. Please have Dr. Morales refer you to temper mill roller for potential biopsy of right lower extremity cellulitis. You will need to follow up with Dr. Mitchell, Podiatry, within 1 week for follow up. You will need to do daily dressing changes with xeroform and daily dry dressing changes. You will need compression stockings or LEA bandage for compression of right lower extremity swelling. Please take augmentin twice a day for 10 days. Please return to the emergency department if you have any new or concerning symptoms. Referrals: Rosy Mitchell DPM [Staff Provider] - June Morales MD [Non-Staff] -
--- NOTE | 2018-11-13 16:17 | CP.PCM.PCO ---
Physician Communication Note - Physician Communication Note Physician Communication Note: dc home as per medical team this am,seen ambulating,pt eval for steps pend.
--- NOTE | 2018-11-13 20:54 | PN ---
DATE: 11/13/2018 SUBJECTIVE: The patient is in bed, in no acute distress, nontoxic. PHYSICAL EXAMINATION: VITAL SIGNS: Temperature is 99, blood pressure is 107/60 and respiratory rate of 20. HEENT: Unremarkable. NECK: Supple. LUNGS: Decreased breath sounds. HEART: Normal S1 and S2. ABDOMEN: Soft and nontender. LABORATORY DATA: Reveals a white count of 9.5 and hemoglobin 11. BUN 15 and creatinine of 1.0. Microbiology is noted. Clostridium difficile antigen and toxin is negative. Ova and parasites are negative. Leg culture is negative. ASSESSMENT AND PLAN: This is a 68-year-old male with severe sepsis with right lower extremity cellulitis with bandemia of 16%, acute kidney injury. No growth from the wound, should have a biopsy to rule out pyoderma gangrenosum. Biopsy should be sent for Acid-fast bacilli smear and cultures, fungal smears and cultures, Gram-stain, routine cultures and pathology special staining for pyoderma gangrenosum and see he have a Gastroenterology evaluation for the persistent diarrhea. Case discussed with the medical team. Jet Davila MD
== END 2018-11-13 20:18 | disposition home or self-care (01) | DRG 871 ==
LOC: ED 14:41 → ERH 17:06 → ICU 19:12 → 3RSO 11-10 11:24 → UNDODISIN 11-13 16:11
PROVIDERS: ADMIT Hospitalist; ATTEND Internal Medicine
DX: A41.9 Sepsis, unspecified organism (principal); N17.0 Acute kidney failure with tubular necrosis; L03.115 Cellulitis of right lower limb; M62.82 Rhabdomyolysis; E87.2 Acidosis; H33.21 Serous retinal detachment, right eye; I10 Essential (primary) hypertension; R65.20 Severe sepsis without septic shock; F41.9 Anxiety disorder, unspecified; F32.9 Major depressive disorder, single episode, unspecified; F20.9 Schizophrenia, unspecified; H54.61 Unqualified visual loss, right eye, normal vision left eye; Z91.14 Patient's other noncompliance with medication regimen; Z86.711 Personal history of pulmonary embolism; D64.9 Anemia, unspecified; Z83.3 Family history of diabetes mellitus; Z82.49 Family history of ischemic heart disease and other diseases of the circulatory system; I45.10 Unspecified right bundle-branch block; I89.1 Lymphangitis; J45.909 Unspecified asthma, uncomplicated; Z72.0 Tobacco use; Z88.0 Allergy status to penicillin